=== PATIENT | female | born 1940 | race Caucasian/White ===

== ENCOUNTER 2017-07-20 05:32 | Emergency (ER) | payer MEDICARE, OTHER, SELFPAY ==
[2017-07-20 05:33] VITALS: BP 127/79; PULSE 85; RESP 18; TEMP 36.7; O2SAT 97; BMI 31.8
--- NOTE | 2017-07-20 05:44 | RAD_ITS ---
STUDY: X-RAY CHEST REASON FOR EXAM: Female, 76 years old. Cold symptoms. TECHNIQUE: PA and lateral views of the chest. COMPARISON: Prior comparison studies are not available for review at this time. FINDINGS: There is hyperinflation of the lungs consistent with chronic obstructive lung disease (COPD). There is a left basilar pulmonary nodule measuring approximately 10.4 mm. This may be partially calcified. There is no demonstrated pleural abnormality. Normal size heart. Normal mediastinum and ioana. Normal visualized pulmonary arteries. There is atherosclerotic calcification of the aortic arch with tortuosity. There is demineralization of the osseous structures. There are degenerative changes of both shoulders and thoracic spine. There is no demonstrated abnormality of the visualized soft tissue structures of the upper abdomen. RAD/Chest PA and Lateral IMPRESSION: 1. Left basilar pulmonary nodule. 2. COPD without radiographic evidence of acute cardiopulmonary disease. Electronically Signed: Sherita Bhakta MD at 6:41 EDT , Service support ,
[2017-07-20 05:51] VITALS: O2SAT 93
[2017-07-20] MEDS: Ipratropium/Albuterol Sulfate 3 ML AMPUL.NEB INHALATION (05:55)
[2017-07-20] MEDS: Albuterol 2.5 MG/3 ML VIAL.NEB. INHALATION (05:55)
[2017-07-20 05:57] VITALS: PULSE 71; RESP 16
--- NOTE | 2017-07-20 07:11 | ED.VISSUMM ---
- ER Visit Summary Date of Service: 07/20/17 Chief Complaint: Cough History of Present Illness: The patient is a 76 F who initially felt that she just had a cold. She has had 1 week of cough nasal congestion and feeling like her ears are plugged. She also reports sore throat and chills but no documented fevers. She denies any chest pain or shortness of breath. She states she has not been sleeping well due to her symptoms. Given the length of symptoms she presented here today for evaluation. No vomiting or diarrhea. Physical Examination: Afebrile vitals are normal No distress resting comfortably Moist mucous membranes Heart regular rate and rhythm Patient has scattered expiratory wheezing she is not in respiratory distress she does not have increased work of breathing or retractions and is speaking in full sentences Test Results: Chest x-ray shows a left pulmonary nodule and changes consistent with COPD no acute process. Emergency Department Course and Treatment: Patient was treated with albuterol and Atrovent aerosols here with improvement. Her vitals are normal. Her cough is nonproductive. I believe her symptoms are more consistent with bronchitis and bronchospasm than bacterial infection. I do not see an indication for antibiotics. She was given a prescription for prednisone and albuterol MDI she was advised to follow-up with her primary care physician. She understands to return for new or worsening symptoms and was discharged home. Treatment Plan: [] Disposition: Discharge Impression: Bronchitis with wheezing This note was generated with [employer] dictation software. It may contain incorrect words, spelling, and punctuation that were not noted in review of the chart prior to signing ED Disposition - Plan for ED Patient: Chief Complaint: Cough Referrals: Mary Beth Fuller MD [Primary Care Provider] -
--- NOTE | 2017-07-20 07:13 | ED.DEP ---
ED Disposition - Plan for ED Patient: Chief Complaint: Cough Instructions: ED Bronchitis Asthmatic Prescriptions: Albuterol Inhaler [Ventolin Hfa] 1 - 2 puff INHALATION Q4H PRN PRN #1 inhaler PRN Reason: Wheezing Prednisone [Deltasone] 60 mg PO DAILY #15 tab Referrals: Mary Beth Fuller MD [Primary Care Provider] -
[2017-07-20 07:26] VITALS: BP 140/63; PULSE 67; RESP 18; O2SAT 95
== END 2017-07-20 07:32 | disposition home or self-care (01) ==
LOC: ED 05:46
PROVIDERS: Emergency Provider Emergency Medicine; Family Provider Internal Medicine; PCP Internal Medicine
DX: J40 Bronchitis, not specified as acute or chronic (principal); R06.2 Wheezing; J44.9 Chronic obstructive pulmonary disease, unspecified; R91.1 Solitary pulmonary nodule; J02.9 Acute pharyngitis, unspecified; Z79.899 Other long term (current) drug therapy
CPT/HCPCS: 71046; 94640; 99282

== ENCOUNTER 2018-08-21 13:24 | Emergency (ER) | payer MEDICARE, OTHER, SELFPAY ==
[2018-08-21 13:26] VITALS: BP 119/58; PULSE 69; RESP 18; TEMP 36.7; O2SAT 95; BMI 27.8
--- NOTE | 2018-08-21 13:45 | EKG12_ITS ---
Test Reason : FALL Blood Pressure : / mmHG Vent. Rate : 060 BPM Atrial Rate : 060 BPM P-R Int : 190 ms QRS Dur : 082 ms QT Int : 458 ms P-R-T Axes : 010 -12 007 degrees QTc Int : 458 ms Normal sinus rhythm Minimal voltage criteria for LVH, may be normal variant Borderline ECG Confirmed by SILVIA SANCHEZ, MONICA ([id number]), newspaper editor managing ZACK BARRETT ([id number]) on 08/23/2018 9:21:00 AM Referred By: PACO Confirmed By:MONICA VEGA MD
[2018-08-21] MEDS: Morphine 2 MG/ML Syringe IV (14:03)
[2018-08-21] MEDS: Ondansetron 4 MG/2 ML Vial IV (14:04)
[2018-08-21 14:05] LABS: Absolute Lymphocyte Count 2.38 X10^3/ul (0.83-4.51); Absolute Neutrophil Count 3.8 X10^3/uL (2.0-7.7); Basophil# 0.05 X10^3/uL; Basophil% 0.7 % (0-1); Eosinophil# 0.46 X10^3/uL; Eosinophils% 6.6 % (0-5); Hematocrit 39.4 % (37-47); Lymphocyte # 2.38 X10^3/ul (4.0); Lymphocyte % 34.4 % (19-41); Mean Corpuscular Hgb 31.2 pg (27.0-32.0); Mean Corpuscular Volume 94.5 fL (81-99); Mean Platelet Vol. 10.1 fl (6.2-12.0); Monocyte# 0.22 X10^3/uL; Monocyte% 3.2 % (0-10); Neutrophil # 3.78 X10^3/uL (2.7-7.7); Neutrophil % 54.7 % (47-70); POSITIVE COUNT NO; POSITIVE DIFFERENTIAL NO; POSITIVE MORPHOLOGY NO; Platelet Count 225 K/mm3 (150-450); RBC Distribution Width CV 13.6 % (11.6-14.6); RBC Distribution Width SD 47.1 fl (35.1-43.9); Red Blood Count 4.17 M/mm3 (4.2-5.4); White Blood Count 6.9 K/mm3 (4.4-11.0)
--- NOTE | 2018-08-21 14:15 | RAD_ITS ---
STUDY: X-RAY CHEST REASON FOR EXAM: Female, 78 years old. Trauma and pain TECHNIQUE: Single AP portable view of the chest. COMPARISON: 07/20/2017 FINDINGS: The lungs are clear and expanded. There is no demonstrated pleural abnormality. Normal size heart. Normal mediastinum and ioana. Normal visualized pulmonary arteries. Normal visualized aortic arch and descending thoracic aorta. Normal visualized thoracic spine. There is an acute, nondisplaced right humeral neck fracture. No dislocation. There is no demonstrated abnormality of the visualized soft tissue structures of the upper abdomen. RAD/Chest 1 View (Portable) IMPRESSION: Acute, nondisplaced right humeral neck fracture. No dislocation. Normal x-ray examination of the chest. Electronically Signed: Bacilio Bowser, at 15:10 EDT Tel , Service support ,
--- NOTE | 2018-08-21 14:15 | RAD_ITS ---
STUDY: X-RAY - RIGHT HUMERUS REASON FOR EXAM: Female, 78 years old. Pain and trauma TECHNIQUE: 2 view(s) of the humerus. COMPARISON: None. FINDINGS: Acute nondisplaced right humeral neck fracture. No dislocation. Remaining osseous structures are intact. There is no demonstrated soft tissue abnormality. RAD/Humerus min 2 Views IMPRESSION: See above. Electronically Signed: Bacilio Bowser, at 15:11 EDT Tel , Service support ,
--- NOTE | 2018-08-21 14:15 | RAD_ITS ---
STUDY: X-RAY - RIGHT RADIUS AND ULNA REASON FOR EXAM: Female, 78 years old. Fall. Pain. TECHNIQUE: 2 view(s) of the forearm. An oblique and lateral views were obtained. There is no frontal view. COMPARISON: None. FINDINGS: There is no demonstrated soft tissue swelling. There is generalized osteopenia. Normal visualized radius. Normal visualized ulna. RAD/Forearm 2 Views IMPRESSION: Osteopenia with no acute finding. Electronically Signed: Nic Cornejo MD at 14:32 EDT , Service support ,
[2018-08-21 14:19] LABS: ALB/GLOB Ratio 1.3 RATIO (0.9-2.4); AST(SGOT) 15 U/L (15-37); Alanine Aminotransfer ALT/SGPT 19 U/L (13-56); Albumin, Serum 3.9 g/dL (3.2-5.0); Alkaline Phosphatase 118 U/L (45-117); Anion Gap 9 (5-15); BUN 8 mg/dL (7-18); BUN/Creat Ratio 10.2 RATIO (10-20); Calcium,Total 8.3 mg/dL (8.5-10.1); Chloride 106 mmol/L (98-107); Creatinine, Serum 0.78 mg/dL (0.55-1.02); EST Glomerular Filtration Rate 76 mL/min (>60); Est Glom Filt Rate - Afr Amer 91 mL/min (>60); Estimated Creatinine Clearance 37.26 ml/min; Globulin 2.9 g/dL (2.2-4.2); Glucose 111 mg/dL (74-106); Potassium 3.6 mmol/L (3.5-5.1); Protein, Total 6.8 g/dL (6.4-8.2); Sodium Level 141 mmol/L (136-145)
--- NOTE | 2018-08-21 14:55 | ED.VISSUMM ---
- ER Visit Summary Date of Service: 08/21/18 Chief Complaint: Right shoulder injury History of Present Illness: The patient is a 78 F with a fall while standing up and digging holes. No loss of consciousness no nausea vomiting no head injury neck pain no chest pain shortness of breath fever or chills. She does not feel dizzy. Physical Examination: Not appear in acute distress. Moist mucous membranes, no obvious facial deformity No C-spine tenderness supple neck. Regular rate and rhythm without any obvious murmurs Clear lungs bilaterally speaking in full sentences without any obvious respiratory distress Abdomen soft and nontender no guarding or rebound She has tenderness over the proximal humerus region, some pain in the forearm but its ill-defined. No clavicle tenderness. Skin does not show any obvious rashes or lesions, no trauma. Alert oriented ?3 with no gross focal deficit Emergency Department Course and Treatment: She is found to have a proximal humerus fracture. She otherwise has a normal work-up, I will discharge her in stable condition with sling and swathe. She is to follow-up with orthopedics Treatment Plan: Discharge stable condition Impression: Proximal humerus fracture This note was generated with [employer] dictation software. It may contain incorrect words, spelling, and punctuation that were not noted in review of the chart prior to signing ED Disposition - Plan for ED Patient: Disposition: Home or Assisted Living Instructions: ED Mechanical Fall, ED Fx Shoulder Prescriptions: Hydrocodone Bitart/Apap 5-325 [[place] 5MG-325MG] 1 tab PO Q6H PRN PRN 3 Days #12 tab PRN Reason: Pain Referrals: Ryan Vanessa DO [STAFF PHYSICIAN] - 3-5 Days
--- NOTE | 2018-08-21 14:59 | ED.DCSUM_ITS ---
- ER Visit Summary Date of Service: 08/21/18 Chief Complaint: Right shoulder injury History of Present Illness: The patient is a 78 F with a fall while standing up and digging holes. No loss of consciousness no nausea vomiting no head injury neck pain no chest pain shortness of breath fever or chills. She does not feel dizzy. Physical Examination: Not appear in acute distress. Moist mucous membranes, no obvious facial deformity No C-spine tenderness supple neck. Regular rate and rhythm without any obvious murmurs Clear lungs bilaterally speaking in full sentences without any obvious respiratory distress Abdomen soft and nontender no guarding or rebound She has tenderness over the proximal humerus region, some pain in the forearm but its ill-defined. No clavicle tenderness. Skin does not show any obvious rashes or lesions, no trauma. Alert oriented ?3 with no gross focal deficit Emergency Department Course and Treatment: She is found to have a proximal humerus fracture. She otherwise has a normal work-up, I will discharge her in stable condition with sling and swathe. She is to follow-up with orthopedics Treatment Plan: Discharge stable condition Impression: Proximal humerus fracture This note was generated with [employer] dictation software. It may contain incorrect words, spelling, and punctuation that were not noted in review of the chart prior to signing ED Disposition - Plan for ED Patient: Disposition: Home or Assisted Living Instructions: ED Mechanical Fall, ED Fx Shoulder Prescriptions: Hydrocodone Bitart/Apap 5-325 [[place] 5MG-325MG] 1 tab PO Q6H PRN PRN 3 Days #12 tab PRN Reason: Pain Referrals: Ryan Vanessa DO [STAFF PHYSICIAN] - 3-5 Days
[2018-08-21 15:51] VITALS: BP 136/78; PULSE 68; RESP 18; O2SAT 95
== END 2018-08-21 16:39 | disposition home or self-care (01) ==
PROVIDERS: Emergency Provider Emergency Medicine; Family Provider Internal Medicine; PCP Internal Medicine
DX: S42.201A Unspecified fracture of upper end of right humerus, initial encounter for closed fracture (principal); X58.XXXA Exposure to other specified factors, initial encounter; Y93.H1 Activity, digging, shoveling and raking; Y92.9 Unspecified place or not applicable; Y99.9 Unspecified external cause status; K21.9 Gastro-esophageal reflux disease without esophagitis; Z79.899 Other long term (current) drug therapy
CPT/HCPCS: 71045; 73060; 73090; 80053; 84484; 85025; 93005; 96361; 96374; 96375; 99285; J7040; A4216; J2405

== ENCOUNTER → 2018-08-25 10:34 | Outpatient (CLI) | payer MEDICARE, OTHER, SELFPAY ==
[2018-08-25 08:18] VITALS: BMI 27.8
--- NOTE | 2018-08-25 10:37 | RAD_ITS ---
STUDY: X-RAY - RIGHT SHOULDER REASON FOR EXAM: Female, 78 years old. History of fracture. TECHNIQUE: 4 view(s) of the shoulder. COMPARISON: Comparison is made with prior study dated August 21, 2018. FINDINGS: Normal glenohumeral articulation. There is degenerative arthrosis of the acromioclavicular joint without inferior osseous spur formation. Normal acromion. Stable appearance of the impacted nondisplaced transverse fracture of the humeral surgical neck with extension to the greater tuberosity. The soft tissue structures are unremarkable. Normal visualized pulmonary apex. RAD/Shoulder min 2 Views IMPRESSION: Stable examination. Electronically Signed: Wei Valerio, at 15:48 EDT , Service support ,
== END ==
PROVIDERS: Family Provider Internal Medicine; PCP Internal Medicine; Referring Provider Orthopaedic Surgery; Visit Provider Orthopaedic Surgery
DX: S42.90XA Fracture of unspecified shoulder girdle, part unspecified, initial encounter for closed fracture (principal); X58.XXXA Exposure to other specified factors, initial encounter; Y93.9 Activity, unspecified; Y92.9 Unspecified place or not applicable; Y99.9 Unspecified external cause status
CPT/HCPCS: 73030

== ENCOUNTER 2018-08-29 14:51 | Observation (INO) | payer MEDICARE, OTHER, SELFPAY ==
[2018-08-25 08:18] VITALS: BMI 27.8
[2018-08-28 11:18] VITALS: BMI 27.8
[2018-08-29] VITALS (9 sets, daily range): BP systolic 120–138; BP diastolic 46–79; PULSE 68–86; RESP 16–18; TEMP 36.1–37.2; O2SAT 93–100; BMI 29.6
--- NOTE | 2018-08-29 10:26 | PCM.HP.BLA ---
History and Physical Date of Admission: 08/29/18 MR#: [id number] Acct: [id number] Name: OSMANI STONE Rep #: [id number] : 1940 Provider: Ryan Vanessa DO Age/Sex: 78/F Location: [facility] – [place] Status: ISigned Intake Vital Signs 08/28/18 Body Mass Index (BMI) 27.8 Intake Visit Reasons: right shoulder Allergies acetaminophen [From Tylenol] Allergy (Verified 08/28/18 13:50) Chest tightness Medications Atorvastatin Calcium [Lipitor] 10 mg PO QHS 02/24/17 [History Confirmed 08/28/18] Omeprazole [Prilosec] 20 mg PO DAILY 02/24/17 [History Confirmed 08/28/18] Sertraline HCl [Zoloft] 50 mg PO DAILY 02/24/17 [History Confirmed 08/28/18] Naproxen [Naprosyn] 500 mg PO BID PRN 08/21/18 [History Confirmed 08/28/18] PFSH Social History Smoking Status: Never smoker HPI right shoulder: Surgical H&P: Yes Details: Parts of this documentation were recorded by a scribe, this documentation accurately reflects the service provided and the decisions made by , GREGORIO Linton 08/28/18 1110. OSMANI STONE is a 78 year old F here today for right shoulder fx. Patient states she is here today to sign consent for surgery. Patient has been in sling since her appt on 08/25/18. Denies numbness, tingling or other associated symptoms.STates she is having pain from her right shoulder to her right wrist. She does not like the idea of being immobilized and wishes to proceed with ORIF for earlier range of motion exercise ROS Const Reports system reviewed and no additional complaints, except as docu Eyes Reports system reviewed and no additional complaints, except as docu ENT Reports system reviewed and no additional complaints, except as docu Card Reports system reviewed and no additional complaints, except as docu Resp Reports system reviewed and no additional complaints, except as docu GI Reports system reviewed and no additional complaints, except as docu Musc Reports system reviewed and no additional complaints, except as docu, Reports as per HPI Skin/Breast Reports system reviewed and no additional complaints, except as docu Neuro Yes system reviewed and no additional complaints, except as docu Psych Reports system reviewed and no additional complaints, except as docu Endo Reports system reviewed and no additional complaints, except as docu [place]/Lymph Reports system reviewed and no additional complaints, except as docu Aller/Immun Reports system reviewed and no additional complaints, except as docu Ortho Exam Right Shoulder SHOULDER: unable to contract deltoid, with decreased sensation over deltoid Supplemental Info 08/25/2018 x-ray right shoulder surgical neck fracture with valgus angulation and displacement Assessment & Plan Problems 1. Other closed displaced fracture of proximal end of right humerus with routine healing, subsequent encounter S42.430T Plan - GREGORIO Linton Instructed not to lift anything with the right arm until after surgery. Reviewed the pre-operative plans with the patient. Risks and benefits of the procedure were fully explained, including but not limited to infection, neurovascular injury, continued pain, arthritis, stiffness, need for further surgery, re-injury, DVT, PE, general risks of anesthesia, and loss of limb or life. The patient understands all the risks and does wish to proceed with written consent. Follow up post op or sooner if pain, swelling, numbness or associated symptoms, or concerns develop. All questions answered. Patient in agreement of plan. Plan - Ryan Vanessa, DO Patient understands she may already have a neuropraxia of the axillary nerve secondary to injury. Coding Diagnoses Other closed displaced fracture of proximal end of right humerus with routine healing, subsequent encounter S42.797D ??Encounter type: subsequent encounter ??Fracture alignment: displaced ??Fracture healing: with routine healing ??Fracture morphology: other fracture ??Fracture type: closed ??Humerus Location: proximal 08/28/18 1516 <Electronically signed by Noel PERKINS> Date oNel PERKINS I have re-examined the patient. There are no clinical changes since date of exam
[2018-08-29] MEDS: Cefazolin 2 GM in 0.9% Normal Saline 100 ML IV ×2 (12:56→20:33)
--- NOTE | 2018-08-29 12:56 | RAD_ITS ---
STUDY: X-RAY - RIGHT HUMERUS REASON FOR EXAM: Female, 78 years old. Fracture repair. TECHNIQUE: Fluoroscopic guidance was provided to Dr. Vanessa. 3 fluoroscopic spot view(s) of the humerus are submitted. FLUOROSCOPY TIME: 70 seconds. COMPARISON: Plain film views of the right shoulder August 25, 2018. FINDINGS: The fracture of the proximal right humerus is fixed in rough anatomic alignment by a lateral metal sideplate secured with numerous metal screws into the humeral head and proximal humeral diaphysis. The articular surface of the humeral head remains in anatomic alignment with the glenoid of the scapula. Lucency in the adjacent soft tissues consistent with an open surgical wound. RAD/Humerus min 2 Views IMPRESSION: Fluoroscopic guidance for ORIF of proximal right humeral fracture with metal hardware, as noted. Electronically Signed: Galileo Dunne MD at 19:32 EDT , Service support ,
--- NOTE | 2018-08-29 15:03 | OP.PCM_ITS ---
Report of Operation Date of Procedure: 08/29/18 Description of Surgical Findings:: Preoperative diagnosis: Right proximal humerus surgical neck greater tuberosity fracture displaced three-part Postoperative diagnosis: Same Procedure: Open reduction internal fixation right proximal humerus Implants: Synthes 3 hole proximal humerus plate Anesthesia: General with interscalene block EBL: 150 Complications: None Condition: Stable to PACU Indication for procedure: This is a 78-year-old female patient who sustained an injury to her right proximal humerus with PA for mention fracture we discussed operative versus nonoperative intervention patient initially wished for conservative care and then followed up following week requesting surgical fixation with the attempt to restore earlier range of motion to her shoulder. Risk benefits and alternatives were reviewed including risk of bleeding infection nerve, artery, bone, tissue damage, blood clot need for further surgery and continued pain, stiffness and need for postoperative physical therapy rehabilitation and postoperative restrictions. Procedure: Patient was met the preoperative holding area. Once again the operative extremity was identified by both patient and physician and was marked. Patient was met by anesthesia and interscalene block was placed by anesthesia. Patient was brought back to the operating room and transferred to the operating table in the supine position. Anesthesia was started. Patient was then positioned a bump under her right scapula and she was positioned with the head of the bed elevated about 45 degrees C arm was brought in from the contralateral side to assure we could achieve both AP and Y view projections she was then prepped and draped in the usual sterile fashion and a timeout was called to ensure the proper patient procedure and extremity were being contemplated. A standard deltopectoral approach was performed with a 10 blade scalpel dissection was carried down as full-thickness flaps until the deltopectoral interval was identified the cephalic vein was mobilized medially subdeltoid bursal adhesions were freed with a Gonzalez and the fracture was identified fracture was reduced with forward flexion and abduction K wires were placed into the humeral head to aid in the reduction a plate was then positioned temporarily with K wires checked under fluoroscopy and then secured to the shaft with cortical screws and locking screws in the head is were checked on both AP and lateral projections. The wou nd was thoroughly irrigated with several liters of irrigation followed by Aricept rinse which was allowed to sit for 2 minutes followed by several more liters of irrigation the deltopectoral interval was closed with 2-0 Vicryl running stitch followed by 2-0 Vicryl subcutaneous stitches followed by 3-0 Monocryl stitch benzoin and Steri-Strips were applied followed by Xeroform 4 x 4 ABD and Ioban a simple sling was placed she was transferred the PACU in stable condition all counts were correct there is no intraoperative complications.
[2018-08-29] MEDS: Lactated Ringers 1,000 ML 125 ML IV (18:25)
[2018-08-29] MEDS: Atorvastatin Calcium 10 MG Tablet PO (20:33)
[2018-08-29] MEDS: oxyCODONE 5 MG Tablet PO (20:33)
[2018-08-29] MEDS: HYDROmorphone 0.5 MG/0.5 ML SYRINGE IV (21:17)
[2018-08-30] MEDS: oxyCODONE 5 MG Tablet PO ×3 (00:43→10:51)
[2018-08-30 02:05] VITALS: BP 126/52; PULSE 77; RESP 18; TEMP 36.7; O2SAT 96
[2018-08-30] MEDS: Cefazolin 2 GM in 0.9% Normal Saline 100 ML IV (05:08)
--- NOTE | 2018-08-30 07:33 | DCINST_ITS ---
Discharge Diet: No Restrictions Additional Activity Instructions:: Encourage finger and elbow range of motion immediately. Start shoulder pendulum exercises when pain allows and progressed to active range of motion when capable Call your doctor if you observe: Fever of 101 or Higher, Shortness of breath, Chest pain Additional Instructions: Begin showering postop day #3 and then daily at that point warm soapy water and shower over incision. No tub baths then change dressing daily at this point Allergies/Adverse Reactions: Allergies acetaminophen [From Tylenol] Allergy (Verified 08/29/18 09:33) Chest tightness Medications to take at Discharge Atorvastatin Calcium [Lipitor] 10 mg PO QHS 02/24/17 Omeprazole [Prilosec] 20 mg PO DAILY 02/24/17 Sertraline HCl [Zoloft] 50 mg PO DAILY 02/24/17 Naproxen [Naprosyn] 500 mg PO BID PRN 08/21/18 Oxycodone [Oxyir] 5 - 10 mg PO Q4H PRN PRN 7 Days #60 tablet 08/30/18 The following prescriptions were given: Oxycodone [Oxyir] 5 - 10 mg PO Q4H PRN PRN 7 Days #60 tablet PRN Reason: Mild-Mod Pain (-08/04) Primary Care Physician: Mary Beth Fuller MD [Primary Care Provider] - Test Results: Test results from this visit will be discussed in further detail at your follow- up appointment, if applicable. Please Follow Up With: Ryan Vanessa DO - 2 weeks
--- NOTE | 2018-08-30 07:33 | PCM.DC.SUM ---
Discharge Date and Diagnosis Date of Admission: 08/29/18 Date of Discharge: 08/30/18 Hospital Course and Treatment Summary of Care Provided: The patient is a 78 year old F with displaced proximal humerus fracture who wished to undergo elective open reduction internal fixation to start earlier range of motion. She underwent the aforementioned procedure on the admission date without any intraoperative complications she did receive interscalene block and general anesthesia. There was minimal intraoperative blood loss. She remained stable with vital signs and labs postoperatively. She is allowed active range of motion of the right upper extremity with no weight to it. She may begin showering 72 hours after her short surgery and daily after this point recommend changing dressing with ABD pad and silk tape daily once showering begins start home physical therapy follow-up in the office in 2 weeks. - Physical Exam Vital Signs Temp Pulse Resp BP Pulse Ox 98.1 F 77 18 126/52 H 96 08/30/18 02:05 08/30/18 02:05 08/30/18 02:05 08/30/18 02:05 08/30/18 02:05 Oxygen Flow Rate (L/min) 2 Oxygen Delivery Method Room Air Weight: 162 lb 0.636 oz Body Mass Index (BMI) 29.6 Intake and Output for Last 24 Hours 08/28/18 08/29/18 08/30/18 23:59 23:59 23:59 Intake Total 3640 / 3640 709 / 709 Output Total 300 / 300 150 / 150 Balance 3340 / 3340 559 / 559 Discharge Diet: No Restrictions Additional Activity Instructions:: Encourage finger and elbow range of motion immediately. Start shoulder pendulum exercises when pain allows and progressed to active range of motion when capable Call your doctor if you observe: Fever of 101 or Higher, Shortness of breath, Chest pain Home Medications: Medications to take at Discharge Atorvastatin Calcium [Lipitor] 10 mg PO QHS 02/24/17 Omeprazole [Prilosec] 20 mg PO DAILY 02/24/17 Sertraline HCl [Zoloft] 50 mg PO DAILY 02/24/17 Naproxen [Naprosyn] 500 mg PO BID PRN 08/21/18 Oxycodone [Oxyir] 5 - 10 mg PO Q4H PRN PRN 7 Days #60 tablet 08/30/18 Following Prescrptions Were Given to Patient: Oxycodone [Oxyir] 5 - 10 mg PO Q4H PRN PRN 7 Days #60 tablet PRN Reason: Mild-Mod Pain (-08/04) Primary Care Physician: Mary Beth Fuller MD [Primary Care Provider] - Please Follow Up With: Ryan Vanessa DO - 2 weeks Additional Instructions: Begin showering postop day #3 and then daily at that point warm soapy water and shower over incision. No tub baths then change dressing daily at this point Medical Necessity - Tobacco Use Smoking Status: Never smoker Tobacco Use: Non-smoker Meaningful Use Info Meaningful Use Diagnoses (Choose all that apply): None applicable
--- NOTE | 2018-08-30 09:55 | CASEMGMT ---
CHARLIE MACEDO Face to Face with patient for initial transition planning/care coordination assessment. RN CM introduced self and role at [facility]. Patient lying in bed, alert and oriented, son at bedside. Patient willing to participate in assessment and is able to answer all questions appropriately. Care providers, pharmacy, and demographics verified. Patient wishes to discharge home with C for therapy and aide for bathing. List provided to patient and would like [facility]. Referral made to [facility] and they are able to accept the patient. Patient states she has no further needs or concerns at this time. CM to follow for discharge planning needs that may arise. PCP: Alina Specialists: [facility] Pharmacy: [facility] Insurance: [facility], [employer] Prescription Benefit: yes Living Will/HPOA: yes, son Tremaine Patsolic LNOK: son Living Arrangements: Patient lives alone in first floor apartment. Transportation: son DME/HHC: Denies DME, inquired about grab bars and shower chair, instructed those would have to be out of pocket. HHC setup with [facility]. Disposition Plan: Patient to discharge home with [facility], family support, and follow-up plans in place. Meghana RICHARDS, RN, CM
[2018-08-30] MEDS: Sertraline 50 MG Tablet PO (10:51)
[2018-08-30] MEDS: Pantoprazole Sodium 20 MG Tablet PO (10:51)
[2018-08-30 10:55] VITALS: BP 116/50; PULSE 65; RESP 18; TEMP 36.7; O2SAT 96
== END 2018-08-30 12:25 | disposition home health service (06) ==
LOC: MS3 15:16
PROVIDERS: Admitting Provider Orthopaedic Surgery; Family Provider Internal Medicine; PCP Internal Medicine; Referring Provider Orthopaedic Surgery; Visit Provider Orthopaedic Surgery
PROC: (CPT 23472; principal; 2018-08-29 10:20)
DX: S42.231A 3-part fracture of surgical neck of right humerus, initial encounter for closed fracture (principal); X58.XXXA Exposure to other specified factors, initial encounter; Y92.9 Unspecified place or not applicable; Z79.899 Other long term (current) drug therapy; K21.9 Gastro-esophageal reflux disease without esophagitis; E78.00 Pure hypercholesterolemia, unspecified
CPT/HCPCS: 01630; 23615; 64415; 73060; 76000; 96361; 96365; 96366; 96375; 99218; C1713; J7030; J7120; G0378; G0379

== ENCOUNTER → 2018-10-12 08:10 | Outpatient (CLI) | payer MEDICARE, OTHER, SELFPAY ==
[2018-09-14 10:10] VITALS: BMI 29.6
--- NOTE | 2018-10-12 08:12 | RAD_ITS ---
STUDY: X-RAY - RIGHT SHOULDER REASON FOR EXAM: Female, 78 years old. Two-month postop TECHNIQUE: 2 view(s) of the shoulder. COMPARISON: Previous intraoperative study of 08/29/2018 FINDINGS: There is mild degenerative arthrosis of the glenohumeral articulation. Normal acromioclavicular joint. Normal acromion. Status post ORIF changes with plate and multiple screws of the previously noted right humeral neck fracture are noted. The fracture appears in good alignment. Bone union has not occurred as of yet. The soft tissue structures are unremarkable. Normal visualized pulmonary apex. RAD/Shoulder min 2 Views IMPRESSION: Status post ORIF changes with plate and multiple screws previously noted right humeral neck fracture. Fracture is in good position. Bone union is not occurred as of yet. Electronically Signed: Jabier Magallanes MD at 16:51 EDT , Service support ,
== END ==
PROVIDERS: Family Provider Internal Medicine; PCP Internal Medicine; Referring Provider Physician Assistant; Visit Provider Physician Assistant
DX: S42.201A Unspecified fracture of upper end of right humerus, initial encounter for closed fracture (principal); X58.XXXA Exposure to other specified factors, initial encounter; Y93.9 Activity, unspecified; Y92.9 Unspecified place or not applicable; Y99.9 Unspecified external cause status
CPT/HCPCS: 73030

== ENCOUNTER → 2018-11-23 08:32 | Outpatient (CLI) | payer MEDICARE, OTHER, SELFPAY ==
[2018-11-23 08:00] VITALS: BMI 29.6
--- NOTE | 2018-11-23 08:34 | RAD_ITS ---
STUDY: X-RAY - RIGHT SHOULDER REASON FOR EXAM: Female, 78 years old. Follow-up of fracture repair TECHNIQUE: 2 view(s) of the shoulder. COMPARISON: Prior study of 10/12/2018 FINDINGS: There are mild degenerative changes of the glenohumeral articulation. Normal acromioclavicular joint. Normal acromion. Status post ORIF changes with plate and multiple screws stabilizing a right humeral neck fracture are again noted, with osseous structures appearing in good anatomic alignment. Several of the fixation screws involving the humeral head are projecting beyond the confines of the humeral head cortex. The soft tissue structures are unremarkable. Normal visualized pulmonary apex. RAD/Shoulder min 2 Views IMPRESSION: Mild degenerative changes of the glenohumeral articulation. Status post ORIF changes with plate and multiple screws are again noted stabilizing a proximal right humeral neck fracture, with osseous structures appearing in good alignment. Several of the humeral head fixation screw tips are projecting beyond the confines of the humeral head cortex. Electronically Signed: Jabier Magallanes MD at 17:00 EDT , Service support ,
--- NOTE | 2018-11-23 08:34 | RAD_ITS ---
STUDY: X-RAY - RIGHT ELBOW REASON FOR EXAM: Female, 78 years old. Injury 4 months ago TECHNIQUE: 3 view(s) of the elbow. COMPARISON: None. FINDINGS: Normal visualized humerus, radius and ulna. Normal radiocapitellar and ulnotrochlear articulations. The soft tissue structures are unremarkable. RAD/Elbow min 3 Views IMPRESSION: Normal x-ray examination of the elbow. Electronically Signed: Jabier Magallanes MD at 16:56 EDT , Service support ,
== END ==
PROVIDERS: Family Provider Internal Medicine; PCP Internal Medicine; Referring Provider Physician Assistant; Visit Provider Physician Assistant
DX: Z47.89 Encounter for other orthopedic aftercare (principal)
CPT/HCPCS: 73030; 73080

== ENCOUNTER 2018-12-05 14:07 | Observation (INO) | payer MEDICARE, OTHER, SELFPAY ==
[2018-11-23 08:00] VITALS: BMI 29.6
[2018-12-01 08:26] VITALS: BMI 29.6
--- NOTE | 2018-12-04 16:30 | PCM.HP.BLA ---
History and Physical Date of Admission: 12/05/18 Intake Vital Signs 12/01/18 Body Mass Index (BMI) 29.6 Intake Visit Reasons: right humerus Chief Complaint: POST OP RIGHT SHOULDER Allergies acetaminophen [From Tylenol] Allergy (Verified 08/29/18 09:33) Chest tightness [facility] Social History (Updated 12/01/18 @ 10:15 by Ryan Vanessa DO) Smoking Status: Never smoker HPI right humerus: Details: Parts of this documentation were recorded by a scribe, this documentation accurately reflects the service provided and the decisions made by me, Ryan Vanessa DO 12/01/18 [id number]. OSMANI STONE is a 78 year old F here today for 12 week F/U post proximal right humerus ORIF DOS:08/29/18. Patient has been in PT. Patient is unable to reach across chest d/t her pain in her biceps. Patient has limited forward elevation and limited abduction this day. Denies numbness, tingling or other associated symptoms. Has been taking 1 220mg Aleve BID for her pain which she states is pretty minor. Has about 8 more sessions of PT at this time. Patient is here to further discuss her surgery. Patient continues have pain over her right shoulder. Patient is here for follow-up phone conversation with her and her son her son is present with her today we discussed that her fracture has collapsed causing screw penetration through the articular surface however the fracture itself has healed concern is for further damage from screw penetration on the glenoid surface. ROS Const Reports system reviewed and no additional complaints, except as docu Eyes Reports system reviewed and no additional complaints, except as docu ENT Reports system reviewed and no additional complaints, except as docu Card Reports system reviewed and no additional complaints, except as docu Resp Reports system reviewed and no additional complaints, except as docu GI Reports system reviewed and no additional complaints, except as docu Musc Reports system reviewed and no additional complaints, except as docu, Reports as per HPI Skin/Breast Reports system reviewed and no additional complaints, except as docu Neuro Yes system reviewed and no additional complaints, except as docu Psych Reports system reviewed and no additional complaints, except as docu Endo Reports system reviewed and no additional complaints, except as docu [place]/Lymph Reports system reviewed and no additional complaints, except as docu Aller/Immun Reports system reviewed and no additional complaints, except as docu Ortho Exam Right Elbow Skin/Wound: No eccymosis, No erythema, No Swelling Sensation: Radial: I, Ulnar: I, Median: I Right Shoulder Skin/Wound: Yes healed, No ecchymosis, No erythema, No swelling Testing: Positive AROM-External Rotation at side 0-60 (Almost full range of motion comparable to the left side); negative TTP Biceps, TTP AC Joint or AROM-Forward Elevation 0-180 (92) Internal Rotation: L4 SHOULDER: Patient has no acute abnormality on inspection. Her incision site has healed well with minimal scarring. There is no inflammation, swelling, or skin changes around the incision site. Patient has no tenderness on palpation around the incision. There is evident decreased range of motion compared to the left shoulder notably with abduction, forward elevation, and internal rotation. There is still some decreased strength compared to the left shoulder as well. She has some mild pain with motion most notably internal rotation. patient has normal sensation throughout the entire extremity. She has good distal pulses and normal capillary refill. Assessment & Plan Problems 1. Orthopedic aftercare Z47.89 2. Displacement of internal fixation device of right humerus, subsequent encounter T84.120D Plan Patient educated that her screws have pressed through the humeral head and this is then rubbing over her right shoulder joint. Recommended that the plate and screws be removed since the fracture is healed. Reviewed the pre-operative plans with the patient. Risks and benefits of the procedure were fully explained, including but not limited to infection, neurovascular injury, continued pain, arthritis, stiffness, need for further surgery, re-injury, DVT, PE, general risks of anesthesia, and loss of limb or life. The patient understands all the risks and does wish to proceed with written consent. Educated that she will be completing therapy after the hardware removal. Patient educated that she will more than likely have some incision soreness. We will prescribe that patient tramadol as she states she had withdrawal symptoms last time using oxycodone. Patient educated that her pain over her biceps is more than likely from the biceps tenotomy and from PT. Patient wishes to proceed with removal of hardware of right proximal humerus Follow up 2 weeks post op or sooner if pain, swelling, numbness or associated symptoms, or concerns develop. All questions answered. Patient in agreement of plan. Coding Level of Care Code Global Post Op Diagnoses Orthopedic aftercare Z47.89 Displacement of internal fixation device of right humerus, subsequent encounter T84.120D ??Device complication type: mechanical ??Encounter type: subsequent encounter ??Internal fixation site: humerus ??Laterality: right ??Mechanical complication type: displacement ??Ortho device type detail: internal fixation device I have re-examined the patient. There are no clinical changes since date of exam
[2018-12-05] VITALS (13 sets, daily range): BP systolic 116–134; BP diastolic 54–73; PULSE 54–87; RESP 16–18; TEMP 36–36.7; O2SAT 94–100; BMI 27.8
[2018-12-05] MEDS: Lactated Ringers 1,000 ML 100 ML IV (08:45)
[2018-12-05] MEDS: Cefazolin 2 GM in 0.9% Normal Saline 100 ML IV ×2 (09:48→17:48)
--- NOTE | 2018-12-05 10:00 | RAD_ITS ---
STUDY: X-RAY - RIGHT HUMERUS REASON FOR EXAM: Hardware removal. TECHNIQUE: A single fluoroscopic image of the humerus. COMPARISON: Radiographs of the right shoulder 11/23/2018. FINDINGS: There is removal of the orthopedic hardware without demonstrated complication. Electronically Signed: Luther King MD at 13:38 EDT Tel , Service support , RAD/Humerus min 2 Views
--- NOTE | 2018-12-05 11:10 | PCM.OPRPT ---
Report of Operation Date of Procedure: 12/05/18 Description of Surgical Findings:: Preoperative diagnosis: Right proximal humerus fracture status post ORIF with location from screw penetration of articular surface as fracture subsided while healing Postoperative diagnosis: Same Procedure: Removal of hardware right proximal humerus Anesthesia: General postoperative interscalene block EBL: 25 Complications: None Condition: Able to PACU Indication for procedure: 78-year-old female patient who had sustained right proximal humerus fracture who underwent ORIF she was monitored postoperatively and her fracture subsided while healing causing the screws penetrate through the articular surface although the fracture did heal we did discuss removing the corey where to avoid further damage to the socket. Risk benefits alternatives of procedure were reviewed and consent was signed risk benefits and alternatives were reviewed including risk of bleeding infection nerve, artery, bone, tissue damage, blood clot need for further surgery and continued pain avascular necrosis. Procedure: Patient was met in the preoperative holding area once again the operative extremity was identified by both patient and physician was marked. Patient was met by anesthesia and brought back to the operating room and will car transfer the operative table supine position anesthesia was started she was prepped and draped in the usual sterile fashion and a timeout was called to ensure the proper patient procedure and extremity are being contemplated. Her previous incision was used with a 10 blade scalpel this was carried down through the skin and subcutaneous tissue letter cautery was used to maintain hemostasis and the cephalic vein was identified and the deltopectoral interval was used the cephalic vein was mobilized medially there was significant subdeltoid adhesions a Gonzalez was used to free this from the underlying plate as well as a huffman elevator of the overgrowth on the plate the fracture was visualized in the. Healed this plate and screws were then removed the bone and wound were thoroughly irrigated with saline followed by a diluted Betadine rinse followed by an Aricept rinse followed by closure with 2-0 Vicryl and a 3-0 Monocryl and a Mepilex Ag dressing x-rays were taken intraoperatively to ensure all hardware was removed. Patient was brought back to the PACU in stable conditions she will be admitted for observation and will be discharged tomorrow immediate active range of motion.
--- NOTE | 2018-12-05 11:14 | DCINST_ITS ---
Discharge Diet: No Restrictions Call your doctor if you observe: Fever of 101 or Higher, Shortness of breath, Chest pain Additional Instructions: Keep dressing on clean and dry next 72 hours then may remove for first shower then replace with light bandage may shower daily after this point and replace bandage leave Steri-Strips on until they fall off on their own encourage active shoulder range of motion keep weightbearing under 15 pounds for right upper extremity. Call with any concerns follow-up in 2 weeks Allergies/Adverse Reactions: Allergies acetaminophen [From Tylenol] Allergy (Verified 08/29/18 09:33) Chest tightness Medications to take at Discharge Atorvastatin Calcium [Lipitor] 10 mg PO QHS 02/24/17 Omeprazole [Prilosec] 20 mg PO DAILY 02/24/17 Sertraline HCl [Zoloft] 50 mg PO DAILY 02/24/17 Naproxen [Naprosyn] 500 mg PO BID PRN 08/21/18 Primary Care Physician: Mary Beth Fuller MD [Primary Care Provider] - Test Results: Test results from this visit will be discussed in further detail at your follow- up appointment, if applicable. Please Follow Up With: Ryan Vanessa DO - 2 weeks
[2018-12-05] MEDS: Lactated Ringers 1,000 ML 125 ML IV (15:35)
[2018-12-05] MEDS: Ondansetron 4 MG/2 ML Vial IV (18:47)
[2018-12-06] MEDS: Lactated Ringers 1,000 ML 125 ML IV (00:03)
[2018-12-06 02:41] VITALS: BP 106/27; PULSE 57; RESP 16; TEMP 36.7; O2SAT 98
[2018-12-06] MEDS: 0.9% NaCl Peripheral Flush Adult/Peds IV (02:53)
[2018-12-06] MEDS: Cefazolin 2 GM in 0.9% Normal Saline 100 ML IV (02:53)
--- NOTE | 2018-12-06 07:36 | DS.PCM_ITS ---
Discharge Date and Diagnosis Date of Admission: 12/05/18 Date of Discharge: 12/06/18 Hospital Course and Treatment Summary of Care Provided: The patient is a 78 year old F who underwent right proximal humerus ORIF approximately 3 months ago with fracture subsidence and screw penetration through articular surface. We she did have hardware removed without complication. She was admitted overnight for observation she did have some nausea and vomiting which resolved. Pain controlled. She will be allowed immediate active range of motion of the shoulder will start home physical therapy with home health care will follow-up in the office in 2 weeks and will start outpatient therapy at that time she has a 15 pound restriction to right upper extremity. Will be given a prescription for Ultram - Physical Exam General: Alert, Oriented x3, Cooperative, No apparent distress Extremities: - - Dressing clean dry and intact neurovascular intact right upper extremity compartments soft Vital Signs Temp Pulse Resp BP Pulse Ox 98.0 F 57 L 16 106/27 L 98 12/06/18 02:41 12/06/18 02:41 12/06/18 02:41 12/06/18 02:41 12/06/18 02:41 Oxygen Flow Rate (L/min) 2 Oxygen Delivery Method Room Air Weight: 149 lb 11.102 oz Body Mass Index (BMI) 27.8 Intake and Output for Last 24 Hours 12/04/18 12/05/18 12/06/18 23:59 23:59 23:59 Intake Total 2186.25 / 2186.25 1220.42 / 1220.42 Balance 2186.25 / 2186.25 1220.42 / 1220.42 Discharge Diet: No Restrictions Call your doctor if you observe: Fever of 101 or Higher, Shortness of breath, Chest pain Home Medications: Medications to take at Discharge Atorvastatin Calcium [Lipitor] 10 mg PO QHS 02/24/17 Omeprazole [Prilosec] 20 mg PO DAILY 02/24/17 Sertraline HCl [Zoloft] 50 mg PO DAILY 02/24/17 Naproxen [Naprosyn] 500 mg PO BID PRN 08/21/18 traMADol [Ultram] 50 mg PO TID PRN PRN #42 tablet 12/06/18 Following Prescrptions Were Given to Patient: traMADol [Ultram] 50 mg PO TID PRN PRN #42 tablet PRN Reason: Moderate Pain (4-5/10) Transmission Status: Sent to [facility] Primary Care Physician: Mary Beth Fuller MD [Primary Care Provider] - Please Follow Up With: Ryan Vanessa DO - 2 weeks Additional Instructions: Keep dressing on clean and dry next 72 hours then may remove for first shower then replace with light bandage may shower daily after this point and replace b andage leave Steri-Strips on until they fall off on their own encourage active shoulder range of motion keep weightbearing under 15 pounds for right upper extremity. Call with any concerns follow-up in 2 weeks Medical Necessity - Tobacco Use Smoking Status: Never smoker Tobacco Use: Non-smoker Meaningful Use Info Meaningful Use Diagnoses (Choose all that apply): None applicable
[2018-12-06 09:11] VITALS: BP 113/59; PULSE 69; RESP 18; TEMP 36.8; O2SAT 98
[2018-12-06] MEDS: traMADol 50 MG Tablet PO (09:20)
--- NOTE | 2018-12-06 10:00 | CASEMGMT ---
CHARLIE MACEDO Face to Face with patient for initial transition planning/care coordination assessment. RN CM introduced self and role at [facility]. Patient lying in bed, alert and oriented. Patient willing to participate in assessment and is able to answer all questions appropriately. Care providers, pharmacy, and demographics verified. Patient wishes to discharge home and would like . Patient states he has no further needs or concerns at this time. CM to follow for discharge planning needs that may arise. PCP: Alina Specialists: meagan Vanessa Pharmacy: [facility] Insurance: [facility] Prescription Benefit: yes Living Will/HPOA: yes, son Tremaine Sotomayor LNOK: son Living Arrangements: Radha lives alone in first floor apartment. 2 steps to enter home. Patient was independent prior to surgery Transportation: Son DME/HHC: Patient has shower chair, raised toilet, and grab bars. Patient has had [facility] in the past. Patient would like HHC at home at discharge, list provided and prefers [facility]. Referral made to [facility] and they are able to accept the patient Disposition Plan: Patient to discharge home with HHC, family support, and follow-up plans. Meghana RICHARDS, RN, CM
--- NOTE | 2018-12-06 10:03 | NURSING ---
Offered to give 10 am medications to patient. She states she will take them when she gets home.
== END 2018-12-06 10:40 | disposition home health service (06) ==
LOC: SDC 14:13 → MS3 14:14
PROVIDERS: Admitting Provider Orthopaedic Surgery; Family Provider Internal Medicine; PCP Internal Medicine; Referring Provider Orthopaedic Surgery; Visit Provider Orthopaedic Surgery
PROC: (CPT 20680; principal; 2018-12-05 09:15)
DX: T84.120A Displacement of internal fixation device of right humerus, initial encounter (principal); Y79.8 Miscellaneous orthopedic devices associated with adverse incidents, not elsewhere classified; Y92.9 Unspecified place or not applicable; K21.9 Gastro-esophageal reflux disease without esophagitis; E78.00 Pure hypercholesterolemia, unspecified; Z79.899 Other long term (current) drug therapy; F41.9 Anxiety disorder, unspecified
CPT/HCPCS: 01630; 20680; 73060; 76000; 96361; 96365; 96366; 96375; 97162; 99218; J7120; A4216; G0378; G0379; J2405

== ENCOUNTER 2019-01-25 11:00 | Outpatient (RCR) | payer MEDICARE, OTHER, SELFPAY ==
[2018-09-14 08:28] VITALS: BMI 29.6
[2018-09-14 10:10] VITALS: BMI 29.6
--- NOTE | 2018-09-26 15:25 | HP.PTEVAL_ITS ---
Patient's Visit Information OSMANI STONE is a 78 year old F referred to Physical Therapy by GREGORIO Linton with a diagnosis of Humerus Fracture. Date of Evaluation: 09/26/18 Physical Therapist: Darby Aguero DPT - Visit Plan Frequency: 2x /Week Duration: 4 Weeks Plan: Focus on ROM- Passive, AAROM and active. Modality of TENS, heat and ice as needed. HEP Given 09/26/18: Pendulums add soup can as needed, PROM counter walkaway shoulder flexion and scapular retractions - Subjective Findings: Patient reports that on 08/29- fell when gardening and fractured her right arm. Managed to get to her phone and called 911- they took her to the hospital. Found that she had a fractured. They took her into surgery that night and Dr. Millan repaired it with screws and plates. She stayed the night at the hospital- they discharged her home. Had her son with her. Has lots of family support- lives alone-fully I prior to fall. Has been in a sling since then and has been home bound. Is unable to drive. Told her she can't drive until she can move her arm over her head. Patient reports that she has a lot of pain in the whole shoulder- no radiating pain. Describes the pain as sharp/shooting. Worst: 8/10 Agg: moving it to far away from her body There is always an ache in the shoulder. Best: 4/10 Eases: keeping it close to her body. When the MD took her off the medication she started sweating and nauseated- from w/d from pain meds. But no tingling since then. Sleep: does not sleep in the sling- does wake her up. Right hand dominate. Challenged with all ADL's at this time- does have family support as needed. PMHx/ Meds: no changes since saw the MD - Objective Posture: FH, RS, Increased kyphosis- guarding of the right UE in a regular sling. Gait: no LE deviation but does guard right UE- decreased arm swing and trunk rotation. Observation: incision healing well no s/s of infection. Palpation: tender along bicipital groove. Sensation: WNL. ROM: E lbow/Wrist/Finger Dexterity: WNL Shoulder: AROM: flexion: 20 degrees, Abd: 30 degrees, ER: neutral IR: to belly, PROM: flexion: 60 degrees abd: 70 degrees ER: neutral IR: to belly. Strength: not tested secondary to pain - Goals Goal 1:: Patient will be I with HEP and progression Goal Time Frame: 4-6 Weeks Goal 2:: Patient will demo full AROM of the right shoulder Goal Time Frame: 4-6 Weeks Goal 3:: Patient will maintain proper posture t/o tx session to demo increased scap s/s Goal Time Frame: 4-6 Weeks - Rehabilitation Potential Physical Therapy Diagnosis: Patient presents with hypomobility- she has decreased ROM, strength and muscular endurance leading to poor posture and increased pain with ADL's Rehabilitation Potential: Fair - Anticipated Interventions Patient/Client Instruction: Educate patient on: Benefits of Fitness Program Therapeutic Exercise to Include: Strength training, Endurance training, Coordination, Body mechanics, Postural training, Passive ROM, Active ROM, Scapular Strength/Stabilization For the Purpose of:: To improve muscle performance and motor function Manual Therapy Techniques to Include: Passive ROM, Soft tissue mobilization TENS: Yes Cryotherapy (ice pack, ice massage): Yes Thermo therapy (hot pack): Yes Ultrasound (thermal/non thermal): No Thank you for the opportunity to evaluate your patient. For Medicare and Medicare HMO plans, please review the plan of care and approve it. It will need to be FAXED BACK to us at [phone] for Medicare purposes. For Medicare only, by signing this I certify the plan of care. Please let me know if there are questions or concerns regarding this plan of care. Physician Signature: Date:
--- NOTE | 2018-11-02 10:25 | HP.PTREVAL_ITS ---
GREGORIO Linton, It has been my pleasure to treat OSMANI STONE over the last 9 visits for Humerus Fracture. Please see the progress note below for an update on the physical therapy plan of care! Subjective: She feels that her shoulder is pretty good but she has a lot of problems crossing her arm over her chest. The pain is located in the elbow and into the front of the shoulder. Worst: 4/10 but is not constant- sharp/shooting pain. Sleeping is really hard. Goes back to see Nov 23. Feels that she is 80% back to normal activities. Is allowed to drive. Objective/Function: Posture: FH, RS, Increased kyphosis- guarding of the right UE- no sling Gait: no LE deviation good arm swing and trunk rotation Obs ervation: incision healing well no s/s of infection. Palpation: tender along bicipital groove and along the medial border of the scapula. Sensation: WNL. ROM: Elbow/Wrist/Finger Dexterity: WNL Shoulder: AROM: flexion: 110 degrees, Abd: 100 degrees, ER: 60 IR: to belt line- Can place hand behind head with slight compensation. Strength Elbow: 4+/5 Shoulder Isometrics: 4-/5 with discomfort Plan Plan: Continue current POC with focus on ROM, strength and function for 2x a week for 4 weeks. Goals Goal 1:: Patient will be I with HEP and progression Goal Time Frame: 4-6 Weeks Goal Progress: Progressing Goal 2:: Patient will demo full AROM of the right shoulder Goal Time Frame: 4-6 Weeks Goal Progress: Progressing Goal 3:: Patient will maintain proper posture t/o tx session to demo increased scap s/s Goal Time Frame: 4-6 Weeks Goal Progress: Progressing Anticipated Interventions Patient/Client Instruction: Educate patient on: Benefits of Fitness Program Therapeutic Exercise to Include: Strength training, Endurance training, Coordination, Body mechanics, Postural training, Passive ROM, Active ROM, Scapular Strength/Stabilization For the Purpose of:: To improve muscle performance and motor function Manual Therapy Techniques to Include: Passive ROM, Soft tissue mobilization TENS: Yes Cryotherapy (ice pack, ice massage): Yes Thermo therapy (hot pack): Yes Ultrasound (thermal/non thermal): No Please do not hesitate to contact me at [phone] by phone or if you have questions or concerns regarding this new plan of care! Sincerely, JULIOCESAR HernandezT
--- NOTE | 2019-01-02 16:01 | HP.PTREVAL ---
GREGORIO Linton, It has been my pleasure to treat OSMANI STONE over the last 14 visits for Humerus Fracture. Please see the progress note below for an update on the physical therapy plan of care! Subjective: went to Dr. Pemberton for his follow-up 11/21/18 - x-rays, decided to remove hardware from R humerus. Procedure done 12/05/18. Had some pain after removal of hardware,nothing like she used to have. Reports R UE movement to be much, much better than before. Could not perform activities before & now can (ADL's.) Describes pain as an ache at R upper arm (biceps). Worst; 05/07 Aggravating Factors: lifting anything too heavy (lifts big pot w/ B UE - 30 lb.), stretching arm behind her. Best: 04/06 Relieving Factors: sleeping, resting. León N/T, disrupts sleep at times when sleeping on R side, fine on L side. León radiating. 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 Had home health for 2 weeks - reports it went very well. Exercise: Usually performs light exercises w/ 8# hand weights. Pain also at ant. shoulder. PMH/Meds: see chart (gets lightheadiness at times). Objective/Function: Posture: FH, RS, Increased kyphosis. Gait: no LE deviation but does guard right UE- decreased arm swing and trunk rotation. Observation: incision healing well no s/s of infection. Palpation: tender along bicipital groove, R upper arm (biceps). Sensation: WNL. ROM: Elbow/Wrist/Finger Dexterity: WNL Shoulder: AROM: flexion: 85 degrees, Abd: 80 degrees, IR: to belly, PROM: flexion: 115 degrees abd: 80 degrees ER: 70 degrees neutral IR: to belly. Strength: not tested secondary to pain Plan Plan: 01/02/19 Scheduled for 2x for 4 weeks. Instructed to cont. exercises from home health Goals Goal 1:: Patient will be I with HEP and progression Goal Time Frame: 4-6 Weeks Goal Progress: Progressing Goal 2:: Patient will demo full AROM of the right shoulder Goal Time Frame: 4-6 Weeks Goal Progress: Progressing Goal 3:: Patient will maintain proper posture t/o tx session to demo increased scap s/s Goal Time Frame: 4-6 Weeks Goal Progress: Progressing Anticipated Interventions Patient/Client Instruction: Educate patient on: Benefits of Fitness Program Therapeutic Exercise to Include: Strength training, Endurance training, Coordination, Body mechanics, Postural training, Passive ROM, Active ROM, Scapular Strength/Stabilization For the Purpose of:: To improve muscle performance and motor function Manual Therapy Techniques to Include: Passive ROM, Soft tissue mobilization TENS: Yes Cryotherapy (ice pack, ice massage): Yes Thermo therapy (hot pack): Yes Ultrasound (thermal/non thermal): No Please do not hesitate to contact me at [phone] by phone or if you have questions or concerns regarding this new plan of care! Sincerely, Darby Aguero DPT
--- NOTE | 2019-01-25 13:18 | HP.PTDCSUM_ITS ---
HP - PT D/C Summary It has been my pleasure to treat OSMANI STNOE under orders from GREGORIO Linton, for the diagnosis of Humerus Fracture for a total of 21 visit(s). Discharge Date: Please see the following information for a summary of their discharge status. - Subjective Subjective: Pt. reports therapy has been going very well. Has been very compliant w/ HEP I. Still a little ache in R biceps. - Pain R shldr Pain Intensity (Out of 10): 6 - Overall Improvement % Improvement: 99 - Objective Objective/Function: Posture: FH, RS, Increased kyphosis. Gait: no LE deviation but does guard right UE- decreased arm swing and trunk rotation. Observation: incision healing well no s/s of infection. Palpation: NTTP. Sensation: WNL to gross B touch. ROM: Elbow/Wrist/Finger Dexterity: WNL Shoulder: AROM: flexion: 110 degrees, Abd: 130 degrees, ER: 50 degrees IR: to belly. Strength: Intercell Connector Placer: WNL, Elbow/Shoulder 4/5 - Goals Goal 1:: Patient will be I with HEP and progression Goal Progress: Goal Met Goal 2:: Patient will demo full AROM of the right shoulder Goal Progress: Progressing Goal 3:: Patient will maintain proper posture t/o tx session to demo increased scap s/s Goal Progress: Progressing - Plan Plan: 01/25/19 D/C instructed to cont. tyson exercises & HEP exercises at home to regain motion she is still lacking. - D/C Information If there are questions or concerns regarding this patient's physical therapy, please feel free to call me at [phone]. Thank you for the referral of this patient. Sincerely, JULIOCESAR HenrandezT
== END 2019-01-25 14:21 | disposition home or self-care (01) ==
LOC: PT 11:00
PROVIDERS: Family Provider Internal Medicine; PCP Internal Medicine; Referring Provider Physician Assistant; Visit Provider Physician Assistant
DX: Z98.890 Other specified postprocedural states (principal)
CPT/HCPCS: 97110; 97161; 97164

== ENCOUNTER → 2019-01-29 08:34 | Outpatient (CLI) | payer MEDICARE, OTHER, SELFPAY ==
[2019-01-29 08:06] VITALS: BMI 27.8
--- NOTE | 2019-01-29 08:36 | RAD_ITS ---
STUDY: X-RAY - LUMBAR SPINE REASON FOR EXAM: Female, 78 years old. Low back pain. TECHNIQUE: 5 view(s) of the lumbar spine were obtained. COMPARISON: None FINDINGS: No visible fracture. No osseous destruction. Sagittal alignment anatomic. Mild right scoliosis centered at L4. Prominent disc and facet degeneration. Disc degeneration most severe at L2-3 and L3-4. Facet degeneration from L2 through S1. No acute soft tissue abnormality. Calcific atherosclerosis. RAD/L/S Spine Min 4 Views IMPRESSION: No acute osseous abnormality. Prominent degenerative changes. Mild right scoliosis centered at L4. Electronically Signed: Jabier Horn, at 23:09 EST Tel , Service support ,
--- NOTE | 2019-01-29 08:36 | RAD_ITS ---
STUDY: X-RAY - LEFT KNEE REASON FOR EXAM: Female, 78 years old. Knee pain TECHNIQUE: 4 view(s) of the knee. COMPARISON: None. FINDINGS: The left knee is intact and located. There are mild degenerative changes in the medial weightbearing compartment with decreased joint space and subchondral sclerosis and mild osteophyte formation. There is degenerative calcification of the lateral meniscus. Lateral and patellofemoral compartment joint space is preserved. There is no joint effusion. Soft tissues unremarkable. RAD/Knee 4 or More Views IMPRESSION: Mild degenerative change in the medial weightbearing compartment. No acute findings. Electronically Signed: Arpita Baca, at 17:55 EST Tel , Service support ,
--- NOTE | 2019-01-29 08:36 | RAD_ITS ---
STUDY: X-RAY - PELVIS AND LEFT HIP REASON FOR EXAM: Female, 78 years old. Pain. TECHNIQUE: 3 views of the pelvis and hip. COMPARISON: None. FINDINGS: No visible fracture. No osseous destruction. Alignment anatomic. Mild degenerative changes. No acute soft tissue abnormality. Calcific atherosclerosis. RAD/HIP, UNI W/ Pelvis 2-3 Views IMPRESSION: No acute osseous abnormality. Electronically Signed: Jabier Horn, at 23:09 EST Tel , Service support ,
== END ==
PROVIDERS: Family Provider Internal Medicine; PCP Internal Medicine; Referring Provider Orthopaedic Surgery; Visit Provider Orthopaedic Surgery
DX: M25.552 Pain in left hip (principal); M25.562 Pain in left knee; M48.00 Spinal stenosis, site unspecified
CPT/HCPCS: 72110; 73502; 73564

== ENCOUNTER 2019-03-02 10:00 | Outpatient (RCR) | payer MEDICARE, OTHER, SELFPAY ==
[2019-01-31 09:39] VITALS: BMI 27.8
--- NOTE | 2019-02-05 15:06 | HP.PTEVAL_ITS ---
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 Date of Evaluation: 02/05/19 Physical Therapist: Apolinar Amato, PT, ATC - Visit Plan Frequency: 2-3x /Week Duration: 4-6 Weeks Plan: L LE strengthening, balance and proprio, core strengthening, IT band rolling, bike, and HEP - Subjective Findings: Pt reports her L knee has been sore for 2 years. Pt reports she just continued to live on throughout her pain. Pt reports her pain eventually became severe enough that she went to the doctor and had xrays taken. Pt was told she has severe arthritis and needs to have a L TKA performed. She is scheduled to have surgery at the very beginning of March. Pt reports she is here now to strengthen her L LE prior to surgery. No LE tingling or numbness at this time. Pain is worse at night and in the morning. Pt reports sleep difficulty secondary to pain. Pt does not have stairs at home. Pt reports she is limited with house chores secondary to pain. 6/10 pain ar rest, 10/10 pain in the morning - Pain L knee Pain Intensity (Out of 10): 6 Pain Intensity Range: 10 - Objective Neuro: B LE sensation is WNL to light touch. Girth at joint line: L knee 39 cm, R knee 37 cm. ROM: R knee 0-10-119. L knee 0-. MMT: B LE's are grossly 4/5 throughout with exception to L knee flex and ext= 4-/5. Palpation: Pt is very sore along the distribution of the L IT band. No obvious deformity. - Goals Goal 1:: Decrease L knee pain x 50% to aid with sleep Goal Time Frame: 4-6 Weeks Goal 2:: Increase L knee strength x 1 grade to aid with IADL's Goal Time Frame: 4-6 Weeks Goal 3:: I with HEP Goal Time Frame: 4-6 Weeks - Rehabilitation Potential Physical Therapy Diagnosis: L knee pain, weakness, and difficulty with IADL's secondary to L knee OA Rehabilitation Potential: Good - Anticipated Interventions Patient/Client Instruction: Educate patient on: Condition, Plan of Care For the Purpose of:: To improve self management Therapeutic Exercise to Include: Strength training, Endurance training, Balance training, Flexibilty training, Gait and locomotor training, Active ROM, Dynamic Lumbar Stabilization For the Purpose of:: To decrease pain, To improve muscle performance and motor function, To improve performance and independence with ADL's Cryotherapy (ice pack, ice massage): Yes For the Purpose of:: To decrease pain Thank you for the opportunity to evaluate your patient. For Medicare and Medicare HMO plans, please review the plan of care and approve it. It will need to be FAXED BACK to us at [phone] for Medicare purposes. For Medicare only, by signing this I certify the plan of care. Please let me know if there are questions or concerns regarding this plan of care. Physician Signature: Date:
--- NOTE | 2019-03-02 10:33 | HP.PTDCSUM ---
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 Discharge Date: Please see the following information for a summary of their discharge status. - Subjective Subjective: Minor pain with standing after sitting for a long period of time. - Pain L knee Pain Intensity (Out of 10): 4 R knee Pain Intensity (Out of 10): 4 - Overall Improvement % Improvement: 75 - Objective Objective/Function: Pain is 75% better. L LE strength is 4/5 throughout. Pt is I with HEP. Rx goals achieved - Goals Goal 1:: Decrease L knee pain x 50% to aid with sleep Goal Progress: Goal Met Goal 2:: Increase L knee strength x 1 grade to aid with IADL's Goal Progress: Goal Met Goal 3:: I with HEP Goal Progress: Goal Met - Plan Plan: Discharge - D/C Information If there are questions or concerns regarding this patient's physical therapy, please feel free to call me at [phone]. Thank you for the referral of this patient. Sincerely, Apolinar Amato, PT, ATC
== END 2019-03-02 10:37 | disposition home or self-care (01) ==
LOC: PT 10:00
PROVIDERS: Family Provider Internal Medicine; PCP Internal Medicine; Referring Provider Orthopaedic Surgery; Visit Provider Orthopaedic Surgery
DX: M76.32 Iliotibial band syndrome, left leg (principal); M17.12 Unilateral primary osteoarthritis, left knee; M51.36 Other intervertebral disc degeneration, lumbar region
CPT/HCPCS: 97110; 97161; 97530

== ENCOUNTER → 2019-04-09 16:14 | Outpatient (CLI) | payer MEDICARE, OTHER, SELFPAY ==
[2019-04-03 09:29] VITALS: BMI 27.4
[2019-04-09 17:09] LABS: Absolute Lymphocyte Count 0.46 X10^3/uL (0.83-4.51); Absolute Neutrophil Count 3.8 X10^3/uL (2.0-7.7); Basophil# 0.03 X10^3/uL; Basophil% 0.6 % (0-1); Eosinophil# 0.16 X10^3/uL; Eosinophils% 3.4 % (0-5); Hematocrit 39.2 % (37-47); Hemoglobin 12.7 g/dL (12.0-15.0); Lymphocyte # 0.46 X10^3/ul (4.0); Lymphocyte % 9.6 % (19-41); Mean Corp Hgb Conc 32.4 g/dL (32-36); Mean Corpuscular Hgb 32.5 pg (27.0-32.0); Mean Corpuscular Volume 100.3 fL (81-99); Mean Platelet Vol. 9.8 fl (6.2-12.0); Monocyte# 0.34 X10^3/uL; Monocyte% 7.1 % (0-10); NRBC Flagged by Analyzer 0 % (0-5); Neutrophil # 3.76 X10^3/uL (2.7-7.7); Neutrophil % 78.9 % (47-70); POSITIVE DIFFERENTIAL YES; Platelet Count 159 K/mm3 (150-450); RBC Distribution Width CV 13.6 % (11.6-14.6); RBC Distribution Width SD 49.6 fl (35.1-43.9); Red Blood Count 3.91 M/mm3 (4.2-5.4); White Blood Count 4.8 K/mm3 (4.4-11.0)
[2019-04-09 17:15] LABS: Differential Indicated SCAN CRITERIA MET
[2019-04-09 17:36] LABS: ALB/GLOB Ratio 1.2 RATIO (0.9-2.4); AST(SGOT) 13 U/L (15-37); Alanine Aminotransfer ALT/SGPT 17 U/L (13-56); Albumin, Serum 3.8 g/dL (3.2-5.0); Alkaline Phosphatase 184 U/L (45-117); Anion Gap 6 (5-15); BUN 8 mg/dL (7-18); BUN/Creat Ratio 9.7 RATIO (10-20); Calcium,Total 8.8 mg/dL (8.5-10.1); Chloride 102 mmol/L (98-107); Creatinine, Serum 0.83 mg/dL (0.55-1.02); EST Glomerular Filtration Rate 71 mL/min (>60); Est Glom Filt Rate - Afr Amer 86 mL/min (>60); Globulin 3.3 g/dL (2.2-4.2); Glucose 106 mg/dL (74-106); Potassium 3.8 mmol/L (3.5-5.1); Protein, Total 7.1 g/dL (6.4-8.2); Sodium Level 137 mmol/L (136-145); Thyroid Stim Hormone (TSH) 3.17 uIU/mL (0.358-3.74)
[2019-04-09 17:43] LABS: Platelet Estimate ADEQUATE (ADEQ); Red Cell Morphology NORM C+C NORMAL (NORM C&C)
[2019-04-09 18:04] LABS: Vitamin B12 911 pg/mL (211-911)
[2019-04-12 02:56] LABS: Rapid Plasmin Reagin (RPR) NONREACTIVE (NONREACTIVE)
== END ==
PROVIDERS: Family Provider Family Medicine Geriatric Medicine; PCP Family Medicine Geriatric Medicine; Visit Provider Family Medicine Geriatric Medicine
DX: R41.3 Other amnesia (principal); R53.83 Other fatigue
CPT/HCPCS: 36415; 80053; 82607; 82746; 84443; 85025; 86592

== ENCOUNTER 2019-04-10 11:59 | Observation (INO) | payer MEDICARE, OTHER, SELFPAY ==
[2019-02-28 14:18] VITALS: BMI 27.8
[2019-04-03 09:29] VITALS: BP 121/61; PULSE 75; RESP 16; TEMP 36.2; O2SAT 98; BMI 27.4
--- NOTE | 2019-04-09 14:30 | HP.PCM_ITS ---
History and Physical Date of Admission: 04/10/19 Intake Vital Signs 03/26/19 BMI 27.8 Intake Visit Reasons: left knee Is patient in pain?: Yes Allergies acetaminophen [From Tylenol] Allergy (Verified 08/29/18 09:33) Chest tightness Medications Atorvastatin Calcium [Lipitor] 10 mg PO QHS 02/24/17 [History Confirmed 03/26/19] Omeprazole [Prilosec] 20 mg PO DAILY 02/24/17 [History Confirmed 03/26/19] Sertraline HCl [Zoloft] 50 mg PO DAILY 02/24/17 [History Confirmed 03/26/19] Naproxen [Naprosyn] 500 mg PO BID PRN 08/21/18 [History Confirmed 03/26/19] traMADol [Ultram] 50 mg PO TID PRN PRN #42 tab 12/06/18 [Rx Confirmed 03/26/19] PFSH Social History (Updated 03/26/19 @ 16:33 by Ryan Vanessa DO) Smoking Status: Never smoker HPI left knee: Details: Parts of this documentation were recorded by a scribe, this documentation accurately reflects the service provided and the decisions made by me, Ryan Vanessa DO 03/26/19 0804. OSMANI STONE is a 78 year old F here today for left knee pain, she is having all over knee pain and is having a TKA in a couple weeks. Denies numbness, tingling or other associated symptoms. She walks with an antalgic gait today but with no assitive device. ROS [facility] Reports joint pain, Reports joint swelling, Reports stiffness Skin/Breast Reports system reviewed and no additional complaints, except as docu Neuro Yes system reviewed and no additional complaints, except as docu Ortho Exam Left Knee Knee ROM: Yes ROM-Extension -20 to 0, No ROM-Flexion 0-140 Examination: Yes Pain with flexion Office Procedures Iovera Details:: Preoperative diagnosis : left knee pain Postoperative diagnosis: Same Procedure: Cryotherapy with Iovera device to anterior femoral cutaneous nerve and 2 branches of the infrapatellar saphenous nerve III nerves in total Description of procedure: Patient was brought back to the procedure room the operative extremity was identified by both patient and physician. The PIP flexi on crease was measured to the midpoint of the patella and this distance was divided in 3 resulting in 10 cm location proximal to the midpoint of the patella. This line was extended medial and lateral to the extent of the edges of the patella. This was our treatment line for the anterior femoral cutaneous nerve. A second treatment line was made 5 cm medial to the inferior pole of the patella and 5 cm distally. The leg was prepped with alcohol and Betadine. Lidocaine with epi was used along the treatment lines. Using the Iovera device treatment lines were treated with 1 minute cycles. Reproduction of paresthesias was monitored in the area of nerve distribution. Once all 3 nerves were treated across the 2 treatment lines patient was cleaned and a light dressing with 4 x 4 and Mitchel wrap was applied. Patient tolerated the procedure without complication. Assessment & Plan Problems 1. Chronic pain of left knee M25.562; G89.29 Plan Reviewed the risks and benefits of the iovera treatment and patient elects to proceed. Reviewed the TKA procedure. Risks, benefits and alternatives of surgery reviewed including but not limited to bleeding, infection, nerve, artery and/or tissue damage, fracture, VTE, mechanical feel of the knee, continued pain, stiffness and expected post- operative course. Follow up postop or sooner if pain, swelling, numbness or associated symptoms, or concerns develop. Orders Orders: Iovera Today M25.569 Coding Level of Care Code Off vis,est,level 3 Diagnoses Chronic pain of left knee M25.562; G89.29 ??Chronicity: chronic I have re-examined the patient. There are no clinical changes since date of exam
[2019-04-10] VITALS (12 sets, daily range): BP systolic 89–126; BP diastolic 48–67; PULSE 71–94; RESP 15–18; TEMP 36.2–37; O2SAT 92–100; BMI 27.2; BMI 27.3
[2019-04-10] MEDS: Scopolamine 1mg/72hr Patch 1 PATCH TRANSDERM. (07:00)
[2019-04-10] MEDS: Gabapentin 600 MG Tablet PO (07:00)
[2019-04-10] MEDS: Lactated Ringers 1,000 ML 100 ML IV (08:29)
[2019-04-10] MEDS: Magnesium Sulfate 4gm/100mL 4 GM/100 ML IV.SOLN. IV (08:32)
[2019-04-10 08:46] LABS: Bedside Glucose 81 mg/dL (70-110)
[2019-04-10] MEDS: Cefazolin 2 GM in 0.9% Normal Saline 100 ML IV (09:31)
[2019-04-10] MEDS: dexAMETHasone 10 MG/ML Vial IV (10:05)
[2019-04-10] MEDS: Bupivacaine Mpf 0.5% 30 ML VIAL (10:53)
[2019-04-10] MEDS: Betamethasone/Betamethasone 30 MG/5 ML Vial (10:53)
[2019-04-10] MEDS: Epinephrine (1 mg/ml) 1 MG/ML VIAL (10:53)
[2019-04-10] MEDS: 0.9% Normal Saline (Pres. free 10 ML Vial (10:53)
[2019-04-10] MEDS: Lactated Ringers 1,000 ML 125 ML IV ×2 (11:01→13:49)
--- NOTE | 2019-04-10 11:20 | RAD_ITS ---
STUDY: X-RAY - LEFT KNEE REASON FOR EXAM: Female, 78 years old. Left knee post op portable. TECHNIQUE: AP and lateral view(s) of the knee. COMPARISON: Comparison is made with prior study dated January 29, 2019. FINDINGS: Normal visualized distal femur. Normal visualized proximal tibia and fibula. Normal proximal tibiofibular articulation. The patient is status post right total knee replacement. There is good alignment. Postoperative soft tissue changes. RAD/Knee 1 or 2 Views IMPRESSION: Status post total knee replacement. There is good alignment. Postoperative soft tissue changes. Electronically Signed: Wei Valerio, at 12:40 EST , Service support ,
--- NOTE | 2019-04-10 11:57 | PCM.OPRPT ---
Report of Operation Date of Procedure: 04/10/19 Description of Surgical Findings:: Preoperative diagnosis: Left knee DJD Postoperative diagnosis: Same Procedure: Left total knee arthroplasty Implant: [place] triathlon cemented femoral component size 4, cemented tibial baseplate size 5, cemented asymmetric patella size 35, polyethylene X3 size 9 CS Anesthesia: Spinal with adductor canal block Tourniquet time: 67 minutes at 300 mmHg Complications: None Condition: Stable to PACU Estimated blood loss: 25 cc Indication for procedure: This is a 78-year-old female with long standing degenerative joint disease of the knee who has failed conservative treatment and wished to proceed with elective total knee arthroplasty. Risk benefits and alternatives were reviewed including; risk of bleeding, infection, nerve artery and tissue damage, continued pain, postoperative stiffness, venous thromboembolism, need for postoperative rehabilitation, mechanical feel to the knee, and expected postoperative course. Procedure: The patient was met in the preoperative holding area. The operative extremity was identified by both patient and physician and was marked. Patient was met by anesthesia. An adductor canal block was placed by anesthesia postoperatively the patient was brought back to the operating room on a wheeled cart and transferred to the operating table in the supine position. Anesthesia was started. A well-padded tourniquet was placed on the operative extremity. The patient was prepped and draped in the usual sterile fashion. A timeout was called to ensure the proper patient procedure and extremity were being contemplated. An Esmarch was used to exsanguinate the extremity. The tourniquet was inflated. A 10 blade scalpel was used to make a midline incision down through the skin and subcutaneous tissue. Skin retractors placed. Bovie was used to perform meticulous hemostasis. full-thickness flaps were elevated medial and lateral along the joint capsule. A deep blade scalpel was used to perform a medial parapatellar arthrotomy. The knee was brought to full extension. A Bovie was used to release the soft tissues off the most proximal aspect of the medial tibial plateau a three-quarter inch curved osteotome was also used for this process. The infrapatellar fat pad was excised. The fat pad was excised partially anterior lateral portion the anterior medial was elevated from the femur. the patella was everted. The knee was brought into flexion. An intramedullary drill was used followed by flexible intramedullary guide corey. The distal femoral cutting block was placed and set to remove 10 mm of bone and 5 degrees of valgus. The block was secured with pins and an oscillating saw was used to complete the distal femoral cut. During this, and all bony cuts retractors were used to protect the collateral ligaments. At this point a femoral sizer was used to measure the AP dimension of the femur. The sizer block was pinned parallel to the epicondylar access for external rotation. The sizing block was removed and the appropriately sized 4-in-1 cutting block was placed over the previously made pinholes. It was checked with an jessica wing and the block was secured with pins. An oscillating saw was used to complete the anterior cut followed by the posterior cut followed by the posterior chamfer cut followed by the anterior chamfer cut. The block was removed as well as the fragments. A ronguer was used to remove excess osteophytes. The medial and lateral meniscus were excised as well as the ACL. At this point a PCL retractor was placed and an intramedullary drill was passed down the tibial canal followed by a solid intramedullary guide corey. The tibial cutting block was attached and set to remove 9 mm of bone from the high side. This was checked with an external alignment drop corey for slope and tilt. It was pinned into place. An oscillating saw was used to complete the tibial plateau cut and the block was removed. A large osteotome was used to elevate the fragment and a Patt and a Bovie were used to free the fragment from the surrounding soft tissue. A rongeur was once again used to remove osteophytes a lamina lay health advocate was used to evaluate the posterior capsular structures. A three-quarter inch curved osteotome was used to remove posterior osteophytes. A spacer block was inserted in both extension and flexion to ensure adequate spacing. Trials were inserted full extension and flexion were achieved in varus and valgus stability throughout range of motion were seen, balancing techniques were performed. At this point the attention was turned towards the patella. A caliper was used to ensure sufficient bone stock to remove 10 mm of bone. A reamer was used to perform this task. Lug holes were made for the appropriate-sized patella. The patella trial was inserted and there was good patellar tracking with knee range of motion. The tibial baseplate was allowed to float into rotation and was marked on the tibial plateau with a Bovie. Lug holes were made in the femur and trials were removed. The tibial baseplate was then sized and its preparation was completed with a fin punch. The knee was thoroughly irrigated. A posterior capsular injection was performed with our standard cocktail. The knee was brought into flexion and irrigated again. The tibial baseplate was cemented. Excess cement was removed with curettes. The polyethylene component was inserted. The femoral component was cemented. The knee was brought into full extension and placed on a bump. The patellar component was cemented. At this point a Betadine rinse was placed and thoroughly irrigated after a few minutes. This was followed by an Iricept rinse which was allowed to sit for 1 minute and then thoroughly irrigated.At this point all gloves were changed. The knee was thoroughly irrigated the joint capsule was closed with #1 Ethibond. Tourniquet was let down followed by 0 Vicryl and 2-0 Vicryl in the subcutaneous tissues. followed by nemo in the skin. Dressing was applied in the form of Mepilex silver dressing web roll and an Mitchel wrap from the foot to the groin. The patient tolerated the procedure well, all counts were correct patient was brought back to the PACU in stable condition.
[2019-04-10] MEDS: Cefazolin 1 GM/50 ML BAG IV ×2 (12:35→21:17)
--- NOTE | 2019-04-10 14:55 | CASEMGMT ---
Addendum entered by Meghana Orosco 04/10/19 15:36: Pt's son Tremaine at [facility] and requesting to speak to SW. TG met with pt and pt's son Tremaine. SW introduced self and role at [facility]. Pt is alert and orientated x3. TG spoke with pt and Tremaine about TCU/RU, explained Medicare rules and guidelines, and stated [facility] is able to accept pt . Pt and Tremaine state understanding, agreeable to [facility]. Original Note: Social Work Note SW updated that pt is requesting TCU/RU at discharge. TG placed a call to Sharla with [facility] who states pt is able to discharge to [facility] . Pt just got up to floor and is currently sleeping from surgery. TG will follow up with pt tomorrow to discuss discharge plans. 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
[2019-04-10] MEDS: 0.9% NaCl Peripheral Flush Adult/Peds IV (17:49)
[2019-04-10] MEDS: Ketorolac 15 MG/ML Vial IV (17:50)
[2019-04-10] MEDS: Atorvastatin Calcium 10 MG Tablet PO (21:17)
[2019-04-10] MEDS: Senna/Docusate Sodium 1 Tablet 2 TABLET PO (21:17)
[2019-04-11 03:36] VITALS: BP 102/55; PULSE 66; RESP 16; TEMP 37.2; O2SAT 95
[2019-04-11] MEDS: Cefazolin 1 GM/50 ML BAG IV (03:38)
[2019-04-11] MEDS: Ketorolac 15 MG/ML Vial IV (03:38)
[2019-04-11 06:02] LABS: Hematocrit 30.4 % (37-47); Hemoglobin 9.9 g/dL (12.0-15.0); Mean Corp Hgb Conc 32.6 g/dL (32-36); Mean Corpuscular Volume 101.3 fL (81-99); Mean Platelet Vol. 9.9 fl (6.2-12.0); Platelet Count 144 K/mm3 (150-450); RBC Distribution Width CV 13.2 % (11.6-14.6); RBC Distribution Width SD 49.1 fl (35.1-43.9); White Blood Count 7.2 K/mm3 (4.4-11.0)
[2019-04-11 06:19] LABS: Anion Gap 3 (5-15); BUN 10 mg/dL (7-18); BUN/Creat Ratio 13.3 RATIO (10-20); Calcium,Total 8.2 mg/dL (8.5-10.1); Chloride 111 mmol/L (98-107); Creatinine, Serum 0.75 mg/dL (0.55-1.02); EST Glomerular Filtration Rate 79 mL/min (>60); Est Glom Filt Rate - Afr Amer 96 mL/min (>60); Estimated Creatinine Clearance 37.26 ml/min; Glucose 97 mg/dL (74-106); Potassium 3.7 mmol/L (3.5-5.1); Sodium Level 143 mmol/L (136-145)
[2019-04-11] MEDS: APIXABAN 2.5 MG TABLET PO (06:31)
[2019-04-11] MEDS: oxyCODONE 5 MG Tablet PO ×3 (06:32→14:36)
[2019-04-11] MEDS: Pantoprazole Sodium 20 MG Tablet PO (09:15)
[2019-04-11] MEDS: Senna/Docusate Sodium 1 Tablet 2 TABLET PO (09:15)
[2019-04-11] MEDS: Sertraline 50 MG Tablet PO (09:15)
[2019-04-11 09:18] VITALS: BP 108/50; PULSE 70; RESP 18; TEMP 36.7; O2SAT 95
--- NOTE | 2019-04-11 09:55 | CASEMGMT ---
Addendum entered by Meghana Orosco 04/11/19 16:04: Pt's son Tremaine updated that pt is going to [facility] today Original Note: Social Work Note SW received call from Sharla with [facility] stating pt is able to discharge to today. Will update physician once physician is at [facility]. 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
--- NOTE | 2019-04-11 13:03 | NURSING ---
Report called to Liset GUERRA on inpatient rehab.
--- NOTE | 2019-04-11 13:27 | CASEMGMT ---
Intro role of CM to patient and [facility] form explained re: Observation status for treatment of RTKR. Explained hospitalization will be paid per? MCR benefits for Outpatient billing?and condition will continue to be evaluated for Inpt necessity. Also let pt know that [facility] sends paper in the billing packet with their phone number if questions arise. Discussed Pharmacy section of [facility] form and self administered medication guideline.? Many questions answered. Pt verbalizes understanding and does not have further questions. Form signed and placed in chart, copy to pt. MAYE GUERRA BSN CM
--- NOTE | 2019-04-11 13:33 | DCINST_ITS ---
Discharge Diet: No Restrictions Call your doctor if you observe: Shortness of breath, Chest pain Additional Instructions: Ice and elevate next week while not ambulating. Encourage ambulation weightbearing as tolerated. Encourage FULL knee extension and flexion 1 time EVERY time you get up and down and MULTIPLE times per day. Begin showering postop day #3. Remove the dressing prior to shower gently wash with warm water and antibacterial soap then pat dry place ABD pad and RAHEEL hose over top. This is to be done daily. do not submerge for 3 weeks. If not showering daily must clean incision and change dressing daily. Do not allow animals near incision keep clean. Follow anticoagulation recommendations. Start physical therapy as directed in the hospital. call Dr. Vanessa with any concerns. Allergies/Adverse Reactions: Allergies acetaminophen [From Tylenol] Allergy (Verified 04/10/19 07:53) Chest tightness Medications to take at Discharge Atorvastatin Calcium [Lipitor] 10 mg PO QHS 02/24/17 Omeprazole [Prilosec] 20 mg PO DAILY 02/24/17 Sertraline HCl [Zoloft] 50 mg PO DAILY 02/24/17 Cholecalciferol (VIT D3) [Vitamin D3] 2,000 unit PO DAILY 04/03/19 Apixaban [Eliquis] 2.5 mg PO BID #28 tab 04/11/19 Oxycodone [Oxyir] 5 - 10 mg PO Q4H PRN PRN #60 tab 04/11/19 The following prescriptions were given: Apixaban [Eliquis] 2.5 mg PO BID #28 tab Prescription Printed Oxycodone [Oxyir] 5 - 10 mg PO Q4H PRN PRN #60 tab PRN Reason: Pain Score 4-10/10 Prescription Printed Primary Care Physician: Ross Benites Chi, MD [Primary Care Provider] - Test Results: Test results from this visit will be discussed in further detail at your follow- up appointment, if applicable. Please Follow Up With: Ryan Vanessa DO - 2 weeks
--- NOTE | 2019-04-11 13:34 | PCM.DC.SUM ---
Discharge Date and Diagnosis Date of Admission: 04/10/19 Date of Discharge: 04/11/19 Hospital Course and Treatment Summary of Care Provided: The patient is a 78 year old F who has long history of degenerative joint disease to the knee who has failed conservative treatment and wished to undergo elective total knee arthroplasty. Patient underwent the aformentioned procedure on the admission date without any intraoperative complications. Patient did receive pre-and postoperative antibiotics which were discontinued within 23 hours postoperatively. Patient did receive spinal anesthesia as well as an adductor canal block postoperatively. pain was controlled with IV and transition to p.o. pain medication Patient will be discharged home with oxycodone and will continue Tylenol as well. Patient had minimal intraoperative blood loss and 2gm tranexamic acid was administered there was no need for postoperative blood transfusion Patients vital signs remained stable. Patient was started on both mechanical and chemical DVT per prophylaxis postoperatively in the form of SCDs RAHEEL hose and Eliquis 2.5 mg twice daily for which she will continue for 2 additional weeks post hospital discharge. Mitchel removed post op day number one and thigh high raheel hose placed over top of the meplix silver dressing. This should be removed 72 hrs post operatively and showering begun daily at that time with warm water and antibacterial soap. not to submerge for 3 weeks. To change dressing daily after first dressing change. Patient will follow-up in the office in 2 weeks. No intrahospital complications. - Physical Exam Vitals/I&O's: Vital Signs Temp Pulse Resp BP Pulse Ox 98.1 F 70 18 108/50 L 95 04/11/19 09:18 04/11/19 09:18 04/11/19 09:18 04/11/19 09:18 04/11/19 09:18 Oxygen Flow Rate (L/min) 2 Oxygen Delivery Method Room Air Weight: 149 lb Body Mass Index (BMI) 27.2 Intake and Output for Last 24 Hours 04/09/19 04/10/19 04/11/19 23:59 23:59 23:59 Intake Total 3289.16 / 3489.16 872.92 / 872.92 Output Total 700 / 700 Balance 3289.16 / 2789.16 172.92 / 172.92 General: Alert, Cooperative, No apparent distress Extremities: - - Dressing clean dry and intact neurovascular intact compartments soft able to perform straight leg raise Laboratory Results 04/11/19 05:24: WBC 7.2, RBC 3.00 L, Hgb 9.9 L, Hct 30.4 L, MCV 101.3 H, MCH 33.0 H, MCHC 32.6, RDW Std Deviation 49.1 H, RDW Coeff of Trav 13.2, Plt Count 144 L, MPV 9.9 04/11/19 05:24: Sodium 143, Potassium 3.7, Chloride 111 H, Carbon Dioxide 29.0, Anion Gap 3 L, BUN 10, Creatinine 0.75, Estim Creat Clear Calc 37.26, Est GFR (MDRD) Af Amer 96, Est GFR (MDRD) Non-Af 79, BUN/Creatinine Ratio 13.3, Glucose 97, Calcium 8.2 L Current Medications Apixaban (Eliquis) 2.5 mg PO BID [facility] Last Admin: 04/11/19 06:31 Dose: 2.5 mg Documented by: Atorvastatin Calcium (Lipitor) 10 mg PO QHS [facility] Last Admin: 04/10/19 21:17 Dose: 10 mg Documented by: Hydromorphone HCl (Dilaudid Inj) 0.5 mg IV Q2H PRN PRN PRN Reason: Pain Score 6-10/10 Insulin Human Lispro (Humalog Kwikpen (Bkc)) 1 - 6 unit SC Q4H PRN PRN; Protocol PRN Reason: BG>/= 180, SEE PROTOCOL Ketorolac Tromethamine (Toradol) 15 mg IV Q6H PRN PRN PRN Reason: Pain Score 1-5/10 Stop: 04/12/19 11:21 Last Admin: 04/11/19 03:38 Dose: 15 mg Documented by: Ondansetron HCl (Zofran) 4 mg IV Q6H PRN PRN PRN Reason: NAUSEA Oxycodone HCl (Oxyir) 5 - 10 mg PO Q4H PRN PRN PRN Reason: Pain Score 4-10/10 Last Admin: 04/11/19 10:46 Dose: 5 mg Documented by: Pantoprazole Sodium (Protonix) 20 mg PO DAILY [facility] Last Admin: 04/11/19 09:15 Dose: 20 mg Documented by: Senna/Docusate Sodium (Senokot-S, Naye-Colace) 2 tablet PO BID [facility] Last Admin: 04/11/19 09:15 Dose: 2 tablet Documented by: Sertraline HCl (Zoloft) 50 mg PO DAILY [facility] Last Admin: 04/11/19 09:15 Dose: 50 mg Documented by: Sodium Chloride () 5 - 15 ml IV UD PRN PRN Reason: SALINE FLUSH Last Admin: 04/10/19 17:49 Dose: 10 ml Documented by: Sodium Chloride () 10 - 40 ml IV UD PRN PRN Reason: SALINE FLUSH Discharge Diet: No Restrictions Call your doctor if you observe: Shortness of breath, Chest pain Home Medications: Medications to take at Discharge Atorvastatin Calcium [Lipitor] 10 mg PO QHS 02/24/17 Omeprazole [Prilosec] 20 mg PO DAILY 02/24/17 Sertraline HCl [Zoloft] 50 mg PO DAILY 02/24/17 Cholecalciferol (VIT D3) [Vitamin D3] 2,000 unit PO DAILY 04/03/19 Apixaban [Eliquis] 2.5 mg PO BID #28 tab 04/11/19 Oxycodone [Oxyir] 5 - 10 mg PO Q4H PRN PRN #60 tab 04/11/19 Following Prescrptions Were Given to Patient: Apixaban [Eliquis] 2.5 mg PO BID #28 tab Prescription Printed Oxycodone [Oxyir] 5 - 10 mg PO Q4H PRN PRN #60 tab PRN Reason: Pain Score 4-10/10 Prescription Printed Primary Care Physician: Ross Benites Chi, MD [Primary Care Provider] - Please Follow Up With: Ryan Vanessa, - 2 weeks Additional Instructions: Ice and elevate next week while not ambulating. Encourage ambulation weightbearing as tolerated. Encourage FULL knee extension and flexion 1 time EVERY time you get up and down and MULTIPLE times per day. Begin showering postop day #3. Remove the dressing prior to shower gently wash with warm water and antibacterial soap then pat dry place ABD pad and RAHEEL hose over top. This is to be done daily. do not submerge for 3 weeks. If not showering daily must clean incision and change dressing daily. Do not allow animals near incision keep clean. Follow anticoagulation recommendations. Start physical therapy as directed in the hospital. call Dr. Vanessa with any concerns. Medical Necessity - Tobacco Use Smoking Status: Never smoker Tobacco Use: Non-smoker Meaningful Use Info Meaningful Use Diagnoses (Choose all that apply): None applicable
[2019-04-11 14:43] VITALS: BP 96/56; PULSE 74; RESP 18; TEMP 36.4; O2SAT 98
== END 2019-04-11 16:04 ==
LOC: SDC 12:47 → MS3 12:47
PROVIDERS: Admitting Provider Orthopaedic Surgery; Family Provider Family Medicine Geriatric Medicine; PCP Family Medicine Geriatric Medicine; Referring Provider Orthopaedic Surgery; Visit Provider Orthopaedic Surgery
PROC: (CPT 27447; principal; 2019-04-10 09:20)
DX: M17.12 Unilateral primary osteoarthritis, left knee (principal); G89.29 Other chronic pain; K21.9 Gastro-esophageal reflux disease without esophagitis; E78.00 Pure hypercholesterolemia, unspecified; F32.9 Major depressive disorder, single episode, unspecified; Z79.899 Other long term (current) drug therapy
CPT/HCPCS: 01400; 27447; 64447; 36415; 73560; 80048; 82962; 85027; 87081; 97110; 97116; 97162; 97166; 97530; 97535; 99251; C1776; J7120; A4216; G0463; J0702; J3490

== ENCOUNTER 2019-04-11 16:15 | Inpatient (IN) | payer MEDICARE, OTHER, SELFPAY ==
[2019-04-10 14:30] VITALS: BMI 27.2
[2019-04-11 16:45] VITALS: BP 110/51; PULSE 73; RESP 18; TEMP 37; O2SAT 93; BMI 27.2; BMI 27.3
--- NOTE | 2019-04-11 16:57 | HP.PCM_ITS ---
Problem List (1) Status post total knee replacement, left Status: Acute Comment: 04/10/[address] Ryan Vanessa (2) Depression Status: Chronic (3) Hyperlipidemia Status: Chronic (4) Osteoarthritis Status: Chronic Qualifiers: Osteoarthritis location: multiple joints (5) GERD (gastroesophageal reflux disease) Status: Chronic (6) Acute blood loss anemia Status: Acute (7) Macrocytosis Status: Acute Comment: more likely than not reactive to blood loss with surgery and increased number of reticulocytes History of Present Illness Date of Admission: 04/11/19 Chief Complaint: pain and debility due to L TKR on 04/10/19 The pt is a 78-year-old female with a PMH of depression, GERD, hyperlipidemia ( pt tells me she is on a statin prophylactically?) and OA admitted to the Inpatient rehab unit at [facility] on 04/11/2019 for debility secondary to left total knee replacement by Dr. Vanessa on 04/10/2019 for greater than 3 hours of therapy daily with a goal of returning home at or near prior level of independence. The patient lives at home by herself and has 2 steps. The patient was independent with ADL's, mobility and driving prior to hospitalization. She realizes she is having some difficulty word finding and that she feels fuzzy. Has been getting Oxycodone for pain. Prior to surgery she was taking Tramadol with good pain relief and no confusion. She will follow up with Dr. Benites after DC. She recently started to see Dr. Benites as her PCP. I reviewed all the recnt labs. B12, folate and TSH are all WNL. The calcium is low. No vitamin D level available. I do not see that she has ever had a DEXA and she is not on Calcium or Vitamin D supplementation. Past Medical History Past Medical History (Chronic Problems): Chronic Problems Depression (Chronic) Hyperlipidemia (Chronic) Osteoarthritis (Chronic) GERD (gastroesophageal reflux disease) (Chronic) Allergies acetaminophen [From Tylenol] Allergy (Verified 04/10/19 07:53) Chest tightness Home Medications: Ambulatory Orders Medication Instructions Recorded Atorvastatin Calcium [Lipitor] 10 mg PO QHS 02/24/17 Omeprazole [Prilosec] 20 mg PO DAILY 02/24/17 Sertraline HCl [Zoloft] 50 mg PO DAILY 02/24/17 Cholecalciferol (VIT D3) [Vitamin 2,000 unit PO DAILY 04/03/19 D3] Apixaban [Eliquis] 2.5 mg PO BID #28 tab 04/11/19 Oxycodone [Oxyir] 5 - 10 mg PO Q4H PRN PRN #60 tab 04/11/19 Surgical History: appendectomy, - - R shoulder surgery X 2, surgery on the left hand to debride infection after a cat bit Psychiatric History: Depression 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 she is a . She has 3 sones Smoking Status: Never smoker Tobacco Use: Non-smoker Alcohol: Rare - a galss of wine when she goes out with her friends every few months Drugs: None - *Family History Maternal History Items: - - mother of complications from Alzheimer's disease Paternal History Items: - - her father had a drinking problem and he of an ME in his 60's. He was a smoker Sibling History Items: - - she has a brother with RA and a sister with thyroid disease Review of Systems Constitutional: Reports: Anorexia - appetite has been a bit decreased recently. Denies: Chills, Fever, Weight Change Eyes: Denies: Blurred vision, Eyelid Inflammation, Vision Change HEENT: Reports: Hard of Hearing - mild.....no hearing aids but states she has to have the TV volume up more or she can not. Denies: Difficulty Swallowing, Head Aches, Sinus Congestion, Sinus Drainage Cardiovascular: Denies: Chest Pain, Palpitations Respiratory: Denies: Cough, Shortness of breath at rest, Sputum production Gastrointestinal: Denies: Abdominal Pain, Constipation, Diarrhea, Nausea, Vomiting Genitourinary: Denies: Dysuria, Frequency, Retention Gynecological: Denies: Breast symptoms, Vaginal discharge Musculoskeletal: Reports: Joint Pain - pain in the left knee due to the recent L TKR. Denies: Arm Pain, Foot Pain, Joint Tenderness, Neck Pain, Shoulder Pain Skin: Denies: Jaundice, Rash, Wounds Neurological: Reports: Confusion, - - she is a little confused....I suspect this is medication related. Denies: Blurred vision, Change in Speech, Slurred speech, Difficulty swallowing, Focal weakness, Numbness, Tingling Psychiatric: Denies: Anxiety, Depression, Homicidal Ideations, Suicidal Ideations Endocrine: Denies: Hx of Thyroiditis Hematologic/ Lymphatic: Denies: Easy Bruising, Easy Bleeding, Hx of blood clot VTE Information - Inpt Only VTE Present on Admission: No VTE Mechan Device Prophylaxis: Knee High RAHEEL Hose VTE Pharm Prophylaxis ordered?: Yes Patient Problems: Active and Suspected Problems Status post total knee replacement, left (Acute) 04/10/[address] Ryan Vanessa Acute blood loss anemia (Acute) Macrocytosis (Acute) more likely than not reactive to blood loss with surgery and increased number of reticulocytes - Physical Exam Vitals/I&O's: Vital Signs Temp Pulse Resp BP Pulse Ox 98.6 F 73 18 110/51 L 93 04/11/19 16:45 04/11/19 16:45 04/11/19 16:45 04/11/19 16:45 04/11/19 16:45 Oxygen Delivery Method Room Air Weight: 149 lb Body Mass Index (BMI) 27.2 General: Alert, Oriented x3, Cooperative, No apparent distress, - - sitting in the recliner at the bedside and she denies pain. She is a little confused and having some difficulty with word finding....may be due to the Oxycodone. She is aware of this HEENT: Atraumatic, PERRLA, EOMI, Normocephalic Oral: Moist Mucosa, No Gingival or Mucosal Lesions/ Ulcerations Neck: Supple, No JVD, Negative Carotid Bruits, No Nodes, Trachea Midline Lungs: Clear to auscultation, Normal air movement, No rhonchi, No wheeze, No rales Cardiovascular: Regular rate, Regular Rhythm, Normal S1, Normal S2, No murmurs, No Ectopic Activity, No rub noted, No Gallop Abdomen: Bowel Sounds Present, Soft, Non Tender, Non-Distended, - - Normal bowel sounds in all quadrants. No guarding with palpation Extremities: No clubbing, No cyanosis, Capillary Refill Less than 3 Seconds, No Calf Tenderness, Edema - mild in the left ankle Skin: No rashes, No breakdown Musculoskeletal: Arthritic Changes Neurological: Cranial nerves II-XII grossly intact - the tongue may deviate a little to the left....subtle. No facial asymmetry, Neuro grossly intact Psych/Mental Status: Normal Affect, Appropriate Current Medications Apixaban (Eliquis) 2.5 mg PO BID [facility] Atorvastatin Calcium (Lipitor) 10 mg PO QHS [facility] Bisacodyl (Dulcolax) 10 mg RECTAL .PRN X 1 PRN PRN Reason: Constipation Cholecalciferol (Vitamin D) 2,000 unit PO DAILY [facility] Magnesium Hydroxide (Milk Of Magnesia) 30 ml PO .PRN X 1 PRN PRN Reason: Constipation Non-Formulary Medication (Omeprazole) 20 mg PO DAILY [facility] Senna/Docusate Sodium (Senokot-S, Naye-Colace) 2 tablet PO BID [facility] Sertraline HCl (Zoloft) 50 mg PO DAILY [facility] Tramadol HCl (Ultram) 50 mg PO Q6H PRN PRN PRN Reason: Pain Score 4-10/10 Assessment/Plan All Active Problems Status post total knee replacement, left (Acute) Acute blood loss anemia (Acute) Macrocytosis (Acute) Impressions 1. Debility secondary to recent left total knee replacement on 04/10/[address] Vanessa 2. Hypocalcemia-we will start calcium carbonate 500 mg p.o. twice daily with meals and order a vitamin D level. She should have a DEXA following discharge from the hospital as an outpatient if she has not had one in the past few years. 3. Confusion-suspect secondary to narcotics. Oxycodone has been discontinued and she has been started on tramadol which she tolerated as an outpatient. 4. Macrocytic anemia-suspect secondary to increased reticulocytes in response to blood loss from recent surgery. Monitor H&H periodically to make sure it stable. 5. Chronic medical conditions include depression, hyperlipidemia, osteoarthritis, GERD - continue the home medications Met with her son Tremaine and answered his questions. Answered Eve's questions. Recheck tomorrow to see if the mentation has improved with discontinuation of the Oxycodone Code Visit Inpatient E&M: 83726 Init Hosp L2
--- NOTE | 2019-04-11 17:44 | PCM.RU.PYE ---
Admission Information Primary Diagnosis:: Debility secondary to left total knee replacement on 04/10/2019 Status Changes from Prescreening?: No changes Identified Actual Problem List:: Skin Intergrity, Pain, ALteration in Cmfrt, Cognitve Impr/Memory Loss, Mobility Impaired, Self Care Deficit, Alteration-Leisure Activ. Potential Problem List:: DVT, Bleeding, Infection, UTI, Falls, Skin Integrity, Depression Risk of Complications DVT: RAHEEL Fallon, - - Eliquis Bleeding: Monitor Lab Values, Nursing to Teach Precautions for anti-coagulation therapy., Wound, if applicable, to be assessed every shift. Infection: Clinical Staff to Monitor for S/S of infection:, S/S of infection include fever, redness, warmth, etc. Urinary Tract Infection: Monitor for frequency, burning, discomfort, or incontinence., Nursing will obtain urine sample for urinalysis and C&S when ordered. Aspiration: Clinical staff will monitor for coughing, drooling, congestion., Nursing will monitor patient swallowing during meals. Falls: Patient will be evaluated for Fall Precautions, Patient will be placed on Fall Precautions as indicated per protocol. Skin Breakdown: Nursing will assess skin daily using assessment tool., Nursing will place on Skin Breakdown Precautions as indicated. Pain: Clinical staff will assess patient's pain level per protocol., Medications will be given, if needed, and the pain level reassessed., Other methods: Massage, distraction, decrease stimulus, etc. used PRN. Plan of Care Patient requires physician specializing in physical medicine and rehab oversight to provide close medical supervision of rehab issues including: Pain Management, Sleep Problems, Bowel and Bladder, Medical and co-morbidity Management, DVT prophylaxis, Rehabilitation Leadership, Coordination of treatment team Patient needs Physical Therapy: For a minimum of 1 hour, At least 5 out of 7 days Patient needs Physical Therapy to improve:: Mobility, Mobility, Mobility, Strengthening, Transfers, Stretching, ROM, Endurance, Stairs, Gait, Balance Patient needs Occupational Therapy: For a minimum of 1 hour, At least 5 out of 7 days Patient needs Occupational Therapy to improve ADL's incl.: Eating, Grooming, Bathing, Dressing, Toileting, Toilet transfers, Community Reintegration, Higher functioning activities, Household tasks, Adaptive Equipment, Splinting, Other activities as determined Patient requires speech therapy: For a minimum of 1 hour, At least 5 out of 7 days Patient requires 24/7 Rehabilitation Nursing for: Pain Issues, Identifying and preventing risk factors, Monitoring and reporting current medical conditions, Assisting with ambulation, transfer, and all ADL's, Teaching patients about disease process and medications, Family teaching, Providing safe environment, Bowel and Bladder Issues, Skin integrity, Medication Management Patient needs Rice Cleaning Machine Tender/ Case Management for: Discharge Planning, Arranging Home Equipment or Services, Family Interventions Patient needs Dietary and Nutrition Services for: Adequate Nutrition, Nutritional Supplements, Nutritional Education Goals Patient will remain: free from falls, or injury at time of discharge. Patient will perform bed mobility at: MOD I level of assist. Patient will complete transfers from bed to chair at: MOD I level of assist. Patient will ambulate: 100 feet, with MOD I assist, with LRD Patient will complete upper body dressing at: MOD I level of assist. Patient will complete lower body dressing at: MOD I level of assist. Patient will complete toileting at: MOD I level of assist. Patient will perform bathing at: MOD I level of assist. Patient will complete grooming at: MOD I level of assist. Patient will complete home management skills at: MOD I level of assist. Patient will achieve: 12 stairs, at MOD I assist Patient will have pain level of: of 3 or less Patient's skin will: remain intact, free from infection. Patient will receive: adequate nutrition. Discharge Planning Pt Prognosis for Sig. Practical Improv. w/in Reasonable Time: Good Estimated Length of stay (days): 10 Anticipated D/C Destination: Home Was Preadmission Assessment Accurate?: Yes
[2019-04-11] MEDS: traMADol 50 MG Tablet PO (20:30)
[2019-04-11] MEDS: Senna/Docusate Sodium 1 Tablet 2 TABLET PO (20:31)
[2019-04-11] MEDS: Atorvastatin Calcium 10 MG Tablet PO (20:31)
[2019-04-11] MEDS: APIXABAN 2.5 MG TABLET PO (21:10)
[2019-04-11 21:21] VITALS: BP 118/52; PULSE 75; RESP 18; TEMP 36.9; O2SAT 95
[2019-04-12] MEDS: traMADol 50 MG Tablet PO ×3 (04:36→21:12)
[2019-04-12 08:14] VITALS: BP 121/52; PULSE 77; RESP 16; TEMP 36.8; O2SAT 93
[2019-04-12] MEDS: Sertraline 50 MG Tablet PO (08:30)
[2019-04-12] MEDS: Pantoprazole Sodium 20 MG Tablet PO (08:30)
[2019-04-12] MEDS: Senna/Docusate Sodium 1 Tablet 2 TABLET PO (08:30)
[2019-04-12] MEDS: APIXABAN 2.5 MG TABLET PO ×2 (08:30→21:13)
--- NOTE | 2019-04-12 14:58 | PCM.PN.BLA ---
Progress Note Afebile VSS Maintaining appropriate oxygen saturation on RA Oral intake is fair Discussed with nursing - She complained of constipation today and she was given MOM. She is also on Sennosides daily BID. They do say that she is still having some confusion at times. Reviewed the PT/OT notes Medication list reviewed. She is on Tramadol for pain now. Eve is c/o pain in her groin with weight bearing and this increases when she is bearing down to have a BM. She also has some upper thigh pain on the left. The left groin is more painful than the Right. It keeps her from sleeping well at night. She has some pain in the knee but not nearly as much as the groin. Alert, oriented X 3 She has some trouble with word finding when having a conversation and her thoughts processes are slow...she has noticed this for approximately one year. Mother of complications due to Alzheimer's disease Lungs - CTA with good air exchange Heart - RRR, no gallop abd - soft, NT, ND, no guarding with palpation no significant peripheral edema. Both feet are warm to the touch and she has intact sensation in both feet. no focal neurologic deficits. No hx of a CVA Impressions 1. S/P L TKR 2. cognitive dysfunction. Etiology? Obtain Dr. Benites's records. TSH, B12 are WNL and the RPR is negative. ST evaluation for cognitive functioning. 3. Check a vitamin D level and see if she has ever had a DEXA....she does not think she has. Continue3 the Tramadol for pain and the scheduled Tylenol. Code Visit Inpatient E&M: 09936 Subs Hosp L2
[2019-04-12 15:23] LABS: Vitamin D,25 Hydroxy 18.2 ng/mL (29.95-100.01)
--- NOTE | 2019-04-12 16:25 | CHAPLAIN ---
Type of Pastoral Visit _x__ Initial Visit ___ Follow-up Visit ___ On-call Visit ___ General Patient Visit ___ Spiritual Assessment ___ Family Conference ___ Bereavement ___ Rapid Response ___ Code Blue ___ Other (describe below) Pastoral Care Referral From _x__ Patient ___ Family ___ Nurse ___ Physician ___ Hospice Social Worker ___ Die Presser ___ Other (describe below) Sacrament/Intervention _x__ Active listening ___ Anointing ___ Hoahaoism ___ Bereavement ___ Communion ___ Margareth exploration ___ _x__ Life review _x__ Prayer ___ Reconciliation ___ Sacrament of Sick _x__ Supportive presence ___ Wedding ___ Other (describe below) Pastoral Comments
[2019-04-12] MEDS: Calcium Carbonate 500 MG Tablet PO (17:35)
[2019-04-12] MEDS: Atorvastatin Calcium 10 MG Tablet PO (21:13)
[2019-04-12 22:00] VITALS: BP 155/70; PULSE 69; RESP 16; TEMP 36.9; O2SAT 96
[2019-04-13] MEDS: Calcium Carbonate 500 MG Tablet PO ×2 (08:19→16:35)
[2019-04-13] MEDS: Pantoprazole Sodium 20 MG Tablet PO (08:20)
[2019-04-13] MEDS: Sertraline 50 MG Tablet PO (08:20)
[2019-04-13] MEDS: traMADol 50 MG Tablet PO (08:21)
[2019-04-13] MEDS: APIXABAN 2.5 MG TABLET PO ×2 (08:21→20:58)
[2019-04-13 09:11] VITALS: BP 109/57; PULSE 72; RESP 16; TEMP 37; O2SAT 93
--- NOTE | 2019-04-13 13:35 | PCM.PN.BLA ---
Progress Note Afebile VSS Maintaining appropriate oxygen saturation on RA Oral intake is good Discussed with nursing - no problems that need addressed Reviewed the PT/OT notes Medication list reviewed. Using 1-2 Tramadol a day for pain. All lab current and past was personally reviewed. The vitamin D level is low at 18.2. MAO is negative. TSH was normal on 04/09/2019. B12 was also normal on 04/09/2019. RPR is negative. She has never had a CT brain at [facility]. This can be done as an OP. Confusion has improved with discontinuation of the narcotic and use of Tramadol and she is back to her baseline. She has been having problems with memory for at least one year now. She recognizes this and Tremaine verifies. Her mother of complications due to Alzheimer's disease. She has seen Dr. Benites once and he set up an appt for her to see a psychologist. She has never seen a neurologist. Family asking for recommendations. Pain is adequately controlled. No nausea. No SOB. She is motivated and participates willingly with therapy for 3 hours a day. She is progressing. PHYSICAL EXAM: GENERAL: alert, oriented X 3, Cooperative, NAD, thought processes are slow ORAL: moist mucosa, no mucosal lesions NECK: No JVD, supple, trachea midline LUNGS: CTA, symmetric chest expansion HEART: RRR, Normal S1 and S2, no rub, no gallop ABDOMEN: soft, NT, ND, BS present, no guarding with palpation EXTREMITIES: no edema, no cyanosis, no calf tenderness SKIN: No rashes, no breakdown NEUROLOGIC: no focal neurologic deficits PSYCH: appropriate, normal affect, pleasant Impressions 1. S/P L TKR - doing well with therapy 2. higher level cognitive dysfunction - consult ST for cognitive assessment. Will obtain Dr. Benites's office notes. 3. Vitamin D deficiency - supplement ordered. should have a DEXA as an OP to assess bone density following discharge. Recommended [facility] neurology to see pt for evaluation for Alzheimer's. Lab is negative for treatable causes. Will need a CTB to complete the W/U for treatable causes of dementia Code Visit Inpatient E&M: 17554 Subs Hosp L2
[2019-04-13] MEDS: Gabapentin 100 MG Capsule PO (16:35)
[2019-04-13 20:39] VITALS: BP 103/51; PULSE 82; RESP 16; TEMP 37.1; O2SAT 98
[2019-04-13] MEDS: Senna/Docusate Sodium 1 Tablet 2 TABLET PO (20:58)
[2019-04-13] MEDS: Atorvastatin Calcium 10 MG Tablet PO (20:58)
[2019-04-13] MEDS: Gabapentin 100 MG Capsule 200 MG PO (20:58)
[2019-04-14] MEDS: traMADol 50 MG Tablet PO (03:49)
[2019-04-14] MEDS: Calcium Carbonate 500 MG Tablet PO ×2 (08:59→17:19)
[2019-04-14] MEDS: Gabapentin 100 MG Capsule PO ×5 (08:59→20:44)
[2019-04-14 09:00] VITALS: BP 127/60; PULSE 71; RESP 18; TEMP 36.7; O2SAT 94
[2019-04-14] MEDS: Senna/Docusate Sodium 1 Tablet 2 TABLET PO (09:01)
[2019-04-14] MEDS: Pantoprazole Sodium 20 MG Tablet PO (09:01)
[2019-04-14] MEDS: Sertraline 50 MG Tablet PO (09:01)
[2019-04-14] MEDS: APIXABAN 2.5 MG TABLET PO ×2 (09:02→20:42)
[2019-04-14 20:18] VITALS: BP 134/64; PULSE 84; RESP 16; TEMP 36.9; O2SAT 93
[2019-04-14] MEDS: Atorvastatin Calcium 10 MG Tablet PO (20:43)
[2019-04-14] MEDS: Gabapentin 100 MG Capsule 200 MG PO (20:44)
[2019-04-14 20:52] VITALS: RESP 17; O2SAT 95
[2019-04-15] MEDS: Calcium Carbonate 500 MG Tablet PO ×2 (07:50→16:41)
[2019-04-15] MEDS: Pantoprazole Sodium 20 MG Tablet PO (07:50)
[2019-04-15] MEDS: APIXABAN 2.5 MG TABLET PO ×2 (07:50→21:43)
[2019-04-15] MEDS: Sertraline 50 MG Tablet PO (07:51)
[2019-04-15] MEDS: traMADol 50 MG Tablet PO ×3 (07:59→22:51)
[2019-04-15 10:00] VITALS: BP 133/66; PULSE 84; RESP 18; TEMP 36.5; O2SAT 95
--- NOTE | 2019-04-15 15:20 | PCM.PN.HOSP ---
Patient Problems: Active and Suspected Problems Status post total knee replacement, left (Acute) 04/10/[address] Ryan Vanessa Acute blood loss anemia (Acute) Macrocytosis (Acute) more likely than not reactive to blood loss with surgery and increased number of reticulocytes Reason for Visit: Patient was admitted for acute rehab after left acute total knee replacement on 04/10/[address] Vanessa. Patient is doing good as per PT. Vitals/I&O's: Vital Signs Temp Pulse Resp BP Pulse Ox 97.7 F L 84 18 133/66 H 95 04/15/19 10:00 04/15/19 10:00 04/15/19 10:00 04/15/19 10:00 04/15/19 10:00 Oxygen Delivery Method Room Air Weight: 148 lb 15.991 oz Body Mass Index (BMI) 27.2 Intake and Output for Last 24 Hours 04/13/19 04/14/19 04/15/19 23:59 23:59 23:59 Intake Total 1080 / 1080 960 / 960 880 / 880 Output Total 1050 / 1050 600 / 600 Balance 30 / 30 360 / 360 880 / 880 General: Alert, Oriented x3, Cooperative HEENT: Atraumatic, PERRLA, EOMI, Normocephalic Neck: Supple, No JVD, Negative Carotid Bruits Lungs: Clear to auscultation, Normal air movement, No rhonchi, No wheeze, No rales Cardiovascular: Regular rate, Regular Rhythm, Normal S1, Normal S2, No murmurs Abdomen: Bowel Sounds Present, Soft, Non Tender, Non-Distended Extremities: No edema, Capillary Refill Less than 3 Seconds Skin: No rashes, No breakdown Musculoskeletal: No Tenderness to Palpation of Joints or Extremities, Arthritic Changes - Left knee TKR. Dressing is dry. Neurological: Cranial nerves II-XII grossly intact, Deep Tendon Reflexes 2+/4 and Symmetrical, Neuro grossly intact Psych/Mental Status: Normal Affect, Appropriate Current Medications Apixaban (Eliquis) 2.5 mg PO BID [facility] Last Admin: 04/15/19 07:50 Dose: 2.5 mg Documented by: Atorvastatin Calcium (Lipitor) 10 mg PO QHS [facility] Last Admin: 04/14/19 20:43 Dose: 10 mg Documented by: Bisacodyl (Dulcolax) 10 mg RECTAL .PRN X 1 PRN PRN Reason: Constipation Calcium Carbonate (Tums) 500 mg PO BIDCM [facility] Last Admin: 04/15/19 07:50 Dose: 500 mg Documented by: Cholecalciferol (Vitamin D) 2,000 unit PO DAILY [facility] Last Admin: 04/15/19 07:50 Dose: 2,000 unit Documented by: Gabapentin (Neurontin) 100 mg PO BIDCM [facility] Last Admin: 04/14/19 20:44 Dose: 100 mg Documented by: Gabapentin (Neurontin) 200 mg PO QHS [facility] Last Admin: 04/14/19 20:44 Dose: 200 mg Documented by: Magnesium Hydroxide (Milk Of Magnesia) 30 ml PO .PRN X 1 PRN PRN Reason: Constipation Pantoprazole Sodium (Protonix) 20 mg PO DAILY [facility] Last Admin: 04/15/19 07:50 Dose: 20 mg Documented by: Senna/Docusate Sodium (Senokot-S, Naye-Colace) 2 tablet PO BID [facility] Last Admin: 04/15/19 07:52 Dose: Not Given Documented by: Sertraline HCl (Zoloft) 50 mg PO DAILY [facility] Last Admin: 04/15/19 07:51 Dose: 50 mg Documented by: Tramadol HCl (Ultram) 50 mg PO Q6H PRN PRN PRN Reason: Pain Score 4-10/10 Last Admin: 04/15/19 07:59 Dose: 50 mg Documented by: Medical Necessity - Tobacco Use Smoking Status: Never smoker Tobacco Use: Non-smoker Assessment/Plan All Active Problems Status post total knee replacement, left (Acute) Acute blood loss anemia (Acute) Macrocytosis (Acute) 78-year-old female admitted for acute rehab for debility secondary to left TKR 1. Debility secondary to left TKR: Patient had surgery by Dr. Vanessa on 04/10/2019: 2. Hypocalcemia with hypovitaminosis D: Patient on calcium 1000 mg twice daily. Follow-up DEXA scan as an outpatient. Vitamin D 18.2, low started on vitamin D 50,000 units weekly. 3. Acute encephalopathy/confusion: Resolved. Patient is awake, alert and oriented x3. Probably was secondary to diuretic which has been discontinued 4. Macrocytic anemia- in response to blood loss from recent surgery. Follow H&H. 5. Chronic medical conditions include depression, hyperlipidemia, osteoarthritis, GERD - continue the home medications Code Visit Inpatient E&M: 22779 Subs Hosp L2
[2019-04-15 20:00] VITALS: BP 120/56; PULSE 82; RESP 18; TEMP 36.7; O2SAT 96
[2019-04-15 21:05] VITALS: BP 118/49; PULSE 83; RESP 16; TEMP 36.7; O2SAT 96
[2019-04-15] MEDS: Atorvastatin Calcium 10 MG Tablet PO (21:43)
[2019-04-15] MEDS: Gabapentin 100 MG Capsule 200 MG PO (21:43)
[2019-04-16 05:56] LABS: Absolute Lymphocyte Count 1.18 X10^3/uL (0.83-4.51); Absolute Neutrophil Count 2.7 X10^3/uL (2.0-7.7); Basophil# 0.02 X10^3/uL; Basophil% 0.4 % (0-1); Eosinophil# 0.19 X10^3/uL; Eosinophils% 4.2 % (0-5); Hematocrit 31.2 % (37-47); Hemoglobin 9.8 g/dL (12.0-15.0); Lymphocyte # 1.18 X10^3/ul (4.0); Lymphocyte % 26.3 % (19-41); Mean Corp Hgb Conc 31.4 g/dL (32-36); Mean Corpuscular Hgb 31.5 pg (27.0-32.0); Mean Corpuscular Volume 100.3 fL (81-99); Mean Platelet Vol. 9.1 fl (6.2-12.0); Monocyte# 0.36 X10^3/uL; NRBC Flagged by Analyzer 0 % (0-5); Neutrophil # 2.69 X10^3/uL (2.7-7.7); Neutrophil % 60.2 % (47-70); Platelet Count 247 K/mm3 (150-450); RBC Distribution Width CV 12.9 % (11.6-14.6); RBC Distribution Width SD 47.2 fl (35.1-43.9); Red Blood Count 3.11 M/mm3 (4.2-5.4); White Blood Count 4.5 K/mm3 (4.4-11.0)
[2019-04-16 07:00] VITALS: BP 110/56; PULSE 86; RESP 16; TEMP 36.6; O2SAT 97
[2019-04-16] MEDS: APIXABAN 2.5 MG TABLET PO ×2 (08:51→21:17)
[2019-04-16] MEDS: Calcium Carbonate 500 MG Tablet PO ×2 (08:51→16:46)
[2019-04-16] MEDS: Sertraline 50 MG Tablet PO (08:51)
[2019-04-16] MEDS: Pantoprazole Sodium 20 MG Tablet PO (08:51)
[2019-04-16] MEDS: traMADol 50 MG Tablet PO ×3 (08:55→23:49)
--- NOTE | 2019-04-16 10:56 | PCM.PROGNOTE ---
Patient Problems: Active and Suspected Problems Status post total knee replacement, left (Acute) 04/10/[address] Ryan Vanessa Acute blood loss anemia (Acute) Macrocytosis (Acute) more likely than not reactive to blood loss with surgery and increased number of reticulocytes Subjective: Eve was seen on TEAM rounds today. Her son Tremaine was present for rounds. Afebile VSS Maintaining appropriate oxygen saturation on RA Oral intake is very good Discussed with nursing - no problems that need addressed Reviewed the PT/OT/ST notes. ST is working with her on word finding. she has higher level cognitive dysfunction and is having trouble with executive function and planning. She has been aware of this for the past year. Her mother 22 years ago of complications due to Alzheimer's disease. She also somewhat impulsive. Went to the BR today without assist and did not activate the call light. Medication list reviewed. The Gabapentin is helping. She still has some pain in the groin with ambulation but, she is sleeping much better at night. She does not feel that the medication during the day is making her sleepy. The pain in the knee is well controlled. No nausea. We were able to obtain Dr. Benites's records. Recent B12, TSH were WNL and the RPR was negative. She scored 29/30 on a MMSE done at Dr. Benites's office. - Physical Exam Vitals/I&O's: Vital Signs Temp Pulse Resp BP Pulse Ox 97.9 F 86 16 110/56 L 97 04/16/19 07:00 04/16/19 07:00 04/16/19 07:00 04/16/19 07:00 04/16/19 07:00 Oxygen Delivery Method Room Air Weight: 148 lb 15.991 oz Body Mass Index (BMI) 27.2 Intake and Output for Last 24 Hours 04/14/19 04/15/19 04/16/19 23:59 23:59 23:59 Intake Total 960 / 960 1380 / 1380 Output Total 600 / 600 Balance 360 / 360 1380 / 1380 General: Alert, Oriented x3, Cooperative, No apparent distress, - - sitting in the recliner at the bedside. HEENT: Atraumatic, PERRLA, EOMI, Normocephalic Oral: Moist Mucosa, No Gingival or Mucosal Lesions/ Ulcerations Neck: Supple, No Nodes, Trachea Midline Lungs: Clear to auscultation, Normal air movement Cardiovascular: Regular rate, Regular Rhythm, Normal S1, Normal S2, No Gallop Abdomen: Bowel Sounds Present, Soft, Non Tender, Non-Distended Extremities: No edema - RAHEEL hose in place, Capillary Refill Less than 3 Seconds Skin: No rashes, No breakdown, - - incision looks good per nursing. Neurological: Cranial nerves II-XII grossly intact, Neuro grossly intact, - - Trouble with word finding and slow speech today. This has been going on for one year now per the patient. Psych/Mental Status: Normal Affect, Appropriate Laboratory Results 04/16/19 05:38: WBC 4.5, RBC 3.11 L, Hgb 9.8 L, Hct 31.2 L, MCV 100.3 H, MCH 31.5, MCHC 31.4 L, RDW Std Deviation 47.2 H, RDW Coeff of Trav 12.9, Plt Count 247, MPV 9.1, Immature Gran % (Auto) 0.900, Neut % (Auto) 60.2, Lymph % (Auto) 26.3, [place] % (Auto) 8.0, Eos % (Auto) 4.2, Baso % (Auto) 0.4, Absolute Neuts (auto) 2.7, Absolute Lymphs (auto) 1.18, Nucleated RBC % 0 Current Medications Apixaban (Eliquis) 2.5 mg PO BID [facility] Last Admin: 04/16/19 08:51 Dose: 2.5 mg Documented by: Atorvastatin Calcium (Lipitor) 10 mg PO QHS [facility] Last Admin: 04/15/19 21:43 Dose: 10 mg Documented by: Bisacodyl (Dulcolax) 10 mg RECTAL .PRN X 1 PRN PRN Reason: Constipation [facility] Admin: 04/16/19 08:51 Dose: 500 mg Documented by: Ergocalciferol (Vitamin D) 50,000 unit PO Q7D [facility] Last Admin: 04/15/19 18:15 Dose: 50,000 unit Documented by: [facility]) [facility] Last Admin: 04/14/19 20:44 Dose: 100 mg Documented by: Gabapentin (Neurontin) 200 mg PO QHS [facility] Last Admin: 04/15/19 21:43 Dose: 200 mg Documented by: Magnesium Hydroxide (Milk Of Magnesia) 30 ml PO .PRN X 1 PRN PRN Reason: Constipation Pantoprazole Sodium (Protonix) 20 mg PO DAILY [facility] Last Admin: 04/16/19 08:51 Dose: 20 mg Documented by: Senna/Docusate Sodium (Senokot-S, Naye-Colace) 2 tablet PO BID [facility] Last Admin: 04/16/19 08:51 Dose: Not Given Documented by: Sertraline HCl (Zoloft) 50 mg PO DAILY [facility] Last Admin: 04/16/19 08:51 Dose: 50 mg Documented by: Tramadol HCl (Ultram) 50 mg PO Q6H PRN PRN PRN Reason: Pain Score 4-10/10 Last Admin: 04/16/19 08:55 Dose: 50 mg Documented by: Medical Necessity - Tobacco Use Smoking Status: Never smoker Tobacco Use: Non-smoker Assessment/Plan All Active Problems Status post total knee replacement, left (Acute) Acute blood loss anemia (Acute) Macrocytosis (Acute) Impressions 1. Debility secondary to recent left total knee replacement on 04/10/[address] Vanessa 2. Hypocalcemia-we will start calcium carbonate 500 mg p.o. twice daily. The vitamin D level was low and she has been started on a vitamin D supplement, 3. Confusion-suspect secondary to narcotics. Oxycodone has been discontinued and she has been started on tramadol which she tolerates and is taking 1-3 times a day. A lot of the confusion has improved. she is still having trouble with word finding and higher level executive function. I suspect she may have early Alzheimer's. She has not seen a neurologist and I recommended to Mandie that she see a neurologist and be evaluated because the earlier it is treated generally the better the response. ST performed a MOCA on the pt during their evaluation and she scored 16/30. 4. Macrocytic anemia-suspect secondary to increased reticulocytes in response to blood loss from recent surgery. Monitor H&H periodically to make sure it stable. HH stable on 04/16/19 5. Spinal canal stenosis with BL groin pain, L>R. Improving with the initiation of Gabapentin. Sleeping well now. Still having groin pain with weight bearing. Increase the Gabapentin to 200 mg TID. 6. Chronic medical conditions include depression, hyperlipidemia, osteoarthritis, GERD - continue the home medications Refer to Dr. Shakeel Ascencio to be evaluated for early Dementia. TSH, B12 are normal and the RPR is negative. Will check an MAO and see if Dr. Fuller has a recent report of CTB. Will follow up with Dr. Benites and Dr. Vanessa post discharge. Continue Therapy. Check a lipid panel......there is now literature that reports Statins may be beneficial in treating dementia.
[2019-04-16 12:34] LABS: Cholesterol 139 mg/dL (200); High Density Lipoprotein 52 mg/dL; Triglycerides 142 mg/dL; Very Low Density Lipoprotein 28 mg/dL (5-40)
--- NOTE | 2019-04-16 12:39 | CASEMGMT ---
Social Work IDT met with patient and son for Team Meeting. Discussed patient's progress in therapy. Pt is SBA fro transfers, SBA walking 200 ft with FWW, 9 steps with 2 HR CGA, SBA for all ADLs. ST is working on issues with word finding, memory, slow though processing, impulsivity, decreased safety awareness and issues problem solving. Recommending son to take over finances - whom is agreeable. Physician recommending consult with neurology. Explained Medicare coverage with [employer] 9 days with DC date 04/20. Pt requesting outpatient PT/OT/ST at [facility] and used [facility] van in the past for transportation. No DME needs. Plan: DC home 04/20 with [facility] PT/OT/ST. Natacha Lovelace, DEREK ALFAROW
--- NOTE | 2019-04-16 15:00 | NURSING ---
Called Dr. Ascencio neurlogy office twice and have left a message to inquire about getting patient an appt.
[2019-04-16] MEDS: Gabapentin 100 MG Capsule 200 MG PO ×2 (16:46→21:17)
[2019-04-16] MEDS: Atorvastatin Calcium 10 MG Tablet PO (21:17)
[2019-04-16 21:31] VITALS: BP 117/59; PULSE 83; RESP 16; TEMP 36.9; O2SAT 93
[2019-04-17] MEDS: Gabapentin 100 MG Capsule 200 MG PO ×3 (07:35→19:57)
[2019-04-17] MEDS: Calcium Carbonate 500 MG Tablet PO ×2 (07:35→17:15)
[2019-04-17 09:17] VITALS: BP 109/54; PULSE 81; RESP 18; TEMP 36.4; O2SAT 95
[2019-04-17 09:18] VITALS: RESP 18
[2019-04-17] MEDS: Sertraline 50 MG Tablet PO (10:19)
[2019-04-17] MEDS: Pantoprazole Sodium 20 MG Tablet PO (10:19)
[2019-04-17] MEDS: APIXABAN 2.5 MG TABLET PO ×2 (10:19→19:58)
[2019-04-17] MEDS: Senna/Docusate Sodium 1 Tablet 2 TABLET PO ×2 (10:20→19:58)
[2019-04-17 15:44] LABS: ANTINUCLEAR ANTIBODIES DIRECT Negative (Negative)
[2019-04-17 19:45] VITALS: BP 123/58; PULSE 91; RESP 18; TEMP 36.7; O2SAT 99
[2019-04-17] MEDS: Atorvastatin Calcium 10 MG Tablet PO (19:57)
[2019-04-17] MEDS: traMADol 50 MG Tablet PO (19:58)
--- NOTE | 2019-04-18 04:55 | NURSING ---
urine for a complete ua was collected at 0420 and sent to the lab and lab notified, pt tolerated the procedure well.
[2019-04-18 04:57] LABS: Mucous, Urine 0 SEEN /hpf (<or=2+)
[2019-04-18 05:13] LABS: Color, Urine Yellow (Yellow); Glucose, Dipstick Normal (Normal); Ketone-Dipstick 5 mg/dl (Negative); Leukocyte Esterase-Dipstick Negative /ul (Negative); Nitrite-Dipstick Negative (Negative); Occult Blood-Urine Negative /ul (Negative); Protein-Dipstick Negative (Negative); Specific Gravity, Urine 1.015 (1.002-1.030); Urine Bilirubin Dipstick Negative (Negative); Urine Clarity Sl. Cloudy (Clear); Urine Urobilinogen Normal (Normal)
[2019-04-18 05:30] LABS: Red Blood Cells-Urine 0 SEEN /hpf (0-5)
[2019-04-18 05:31] LABS: White Blood Cells 0-5 SEEN /hpf (0-5)
[2019-04-18 05:32] LABS: Squamous Epithelial Cells - UA 0-5 SEEN /hpf (5-10)
[2019-04-18] MEDS: traMADol 50 MG Tablet PO ×3 (05:46→21:20)
[2019-04-18 08:21] VITALS: BP 119/60; PULSE 80; RESP 17; TEMP 36.7; O2SAT 95
[2019-04-18] MEDS: Senna/Docusate Sodium 1 Tablet 2 TABLET PO ×2 (08:27→21:25)
[2019-04-18] MEDS: Sertraline 50 MG Tablet PO (08:27)
[2019-04-18] MEDS: Pantoprazole Sodium 20 MG Tablet PO (08:27)
[2019-04-18] MEDS: Gabapentin 100 MG Capsule 200 MG PO ×2 (08:28→21:24)
[2019-04-18] MEDS: Calcium Carbonate 500 MG Tablet PO ×2 (08:28→16:54)
[2019-04-18] MEDS: APIXABAN 2.5 MG TABLET PO ×2 (08:28→21:25)
--- NOTE | 2019-04-18 10:57 | PN_ITS ---
Progress Note Afebile VSS Maintaining appropriate oxygen saturation on RA Discussed with nursing - She had confusion on 04/16/19 at night. Did not sleep well. Called someone on the phone in the middle of the night and said that she was unable to walk. She tells me this was due to sharp stabbing pain in the Left thigh. She no longer has this. Reviewed the PT/OT notes - she can not remember to use the FWW. She is getting out of bed and walking to the BR with no AD and then she has pain in the legs. Medication list reviewed. UA was done 04/17 because of the confusion the preceding night. It was nitrite negative and there were 0-5 WBCs and no bacteria. Culture was not sent She has no complaints today. She was able to tell me that she was in a therapy center and that she lived in [place] but, she could not tell me this was [facility]. She knew the month and the year but, thought it was . She tells me that her niece will be coming to stay with her at [place]. DC is planned for 04/20. Bowels are moving well. No n/V. She has no complaints. PHYSICAL EXAM: GENERAL: alert, Cooperative, NAD ORAL: moist mucosa, no mucosal lesions NECK: No JVD, supple, trachea midline LUNGS: CTA, symmetric chest expansion HEART: RRR, Normal S1 and S2, no rub, no gallop ABDOMEN: soft, NT, ND, BS present, no guarding with palpation EXTREMITIES: no edema, no cyanosis, no calf tenderness SKIN: No rashes, no breakdown NEUROLOGIC: no focal neurologic deficits PSYCH: appropriate, normal affect, pleasant Impressions 1. cognitive dysfunction with suspected dementia of the Alzheimer's type. MAO is negative. TSH and the B12 are normal. Has not had a CTB but, this can be done as an OP. A referral was made to Dr. Ascencio's office to be evaluated for diagnosis and tx of suspected dementia. 2. debility related to recent L TKA 3. vitamin D deficiency.....now on a supplement. Should get a DEXA as an OP. It is difficult to tell if the memory problem is worse since the Gabapentin was started. I am going to go back to 100 mg BID and continue the 200 mg at HS since it does seem to be helping. I am glad she is going to have her niece stay with her because otherwise I do not feel she would be safe at Home since she is always forgetting to use the walker. STROKE Vital Signs/Narrative: Vital Signs Temp Pulse Resp BP Pulse Ox 04/18/19 08:21 98.0 F 80 17 119/60 95 Code Visit Inpatient E&M: 25195 Subs Hosp L2
--- NOTE | 2019-04-18 16:40 | CASEMGMT ---
Social Work Spoke with patient's son at length about DC plans for pt. Discussed son's concerns with cognition and safety awareness. Explained skilled and nonskilled HHC - pt cannot afford nonskilled HHC and son works long hours. Physically pt is doing well and can make own decisions and would like to DC home vs SNF. Explained pt had cognitive impairment prior to hospitalization, and possible return to pt's environment may help pt adjust. Recommending ongoing ST will be beneficial, but physician recommending f/u with neurology. Pt has appt scheduled with Dr. Gilman 05/25. Son requested ST to contact him to discuss cognition. Son spoke with ST and contacted SW. Son agreeable to have pt DC home with support in place. will continue as planned for DC home 04/21 with [facility] PT/OT/ST. No DME needs. Natacha Lovelace, WEAVING [employer]STRUCTOR [employer]
[2019-04-18] MEDS: Gabapentin 100 MG Capsule PO (16:54)
[2019-04-18 20:24] VITALS: BP 118/62; PULSE 81; RESP 18; TEMP 36.6; O2SAT 94
[2019-04-18] MEDS: Atorvastatin Calcium 10 MG Tablet PO (21:24)
[2019-04-18] MEDS: QUEtiapine 25 MG Tablet 12.5 MG PO (21:31)
[2019-04-19] MEDS: traMADol 50 MG Tablet PO ×3 (05:18→20:09)
[2019-04-19 07:56] VITALS: BP 123/58; PULSE 85; RESP 16; TEMP 37; O2SAT 93
[2019-04-19] MEDS: Pantoprazole Sodium 20 MG Tablet PO (08:54)
[2019-04-19] MEDS: Senna/Docusate Sodium 1 Tablet 2 TABLET PO ×2 (08:54→21:59)
[2019-04-19] MEDS: APIXABAN 2.5 MG TABLET PO ×2 (08:54→21:59)
[2019-04-19] MEDS: Calcium Carbonate 500 MG Tablet PO ×2 (08:54→16:40)
[2019-04-19] MEDS: Sertraline 50 MG Tablet PO (08:54)
[2019-04-19] MEDS: Gabapentin 100 MG Capsule PO ×2 (08:54→16:40)
[2019-04-19 18:56] VITALS: BP 109/68; PULSE 97; RESP 16; TEMP 36.8; O2SAT 95
[2019-04-19] MEDS: Gabapentin 100 MG Capsule 200 MG PO (21:59)
[2019-04-19] MEDS: Atorvastatin Calcium 10 MG Tablet PO (21:59)
[2019-04-19] MEDS: QUEtiapine 25 MG Tablet 12.5 MG PO (22:00)
[2019-04-20] MEDS: traMADol 50 MG Tablet PO ×2 (05:05→11:06)
[2019-04-20 08:02] VITALS: BP 137/60; PULSE 85; RESP 18; TEMP 36.7; O2SAT 93
[2019-04-20] MEDS: Calcium Carbonate 500 MG Tablet PO (09:18)
[2019-04-20] MEDS: Gabapentin 100 MG Capsule PO (09:18)
[2019-04-20] MEDS: APIXABAN 2.5 MG TABLET PO (09:19)
[2019-04-20] MEDS: Pantoprazole Sodium 20 MG Tablet PO (09:19)
[2019-04-20] MEDS: Sertraline 50 MG Tablet PO (09:20)
[2019-04-20] MEDS: Senna/Docusate Sodium 1 Tablet 2 TABLET PO (09:20)
--- NOTE | 2019-04-20 09:58 | DCINST_ITS ---
- Discharge Diagnoses Current Active Problems: Current Active and Chronic Problems Status post total knee replacement, left (Acute) 04/10/[address] Ryan Vanessa Depression (Chronic) Hyperlipidemia (Chronic) Osteoarthritis (Chronic) GERD (gastroesophageal reflux disease) (Chronic) Acute blood loss anemia (Acute) Macrocytosis (Acute) more likely than not reactive to blood loss with surgery and increased number of reticulocytes You will use the following diet at home:: No restrictions Your food should be the consistency of: Regular Your liquids should be the consistency of: Regular/Thin Discharge Activity: May Not Drive, May Shower, Use Walker Ice area for (Minutes): 15 - 3 times a day to control swelling and pain Weight Bearing Status: Full weight bearing Keep extremity elevated above heart level: Left Leg Call your doctor if your incision/area has: Continuous Slow Oozing, Sudden Increased Bleeding, Increased Pain/ Swelling, Increased Redness, Foul Smelling Discharge, Swelling at the incision site Call your doctor if you observe: Fever of 101 or Higher, Numbness or Tingling, Inability to urinate, Inability to have a bowel movement, Shortness of breath, Dizziness, Fainting spells, Swelling in the ankles, Chest pain, Calf discomfort, Uncontrolled pain, - - Any unusual bleeding such as bloody noses, bleeding from the gums, coughing up blood, bleeding from the rectum or blood in the urine. Cleanse incision/area with: Soap & Water Additional Dressing/Incision Instructions:: The incision can be open to air or you can cover with a dry dressing. Check the incision everyday for redness around the incision, purulent discharge or increasing warmth to touch. If any of these occur call Dr. Vanessa for advice. Additional Instructions: 1. You need to follow up with Dr. Vanessa this coming week in the office. 2. You have an appt with Dr. Ascencio in [place]. He is a neurologist and he will be seeing you for memory loss and treatment to slow down the memory loss and preserve your current level of functioning. I will send a copy of your discharge summary and labs to Dr. Ascencio so he will have it prior to your appt with him and he will not have to repeat some of the lab we already obtained while you were in rehab. 3. It was a pleasure to meet you Eve. You are a very sweet women and I hope everything goes well for you in the future. Allergies/Adverse Reactions: Allergies acetaminophen [From Tylenol] Allergy (Verified 04/10/19 07:53) Chest tightness Medications to take at Discharge Atorvastatin Calcium [Lipitor] 10 mg PO QHS 02/24/17 Omeprazole [Prilosec] 20 mg PO DAILY 02/24/17 Sertraline HCl [Zoloft] 50 mg PO DAILY 02/24/17 Apixaban [Eliquis] 2.5 mg PO BID #14 tab 04/20/19 Calcium Carbonate [Tums] 500 mg PO BIDCM tablet 04/20/19 Ergocalciferol [Vitamin D] 50,000 unit PO Q7D #12 cap 04/20/19 Gabapentin [Neurontin] 100 mg PO BIDCM #120 cap 04/20/19 traMADol [Ultram] 50 mg PO Q6H PRN PRN #30 tablet 04/20/19 The following prescriptions were given: Apixaban [Eliquis] 2.5 mg PO BID #14 tab Transmission Status: Pending to [facility] Gabapentin [Neurontin] 100 mg PO BIDCM #120 cap Transmission Status: Pending to [facility] traMADol [Ultram] 50 mg PO Q6H PRN PRN #30 tablet PRN Reason: Pain Score 4-10/10 Transmission Status: Sent to [facility] Ergocalciferol [Vitamin D] 50,000 unit PO Q7D #12 cap Transmission Status: Pending to [facility] Primary Care Physician: Ross Benites Chi, MD [Primary Care Provider] - Please follow up with your Primary Care Physician in: 1-2 weeks Test Results: Test results from this visit will be discussed in further detail at your follow- up appointment, if applicable. Please Follow Up With: Dr Shakeel Ascencio Please Follow Up With: Dr Vanessa When: this coming week Proposed Discharge Date: 04/20/19
[2019-04-20 12:34] VITALS: BP 116/60; PULSE 81; RESP 18; TEMP 36.8; O2SAT 96
--- NOTE | 2019-04-23 12:03 | PCM.DC.SUM ---
Discharge Date and Diagnosis Date of Admission: 04/11/19 Date of Discharge: 04/20/19 - Primary Discharge Diagnosis Debility secondary to left total knee replacement on 04/10/[address] 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)-suspected Alzheimer's Lumbar canal stenosis (Chronic) Vitamin D deficiency (Chronic) Hypocalcemia (Chronic) Depression (Chronic) Hyperlipidemia (Chronic) Osteoarthritis (Chronic) GERD (gastroesophageal reflux disease) (Chronic) osteopenia seen on a forearm XRAY in July of 2018 Hospital Course and Treatment Imaging Results: Laboratory Tests 04/18/19 04/16/19 04/16/19 Range/Units 04:20 05:38 05:38 WBC 4.5 (4.4-11.0) K/mm3 RBC 3.11 L (4.2-5.4) M/mm3 Hgb 9.8 L (12.0-15.0) g/dL Hct 31.2 L (37-47) % MCV 100.3 H (81-99) fL MCH 31.5 (27.0-32.0) pg MCHC 31.4 L (32-36) g/dL RDW Std Deviation 47.2 H (35.1-43.9) fl RDW Coeff of Trav 12.9 (11.6-14.6) % Plt Count 247 (150-450) K/mm3 MPV 9.1 (6.2-12.0) fl Immature Gran % (Auto) 0.900 (0.0-0.9) % Neut % (Auto) 60.2 (47-70) % Lymph % (Auto) 26.3 (19-41) % [place] % (Auto) 8.0 (0-10) % Eos % (Auto) 4.2 (0-5) % Baso % (Auto) 0.4 (0-1) % Absolute Neuts (auto) 2.7 (2.0-7.7) X10^3/uL Absolute Lymphs (auto) 1.18 (0.83-4.51) X10^3/uL Nucleated RBC % 0 (0-5) % Triglycerides 142 ( - 199) mg/dL Cholesterol 139 (200) mg/dL LDL Cholesterol 59 (0-130) mg/dL VLDL Cholesterol 28 (5-40) mg/dL HDL Cholesterol 52 (40 - ) mg/dL Vitamin D 25-Hydroxy (29.95-100.01) ng/mL Urine Color Yellow (Yellow) Urine Clarity Sl. Cloudy (Clear) Urine pH 8.0 (5.0 - 8.0) Ur Specific [place] 1.015 (1.002-1.030) Urine Protein Negative (Negative) mg/dl Urine Glucose (UA) Normal (Normal) mg/dl Urine Ketones 5 H (Negative) mg/dl Urine Occult Blood Negative (Negative) /ul Urine Nitrite Negative (Negative) Urine Bilirubin Negative (Negative) mg/dL Urine Urobilinogen Normal (Normal) mg/dl Ur Leukocyte Esterase Negative (Negative) /ul Urine RBC 0 SEEN (0-5) /hpf Urine WBC 0-5 SEEN (0-5) /hpf Ur Squamous Epith Cells 0-5 SEEN (5-10) /hpf Urine Bacteria ADVERTISING EDITOR Urine Mucus 0 SEEN (<or=2+) /hpf MAO Screen (Negative) NADINE-1 Antibody SS-A/Ro IgG Antibody SS-B/La IgG Antibody Sm ([place]) Antibody IMAGING SCIENCE PROFESSOR Antibody Scl-70 Scleroderma Ab Double Strand DNA Ab Centromere B Antibody 04/12/19 04/12/19 Range/Units 14:38 14:38 WBC (4.4-11.0) K/mm3 RBC (4.2-5.4) M/mm3 Hgb (12.0-15.0) g/dL Hct (37-47) % MCV (81-99) fL MCH (27.0-32.0) pg MCHC (32-36) g/dL RDW Std Deviation (35.1-43.9) fl RDW Coeff of Trav (11.6-14.6) % Plt Count (150-450) K/mm3 MPV (6.2-12.0) fl Immature Gran % (Auto) (0.0-0.9) % Neut % (Auto) (47-70) % Lymph % (Auto) (19-41) % [place] % (Auto) (0-10) % Eos % (Auto) (0-5) % Baso % (Auto) (0-1) % Absolute Neuts (auto) (2.0-7.7) X10^3/uL Absolute Lymphs (auto) (0.83-4.51) X10^3/uL Nucleated RBC % (0-5) % Triglycerides ( - 199) mg/dL Cholesterol (200) mg/dL LDL Cholesterol (0-130) mg/dL VLDL Cholesterol (5-40) mg/dL HDL Cholesterol (40 - ) mg/dL Vitamin D 25-Hydroxy 18.2 L (29.95-100.01) ng/mL Urine Color (Yellow) Urine Clarity (Clear) Urine pH (5.0 - 8.0) Ur Specific [place] (1.002-1.030) Urine Protein (Negative) mg/dl Urine Glucose (UA) (Normal) mg/dl Urine Ketones (Negative) mg/dl Urine Occult Blood (Negative) /ul Urine Nitrite (Negative) Urine Bilirubin (Negative) mg/dL Urine Urobilinogen (Normal) mg/dl Ur Leukocyte Esterase (Negative) /ul Urine RBC (0-5) /hpf Urine WBC (0-5) /hpf Ur Squamous Epith Cells (5-10) /hpf Urine Bacteria Urine Mucus (<or=2+) /hpf MAO Screen Negative (Negative) NADINE-1 Antibody Not Reportable SS-A/Ro IgG Antibody Not Reportable SS-B/La IgG Antibody Not Reportable Sm ([place]) Antibody Not Reportable IMAGING SCIENCE PROFESSOR Antibody Not Reportable Scl-70 Scleroderma Ab Not Reportable Double Strand DNA Ab Not Reportable Centromere B Antibody Not Reportable none Operations: total knee replacement - on 04/10/[address] Vanessa Procedures: None Summary of Care Provided: The pt is a 78-year-old female with a PMH of depression, GERD, hyperlipidemia ( pt tells me she is on a statin prophylactically?) and OA admitted to the Inpatient rehab unit at [facility] on 04/11/2019 for debility secondary to left total knee replacement by Dr. Vanessa on 04/10/2019 for greater than 3 hours of therapy daily with a goal of returning home at or near prior level of independence. The patient lives at home by herself and has 2 steps. The patient was independent with ADL's, mobility and driving prior to hospitalization. At admission she complained of being fuzzy and having a hard time with thinking straight. Oxycodone was discontinued and she was transitioned to Tramadol and she felt like she was back to her baseline in 24-48 hours. Unfortunately she has been having problems with her memory for the past year. She is quite concerned about this because her mother of complications due to Alzheimer's disease. TSH and B12 are normal and the RPR and MAO are negative. She has never had a CT brain at [facility] and this should be done as an OP to r/o treatable causes of dementia. She is not ataxic and I doubt she has NPH. Because of the cognitive dysfunction she was seen by ST and had a MOCA done. She scored 16/30. MMSE in Dr. Benites's office was scored 29/30. The results of the MOCA were discussed with Eve and her son and they requested a referral to neurology. A referral was made to Dr. Shakeel Ascencio and an appt was scheduled for her to be evaluated for dementia. All lab from her hospital stay was reviewed prior to her admission to the rehab unit. The calcium was noted to be low at 8.2. Hemoglobin had dropped from 12.7 prior to surgery to 9.9 postop. A repeat hemoglobin on 04/16/2019 was stable at 9.8. She had macrocytic indices but this is more likely than not secondary to increased reticulocytosis due to acute blood loss anemia. A vitamin D level was checked and was low at 18.2. I reviewed her radiology reports in the EMR and she has not had a DEXA scan at [facility]. She did have a forearm x-ray in July 2018 that showed osteopenia. If she has not had a DEXA within the past year or two I would recommend a DEXA as an outpatient to evaluate bone density especially since she has calcium and vitamin D deficiency. While in the IPRU she c/o BL groin pain, L>R that had been bothering her for quite some time. It increases with sitting and with BM's when bearing down and it keeps her awake at night. The groin pain was actually worse than the knee pain while she was in therapy. She was started on Gabapentin 100 mg BID and 200 mg at HS and the pain improved. Prior to DC she was sleeping well. She did well with therapy and was very motivated to get better. She was discharged on 04/20/2019. Her niece is going to be staying with her. I recommended she not drive until she is off Tramadol and has been evaluated by neurology and released to drive by Dr. Vanessa. She will follow-up with Dr. Vanessa this coming week and she has an outpatient appointment with Dr. Ascencio also this coming week. She was given a prescription for tramadol 50 mg number 30 tablets and instructed to take 1 every 6 hours as needed for pain. She was also given a RX for the Gabapentin, Apixaban 2.5 mg BID to complete 14 post operative days to prevent DVT's, and vitamin D. She will follow-up with Dr. Benites in the next 1-2 weeks. She will discuss obtaining a DEXA and a CT brain with Dr. Benites at her next visit. PHYSICAL EXAM: GENERAL: alert, oriented X 3, Cooperative, NAD, slow to answer questions ORAL: moist mucosa, no mucosal lesions NECK: No JVD, supple, trachea midline LUNGS: CTA, symmetric chest expansion HEART: RRR, Normal S1 and S2, no rub, no gallop ABDOMEN: soft, NT, ND, BS present, no guarding with palpation EXTREMITIES: no edema, no cyanosis, no calf tenderness, the incision is clean and intact with no erythema or purulent DC. SKIN: No rashes, no breakdown NEUROLOGIC: no focal neurologic deficits PSYCH: appropriate, normal affect, pleasant This note was generated with [employer] dictation software. It may contain incorrect words, spelling, and punctuation that were not noted in checking the note before signing. - Physical Exam Vitals/I&O's: Vital Signs Temp Pulse Resp BP Pulse Ox 98.2 F 81 18 116/60 96 04/20/19 12:34 04/20/19 12:34 04/20/19 12:34 04/20/19 12:34 04/20/19 12:34 Oxygen Delivery Method Room Air Weight: 151 lb 14.376 oz Body Mass Index (BMI) 27.2 Discharge Activity: May Not Drive, May Shower, Use Walker Ice area for (Minutes): 15 - 3 times a day to control swelling and pain Weight Bearing Status: Full weight bearing Keep extremity elevated above heart level: Left Leg Call your doctor if your incision/area has: Continuous Slow Oozing, Sudden Increased Bleeding, Increased Pain/ Swelling, Increased Redness, Foul Smelling Discharge, Swelling at the incision site Call your doctor if you observe: Fever of 101 or Higher, Numbness or Tingling, Inability to urinate, Inability to have a bowel movement, Shortness of breath, Dizziness, Fainting spells, Swelling in the ankles, Chest pain, Calf discomfort, Uncontrolled pain, - - Any unusual bleeding such as bloody noses, bleeding from the gums, coughing up blood, bleeding from the rectum or blood in the urine. Cleanse incision/area with: Soap & Water Additional Dressing/Incision Instructions:: The incision can be open to air or you can cover with a dry dressing. Check the incision everyday for redness around the incision, purulent discharge or increasing warmth to touch. If any of these occur call Dr. Vanessa for advice. Home Medications: Medications to take at Discharge Atorvastatin Calcium [Lipitor] 10 mg PO QHS 02/24/17 Omeprazole [Prilosec] 20 mg PO DAILY 02/24/17 Sertraline HCl [Zoloft] 50 mg PO DAILY 02/24/17 Apixaban [Eliquis] 2.5 mg PO BID #14 tab 04/20/19 Calcium Carbonate [Tums] 500 mg PO BIDCM tab 04/20/19 Ergocalciferol [Vitamin D] 50,000 unit PO Q7D #12 cap 04/20/19 Gabapentin [Neurontin] 100 mg PO BIDCM #120 cap 04/20/19 traMADol [Ultram] 50 mg PO Q6H PRN PRN #30 tab 04/20/19 Following Prescrptions Were Given to Patient: Apixaban [Eliquis] 2.5 mg PO BID #14 tab Transmission Status: Received by [facility] Gabapentin [Neurontin] 100 mg PO BIDCM #120 cap Transmission Status: Received by [facility] traMADol [Ultram] 50 mg PO Q6H PRN PRN #30 tab PRN Reason: Pain Score 4-10/10 Transmission Status: Received by [facility] Ergocalciferol [Vitamin D] 50,000 unit PO Q7D #12 cap Transmission Status: Received by [facility] Primary Care Physician: Ross Benites Chi, MD [Primary Care Provider] - Please follow up with your Primary Care Physician in: 1-2 weeks Please Follow Up With: Dr Shakeel Ascencio When: has an appt scheduled Please Follow Up With: Dr Vanessa When: this coming week Disposition: Home with Home Health Minutes spent on discharge:: 40 Patient Condition:: Good Medical Necessity - Tobacco Use Smoking Status: Never smoker Tobacco Use: Non-smoker Meaningful Use Info Meaningful Use Diagnoses (Choose all that apply): None applicable Code Visit Inpatient E&M: 68003 Disch Hosp
== END 2019-04-20 12:50 | disposition home or self-care (01) | DRG 469 ==
PROVIDERS: Internal Medicine; Admitting Provider Internal Medicine; PCP Family Medicine Geriatric Medicine; Referring Provider Internal Medicine; Visit Provider Hospitalist
DX: Z47.1 Aftercare following joint replacement surgery (principal); G92 Toxic encephalopathy; D62 Acute posthemorrhagic anemia; Z96.652 Presence of left artificial knee joint; M17.12 Unilateral primary osteoarthritis, left knee; E78.5 Hyperlipidemia, unspecified; F32.9 Major depressive disorder, single episode, unspecified; K21.9 Gastro-esophageal reflux disease without esophagitis; D53.9 Nutritional anemia, unspecified; R41.3 Other amnesia; R53.83 Other fatigue; G89.29 Other chronic pain; E55.9 Vitamin D deficiency, unspecified; T50.2X5A Adverse effect of carbonic-anhydrase inhibitors, benzothiadiazides and other diuretics, initial encounter; Z79.899 Other long term (current) drug therapy; M48.00 Spinal stenosis, site unspecified
CPT/HCPCS: 36415; 73560; 80048; 80053; 80061; 81001; 82306; 82607; 82746; 82962; 84443; 85025; 85027; 86038; 86225; 86235; 86592; 87081; 92507; 92523; 96361; 96365; 96366; 96375; 96376; 97110; 97116; 97162; 97166; 97530; 97535; 97802; 97803; 99218; 99251; C1776; J7120; A4216; G0378; G0379; G0463; J0702; J3490

== ENCOUNTER → 2019-05-03 14:18 | Outpatient (CLI) | payer MEDICARE, OTHER, SELFPAY ==
[2019-04-25 07:47] VITALS: BMI 27.2
[2019-05-03 17:21] LABS: Absolute Lymphocyte Count 1.67 X10^3/uL (0.83-4.51); Absolute Neutrophil Count 4.9 X10^3/uL (2.0-7.7); Basophil# 0.04 X10^3/uL; Basophil% 0.6 % (0-1); Eosinophil# 0.17 X10^3/uL; Eosinophils% 2.4 % (0-5); Hematocrit 40.2 % (37-47); Hemoglobin 12.5 g/dL (12.0-15.0); Lymphocyte # 1.67 X10^3/ul (4.0); Lymphocyte % 23.6 % (19-41); Mean Corp Hgb Conc 31.1 g/dL (32-36); Mean Corpuscular Hgb 31.1 pg (27.0-32.0); Mean Platelet Vol. 10.5 fl (6.2-12.0); Monocyte# 0.32 X10^3/uL; Monocyte% 4.5 % (0-10); NRBC Flagged by Analyzer 0 % (0-5); Neutrophil # 4.85 X10^3/uL (2.7-7.7); Neutrophil % 68.5 % (47-70); Platelet Count 320 K/mm3 (150-450); RBC Distribution Width CV 13.4 % (11.6-14.6); RBC Distribution Width SD 48.8 fl (35.1-43.9); Red Blood Count 4.02 M/mm3 (4.2-5.4); White Blood Count 7.1 K/mm3 (4.4-11.0)
== END ==
PROVIDERS: PCP Family Medicine Geriatric Medicine; Visit Provider Family Medicine Geriatric Medicine
DX: D64.9 Anemia, unspecified (principal)
CPT/HCPCS: 36415; 85025

== ENCOUNTER → 2019-05-10 13:57 | Outpatient (CLI) | payer MEDICARE, OTHER, SELFPAY ==
[2019-04-10 08:06] VITALS: BMI 27.2
[2019-05-07 13:39] VITALS: BMI 27.2
--- NOTE | 2019-05-10 14:08 | CT_ITS ---
STUDY: CT BRAIN WITHOUT CONTRAST REASON FOR EXAM: Female, 78 years old. DEMENTIA/FORGETFULNESS RADIATION DOSAGE (If Supplied By Facility): CTDIvol = ( 60.81 ) mGy, DLP = ( 1021.47 ) mGycm TECHNIQUE: Transaxial CT imaging of the brain was performed without administration of intravenous contrast material. Individualized dose optimization techniques were used for this CT. COMPARISON: No relevant priors. FINDINGS: Normal soft tissue structures. Normal calvarium. There is moderate cerebral atrophy with widening of the extra-axial spaces and ventricular dilatation. There are areas of decreased attenuation within the white matter tracts of the supratentorial brain, consistent with microvascular disease changes. Normal basal ganglia and thalami. Normal brainstem. There is mild cerebellar atrophy. There is no intracranial hemorrhage. There are no findings of an acute ischemic infarction. Atherosclerotic calcification of the cavernous portions of the internal carotid arteries bilaterally. Normal visualized paranasal sinuses. CT/Brain/Head without Contrast IMPRESSION: Chronic involutional changes of the brain. Electronically Signed: Wei Valerio, at 14:33 EST , Service support ,
== END ==
PROVIDERS: Family Provider Family Medicine Geriatric Medicine; PCP Family Medicine Geriatric Medicine; Referring Provider Family Medicine Geriatric Medicine; Visit Provider Family Medicine Geriatric Medicine
DX: F03.90 Unspecified dementia, unspecified severity, without behavioral disturbance, psychotic disturbance, mood disturbance, and anxiety (principal)
CPT/HCPCS: 70450

== ENCOUNTER → 2019-06-05 13:32 | Outpatient (CLI) | payer MEDICARE, OTHER, SELFPAY ==
[2019-05-07 13:39] VITALS: BMI 27.2
[2019-06-04 08:07] VITALS: BMI 27.2
--- NOTE | 2019-06-05 13:36 | BD_ITS ---
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 COMPARISON: None. FINDINGS: Lumbar Spine (L1-L4): g/cm2 (1.178) / T-score (0.1) / Z-score (1.9) Findings are suggestive of normal bone density with a low fracture risk. Left Femur Total: g/cm2 (0.882) / T-score (-1.0) / Z-score (0.9) Left Femoral Neck: g/cm2 (0.909) / T-score (-0.9) / Z-score (1.1) Right Femur Total: g/cm2 (0.832) / T-score (-1.4) / Z-score (0.5) Right Femoral Neck: g/cm2 (0.794) / T-score (-1.8) / Z-score (0.3) BD/Dexa Bone Density Study IMPRESSION: The patient is considered osteopenic as outlined below according to World [employer] Organization (WHO) criteria with a moderate fracture risk. Reference Information: The T-score is the number of standard deviations above or below the standard which is normal for young adults at their peak bone mineral density. The World Health Organization (WHO) interprets the T-scores as follows: Above -1 Normal bone density Between -1 and -2.5 Osteopenia Equal to / or below -2.5 Osteoporosis As a practical clinical guideline, osteopenia may be graded as follows: Mild -1 through -1.5 Moderate -1.6 through -2.0 Severe -2.1 through -2.4 The Z-score is the number of standard deviations above or below age-matched controls. A Z-score of less than -1.5 would be considered abnormal. References: 1. NIH Osteoporosis and Related Bone Diseases http://www.osteo.org 2. International Society for Clinical Densitometry http://www.iscd.org 3. National Osteoporosis Foundation http://www.nof.org Electronically Signed: Wei Valerio, at 15:09 EDT , Service support ,
== END ==
PROVIDERS: PCP Family Medicine Geriatric Medicine; Referring Provider Family Medicine Geriatric Medicine; Visit Provider Family Medicine Geriatric Medicine
DX: Z78.0 Asymptomatic menopausal state (principal)
CPT/HCPCS: 77080

== ENCOUNTER → 2019-10-08 11:07 | Outpatient (CLI) | payer MEDICARE, OTHER, SELFPAY ==
[2019-07-09 08:52] VITALS: BMI 27.2
[2019-10-08 12:40] LABS: Absolute Lymphocyte Count 1.03 X10^3/uL (0.83-4.51); Absolute Neutrophil Count 3.3 X10^3/uL (2.0-7.7); Basophil# 0.04 X10^3/uL; Basophil% 0.8 % (0-1); Eosinophil# 0.22 X10^3/uL; Eosinophils% 4.5 % (0-5); Hematocrit 37.5 % (37-47); Hemoglobin 11.9 g/dL (12.0-15.0); Lymphocyte # 1.03 X10^3/ul (4.0); Lymphocyte % 21.2 % (19-41); Mean Corp Hgb Conc 31.7 g/dL (32-36); Mean Corpuscular Hgb 31.3 pg (27.0-32.0); Mean Corpuscular Volume 98.7 fL (81-99); Monocyte# 0.29 X10^3/uL; NRBC Flagged by Analyzer 0 % (0-5); Neutrophil # 3.26 X10^3/uL (2.7-7.7); Neutrophil % 67.3 % (47-70); Platelet Count 157 K/mm3 (150-450); White Blood Count 4.9 K/mm3 (4.4-11.0)
[2019-10-08 12:59] LABS: Vitamin D,25 Hydroxy 45.3 ng/mL
[2019-10-08 13:07] LABS: ALB/GLOB Ratio 1.2 RATIO (0.9-2.4); AST(SGOT) 14 U/L (15-37); Alanine Aminotransfer ALT/SGPT 17 U/L (13-56); Albumin, Serum 3.6 g/dL (3.2-5.0); Alkaline Phosphatase 79 U/L (45-117); Anion Gap 5 (5-15); BUN 12 mg/dL (7-18); BUN/Creat Ratio 17.3 RATIO (10-20); Calcium,Total 8.8 mg/dL (8.5-10.1); Chloride 106 mmol/L (98-107); Creatinine, Serum 0.69 mg/dL (0.55-1.02); EST Glomerular Filtration Rate 87 mL/min (>60); Est Glom Filt Rate - Afr Amer 105 mL/min (>60); Globulin 2.9 g/dL (2.2-4.2); Glucose 96 mg/dL (74-106); Potassium 3.9 mmol/L (3.5-5.1); Protein, Total 6.5 g/dL (6.4-8.2); Sodium Level 140 mmol/L (136-145); Thyroid Stim Hormone (TSH) 2.64 uIU/mL (0.358-3.74)
== END ==
PROVIDERS: PCP Family Medicine Geriatric Medicine; Visit Provider Family Medicine Geriatric Medicine
DX: E55.9 Vitamin D deficiency, unspecified (principal); R53.83 Other fatigue
CPT/HCPCS: 36415; 80053; 82306; 84443; 85025

== ENCOUNTER 2019-10-18 11:00 | Outpatient (RCR) | payer MEDICARE, OTHER, SELFPAY ==
[2019-04-11 16:45] VITALS: BMI 27.2
[2019-04-25 07:47] VITALS: BMI 27.2
--- NOTE | 2019-04-27 17:26 | SOAP_ITS ---
REASON FOR REFERRAL: The Patient is a 78 year old female referred for a clinical assessment of the Patients cognitive communication abilities at [facility] on 04/27/2019 due to persistent expressive communication issues secondary to concerns for Primary Progressive Aphasia, with further neurological workup underway. The Patient reports first noting the presence of anomic blocks a few years back, forgetting the name of kitchenware, which was significant to her, as she is an avid cook with a strong family tie to cooking. She reports this has progressively worsened in regards to frequency and intensity. At first she denied any changes in regards to cognitive functioning, though does admit that she has noticed she will enter rooms and forget what she was doing / looking for, though given time this often comes back to mind. 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 She does report recent concussion (earlier in year when she broke her shoulder falling backwards) with a loss of consciousness, though she does not recall any changes in cognitive communication functioning. she further reports that she is an anxious individual, and that she was completely removed from Zoloft recently by her primary care physician (previously 100mg daily). At the time of assessment no primary neurology assessment has been completed. The Patient currently lives independently at home, with assistance provided by her son as needed. Her affect appears appropriate given the significance of her reported issues and personal maternal based history, and is very conversant and pleasant to interact with. The Patient is fully ambulatory, and reports she is independent for all ADLs and IADLs, and has not been cleared to resume driving privileges following her most recent surgery. She is vocationally inactive, though does volunteer at various locations and is active within her mormon. MEDICAL HISTORY: Depression, hyperlipidemia, osteoarthritis, gastroesophageal reflux disease FUNCTIONAL STATUS ASSESSMENT RESULTS: Generalized Anxiety Disorder 7-item (JERZY-7) scale: 0 (no anxiety disorder) Patient Health Questionnaire (PHQ-9): 2 (minimal to no risk) Adler Index of [place] in Activities of Daily Livin/6 Bathin Dressin Toiletin Transferrin Continence: 1 Feedin Joe ? Andrea Instrumental Activities of Daily Living Scale (IADL): 8/8 Ability to Use Telephone: 1 Shoppin Food Preparation: 1 Housekeepin Laundry: 1 Mode of Transportation: 1 Responsibility for Own Medications: 1 Ability to Handle Finances: 1 Functional Ambulation Category (FAC): 5 (ambulator- independent) COGNITIVE COMMUNICATION ASSESSMENT RESULTS (QUANTITATIVE): Quick Aphasia Battery (QAB): <FORM 1> Word Comprehension: 10 10 Sentence Comprehension: 6.67 /10 Word Findin.75 /10 Grammatical Construction: 8.38 /10 Speech Motor Programmin Repetition: 9.58 /10 Readin QAB Overall: 8.24 /10 (mild) [place] Naming Test (BNT): Number of correct responses: 27 Number of stimulus cues: 33 Correct following stimulus cues: 3 Number of phonemic cues: 30 Correct following phonemic cues: 14 Number for multiple choice cues: 17 Correct following multiple choice cues: 17 TOTAL NUMBER CORRECT: 30 TOTAL SCORE: 30 (mean: 48.9, SD: 6.3; severity: SEVERE) Apraxia of Speech Rating Scale (ASRS-v1): 0 (not present) Aphasia Severity Rating Scale (ASRS): 4 (some obvious loss of fluency in speech) COGNITIVE COMMUNICATION ASSESSMENT RESULTS (QUALITATIVE): LANGUAGE FUNCTIONING: frequent anomic blocks during conversational speech that is exacerbated during confrontational naming exercises with frequently attempted though inconsistently successful circumlocution, further noted to substitute generic filler words for content words during anomic blocks; otherwise fluent expressive communication with overall sufficient MLU; sufficient language comprehension; no paraphasias or neologistic productions identified; no apraxia, no dysarthria; no alexia, with slight dysgraphia. EXECUTIVE FUNCTIONING: assessment in executive functioning was complicated by time constraints, with findings predominantly limited to informal findings, which may suggest deficits in processing efficiency, with the Patient noted to become somewhat tangential during the assessment, which complicated full assessment completion; these deficits require further / evolving workup particularly when considering the proposed etiology of cause. MEMORY: again assessment in memory functioning was complicated by time constraints, with the Patient notably forgetting a rather recent session with this clinician (and the subsequent follow up with this clinician in the same location) with no longer than a 2 week duration sessions; further / evolving workup is indicated particularly when considering the proposed etiology of cause. ATTENTION: again assessment in attention functioning was complicated by time constraints, further / evolving workup is indicated particularly when considering the proposed etiology of cause. VISUOSPATIAL ABILITIES: no visuospatial abnormalities appreciated. COMPLICATING FACTORS: complicating factors would include possible depression / anxiety associated with her communication impairments and concomitant disruption in her personal relationships and responsibilities (primarily her ability to live independently and communicate within all environments). 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 RECOMMENDATIONS: The Patient requires intensive skilled speech-language intervention targeting training and implementation of compensatory communication strategies, with initial considerations for Semantic Feature Analysis Treatment augmented with Word Retrieval Cuing Strategies; with continued and evolving assessment of the entire cognitive communication profile indicated, particularly when considering the proposed etiology of cause. FUNCTIONAL OUTCOMES: OUTCOME 1: the Patient will utilize recommended compensatory expressive speech strategies and participate in structured intervention sessions utilizing a variety of approaches (in particular SFA) to reduce the significance of anomic blocks within her communication attempts, during both structured and unstructured therapeutic tasks. OUTCOME 2: goal adjustment as needed. Armin Valencia M.A., CCC-CLINICAL DATA MANAGEMENT DIRECTOR, CBIS MBSImP Certified, LSVT Certified [facility] Speech-Language Pathology Department [email or web address]
--- NOTE | 2019-04-30 13:55 | HP.PTEVAL_ITS ---
Patient's Visit Information OSMANI STONE is a 78 year old F referred to Physical Therapy by Nancy Torrez DO with a diagnosis of L TKA, encephlopathy.. Date of Evaluation: 04/30/19 Physical Therapist: Yash Mathews, DPT, OCS, CSCS - Visit Plan Frequency: 2-3x /Week Duration: 4-6 Weeks Plan: 2-3x/week for 4 weeks for. STM and rollout to L ITB and stretch,. ROM knee and patella mobs, focus flexion and extension. Strengthen L LE - Subjective Findings: TKA 04/10/19 L and doing well. Can walk without walker but uses it in the community. Dr. Friend wants her to use it. Will see him 05/23/19. Was in hospital for weeks. Has been home for about 3 weeks she says(surgery was just over 2 weeks ago. No pain in knee but does go laterally L leg and into hip whcih has been there a couple years. Had pictures body and doctor decribed it as a band around her midsection?? Had injections for bursitis which did not help. Pain here is daily and cannot sleep on L side. Sleep is OK. Has wh walker but does not use it at home all the time...I am supposed to use it Not allowed to drive yet. 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 Living on own. No steps , apartment. Wants to cook for hungry at meals together every . 10am to 6:30 on feet all day. - Pain L lateral leg Pain Intensity (Out of 10): 4 Pain Intensity Range: 0, 8 - Objective Walks well mod I with wh walker adn I without walker on firm flat surface with good heel strike adn toe off and knee flexiona t swing. Transfers I with UE. Steps reciprocal with rail. Pain to palpation L ITB up nad down whole substance and tight with barely 2 degrees of adduction L. L TKA. AROM -2 to 110 L knee an d 0-120 R. patella moving well B. Hip and ankle AROM WFL except for adductiona dn tightness in ITB L. L hip strength 3+ vs 4- R, knee 3+ L and 4- R, ankles 4 B. reflexes 2/3 patella and achilles B. Sensation wNL to gross light touch LE. Patient has a hard time finding her words often today and states some things timeline marquez that do not make sense such as has been home for 3+ week with surg serena only 3 weeks ago and then stating it was 6 weeks ago. Not driving but physically she could outside of mental cognitive state, she is to check with doctor B and Speech therapist for reease to this when appropriate. - Balance Scores Functional Gait Assessment Score: 27 % Disability: 10.0000 CATSIB Score (Max score 120 seconds): 120 - Goals Goal 1:: 0-120 aROM L knee Goal Time Frame: 4-6 Weeks Goal 2:: Pain in L lateral leg 0-1/10 and tolerable Goal Time Frame: 4-6 Weeks Goal 3:: Patient back to 90% all activities without pain Goal Time Frame: 4-6 Weeks Goal 4:: LEFS <33% disability. Goal Time Frame: 4-6 Weeks - Rehabilitation Potential Physical Therapy Diagnosis: L TKA, ITB syndrome Rehabilitation Potential: Fair - Anticipated Interventions Patient/Client Instruction: Educate patient on: Condition, Plan of Care For the Purpose of:: To decrease pain, To increase ROM, To improve muscle performance and motor function, To improve gait and locomotor functions Therapeutic Exercise to Include: Strength training, Flexibilty training, Gait and locomotor training, Neuromotor development, Passive ROM, Active ROM For the Purpose of:: To decrease pain, To increase ROM, To improve muscle performance and motor function, To increase tolerance to activity/condition/position, To improve gait and locomotor functions Manual Therapy Techniques to Include: Mobilization, Soft tissue mobilization For the Purpose of:: To decrease pain, To increase ROM Thank you for the opportunity to evaluate your patient. For Medicare and Medicare HMO plans, please review the plan of care and approve it. It will need to be FAXED BACK to us at [phone] for Medicare purposes. For Medicare only, by signing this I certify the plan of care. Please let me know if there are questions or concerns regarding this plan of care. Physician Signature: Date:
--- NOTE | 2019-05-02 12:44 | HP.OTEVAL_ITS ---
Patient's Visit Information OSMANI STONE is a 78 year old F, referred to Occupational Therapy by Nancy Torrez DO, with a diagnosis of Toxic Encephalopathy. Date of Evaluation: 04/30/19 Occupational Therapist: Marilyn Johnston, LAQUITA/Evans, CHT - Subjective Subjective: This 78 year old female was seen for OT eval with dx of toxic Encephalopathy, deficits with ADls. Pt underwent a left TKR on 04/10/2019. Pt was d/c from [facility] on 04/20/2019. Pt has concerns when she can start walking without her WW. Pt states she does arm exercises every day. pt son assist with shopping and stops by every AM and PM. Pt states she is aware of her word finding and is schedule to see Ryamundo Ascencio this month. Pt has had speech eval and will cont with speech and will see PT for knee rehab. - ADLs Comments: Pt has tub shower combo pt uses shower chair, long handle head, grab bars- pt states she is JOHNNA Ind with shower. Pt reports JOHNNA with Dress. Pt states she is walking without her WW in her home. Pt states PLOF pt was amb without device.Pt was driving IND. PLOF. - ROM ROM Comments: Pt demo good ROM WFL with right shoulder flex/ and WNL with left shoulder WNL. - Strength Shoulder: right 4+/5 left 4+/5 Elbow: right 5/5 left 5/5 Color Television Console Monitor: right 45# left 45# Lateral Pinch: right 10# left 10# Tripod Pinch: right 8# left 8# Strength Comments: no strength deficits noted at this time. - Sensation Sensation Comments: denies - Quick DASH-Disab of Arm,Shoulder& Hand Quick DASH Score: 15.9075 - Rehabilitation General Assessment: This 78 year old female reports she is JOHNNA with ADLs and IADLs. Pt demo good ROM and strength to perform ADLs and IADLS. No skilled OT services are needed at this time. Pt will cont with PT. for TKR rehab and speech therapy for word find difficulties. Pt was advised if she had questions or concerns with Ad. eq. or any limitations that arrised to let her speech or PT know and OT can address at that time. - Visit Plan TEXT: Thank you for the opportunity to evaluate your patient. For Medicare and Medicare HMO plans, please review the plan of care and approve it. It will need to be FAXED BACK to us at [phone] for Medicare purposes. Please let me know if there are questions or concerns regarding this plan of care. Physician Signature:___ Date:
--- NOTE | 2019-06-28 11:33 | HP.PTREVAL_ITS ---
Ross Benites MD, It has been my pleasure to treat OSMANI STONE over the last 13 visits for L TKA, encephlopathy.. Please see the progress note below for an update on the physical therapy plan of care! Subjective: Getting better. Still needs to be stronger. L leg still needs help, knee hurts in am laterally and into ITB. Takes alleve every mmorning to get pain away. Consistently hard int he morning. Does ex at home and still feels weak in L LE. Pain is 6/10 in am and gone with alleve and again at night. Sleep is going OK, turning on eft side can waker her up. Activities at home pretty normal, but hurts in the morning and better in the middle of the day. Needs to take some breaks. Laundry can be challenging as she needs to do steps and wheel her laundry outside. Will see doctor next week. Doing home ex of SLR, stretches and ROm to knee. To Dr. Aranda next Tuesday. Objective/Function: Walks slow and hesitant but no antalgia. Steps require UE and show L weakness descending. AROM L knee 0-120 with pain at end range. Very tender laterally in ITN and up to torchanter area as well as tight without any a dduction in sidelying. OVERALL PROGRESSING SLOWLY, STILL LOTS OF LATERAL PAIN MORE THAN KNEE PAIN AND WEAKNESS. APPROPRIATE TO CONTINUE PT WITH FAIR PROGNOSIS Plan Plan: 3X/WEEK FOR 3 WEEKS FOR: rollout and stretch ITB, quad and HS L and ensure HEP of this. Teach and progress L LE strength in gym for I when done. Goals Goal 1:: 0-120 aROM L knee Goal Time Frame: 4-6 Weeks Goal Progress: Goal Met Goal 2:: Pain in L lateral leg 0-1/10 and tolerable Goal Time Frame: 4-6 Weeks Goal Progress: Progressing,a pprop. Goal 3:: Patient back to 90% all activities without pain Goal Time Frame: 4-6 Weeks Goal Progress: Progressing Goal 4:: LEFS <33% disability. Goal Time Frame: 4-6 Weeks Goal 5:: No tenderness L ITB and no pain in am and sleeping. Goal Time Frame: 2-4 Weeks Goal Progress: NEW GOAL Goal 6:: I approp gym based machine strengthening Goal Time Frame: 2-4 Weeks Goal Progress: NEW GOAL Anticipated Interventions Patient/Client Instruction: Educate patient on: Condition, Plan of Care For the Purpose of:: To decrease pain, To increase ROM, To improve muscle performance and motor function, To improve gait and locomotor functions Therapeutic Exercise to Include: Strength training, Flexibilty training, Gait and locomotor training, Neuromotor development, Passive ROM, Active ROM For the Purpose of:: To decrease pain, To increase ROM, To improve muscle performance and motor function, To increase tolerance to activity/condition/position, To improve gait and locomotor functions Manual Therapy Techniques to Include: Mobilization, Soft tissue mobilization For the Purpose of:: To decrease pain, To increase ROM Please do not hesitate to contact me at [phone] by phone or if you have questions or concerns regarding this new plan of care! Sincerely, Yash Mathews, DPT, OCS, CSCS
--- NOTE | 2019-07-23 12:46 | HP.PTDCSUM_ITS ---
It has been my pleasure to treat OSMANI STONE referred by Ross Benites MD, with the diagnosis of L TKA, encephlopathy. for a total of 21 visit(s). Discharge Date: 07/23/19 Please see the following information for a summary of their discharge status. Subjective: Pretty good. Not as much pain in L hip or knee in the last week and none upon waking. 3/10 pain in L hip intermittently and mangeable with heat in the am. Activities at home are pretty normal. 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 Not doing gardening but could. Has a stair out of apartment and is doing OK. Has home exercises adn will conitnue walking at [facility] with a friend. L lateral leg Pain Intensity (Out of 10): 0 L knee Pain Intensity (Out of 10): 3 L hip Pain Intensity (Out of 10): 3 % Improvement: 90 Objective/Function: 0-120 AROM. Strength 4+/5 knee ext adn flex. Walks stiff in back abut no antalgia. Steps reciprocal without rail. Goal 1:: 0-120 aROM L knee Goal Progress: Goal Met Goal 2:: Pain in L lateral leg 0-1/10 and tolerable Goal Progress: Progressing Goal 3:: Patient back to 90% all activities without pain Goal Progress: Goal Met Goal 4:: LEFS <33% disability. Goal 5:: No tenderness L ITB and no pain in am and sleeping. Goal Progress: Goal Met Goal 6:: I approp gym based machine strengthening Goal Progress: Goal Met Plan: d/c, pt to join when we re-open and cotninue ex in gym. HEP until then. If there are questions or concerns regarding this patient's physical therapy, please feel free to call me at [phone]. Thank you for the referral of this patient. Sincerely, Yash Mathews, DPT, OCS, CSCS
--- NOTE | 2019-09-14 13:15 | HP.PTREVAL ---
Dr. 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 Please see the progress note below for an update on the physical therapy plan of care! Subjective: Pain almost left but could not continue as she could not afford and ws not silver sneakers like she thought. Dr. Benites wants her to wrokout again.Pain came back gradually. Gets pain that wakes her up at night L buttock and lateral upper leg. Does end up on that side at night and that hurts. Feels like that IT thing. Activities are OK but has to be slow and hard to walk in the am for an hour. Pain is 8/10 in am and cannot walk proper. Must stand for a minute. Better as day goes on after about 11:00 it goes away adn can walk better. Aches much of day. At home was trying to do squats but it hurts. Does some throacic rotation stretches and SKC. Had injection 2 months ago from [facility] but did not help much except for about two weeks. Sees Manoj in September. Wants exit strategy to [facility] as it is covered by her insurance. Objective/Function: Nw script from Dr Benites due to pain increasing in L leg again. B ITB very tight, quads mod tight,HS WFL. 0-105 AROM L knee vs 0-120 on R. Walks with L antalgia and short R step length but safe adn I. Strength is 3+ B hip abd and ext and 4 flexion, 4- L knee flex and ext vs 4 on R and ankles are 4- B. OVERALL TIGHT AND MAX TENDER l ITB AND TFL MUSCLE. HAS GOTTEN WORSE SINCE UNABLE TO STRENGTHEN VIA SILVER SNEAKERS PLANNED. APPROPRIATE TO CNTINUE THERAPY WITH FAIR PROGNOSIS. Plan Plan: 2X/WEEK FOR 4 WEEKS FOR. 1. rollout/STM to TFL L and stretch ITB and quad(pt already doing this at home so do it manually). 2. Strengthen LE focus hipa dn knees an machines with [facility] as exit strategy. 3. Work on knee flexion ROM Goals Goal 1:: 0-120 aROM L knee Goal Time Frame: 4-6 Weeks Goal Progress: Goal Met Goal 2:: Pain in L lateral leg 0-1/10 and tolerable Goal Time Frame: 4-6 Weeks Goal Progress: approp again Goal 3:: Patient back to 90% all activities without pain Goal Time Frame: 4-6 Weeks Goal Progress: approp again Goal 4:: LEFS <33% disability. Goal Time Frame: 4-6 Weeks Goal 5:: No tenderness L ITB and no pain in am and sleeping. Goal Time Frame: 2-4 Weeks Goal Progress: Goal Met Goal 6:: I approp gym based machine strengthening to progress to [facility] [place]. Goal Time Frame: 2-4 Weeks Goal Progress: approp again. Anticipated Interventions Patient/Client Instruction: Educate patient on: Condition, Plan of Care For the Purpose of:: To decrease pain, To increase ROM, To improve muscle performance and motor function, To improve gait and locomotor functions Therapeutic Exercise to Include: Strength training, Flexibilty training, Gait and locomotor training, Neuromotor development, Passive ROM, Active ROM For the Purpose of:: To decrease pain, To increase ROM, To improve muscle performance and motor function, To increase tolerance to activity/condition/position, To improve gait and locomotor functions Manual Therapy Techniques to Include: Mobilization, Soft tissue mobilization For the Purpose of:: To decrease pain, To increase ROM Please do not hesitate to contact me at [phone] by phone or if you have questions or concerns regarding this new plan of care! Sincerely, Yash Mathews, DPT, OCS, CSCS
--- NOTE | 2019-10-16 13:29 | HP.PTREVAL_ITS ---
Dr. Ross Benites MD, It has been my pleasure to treat OSMANI STONE over the last 28 visits for ITB syndrome. Please see the progress note below for an update on the physical therapy plan of care! Subjective: Doing OK. Getting better. I sweated and got a good workout. Missed a couple weeks due to car broken down. Saw Dr. Aranda last Tuesday and got another shot in the L hip to cut down on 11/04 pain and is 3/. Therapy was helping prior to car breaking down. HEP at home doing 8# squats and stretches and activitiy modifications. Plans to do 6 more weeks of PT and then will join here adn continue if she is doing well. Her son will buy this for her. Activities at home are going OK. Working in garden and carrying two gallon bucket can be painful especially 15x with 4- steps from her apartment. Objective/Function: 0-115 L knee aROM, still tight adn painful laterally with OP. tender through ITB whcih remains tight. Walks with L antalgia btu safe and I. steps reciprocally but descending still hurts lateral L hip. Pt happy with progress and not quite able to join and continue I yet but close. appropriate to continue PT for strengthening in gyma dn working to I and continuing pain control with rollout and stretching ITB Plan Plan: New script received adn patient appropriate past MCR cap to neelam for pain of L LE with skilled intervention. 2x/week for 3 weeks to gain I with gym workout (in file) and rolout adn stretch L ITB. Fair prognosis to neelam toward goals and pt now committed to joining and continue when doen with PT. May cosider trial of water therapy after these 3 weeks if still hurting. Goals Goal 1:: 0-120 aROM L knee Goal Time Frame: 4-6 Weeks Goal Progress: 0-115 Goal 2:: Pain in L lateral leg 0-1/10 and tolerable Goal Time Frame: 4-6 Weeks Goal Progress: approp, 310. Goal 3:: Patient back to 90% all activities without pain Goal Time Frame: 4-6 Weeks Goal Progress: Goal Met Goal 4:: LEFS <33% disability. Goal Time Frame: 4-6 Weeks Goal Progress: Goal Met Goal 5:: No tenderness L ITB and no pain in am and sleeping. 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 Goal 6:: I approp gym based machine strengthening to progress to [facility] [place]. Goal Time Frame: 2-4 Weeks Goal Progress: 3 more weeks. Anticipated Interventions Patient/Client Instruction: Educate patient on: Condition, Plan of Care For the Purpose of:: To decrease pain, To increase ROM, To improve muscle performance and motor function, To improve gait and locomotor functions Therapeutic Exercise to Include: Strength training, Flexibilty training, Gait and locomotor training, Neuromotor development, Passive ROM, Active ROM For the Purpose of:: To decrease pain, To increase ROM, To improve muscle performance and motor function, To increase tolerance to activity/condition/position, To improve gait and locomotor functions Manual Therapy Techniques to Include: Mobilization, Soft tissue mobilization For the Purpose of:: To decrease pain, To increase ROM Please do not hesitate to contact me at [phone] by phone or if you have questions or concerns regarding this new plan of care! Sincerely, Yash Mathews, DPT, OCS, CSCS
== END 2019-10-18 19:00 | disposition home or self-care (01) ==
LOC: PT 11:00
PROVIDERS: PCP Family Medicine Geriatric Medicine; Referring Provider Family Medicine Geriatric Medicine; Visit Provider Family Medicine Geriatric Medicine
DX: R41.841 Cognitive communication deficit (principal); G92 Toxic encephalopathy; Z96.652 Presence of left artificial knee joint; Z73.6 Limitation of activities due to disability
CPT/HCPCS: 92507; 92523; 97110; 97140; 97162; 97164; 97166

== ENCOUNTER → 2020-01-09 09:22 | Outpatient (CLI) | payer MEDICARE, OTHER, SELFPAY ==
[2019-10-10 08:18] VITALS: BMI 27.2
[2020-01-09 12:05] LABS: Absolute Lymphocyte Count 1.13 X10^3/uL (0.83-4.51); Absolute Neutrophil Count 4.3 X10^3/uL (2.0-7.7); Basophil# 0.04 X10^3/uL; Basophil% 0.6 % (0-1); Eosinophils% 4.8 % (0-5); Hematocrit 38.1 % (37-47); Hemoglobin 12.1 g/dL (12.0-15.0); Lymphocyte # 1.13 X10^3/ul (4.0); Lymphocyte % 18.2 % (19-41); Mean Corp Hgb Conc 31.8 g/dL (32-36); Mean Corpuscular Hgb 30.9 pg (27.0-32.0); Mean Corpuscular Volume 97.4 fL (81-99); Mean Platelet Vol. 10.8 fl (6.2-12.0); Monocyte# 0.41 X10^3/uL; Monocyte% 6.6 % (0-10); NRBC Flagged by Analyzer 0 % (0-5); Neutrophil # 4.31 X10^3/uL (2.7-7.7); Neutrophil % 69.6 % (47-70); Platelet Count 162 K/mm3 (150-450); RBC Distribution Width CV 13.2 % (11.6-14.6); RBC Distribution Width SD 47.2 fl (35.1-43.9); Red Blood Count 3.91 M/mm3 (4.2-5.4); White Blood Count 6.2 K/mm3 (4.4-11.0)
[2020-01-09 12:39] LABS: Vitamin D,25 Hydroxy 37.1 ng/mL
[2020-01-09 12:52] LABS: ALB/GLOB Ratio 1.1 RATIO (0.9-2.4); AST(SGOT) 12 U/L (15-37); Alanine Aminotransfer ALT/SGPT 20 U/L (13-56); Albumin, Serum 3.5 g/dL (3.2-5.0); Alkaline Phosphatase 69 U/L (45-117); Anion Gap 5 (5-15); BUN 16 mg/dL (7-18); BUN/Creat Ratio 22.6 RATIO (10-20); Calcium,Total 8.5 mg/dL (8.5-10.1); Chloride 107 mmol/L (98-107); Creatinine, Serum 0.71 mg/dL (0.55-1.02); EST Glomerular Filtration Rate 85 mL/min (>60); Est Glom Filt Rate - Afr Amer 103 mL/min (>60); Globulin 3.2 g/dL (2.2-4.2); Glucose 90 mg/dL (74-106); Potassium 3.7 mmol/L (3.5-5.1); Protein, Total 6.7 g/dL (6.4-8.2); Sodium Level 141 mmol/L (136-145); Thyroid Stim Hormone (TSH) 2.36 uIU/mL (0.358-3.74)
== END ==
PROVIDERS: PCP Family Medicine Geriatric Medicine; Visit Provider Family Medicine Geriatric Medicine
DX: E55.9 Vitamin D deficiency, unspecified (principal); R53.83 Other fatigue
CPT/HCPCS: 36415; 80053; 82306; 84443; 85025

== ENCOUNTER → 2020-01-16 16:07 | Outpatient (CLI) | payer MEDICARE, OTHER, SELFPAY ==
[2019-10-10 08:18] VITALS: BMI 27.2
--- NOTE | 2020-01-16 16:18 | MRI_ITS ---
STUDY: MRI LUMBAR SPINE WITHOUT CONTRAST REASON FOR EXAM: Female, 79 years old. SPINAL STENOSIS, BACK PAIN, LEFT LEG PAIN TECHNIQUE: Standardized fat and water weighted pulse sequences were obtained in the sagittal and axial planes. COMPARISON: None FINDINGS: No visualized compression deformity or fracture or active marrow edema. No visualized aggressive process. Normal lumbar lordosis. Mild to moderate levoscoliosis is present. Normal conus medullaris that terminates at the L1 level. L1-2: Moderate to severe disc space narrowing with a diffuse disc osteophyte complex. Retrolisthesis of L1 on L2 of 2 to 3 mm. Normal bilateral facet joints. Normal central canal and bilateral lateral recesses. Normal bilateral intervertebral neural foramina. L2-3: Severe disc space narrowing with a mild diffuse disc osteophyte complex. Normal bilateral facet joints. Normal central canal and bilateral lateral recesses. Normal bilateral intervertebral neural foramina. L3-4: Moderate to severe disc space narrowing is associated with a diffuse disc osteophyte complex. Minimal retrolisthesis of L3 on L4 of less than 2 mm is present. The facet joints are mildly hypertrophied. Left lateral recess stenosis with nerve root compression is present due to asymmetry of the disc osteophyte complex. Normal central canal and bilateral lateral recesses. Normal bilateral intervertebral neural foramina. L4-5: Moderate to severe disc space narrowing with a diffuse disc osteophyte complex. Moderate facet joint hypertrophy appearance of bilateral lateral recess stenosis with nerve root compression. Normal central canal.. Normal bilateral intervertebral neural foramina. L5-S1: Normal endplates. Mild posterior disc space narrowing with minimal bulging. The facet joints are mildly hypertrophied and fluid distended. Normal central canal and bilateral lateral recesses. Normal bilateral intervertebral neural foramina. Normal visualized sacral ala. There is mild paraspinal muscular atrophy. MRI/Spine Lumbar (Routine) IMPRESSION: 1. Multilevel degenerative changes, as described above. 2. Left lateral recess stenosis with nerve root compression at L3-L4 3. Bilateral lateral recess stenosis with nerve root compression at L4-L5 Electronically Signed: Sal Sanders MD at 19:29 EDT , Service support ,
== END ==
PROVIDERS: PCP Family Medicine Geriatric Medicine; Referring Provider Family Medicine Geriatric Medicine; Visit Provider Family Medicine Geriatric Medicine
DX: M48.061 Spinal stenosis, lumbar region without neurogenic claudication (principal)
CPT/HCPCS: 72148

== ENCOUNTER 2020-04-11 11:30 | Outpatient (RCR) | payer MEDICARE, OTHER, SELFPAY ==
[2019-10-10 08:18] VITALS: BMI 27.2
--- NOTE | 2019-11-21 10:57 | HP.PTDCSUM_ITS ---
It has been my pleasure to treat OSMANI STONE referred by Dr. Ross Benites MD, with the diagnosis of ITB syndrome for a total of 36 visit(s). Discharge Date: 11/21/19 Please see the following information for a summary of their discharge status. Subjective: I'm allright. Last 3 weeks walking a mile in morning. and L leg feels better over last 3 weeks. 2/10 pain in L hip is 50% better. Injections did not help. Workout is going well. Unable to squat due to knee pain.Will join gym today and is ready to be on own. L IT band Pain Intensity (Out of 10): 2 % Improvement: 50 Objective/Function: 0-110 AROM B knees, tender L ITB and glut, walks well and steps hurt but can do reciprocal with one rail. Overall slow progress but progress. Goal 1:: 0-120 AROM L knee Goal Progress: 110 Goal 2:: Pain in lateral L leg 0-1/10 at all times adn tolerable Goal Progress: Progressing Goal 3:: No tenderness L ITB and no pain in am and while sleeping Goal Progress: Not Progressing Goal 4:: I approp gym based machine strengthening to progress to community [facility] Goal Progress: Goal Met Plan: d/c, should consider aquatic therapy if gym workout doesn't continue progress. If there are questions or concerns regarding this patient's physical therapy, drew miller feel free to call me at [phone]. Thank you for the referral of this patient. Sincerely, Yash Mathews, DPT, OCS, CSCS
== END 2020-04-11 19:00 | disposition home or self-care (01) ==
LOC: SP 11:30
PROVIDERS: PCP Family Medicine Geriatric Medicine; Referring Provider Family Medicine Geriatric Medicine; Visit Provider Family Medicine Geriatric Medicine
DX: M76.32 Iliotibial band syndrome, left leg (principal); M70.62 Trochanteric bursitis, left hip; Y93.9 Activity, unspecified; M51.36 Other intervertebral disc degeneration, lumbar region; R41.841 Cognitive communication deficit
CPT/HCPCS: 92507; 97110; 97164

== ENCOUNTER → 2020-04-14 09:26 | Outpatient (CLI) | payer MEDICARE, OTHER, SELFPAY ==
[2019-10-10 08:18] VITALS: BMI 27.2
[2020-04-14 10:05] LABS: Absolute Lymphocyte Count 0.82 X10^3/uL (0.83-4.51); Absolute Neutrophil Count 3.9 X10^3/uL (2.0-7.7); Basophil# 0.04 X10^3/uL; Basophil% 0.8 % (0-1); Eosinophil# 0.12 X10^3/uL; Eosinophils% 2.3 % (0-5); Hematocrit 41.6 % (37-47); Hemoglobin 13.7 g/dL (12.0-15.0); Lymphocyte # 0.82 X10^3/ul (4.0); Lymphocyte % 15.9 % (19-41); Mean Corp Hgb Conc 32.9 g/dL (32-36); Mean Corpuscular Hgb 31.5 pg (27.0-32.0); Mean Corpuscular Volume 95.6 fL (81-99); Mean Platelet Vol. 10.7 fl (6.2-12.0); Monocyte# 0.32 X10^3/uL; Monocyte% 6.2 % (0-10); NRBC Flagged by Analyzer 0 % (0-5); Neutrophil # 3.85 X10^3/uL (2.7-7.7); Neutrophil % 74.4 % (47-70); Platelet Count 196 K/mm3 (150-450); RBC Distribution Width CV 12.9 % (11.6-14.6); RBC Distribution Width SD 45.4 fl (35.1-43.9); Red Blood Count 4.35 M/mm3 (4.2-5.4); White Blood Count 5.2 K/mm3 (4.4-11.0)
[2020-04-14 10:42] LABS: Vitamin D,25 Hydroxy 31.1 ng/mL
[2020-04-14 10:49] LABS: ALB/GLOB Ratio 1.2 RATIO (0.9-2.4); AST(SGOT) 11 U/L (15-37); Alanine Aminotransfer ALT/SGPT 17 U/L (13-56); Albumin, Serum 3.6 g/dL (3.2-5.0); Alkaline Phosphatase 73 U/L (45-117); Anion Gap 5 (5-15); BUN 11 mg/dL (7-18); BUN/Creat Ratio 15.6 RATIO (10-20); Calcium,Total 8.8 mg/dL (8.5-10.1); Chloride 109 mmol/L (98-107); Creatinine, Serum 0.71 mg/dL (0.55-1.02); EST Glomerular Filtration Rate 85 mL/min (>60); Est Glom Filt Rate - Afr Amer 103 mL/min (>60); Globulin 3.1 g/dL (2.2-4.2); Glucose 88 mg/dL (74-106); Potassium 3.9 mmol/L (3.5-5.1); Protein, Total 6.7 g/dL (6.4-8.2); Sodium Level 142 mmol/L (136-145); Thyroid Stim Hormone (TSH) 2.14 uIU/mL (0.358-3.74)
== END ==
PROVIDERS: PCP Family Medicine Geriatric Medicine; Visit Provider Family Medicine Geriatric Medicine
DX: E55.9 Vitamin D deficiency, unspecified (principal); R53.83 Other fatigue
CPT/HCPCS: 36415; 80053; 82306; 84443; 85025

== ENCOUNTER → 2020-05-19 15:05 | Outpatient (CLI) | payer MEDICARE, OTHER, SELFPAY ==
[2019-10-10 08:18] VITALS: BMI 27.2
[2020-05-19 17:00] LABS: Absolute Lymphocyte Count 1.27 X10^3/uL (0.83-4.51); Absolute Neutrophil Count 4.7 X10^3/uL (2.0-7.7); Basophil# 0.03 X10^3/uL; Basophil% 0.5 % (0-1); Eosinophils% 3.1 % (0-5); Hematocrit 40.9 % (37-47); Hemoglobin 13.1 g/dL (12.0-15.0); Lymphocyte # 1.27 X10^3/ul (4.0); Lymphocyte % 19.4 % (19-41); Mean Corpuscular Volume 96.7 fL (81-99); Mean Platelet Vol. 11.3 fl (6.2-12.0); Monocyte# 0.32 X10^3/uL; Monocyte% 4.9 % (0-10); NRBC Flagged by Analyzer 0 % (0-5); Neutrophil # 4.68 X10^3/uL (2.7-7.7); Neutrophil % 71.6 % (47-70); Platelet Count 188 K/mm3 (150-450); RBC Distribution Width CV 12.6 % (11.6-14.6); RBC Distribution Width SD 44.2 fl (35.1-43.9); Red Blood Count 4.23 M/mm3 (4.2-5.4); White Blood Count 6.5 K/mm3 (4.4-11.0)
[2020-05-19 17:43] LABS: Anion Gap 8 (5-15); BUN 12 mg/dL (7-18); BUN/Creat Ratio 15.6 RATIO (10-20); Calcium,Total 9.1 mg/dL (8.5-10.1); Chloride 105 mmol/L (98-107); Creatinine, Serum 0.77 mg/dL (0.55-1.02); EST Glomerular Filtration Rate 77 mL/min (>60); Est Glom Filt Rate - Afr Amer 93 mL/min (>60); Glucose 98 mg/dL (74-106); Potassium 3.7 mmol/L (3.5-5.1); Sodium Level 140 mmol/L (136-145)
== END ==
PROVIDERS: PCP Family Medicine Geriatric Medicine; Visit Provider Family Medicine Geriatric Medicine
DX: R63.4 Abnormal weight loss (principal); N39.0 Urinary tract infection, site not specified
CPT/HCPCS: 36415; 80048; 84443; 85025; 87086; 87088

== ENCOUNTER → 2020-05-21 08:26 | Outpatient (CLI) | payer MEDICARE, OTHER, SELFPAY ==
[2019-10-10 08:18] VITALS: BMI 27.2
--- NOTE | 2020-05-21 08:30 | RAD_ITS ---
STUDY: X-RAY CHEST REASON FOR EXAM: Female, 79 years old. Unexplained weight loss. TECHNIQUE: PA and lateral views of the chest. COMPARISON: 06/21/2018. FINDINGS: The lungs are hyperexpanded. There is no acute infiltrate or mass. Blunting of the right lateral costophrenic angle with flattened hemidiaphragms. Normal size heart. Normal mediastinum and ioana. Normal visualized pulmonary arteries. There is atherosclerotic calcification of the aortic arch with tortuosity. There are diffuse degenerative changes of the visualized thoracic spine. There is degenerative osteoarthritis of the bilateral shoulders. There is no demonstrated abnormality of the visualized soft tissue structures of the upper abdomen. RAD/Chest PA and Lateral IMPRESSION: Findings suggestive of COPD. There is no acute cardiopulmonary disease. Electronically Signed: Tim House DO at 16:54 EST Tel [phone], Service support ,
== END ==
PROVIDERS: PCP Family Medicine Geriatric Medicine; Referring Provider Family Medicine Geriatric Medicine; Visit Provider Family Medicine Geriatric Medicine
DX: R63.4 Abnormal weight loss (principal)
CPT/HCPCS: 71046

== ENCOUNTER 2020-06-13 10:30 | Outpatient (RCR) | payer MEDICARE, OTHER, SELFPAY ==
[2019-10-10 08:18] VITALS: BMI 27.2
== END 2020-06-13 19:00 | disposition home or self-care (01) ==
LOC: SP 10:30
PROVIDERS: PCP Family Medicine Geriatric Medicine; Referring Provider Family Medicine Geriatric Medicine; Visit Provider Family Medicine Geriatric Medicine
DX: R41.841 Cognitive communication deficit (principal)
CPT/HCPCS: 92507

== ENCOUNTER → 2020-06-27 06:09 | Outpatient (CLI) | payer MEDICARE, OTHER, SELFPAY ==
[2019-10-10 08:18] VITALS: BMI 27.2
--- NOTE | 2020-06-27 08:00 | TELEMED_ITS ---
[facility] has confirmed receipt of a request for visit. This document confirms receipt of the order initiating the consult. To find the results of the consultation, please view the patient's reports for the scanned Telemed Consult.
== END ==
PROVIDERS: PCP Family Medicine Geriatric Medicine; Referring Provider Family Medicine Geriatric Medicine; Visit Provider Family Medicine Geriatric Medicine
DX: G40.909 Epilepsy, unspecified, not intractable, without status epilepticus (principal)
CPT/HCPCS: 95819

== ENCOUNTER → 2020-10-13 09:50 | Outpatient (CLI) | payer MEDICARE, OTHER, SELFPAY ==
[2019-10-10 08:18] VITALS: BMI 27.2
[2020-10-13 12:42] LABS: Absolute Lymphocyte Count 0.92 X10^3/uL (0.83-4.51); Absolute Neutrophil Count 3.9 X10^3/uL (2.0-7.7); Basophil# 0.03 X10^3/uL; Basophil% 0.6 % (0-1); Eosinophil# 0.13 X10^3/uL; Eosinophils% 2.4 % (0-5); Hematocrit 42.1 % (37-47); Hemoglobin 13.4 g/dL (12.0-15.0); Lymphocyte # 0.92 X10^3/ul (0.83-4.51); Lymphocyte % 17.3 % (19-41); Mean Corp Hgb Conc 31.8 g/dL (32-36); Mean Corpuscular Hgb 31.3 pg (27.0-32.0); Mean Corpuscular Volume 98.4 fL (81-99); Mean Platelet Vol. 11.2 fl (6.2-12.0); Monocyte# 0.35 X10^3/uL; Monocyte% 6.6 % (0-10); NRBC Flagged by Analyzer 0 % (0-5); Neutrophil # 3.86 X10^3/uL (2.7-7.7); Neutrophil % 72.7 % (47-70); Platelet Count 164 K/mm3 (150-450); RBC Distribution Width CV 13.2 % (11.6-14.6); RBC Distribution Width SD 47.7 fl (35.1-43.9); Red Blood Count 4.28 M/mm3 (4.2-5.4); White Blood Count 5.3 K/mm3 (4.4-11.0)
[2020-10-13 13:09] LABS: ALB/GLOB Ratio 1.3 RATIO (0.9-2.4); AST(SGOT) 12 U/L (15-37); Alanine Aminotransfer ALT/SGPT 17 U/L (13-56); Albumin, Serum 3.8 g/dL (3.2-5.0); Alkaline Phosphatase 63 U/L (45-117); Anion Gap 5 (5-15); BUN 10 mg/dL (7-18); BUN/Creat Ratio 13.7 RATIO (10-20); Calcium,Total 8.9 mg/dL (8.5-10.1); Chloride 105 mmol/L (98-107); Creatinine, Serum 0.73 mg/dL (0.55-1.02); EST Glomerular Filtration Rate 81 mL/min (>60); Est Glom Filt Rate - Afr Amer 99 mL/min (>60); Glucose 94 mg/dL (74-106); Potassium 4.2 mmol/L (3.5-5.1); Protein, Total 6.8 g/dL (6.4-8.2); Sodium Level 140 mmol/L (136-145)
== END ==
PROVIDERS: PCP Family Medicine Geriatric Medicine; Visit Provider Family Medicine Geriatric Medicine
DX: E55.9 Vitamin D deficiency, unspecified (principal); R53.83 Other fatigue
CPT/HCPCS: 36415; 80053; 82306; 84443; 85025

== ENCOUNTER → 2021-01-13 09:16 | Outpatient (CLI) | payer MEDICARE, OTHER, SELFPAY ==
[2021-01-13 12:29] LABS: Absolute Neutrophil Count 4.5 X10^3/uL (2.0-7.7); Basophil# 0.04 X10^3/uL; Basophil% 0.6 % (0-1); Eosinophil# 0.19 X10^3/uL; Hematocrit 39.4 % (37-47); Hemoglobin 12.8 g/dL (12.0-15.0); Mean Corp Hgb Conc 32.5 g/dL (32-36); Mean Corpuscular Hgb 31.3 pg (27.0-32.0); Mean Corpuscular Volume 96.3 fL (81-99); Mean Platelet Vol. 11.1 fl (6.2-12.0); Monocyte# 0.35 X10^3/uL; Monocyte% 5.5 % (0-10); NRBC Flagged by Analyzer 0 % (0-5); Neutrophil # 4.52 X10^3/uL (2.7-7.7); Neutrophil % 71.6 % (47-70); Platelet Count 152 K/mm3 (150-450); RBC Distribution Width CV 12.6 % (11.6-14.6); RBC Distribution Width SD 44.9 fl (35.1-43.9); Red Blood Count 4.09 M/mm3 (4.2-5.4); White Blood Count 6.3 K/mm3 (4.4-11.0)
--- NOTE | 2021-01-13 12:45 | RAD_ITS ---
EXAM: XR CHEST, 2 VIEWS : 1940 CLINICAL INDICATION: WEIGHT LOSS TECHNIQUE: Frontal and lateral views of the chest. This report was created using [employer] report generation technology. COMPARISON: 05/21/2020 FINDINGS: LUNGS AND PLEURAL SPACES: Unremarkable. No consolidation or edema. No pneumothorax. No effusion. HEART: Unremarkable. Cardiac silhouette not enlarged. MEDIASTINUM: Central airways and mediastinal contour are unremarkable. BONES/JOINTS: Unremarkable. SOFT TISSUES: Unremarkable. RAD/Chest PA and Lateral IMPRESSION: No radiographic evidence of acute cardiopulmonary disease. at 0314 Reported and signed by: Silverio Danielson MD Electronically Signed: Silverio Danielson MD at 3:13 EDT Tel , Service support ,
[2021-01-13 12:54] LABS: Vitamin D,25 Hydroxy 69.9 ng/mL
[2021-01-13 13:09] LABS: ALB/GLOB Ratio 1.1 RATIO (0.9-2.4); AST(SGOT) 14 U/L (15-37); Alanine Aminotransfer ALT/SGPT 17 U/L (13-56); Albumin, Serum 3.6 g/dL (3.2-5.0); Alkaline Phosphatase 62 U/L (45-117); Anion Gap 8 (5-15); BUN 11 mg/dL (7-18); BUN/Creat Ratio 12.9 RATIO (10-20); Calcium,Total 9.1 mg/dL (8.5-10.1); Chloride 104 mmol/L (98-107); Creatinine, Serum 0.85 mg/dL (0.55-1.02); EST Glomerular Filtration Rate 68 mL/min (>60); Est Glom Filt Rate - Afr Amer 83 mL/min (>60); Globulin 3.2 g/dL (2.2-4.2); Glucose 97 mg/dL (74-106); Protein, Total 6.8 g/dL (6.4-8.2); Sodium Level 141 mmol/L (136-145)
== END ==
PROVIDERS: PCP Family Medicine Geriatric Medicine; Referring Provider Family Medicine Geriatric Medicine; Visit Provider Family Medicine Geriatric Medicine
DX: R63.4 Abnormal weight loss (principal); E55.9 Vitamin D deficiency, unspecified; R53.83 Other fatigue
CPT/HCPCS: 36415; 71046; 80053; 82306; 84443; 85025

== ENCOUNTER → 2021-01-30 13:33 | Outpatient (CLI) | payer MEDICARE, OTHER, SELFPAY ==
--- NOTE | 2021-01-30 13:36 | BI_ITS ---
MAMMOGRAPHY - BILATERAL SCREENING REASON FOR EXAM: Female, 80 years old. Routine annual screening examination. PERTINENT HISTORY: Non-contributory. TECHNIQUE: Digital bilateral breast nora (3D mammographic acquisition) in the CC and MLO projections. 2-D mediolateral oblique (MLO) and craniocaudad (CC) views of both breasts were obtained. CAD: Full Field Digital Mammography with Computer Added Detection was performed. COMPARISON: Comparison is made with prior preoperative examination dated 02/02/2019. FINDINGS: Breast Composition: The breasts are heterogeneously dense, which may obscure small masses. There are no dominant masses or suspicious calcifications. Stable bilateral secretory calcifications. No other significant abnormalities are identified. There has been no significant change since the prior study. BI/SCRN MAMM (CAD)W/NORA BILAT IMPRESSION: Stable bilateral screening mammogram. Yearly follow-up mammogram recommended. (A) ASSESSMENT CATEGORY: BIRADS Category 2: Benign. A letter regarding these results will be sent to the patient by the facility within 30 days. Approximately 10% of breast cancers are not detected by mammography. A normal mammogram should not delay biopsy of a clinically suspicious abnormality. [id number] Electronically Signed: Wei Valerio MD at 15:37 EDT , Service support ,
== END ==
PROVIDERS: PCP Family Medicine Geriatric Medicine; Referring Provider Family Medicine Geriatric Medicine; Visit Provider Family Medicine Geriatric Medicine
DX: Z12.31 Encounter for screening mammogram for malignant neoplasm of breast (principal)
CPT/HCPCS: 77063; 77067

== ENCOUNTER 2021-04-06 10:33 | Observation (INO) | payer MEDICARE, SELFPAY ==
[2021-04-06] VITALS (9 sets, daily range): BP systolic 124–149; BP diastolic 39–85; PULSE 64–72; RESP 14–18; TEMP 35.7–36.9; O2SAT 98–100; BMI 20.5; BMI 20.2
--- NOTE | 2021-04-06 11:37 | CT_ITS ---
STUDY: CTA HEAD AND NECK WITH CONTRAST REASON FOR EXAM: Female, 80 years old. One day history of vertigo. RADIATION DOSAGE (If Supplied By Facility): CTDIvol = ( 23.95 ) mGy, DLP = ( 1150.37 ) mGycm TECHNIQUE: CT angiography was performed with a multi-detector CT scanner. Data acquisition was obtained from the skull base through the vertex following intravenous administration of IV 100mL Isovue-370. MIP images were reconstructed from the axial data set. Post-processing of the angiographic images was performed, with multiplanar reformation and 3D reconstruction. Individualized dose optimization techniques were used for this CT. COMPARISON: Comparison is made with prior CT scan of the brain dated 05/10/2019. FINDINGS: Normal bilateral petrous carotid arteries. There is calcified plaque formation of the right cavernous carotid artery, without a cross-sectional luminal stenosis. There is calcified plaque formation of the left cavernous carotid artery, without a cross-sectional luminal stenosis. Normal right A1 segments of the anterior cerebral artery. Normal left A1 segments of the anterior cerebral artery. Normal intact anterior communicating artery (ACOM). Normal bilateral A2 segments of the anterior cerebral arteries. Normal right M1 and M2 segments of the middle cerebral arteries, with a normal M1 bifurcation. Normal left M1 and M2 segments of the middle cerebral arteries, with a normal M1 bifurcation. There is a persistent origin of the right posterior cerebral artery with absence of the posterior communicating artery (PCOM). There is a persistent origin of the left posterior cerebral artery with absence of the posterior communicating artery (PCOM). Normal bilateral vertebral arteries. Normal basilar artery with a normal basilar bifurcation. The visualized bilateral superior cerebellar (SCA) arteries are normal. Normal bilateral P1, P2 and visualized P3 segments of the posterior cerebral arteries. There is no demonstrated aneurysm of the [place]. Moderate degree of cerebral atrophy. No acute abnormality is seen. Heterogeneous appearance of the left lobe of the thyroid. AORTIC ARCH: Normal visualized aortic arch. Normal origins of the brachiocephalic, left common carotid, and left subclavian arteries. Atherosclerotic plaque formation at the origin of the left subclavian artery. RIGHT CAROTID ARTERIES: Normal right common carotid artery (CCA). Normal right common carotid bulb. Normal origin of the right internal carotid (ICA) artery without a hemodynamically significant stenosis. Normal visualized cervical portion of the right internal carotid artery. Normal origin of the right external carotid artery (ECA). LEFT CAROTID ARTERIES: Normal left common carotid artery (CCA). Normal left common carotid bulb. There is mild atherosclerotic plaque formation of the origin of the left internal carotid artery with less than 50% cross sectional diameter stenosis. Normal visualized cervical portion of the left internal carotid artery. Normal origin of the left external carotid artery (ECA). VERTEBRAL ARTERIES: Normal bilateral vertebral arteries. CT/CTA Head AND Neck W/ Contrast IMPRESSION: Cerebral atrophy. Minimal calcific plaque at the origin of the left internal carotid artery. Electronically Signed: Wei Valerio MD at 13:18 EST , Service support ,
--- NOTE | 2021-04-06 11:38 | EKG12_ITS ---
Test Reason : DIZZINESS Blood Pressure : / mmHG Vent. Rate : 057 BPM Atrial Rate : 057 BPM P-R Int : 178 ms QRS Dur : 078 ms QT Int : 470 ms P-R-T Axes : 056 003 066 degrees QTc Int : 457 ms Sinus bradycardia Low voltage QRS Confirmed by SILVIA SANCHEZ, MONICA ([id number]), supervising editor trailer NALINI DALE ([id number]) on 04/07/2021 1:58:40 PM Referred By: LILIAN/MORALES Confirmed By:MONICA VEGA MD
--- NOTE | 2021-04-06 11:42 | EX.ED.DYSGE1 ---
HPI History of Present Illness Chief Complaint: Dizziness Informant: patient Onset/Context/Timing Onset: Yesterday Current Severity: Mild Maximum Severity: Mild Narrative Narrative: Patient present secondary to dizziness. She states she woke yesterday morning feeling dizzy and she describes it as a spinning sensation. Symptoms are worse when she tries to get up and walk but does admit to symptoms when sitting at rest. She states she has had this previously and doctors in the past and said it was because her blood pressure was too low. [facility] Medical History Dementia Depression GERD (gastroesophageal reflux disease) Osteoarthritis Home Medications atorvastatin 10 mg PO QHS 02/24/17 [History Last Taken 12/04/18] omeprazole 20 mg PO DAILY 02/24/17 [History Last Taken 12/04/18] sertraline 50 mg PO DAILY 02/24/17 [History Last Taken 12/04/18] calcium carbonate 500 mg PO BIDCM tab 04/20/19 [Rx Last Taken Unknown] ergocalciferol (vitamin D2) 50,000 unit PO Q7D #12 cap 04/20/19 [Rx Last Taken Unknown] gabapentin 100 mg PO BIDCM #120 cap 04/20/19 [Rx Last Taken Unknown] naproxen sodium 220 mg capsule 220 mg PO BID PRN 07/09/19 [History Last Taken Unknown] Allergy/AdvReac Type Severity Reaction Status Date / Time acetaminophen [From Tylenol] Allergy Chest Verified 04/06/21 10:36 tightness Surgical History Total knee replacement status Social History Smoking Status: Never smoker ROS ROS ED Constitutional Constitutional ED: Denies chills or fever(s) Eyes Eyes: Denies change in vision ENT ENT ED: Denies sore throat Cardiovascular Cardiovascular: Denies chest pain Respiratory/Chest Respiratory/Chest: Denies cough or dyspnea Gastrointestinal Gastrointestinal: Reports nausea; Denies abdominal pain, diarrhea or vomiting Genitourinary Genitourinary ED: Denies dysuria Musculoskeletal Musculoskeletal: Denies back pain Integumentary Denies rash Neurologic Neurologic: Denies headache(s) or weakness Allergic/Immunologic Allergic/Immunologic ED: Denies urticaria EXAM Physical Exam Const Vital Signs: 04/06/21 10:34 04/06/21 10:36 04/06/21 10:51 Temperature 96.2 F L 96.2 F L Temperature Source Temporal Temporal Pulse Rate 65 65 Respiratory Rate 15 15 Respiratory Effort Normal Respiratory Pattern Normal Blood Pressure 136/76 H 136/76 H Blood Pressure Mean 96 96 Pulse Ox 100 100 Oxygen Delivery Method Room Air Room Air Positive well nourished and well developed General Appearance ED: well developed HEENT Reports moist mucous membranes Eyes PERRL and EOMs intact bilaterally Neck supple Chest Wall inspection of chest normal and palpation of chest normal Resp normal respiratory effort and clear to auscultation bilaterally Cardio regular rate and regular rhythm GI non-tender Palpation: soft Extremity normal to inspection Neuro oriented x3 Neuro Narrative: No focal neurologic deficits. Sensorium / Orientation: alert Psych mental status grossly normal Skin no rashes or lesions noted MDM MDM MDM Narrative Medical decision making narrative: EKG, lab work, CTA head and neck obtained. Patient given Antivert. Lab Data Attestation: I reviewed the patient's lab results. Labs: Laboratory Results - last 24 hr 04/06/21 04/06/21 04/06/21 11:55 11:55 13:10 WBC 5.3 RBC 4.15 L Hgb 12.7 Hct 38.9 MCV 93.7 MCH 30.6 MCHC 32.6 RDW Std Deviation 44.8 H RDW Coeff of Trav 13.0 Plt Count 149 L MPV 10.3 Immature Gran % (Auto) 0.400 Neut % (Auto) 79.1 H Lymph % (Auto) 13.1 L [place] % (Auto) 5.7 Eos % (Auto) 1.1 Baso % (Auto) 0.6 Absolute Neuts (auto) 4.2 Absolute Lymphs (auto) 0.69 L Nucleated RBC % 0 Sodium 142 Potassium 3.9 Chloride 108 H Carbon Dioxide 28.0 Anion Gap 6 BUN 12 Creatinine 0.67 Estim Creat Clear Calc 36.08 Est GFR (MDRD) Af Amer 110 Est GFR (MDRD) Non-Af 91 BUN/Creatinine Ratio 18.0 Glucose 97 Calcium 8.7 Troponin I High Sens 7 Urine Color Straw Urine Clarity Clear Urine pH 7.0 Ur Specific [place] 1.005 Urine Protein Negative Urine Glucose (UA) Normal Urine Ketones 5 H Urine Occult Blood Negative Urine Nitrite Negative Urine Bilirubin Negative Urine Urobilinogen Normal Ur Leukocyte Esterase Negative Urine RBC 0 SEEN Urine WBC 0 SEEN Ur Squamous Epith Cells 0 SEEN Urine Bacteria 0 SEEN Urine Mucus 0 SEEN Radiography Diagnostic Testing: Clinical Impression(s) from Imaging Studies Head/Neck CTA 04/06/21 11:37 IMPRESSION: Cerebral atrophy. Minimal calcific plaque at the origin of the left internal carotid artery. Electronically Signed: Wei Valerio MD at 13:18 EST , Service support , EKG Initial EKG: Attestation: I personally reviewed and interpreted this EKG as follows: Interpretation: Sinus Bradycardia (Sinus bradycardia 57 bpm. No acute ischemia.) Treatment and Re-Evaluation Comments:: On repeat evaluation patient resting company. She still has some spinning sensation. Nursing staff did get her up to bedside commode. They states she was still very unsteady on her feet and had to reach to hold onto the items. I am quite concerned as she does live alone. After discussion she is in agreement to stay overnight for further treatment and therapy to ensure she is safe on her feet. I did speak with the hospitalist. Discharge Plan Triage Chief Complaint: Dizziness ED Provider: Mesha Rivera Dx/Rx/DC Orders Clinical Impression: Vertigo Prescriptions: No Action naproxen sodium [Aleve] 220 mg capsule 220 mg PO BID PRNRF: 0 atorvastatin 20 MG tablet 10 mg PO QHS RF: 0 omeprazole 20 MG capsule 20 mg PO DAILY RF: 0 sertraline 50 MG tablet 50 mg PO DAILY RF: 0 calcium carbonate 500 MG tablet 500 mg PO BIDCM RF: 0 gabapentin 100 MG capsule 100 mg PO BIDCM Qty: 120 RF: 0 ergocalciferol (vitamin D2) 50,000 UNIT capsule 50,000 unit PO Q7D Qty: 12 RF: 0 Primary Care Provider: Ross Benites Chi Referrals: Ross Benites Chi, MD [Primary Care Provider] - Disposition Disposition: Acute Care [facility]
[2021-04-06] MEDS: Meclizine 12.5 MG Tablet PO (11:57)
[2021-04-06 12:09] LABS: Absolute Lymphocyte Count 0.69 X10^3/uL (0.83-4.51); Absolute Neutrophil Count 4.2 X10^3/uL (2.0-7.7); Basophil# 0.03 X10^3/uL; Basophil% 0.6 % (0-1); Eosinophil# 0.06 X10^3/uL; Eosinophils% 1.1 % (0-5); Hematocrit 38.9 % (37-47); Hemoglobin 12.7 g/dL (12.0-15.0); Lymphocyte # 0.69 X10^3/ul (0.83-4.51); Lymphocyte % 13.1 % (19-41); Mean Corp Hgb Conc 32.6 g/dL (32-36); Mean Corpuscular Hgb 30.6 pg (27.0-32.0); Mean Corpuscular Volume 93.7 fL (81-99); Mean Platelet Vol. 10.3 fl (6.2-12.0); Monocyte% 5.7 % (0-10); NRBC Flagged by Analyzer 0 % (0-5); Neutrophil # 4.15 X10^3/uL (2.7-7.7); Neutrophil % 79.1 % (47-70); Platelet Count 149 K/mm3 (150-450); RBC Distribution Width SD 44.8 fl (35.1-43.9); Red Blood Count 4.15 M/mm3 (4.2-5.4); White Blood Count 5.3 K/mm3 (4.4-11.0)
[2021-04-06 12:27] LABS: Anion Gap 6 (5-15); BUN 12 mg/dL (7-18); Calcium,Total 8.7 mg/dL (8.5-10.1); Chloride 108 mmol/L (98-107); Creatinine, Serum 0.67 mg/dL (0.55-1.02); EST Glomerular Filtration Rate 91 mL/min (>60); Est Glom Filt Rate - Afr Amer 110 mL/min (>60); Estimated Creatinine Clearance 36.08 ml/min; Glucose 97 mg/dL (74-106); Potassium 3.9 mmol/L (3.5-5.1); Sodium Level 142 mmol/L (136-145); Troponin-I HS 7 pg/mL (3.0-54.0)
[2021-04-06 13:18] LABS: Bacteria 0 SEEN /hpf (None Seen); Mucous, Urine 0 SEEN /hpf (<or=2+); Red Blood Cells-Urine 0 SEEN /hpf (0-5); Squamous Epithelial Cells - UA 0 SEEN /hpf (5-10); White Blood Cells 0 SEEN /hpf (0-5)
[2021-04-06 13:20] LABS: Color, Urine Straw (Yellow); Glucose, Dipstick Normal (Normal); Ketone-Dipstick 5 mg/dl (Negative); Leukocyte Esterase-Dipstick Negative /ul (Negative); Nitrite-Dipstick Negative (Negative); Occult Blood-Urine Negative /ul (Negative); Protein-Dipstick Negative (Negative); Specific Gravity, Urine 1.005 (1.002-1.030); Urine Bilirubin Dipstick Negative (Negative); Urine Clarity Clear (Clear); Urine Urobilinogen Normal (Normal)
--- NOTE | 2021-04-06 14:27 | PCM.HP.STD ---
HPI - General General Date of Admission: 04/06/21 Date of Service: 04/06/21 Chief Complaint: Lightheadedness, dizziness. HPI Narrative The patient is a 80 y/o F w/ PMHx: Depression and Anxiety, HLD, OA, GERD, Mild cognitive impairment (early dementia, possibly Alzheimer's per discussion with patient and son) who presents to the [facility] ED on 04/06/20 with history of onset of dizziness the day prior upon awakening described as a spinning sensation, worse with any activity however she does get symptoms also even at rest when she is seated, noting that his has occurred previously and she had at that time noted low BPs. She notes she has been very off balance when she walks. With attempts to get patient up to bedside she was very unstable. Patient does feel as though it is similar to her prior episodes of vertigo. She does state that she is very active and normally walks every day. She denies any recent illnesses. Currently her son intermittently stays with her. Work-up in the ED included T96.2 Temporally, heart rate 65, BP 136/76, respiratory rate 16, 100% on room air, CBC with WC 5.3, hemoglobin 12.7, platelet 149 with lymphopenia, BMP not marked appearing aside chloride 108, high-sensitivity cardiac troponin 7, urinalysis unremarkable with no obvious evidence of UTI or marked dehydration, CTA head and neck with evidence of cerebral atrophy and minimal calcific plaque at the origin of the left ICA less than 50%, EKG SB without acute evidence of ischemia. Antivert was administered without marked effect however upon repeat evaluation per hospitalist physician she did note improvement. [facility] Medical History (Updated 04/06/21 @ 14:[address] Mesha Rivera MD) Dementia Depression GERD (gastroesophageal reflux disease) Osteoarthritis Home Medications donepezil 10 mg PO DINNER 04/06/21 [History Last Taken 04/05/21] gabapentin 100 mg PO DAILY 04/06/21 [History Last Taken 04/06/21] levocetirizine 5 mg PO DAILY 04/06/21 [History Last Taken 04/06/21] memantine 10 mg PO BID 04/06/21 [History Last Taken 04/06/21] mirtazapine 15 mg PO QHS 04/06/21 [History Last Taken 04/05/21] Allergy/AdvReac Type Severity Reaction Status Date / Time acetaminophen [From Tylenol] Allergy Chest Verified 04/06/21 10:36 tightness Family History (Updated 04/06/21 @ 14:[address] Fely Patel MD) Mother Alzheimer disease Father Myocardial infarction Sister Thyroid disorder Brother Rheumatoid arthritis Surgical History (Updated 04/06/21 @ 14:[address] Fely Patel MD) Hx of hand surgery S/P appendectomy S/P shoulder surgery Total knee replacement status Social History (Updated 04/06/21 @ 16:[address] Fely Patel MD) housing: other details: Her son has intermittently been residing with her to assist. Smoking Status: Never smoker alcohol intake: current alcohol intake frequency: holidays/special occasions only substance use type: does not use ROS ROS Narrative Admission Review of Systems: CONSTITUTIONAL: No weight loss, fever, chills, + weakness or fatigue. HEENT: + Lightheadedness, dizziness, room spinning sensation. Eyes: No visual loss, blurred vision, double vision or yellow sclerae. Ears, Nose, Throat: No hearing loss, sneezing, congestion, runny nose or sore throat. SKIN: No rash or itching, lesions, wounds. CARDIOVASCULAR: No chest pain, chest pressure or chest discomfort, palpitations, edema, orthopnea, syncopal events. RESPIRATORY: No shortness of breath, cough or sputum, wheezing, hemoptysis. GASTROINTESTINAL: + anorexia, nausea, No vomiting or diarrhea, abdominal pain, melena, BRBPR. GENITOURINARY: No dysuria, frequency, urgency or retention. NEUROLOGICAL: + Lightheadedness, dizziness, room spinning sensation. No headache, syncope, paralysis, ataxia, numbness or tingling in the extremities, focal weakness, change in bowel or bladder control, seizure. MUSCULOSKELETAL: No muscle, back pain, joint pain or stiffness. HEMATOLOGIC: No anemia, bleeding or bruising. LYMPHATICS: No enlarged nodes. No history of splenectomy. PSYCHIATRIC: + history of depression or anxiety. ENDOCRINOLOGIC: No reports of sweating, cold or heat intolerance. No polyuria or polydipsia. ALLERGIES: No history of asthma, hives, eczema or rhinitis. Vital Signs Vital Signs Vital Signs: 04/06/21 10:34 04/06/21 10:36 04/06/21 10:51 Temperature 96.2 F L 96.2 F L Temperature Source Temporal Temporal Pulse Rate 65 65 Respiratory Rate 15 15 Respiratory Effort Normal Respiratory Pattern Normal Blood Pressure 136/76 H 136/76 H Blood Pressure Mean 96 96 Pulse Ox 100 100 Oxygen Delivery Method Room Air Room Air 04/06/21 12:34 Temperature Temperature Source Pulse Rate 72 Respiratory Rate 14 Respiratory Effort Respiratory Pattern Blood Pressure 134/68 H Blood Pressure Mean 90 Pulse Ox 98 Oxygen Delivery Method Room Air Weight Weight: 112 lb Body Mass Index (BMI) 20.5 Physical Exam Narrative Physical Examination: General: Awake, alert, oriented x 3 and cooperative, seated upright in the ED bed, mildly fatigued, notes feeling improved although initially following meclizine still had considerable difficulties especially with ambulatory attempts. Skin: Normal color, normal turgor, no icterus, no cyanosis. HEENT: AT/NC, EOMI, PERRLA, mildly dry MM, no carotid bruits or JVD noted, no visible nystagmus noted or able to be reproduced. Lungs: CTA bilaterally, moderate effort, mild decrease BL bases, no rales, ronchi or wheezing. Heart: Regular rate and rhythm; no gallop, rub audible. Abdomen: Soft, NTTP, ND, mildly hyperactive BS, no HSM. Extremities: No cyanosis, clubbing, or edema. Neurological: Patient awake, alert, oriented as noted, cognitive function intact; pupils equally reactive to light and accommodation, cranial nerves II-XII grossly normal, moving all 4 extremities, no focal deficits, strength preserved, sensation intact, negative FTN/HTS, negative babinski, no obvious nystagmus, vertiginous symptoms improving, unable to reproduce any symptoms. Psychiatric: Affect appears fatigued otherwise improving, normal, no acute evidence of depressive or anxiety feelings. Results Lab / Micro Data Result Diagrams: 04/06/21 11:55 04/06/21 11:55 Labs: Laboratory Results - last 24 hr 04/06/21 11:55: WBC 5.3, RBC 4.15 L, Hgb 12.7, Hct 38.9, MCV 93.7, MCH 30.6, MCHC 32.6, RDW Std Deviation 44.8 H, RDW Coeff of Trav 13.0, Plt Count 149 L, MPV 10.3, Immature Gran % (Auto) 0.400, Neut % (Auto) 79.1 H, Lymph % (Auto) 13.1 L, [place] % (Auto) 5.7, Eos % (Auto) 1.1, Baso % (Auto) 0.6, Absolute Neuts (auto) 4.2, Absolute Lymphs (auto) 0.69 L, Nucleated RBC % 0 04/06/21 11:55: Sodium 142, Potassium 3.9, Chloride 108 H, Carbon Dioxide 28.0, Anion Gap 6, BUN 12, Creatinine 0.67, Estim Creat Clear Calc 36.08, Est GFR (MDRD) Af Amer 110, Est GFR (MDRD) Non-Af 91, BUN/Creatinine Ratio 18.0, Glucose 97, Calcium 8.7, Troponin I High Sens 7 04/06/21 13:10: Urine Color Straw, Urine Clarity Clear, Urine pH 7.0, Ur Specific [place] 1.005, Urine Protein Negative, Urine Glucose (UA) Normal, Urine Ketones 5 H, Urine Occult Blood Negative, Urine Nitrite Negative, Urine Bilirubin Negative, Urine Urobilinogen Normal, Ur Leukocyte Esterase Negative, Urine RBC 0 SEEN, Urine WBC 0 SEEN, Ur Squamous Epith Cells 0 SEEN, Urine Bacteria 0 SEEN, Urine Mucus 0 SEEN Radiology Impression Head/Neck CTA 04/06/21 11:37 IMPRESSION: Cerebral atrophy. Minimal calcific plaque at the origin of the left internal carotid artery. Electronically Signed: Wei Valerio MD at 13:18 EST , Service support , Assessment & Plan Assessment/Plan (1) Vertigo: PLAN: The patient is a 80 y/o F w/ PMHx: Depression and Anxiety, HLD, OA, GERD, Mild cognitive impairment who presents to the [facility] ED on 04/06/20 with history of onset of dizziness the day prior upon awakening described as a spinning sensation, worse with any activity however she does get symptoms also even at rest when she is seated. #1. Lightheadedness, dizziness, vertigo, lower suspicion for CVA: Will admit to PCU to be cautious, will obtain MRI Brain, continue every 4 hours neurochecks, PT/OT assessments, continue scheduled low-dose Valium with hold if sedate or if symptoms resolved, maintain on fall precautions. If MRI brain concerning for posterior stroke then would need to institute speech therapy evaluation, obtain echocardiogram, reconsider antiplatelet therapies, consider neurology evaluation. #2. Mild cognitive impairment, early dementia, possibly Alzheimer's disease: Per patient and son reports, following with primary care physician, will continue patient home memantine as well as donepezil regimen. #3. Depression and anxiety: We will continue patient home mirtazapine regimen. Patient does have considerable OCD tendencies and anxiety per discussion with her and her son. May benefit from outpatient counseling as well. #4. Hyperlipidemia: Patient previously on statin therapy, FLP in AM. #5. GERD: We will continue patient home PPI. #6. DVT prophylaxis: SCDs, Lovenox #7. CODE status: Patient HANK is her son who is present and living will is currently in place. Discussed CODE status at length including difference between FULL code, DNR-CCA and DNR-CC status. Following discussions about the differences in these status, requested Full Code status. Advanced Care Planning Face to Face Time: 16 minutes. Charges/Coding Visit Charges OBSV E&M: 97443 Initial observation care L3 Procedures Hospitalists Procedures: 03083 Advncd Care Plan 30 Min
--- NOTE | 2021-04-06 14:49 | MRI_ITS ---
STUDY: MR Brain W/O Contrast 04/06/2021 6:41 PM REASON FOR EXAM: Female, 80 years old. vertigo COMPARISON: 05/10/2019 TECHNIQUE: Standardized multiplanar fat and water weighted pulse sequences were obtained. MR Brain W/O Contrast FINDINGS: There is mild cerebral atrophy with widening of the extra-axial spaces and ventricular dilatation. There are a limited number of small white matter hyperintensities, distributed throughout the deep white matter tracts of the cerebral hemispheres, consistent with mild chronic white matter ischemic changes. There is mild prominence of the [place], consistent with atrophy of the vermis. The cerebellar hemispheres are normal. Normal bilateral basal ganglia. Normal thalami. There is no extra-axial fluid accumulation. Normal flow voids within the major intracranial circulation suggesting patency by spin echo criteria. Normal sella turcica, pituitary gland, infundibular stalk, optic chiasm and hypothalamus. Normal tectal plate and pineal gland. Normal midbrain, ashley and medulla. Normal basal cisterns. Normal bilateral temporal bones. Normal bilateral internal auditory canals. No demonstrated orbital abnormality, within the constraints of a routine brain study. Normal visualized paranasal sinuses. Normal calvarium and skull base. Normal visualized soft tissue structures. Normal visualized upper cervical spine. Aspect score 10 IMPRESSION: (NOT LISTED IN ORDER OF SIGNIFICANCE) There are no acute intracranial findings. Electronically Signed: Apolinar Babin MD at 18:42 EST , Service support , MRI/Brain without Contrast
[2021-04-06 15:08] LABS: Magnesium 2.3 mg/dL (1.6-2.6)
[2021-04-06] MEDS: 0.9% Normal Saline 1,000 ML 100 ML IV (17:03)
[2021-04-06] MEDS: Donepezil HCl 10 MG Tablet PO (17:42)
[2021-04-06] MEDS: diazePAM 2 MG Tablet PO (17:42)
[2021-04-06] MEDS: Mirtazapine 15 MG Tablet PO (20:40)
[2021-04-06] MEDS: Gabapentin 100 MG Capsule 200 MG PO (20:40)
[2021-04-06] MEDS: Memantine Hydrochloride 10 MG Tablet PO (20:41)
--- NOTE | 2021-04-06 20:41 | NURSING ---
Pt ready to go to bed, HS meds given early.
[2021-04-07] VITALS (8 sets, daily range): BP systolic 108–130; BP diastolic 55–70; PULSE 54–79; RESP 16–18; TEMP 35.9–36.7; O2SAT 98
[2021-04-07 05:05] LABS: Bedside Glucose 80 mg/dL (70-110)
--- NOTE | 2021-04-07 05:08 | CT_ITS ---
STUDY: CT BRAIN WITHOUT CONTRAST REASON FOR EXAM: Female, 80 years old. Headache, aphasia RADIATION DOSAGE (If Supplied By Facility): CTDIvol = ( 44.99 ) mGy, DLP = ( 796.11 ) mGycm TECHNIQUE: Transaxial CT imaging of the brain was performed without administration of intravenous contrast material. Individualized dose optimization techniques were used for this CT. COMPARISON: 04/06/2021 FINDINGS: Normal soft tissue structures. Normal calvarium. There is moderate cerebral volume loss with widening of the extra-axial spaces and ventricular dilatation. There are areas of decreased attenuation within the white matter tracts of the supratentorial brain, consistent with microvascular disease changes. Normal basal ganglia and thalami. Normal brainstem. Normal cerebellum. There is no intracranial hemorrhage. There are no findings of an acute ischemic infarction. Normal visualized paranasal sinuses. Bilateral ocular lens replacements. CT/Brain/Head without Contrast IMPRESSION: No acute abnormal intracranial finding. Electronically Signed: Bora Oliveira MD at 5:39 EST Tel , Service support ,
--- NOTE | 2021-04-07 05:10 | NURSING ---
Neuro check done at 0100, pt had some new confusion that was not noticed previously, however pt had just woken up and the confusion seemed to resolve as pt became more awake. Pt does have a hx of dementia. Pt was still confused and had some aphasia and was complaining of a headache w/ neuro check and vitals at 0500. Blood sugar 80. VS stable. Pt denies any dizziness. Extremity strength equal x4. Dr. Dykes paged, ordered a STAT head CT without contrast. No need to call stroke alert per Dr. Dykes.
[2021-04-07 05:59] LABS: Absolute Lymphocyte Count 0.95 X10^3/uL (0.83-4.51); Absolute Neutrophil Count 3.1 X10^3/uL (2.0-7.7); Basophil# 0.03 X10^3/uL; Basophil% 0.7 % (0-1); Eosinophil# 0.16 X10^3/uL; Eosinophils% 3.6 % (0-5); Hematocrit 39.3 % (37-47); Hemoglobin 12.5 g/dL (12.0-15.0); Lymphocyte # 0.95 X10^3/ul (0.83-4.51); Lymphocyte % 21.3 % (19-41); Mean Corp Hgb Conc 31.8 g/dL (32-36); Mean Corpuscular Hgb 30.5 pg (27.0-32.0); Mean Corpuscular Volume 95.9 fL (81-99); Mean Platelet Vol. 10.3 fl (6.2-12.0); Monocyte# 0.23 X10^3/uL; Monocyte% 5.2 % (0-10); NRBC Flagged by Analyzer 0 % (0-5); Neutrophil # 3.08 X10^3/uL (2.7-7.7); Platelet Count 147 K/mm3 (150-450); RBC Distribution Width CV 13.2 % (11.6-14.6); RBC Distribution Width SD 46.5 fl (35.1-43.9); White Blood Count 4.5 K/mm3 (4.4-11.0)
[2021-04-07 06:36] LABS: ALB/GLOB Ratio 1.1 RATIO (0.9-2.4); AST(SGOT) 9 U/L (15-37); Alanine Aminotransfer ALT/SGPT 13 U/L (13-56); Albumin, Serum 3.1 g/dL (3.2-5.0); Alkaline Phosphatase 52 U/L (45-117); Anion Gap 5 (5-15); BUN 13 mg/dL (7-18); BUN/Creat Ratio 18.3 RATIO (10-20); Calcium,Total 8.3 mg/dL (8.5-10.1); Chloride 112 mmol/L (98-107); Cholesterol 182 mg/dL (200); Creatinine, Serum 0.71 mg/dL (0.55-1.02); EST Glomerular Filtration Rate 84 mL/min (>60); Est Glom Filt Rate - Afr Amer 102 mL/min (>60); Estimated Creatinine Clearance 36.08 ml/min; Globulin 2.8 g/dL (2.2-4.2); Glucose 87 mg/dL (74-106); High Density Lipoprotein 75 mg/dL; Potassium 3.8 mmol/L (3.5-5.1); Protein, Total 5.9 g/dL (6.4-8.2); Sodium Level 143 mmol/L (136-145); Thyroid Stim Hormone (TSH) 1.69 uIU/mL (0.358-3.74); Triglycerides 124 mg/dL; Very Low Density Lipoprotein 25 mg/dL (5-40)
[2021-04-07] MEDS: Enoxaparin 40 MG/0.4 ML Syringe SC (08:35)
[2021-04-07] MEDS: Loratadine 10 MG Tablet 5 MG PO (08:36)
[2021-04-07] MEDS: Memantine Hydrochloride 10 MG Tablet PO (08:36)
[2021-04-07] MEDS: Pantoprazole Sodium 20 MG Tablet PO (08:36)
[2021-04-07] MEDS: Gabapentin 100 MG Capsule PO (08:36)
--- NOTE | 2021-04-07 10:39 | PCM.DC ---
Discharge Instructions Diet Discharge Diet: No restrictions Activity Discharge Activity: Return to Normal Activity Weight Bearing Status: Weight bearing as tolerated Dressing / Incision Call your doctor if you observe: Fever of 101 or Higher, Numbness or Tingling, Shortness of breath, Dizziness, Chest pain, Increased palpitations (irregular heartbeat) and Calf discomfort Follow Up Care Please Follow Up With: Primary care provider When: Within the next two weeks. Test Results: Test results from this visit will be discussed in further detail at your follow-up appointment, if applicable. Discharge Plan Admission Admit Date/Time: 04/06/21 14:44 Primary Reason for Your Visit: Lightheadedness Attending Provider: Gregorio Calzada Primary Care Provider: Ross Benties Chi Discharge Orders/Prescriptions Prescriptions: Continued donepezil 10 mg Tablet 10 mg PO DINNER RF: 0 mirtazapine 15 mg Tablet 15 mg PO QHS RF: 0 memantine 10 mg Tablet 10 mg PO BID RF: 0 levocetirizine 5 mg Tablet 5 mg PO DAILY RF: 0 gabapentin 100 MG capsule 100 mg PO DAILY RF: 0 Referrals / Follow Up: Ross Benites Chi, MD [Primary Care Provider] - Within 2 Weeks Disposition Disposition (needs filled in before D/C Order can be placed): Home, Self Care
--- NOTE | 2021-04-07 10:52 | PHA.DC.MR ---
Pharmacy Service has performed discharge medication reconciliation for this patient. The patient's discharge medication list was reviewed for discrepancies and discrepancies were resolved. Home Medications donepezil 10 mg PO DINNER 04/06/21 gabapentin 100 mg PO DAILY 04/06/21 levocetirizine 5 mg PO DAILY 04/06/21 memantine 10 mg PO BID 04/06/21 mirtazapine 15 mg PO QHS 04/06/21
--- NOTE | 2021-04-07 11:43 | CASEMGMT ---
This RN CM to room and pt states no need for any further therapy at discharge and states no further questions/concerns/needs. S[place]en RN CM
--- NOTE | 2021-04-07 13:53 | DS.PCM_ITS ---
Documented by User: Paul PERKINS 04/07/21 14:00 Providers Date of Admission: 04/06/21 Date of Discharge: 04/07/21 Primary Care Physician: Dr. Ross Benites MD Reason For Visit: VERTIGO Diagnosis Discharge Diagnosis (1) Vertigo: Status: Acute Code(s): R42 - Dizziness and giddiness Medications at Discharge Home Medications donepezil 10 mg PO DINNER 04/06/21 gabapentin 100 mg PO DAILY 04/06/21 levocetirizine 5 mg PO DAILY 04/06/21 memantine 10 mg PO BID 04/06/21 mirtazapine 15 mg PO QHS 04/06/21 Hospital Course Summary of Care Provided Minutes Spent on Discharge: 15 Hospital Course: Patient is a 80-year-old female who was admitted to [facility] on 04/06/2021 for evaluation and management of lightheadedness/dizziness out of concern for posterior circulation stroke. All imaging obtained while admitted to include brain MRI, brain CT and head/neck CTA did not demonstrate any evidence of acute ischemia, infarction or significant stenosis. On my evaluation at day of discharge patient reported resolution of her lightheadedness/dizziness from admission. Patient did not complain of nor did she display any focal neurological deficits. Lab work was unremarkable and vital signs were stable throughout admission. Patient to be discharged home and is to follow-up with her primary care provider within the next 2 weeks for evaluation of her lightheadedness/dizziness, all home medications continued. Physical Exam Narrative Patient is a 80-year-old female comfortably resting in bed, alert and oriented x3. Patient reports resolution of her lightheadedness and dizziness from admission. Denies development of, nor does she display any other focal neurological deficits. Does not appear in acute distress. Const alert, oriented x3 and no apparent distress HEENT normocephalic, head/scalp atraumatic and hearing grossly normal bilaterally Eyes PERRL, EOMs intact bilaterally and conjunctivae normal Neck no lymphadenopathy, supple and no JVD Resp normal respiratory effort, no retractions and no use of accessory muscles Cardio regular rate, regular rhythm, no murmurs and no JVD GI normal to inspection, nondistended, normoactive bowel sounds, soft to palpation and non-tender Extremity normal to inspection, full ROM and no clubbing, cyanosis or edema Skin no rashes or lesions noted, no wounds and skin turgor normal Neuro CN's II-XII intact bilaterally Psych affect normal Weight / BMI Weight Weight: 110 lb 10.753 oz Body Mass Index (BMI) 20.2 ABG / Lab / Microbiology Data Result Diagrams: 04/07/21 05:44 04/07/21 05:44 Laboratory: Laboratory Results - last 24 hr 04/06/21 11:55: Magnesium 2.3 04/07/21 05:02: POC Glucose 80 04/07/21 05:44: WBC 4.5, RBC 4.10 L, Hgb 12.5, Hct 39.3, MCV 95.9, MCH 30.5, MCHC 31.8 L, RDW Std Deviation 46.5 H, RDW Coeff of Trav 13.2, Plt Count 147 L, MPV 10.3, Immature Gran % (Auto) 0.200, Neut % (Auto) 69.0, Lymph % (Auto) 21.3, [place] % (Auto) 5.2, Eos % (Auto) 3.6, Baso % (Auto) 0.7, Absolute Neuts (auto) 3.1, Absolute Lymphs (auto) 0.95, Nucleated RBC % 0 04/07/21 05:44: Sodium 143, Potassium 3.8, Chloride 112 H, Carbon Dioxide 26.0, Anion Gap 5, BUN 13, Creatinine 0.71, Estim Creat Clear Calc 36.08, Est GFR (MDRD) Af Amer 102, Est GFR (MDRD) Non-Af 84, BUN/Creatinine Ratio 18.3, Glucose 87, Calcium 8.3 L, Total Bilirubin 0.30, AST 9 L, ALT 13, Alkaline Phosphatase 52, Total Protein 5.9 L, Albumin 3.1 L, Globulin 2.8, Albumin/Globulin Ratio 1.1, Triglycerides 124, Cholesterol 182, LDL Cholesterol 82, VLDL Cholesterol 25, HDL Cholesterol 75, TSH 1.69 04/07/21 05:44: Hemoglobin A1c 5.0 Microbiology: Microbiology 04/06/21 14:57 Nasal Secretion SARS-CoV-2 Antigen (Rapid) - Final Radiography Diagnostic Testing: Radiology Impression Brain MRI 04/06/21 14:[address] 04/07/21 05:08 IMPRESSION: No acute abnormal intracranial finding. Electronically Signed: Bora Oliveira MD at 5:39 EST Tel , Service support , D/C Instructions Discharge Diet: No restrictions Weight Bearing Status: Weight bearing as tolerated Call your doctor if you observe: Fever of 101 or Higher, Numbness or Tingling, Shortness of breath, Dizziness, Chest pain, Increased palpitations (irregular heartbeat) and Calf discomfort Please Follow Up With: Primary care provider When: Within the next two weeks. Meaningful Use Info Meaningful Use Diagnoses (Choose all that apply): None applicable Discharge Plan Admission Admit Date/Time: 04/06/21 14:44 Primary Reason for Your Visit: Lightheadedness Attending Provider: Gregorio Calzada Primary Care Provider: Ross Benites Chi Discharge Orders/Prescriptions Prescriptions: Continued donepezil 10 mg Tablet 10 mg PO DINNER RF: 0 mirtazapine 15 mg Tablet 15 mg PO QHS RF: 0 memantine 10 mg Tablet 10 mg PO BID RF: 0 levocetirizine 5 mg Tablet 5 mg PO DAILY RF: 0 gabapentin 100 MG capsule 100 mg PO DAILY RF: 0 Referrals / Follow Up: Ross Benites Chi, MD [Primary Care Provider] - Within 2 Weeks Disposition Disposition (needs filled in before D/C Order can be placed): Home, Self Care Documented by User: Dr. Gregorio Calzada MD 04/07/21 15:02 Providers Date of Admission: 04/06/21 Reason For Visit: VERTIGO Medications at Discharge Home Medications donepezil 10 mg PO DINNER 04/06/21 gabapentin 100 mg PO DAILY 04/06/21 levocetirizine 5 mg PO DAILY 04/06/21 memantine 10 mg PO BID 04/06/21 mirtazapine 15 mg PO QHS 04/06/21 Hospital Course Summary of Care Provided Minutes Spent on Discharge: 25 Hospital Course: This patient was seen in conjunction with Paul Meehan PA-C. I have independently interviewed and examined the patient and reviewed pertinent historical, laboratory, and other data. Please refer to Paul Meehan PA-C's note for details of this patient's presentation, findings, and recommendations. I have reviewed Paul Meehan PA-C's note and concur with documented findings. In brief, patient is a 80-year-old lady with history of underlying dementia admitted with acute vertigo. Patient was admitted to monitored bed acute CVA was ruled out with a negative MRI studies. Patient vertigo did resolve. We also did check orthostatic which was negative Physical Examination: GENERAL: cooperative HEENT: Atraumatic; EYES; Anicteric, Normal Conjunctiva NECK; supple, normal thyroid, RESPIRATORY: Diminished to auscultation CARDIOVASCULAR: Regular S1 S2, GI: soft, normoactive bowel sounds, : No Renal angle tenderness; EXTREMITIES: No edema, no clubbing, MUSCULOSKELETAL: no muscle waisting NEURO: Awake; no lateralizing signs. SKIN: No Rash PSYCH; Flat affect Assessment: 1. Acute vertigo 2. Dementia 3. Generalized osteoarthritis 4. Dyslipidemia managed with diet Hospital course; as documented above Total time spent on discharge process including discussion with providers involved in patient's care review of data review of discharge meds; 25 minutes ABG / Lab / Microbiology Data Result Diagrams: 04/07/21 05:44 04/07/21 05:44 Discharge Plan Admission Admit Date/Time: 04/06/21 14:44 Primary Reason for Your Visit: Lightheadedness Attending Provider: Gregorio Calzada Primary Care Provider: Ross Benites Chi Discharge Orders/Prescriptions Prescriptions: Continued donepezil 10 mg Tablet 10 mg PO DINNER RF: 0 mirtazapine 15 mg Tablet 15 mg PO QHS RF: 0 memantine 10 mg Tablet 10 mg PO BID RF: 0 levocetirizine 5 mg Tablet 5 mg PO DAILY RF: 0 gabapentin 100 MG capsule 100 mg PO DAILY RF: 0 Referrals / Follow Up: Ross Benites Chi, MD [Primary Care Provider] - Within 2 Weeks Disposition Disposition (needs filled in before D/C Order can be placed): Home, Self Care Charges/Coding Visit Charges OBSV E&M: 67626 Observation care discharge
== END 2021-04-07 10:42 | disposition home or self-care (01) ==
LOC: ED 14:39 → PCU 15:03
PROVIDERS: Admitting Provider Family Medicine; Emergency Provider Emergency Medicine; PCP Family Medicine Geriatric Medicine; Visit Provider Internal Medicine
DX: R42 Dizziness and giddiness (principal); F02.80 Dementia in other diseases classified elsewhere, unspecified severity, without behavioral disturbance, psychotic disturbance, mood disturbance, and anxiety; M15.9 Polyosteoarthritis, unspecified; F41.9 Anxiety disorder, unspecified; E78.5 Hyperlipidemia, unspecified; D72.810 Lymphocytopenia; Z79.899 Other long term (current) drug therapy; F32.A Depression, unspecified
CPT/HCPCS: 36415; 70450; 70496; 70498; 70551; 80048; 80053; 80061; 81001; 82962; 83036; 83735; 84443; 84484; 85025; 87426; 93005; 96360; 96361; 96372; 97165; 99218; 99285; J7030; J7040; Q9967; A4216; G0378

== ENCOUNTER 2021-04-21 10:19 | Outpatient (CLI) | payer MEDICARE, SELFPAY ==
[2021-04-21 12:29] LABS: Absolute Lymphocyte Count 1.01 X10^3/uL (0.83-4.51); Absolute Neutrophil Count 3.6 X10^3/uL (2.0-7.7); Basophil# 0.05 X10^3/uL; Basophil% 0.9 % (0-1); Eosinophils% 3.8 % (0-5); Lymphocyte # 1.01 X10^3/ul (0.83-4.51); Lymphocyte % 19.1 % (19-41); Mean Corp Hgb Conc 33.3 g/dL (32-36); Mean Corpuscular Hgb 31.4 pg (27.0-32.0); Mean Corpuscular Volume 94.2 fL (81-99); Mean Platelet Vol. 10.4 fl (6.2-12.0); Monocyte# 0.38 X10^3/uL; Monocyte% 7.2 % (0-10); NRBC Flagged by Analyzer 0 % (0-5); Neutrophil # 3.63 X10^3/uL (2.7-7.7); Neutrophil % 68.8 % (47-70); Platelet Count 183 K/mm3 (150-450); RBC Distribution Width CV 13.4 % (11.6-14.6); RBC Distribution Width SD 46.6 fl (35.1-43.9); Red Blood Count 4.14 M/mm3 (4.2-5.4); White Blood Count 5.3 K/mm3 (4.4-11.0)
[2021-04-21 12:49] LABS: Vitamin D,25 Hydroxy 73.2 ng/mL
[2021-04-21 13:12] LABS: ALB/GLOB Ratio 1.4 RATIO (0.9-2.4); AST(SGOT) 13 U/L (15-37); Alanine Aminotransfer ALT/SGPT 17 U/L (13-56); Albumin, Serum 3.8 g/dL (3.2-5.0); Alkaline Phosphatase 60 U/L (45-117); Anion Gap 7 (5-15); BUN 18 mg/dL (7-18); BUN/Creat Ratio 22.6 RATIO (10-20); Calcium,Total 8.7 mg/dL (8.5-10.1); Chloride 106 mmol/L (98-107); EST Glomerular Filtration Rate 74 mL/min (>60); Est Glom Filt Rate - Afr Amer 89 mL/min (>60); Globulin 2.8 g/dL (2.2-4.2); Glucose 89 mg/dL (74-106); Potassium 3.9 mmol/L (3.5-5.1); Protein, Total 6.6 g/dL (6.4-8.2); Sodium Level 141 mmol/L (136-145); Thyroid Stim Hormone (TSH) 2.55 uIU/mL (0.358-3.74)
== END 2021-04-21 23:59 | disposition short-term general hospital (02) ==
PROVIDERS: PCP Family Medicine Geriatric Medicine; Visit Provider Family Medicine Geriatric Medicine
DX: E55.9 Vitamin D deficiency, unspecified (principal); R53.83 Other fatigue
CPT/HCPCS: 36415; 80053; 82306; 84443; 85025

== ENCOUNTER → 2021-07-21 | Outpatient (CLI) | payer MEDICARE, SELFPAY ==
[2021-07-21 12:22] LABS: Absolute Lymphocyte Count 0.82 X10^3/uL (0.83-4.51); Absolute Neutrophil Count 4.6 X10^3/uL (2.0-7.7); Basophil# 0.04 X10^3/uL; Basophil% 0.7 % (0-1); Eosinophil# 0.17 X10^3/uL; Eosinophils% 2.8 % (0-5); Hematocrit 37.9 % (37-47); Hemoglobin 12.3 g/dL (12.0-15.0); Lymphocyte # 0.82 X10^3/ul (0.83-4.51); Lymphocyte % 13.6 % (19-41); Mean Corp Hgb Conc 32.5 g/dL (32-36); Mean Corpuscular Volume 95.5 fL (81-99); Mean Platelet Vol. 10.7 fl (6.2-12.0); Monocyte# 0.38 X10^3/uL; Monocyte% 6.3 % (0-10); NRBC Flagged by Analyzer 0 % (0-5); Neutrophil % 76.1 % (47-70); Platelet Count 184 K/mm3 (150-450); RBC Distribution Width CV 12.9 % (11.6-14.6); RBC Distribution Width SD 45.4 fl (35.1-43.9); Red Blood Count 3.97 M/mm3 (4.2-5.4)
[2021-07-21 12:37] LABS: Vitamin D,25 Hydroxy 48.5 ng/mL
[2021-07-21 12:49] LABS: ALB/GLOB Ratio 1.2 RATIO (0.9-2.4); AST(SGOT) 12 U/L (15-37); Alanine Aminotransfer ALT/SGPT 19 U/L (13-56); Albumin, Serum 3.7 g/dL (3.2-5.0); Alkaline Phosphatase 63 U/L (45-117); Anion Gap 6 (5-15); BUN 18 mg/dL (7-18); BUN/Creat Ratio 21.9 RATIO (10-20); Calcium,Total 8.5 mg/dL (8.5-10.1); Chloride 105 mmol/L (98-107); Creatinine, Serum 0.82 mg/dL (0.55-1.02); EST Glomerular Filtration Rate 71 mL/min (>60); Est Glom Filt Rate - Afr Amer 86 mL/min (>60); Glucose 90 mg/dL (74-106); Potassium 4.1 mmol/L (3.5-5.1); Protein, Total 6.7 g/dL (6.4-8.2); Sodium Level 141 mmol/L (136-145); Thyroid Stim Hormone (TSH) 1.67 uIU/mL (0.358-3.74)
== END | disposition home or self-care (01) ==
LOC: POLAB3 09:47
PROVIDERS: PCP Family Medicine Geriatric Medicine; Visit Provider Family Medicine Geriatric Medicine
DX: E55.9 Vitamin D deficiency, unspecified (principal); R53.83 Other fatigue
CPT/HCPCS: 36415; 80053; 82306; 84443; 85025

== ENCOUNTER → 2021-10-14 | Outpatient (CLI) | payer MEDICARE, SELFPAY ==
[2021-10-14 12:50] LABS: Basophil# 0.05 X10^3/uL; Basophil% 0.9 % (0-1); Eosinophil# 0.35 X10^3/uL; Hematocrit 37.4 % (37-47); Hemoglobin 12.1 g/dL (12.0-15.0); Lymphocyte % 18.7 % (19-41); Mean Corp Hgb Conc 32.4 g/dL (32-36); Mean Corpuscular Hgb 30.1 pg (27.0-32.0); Mean Platelet Vol. 10.9 fl (6.2-12.0); Monocyte# 0.31 X10^3/uL; Monocyte% 5.3 % (0-10); NRBC Flagged by Analyzer 0 % (0-5); Neutrophil # 4.04 X10^3/uL (2.7-7.7); Neutrophil % 68.8 % (47-70); Platelet Count 174 K/mm3 (150-450); RBC Distribution Width CV 13.1 % (11.6-14.6); RBC Distribution Width SD 44.4 fl (35.1-43.9); Red Blood Count 4.02 M/mm3 (4.2-5.4); White Blood Count 5.9 K/mm3 (4.4-11.0)
[2021-10-14 13:10] LABS: BUN 15 mg/dL (7-18); Creatinine, Serum 0.82 mg/dL (0.55-1.02); Glucose 86 mg/dL (74-106); Vitamin D,25 Hydroxy 48.3 ng/mL
[2021-10-14 13:11] LABS: ALB/GLOB Ratio 1.2 RATIO (0.9-2.4); AST(SGOT) 16 U/L (15-37); Alanine Aminotransfer ALT/SGPT 19 U/L (13-56); Albumin, Serum 3.5 g/dL (3.2-5.0); Alkaline Phosphatase 77 U/L (45-117); Anion Gap 5 (5-15); BUN/Creat Ratio 18.4 RATIO (10-20); Calcium,Total 8.7 mg/dL (8.5-10.1); Chloride 107 mmol/L (98-107); EST Glomerular Filtration Rate 72 mL/min (>60); Est Glom Filt Rate - Afr Amer 87 mL/min (>60); Potassium 4.2 mmol/L (3.5-5.1); Protein, Total 6.5 g/dL (6.4-8.2); Sodium Level 141 mmol/L (136-145)
== END | disposition home or self-care (01) ==
PROVIDERS: PCP Family Medicine Geriatric Medicine; Visit Provider Family Medicine Geriatric Medicine
DX: E55.9 Vitamin D deficiency, unspecified (principal); R53.83 Other fatigue
CPT/HCPCS: 36415; 80053; 82306; 84443; 85025

== ENCOUNTER → 2022-01-19 | Outpatient (CLI) | payer MEDICARE, SELFPAY ==
[2022-01-19 18:16] LABS: Absolute Lymphocyte Count 1.19 X10^3/uL (0.83-4.51); Basophil# 0.04 X10^3/uL; Basophil% 0.7 % (0-1); Eosinophil# 0.22 X10^3/uL; Eosinophils% 3.8 % (0-5); Hematocrit 41.7 % (37-47); Hemoglobin 13.4 g/dL (12.0-15.0); Lymphocyte # 1.19 X10^3/ul (0.83-4.51); Lymphocyte % 20.8 % (19-41); Mean Corp Hgb Conc 32.1 g/dL (32-36); Mean Corpuscular Hgb 30.9 pg (27.0-32.0); Mean Corpuscular Volume 96.1 fL (81-99); Mean Platelet Vol. 11.4 fl (6.2-12.0); Monocyte# 0.26 X10^3/uL; Monocyte% 4.5 % (0-10); NRBC Flagged by Analyzer 0 % (0-5); Neutrophil % 69.9 % (47-70); Platelet Count 142 K/mm3 (150-450); RBC Distribution Width CV 13.4 % (11.6-14.6); Red Blood Count 4.34 M/mm3 (4.2-5.4); White Blood Count 5.7 K/mm3 (4.4-11.0)
[2022-01-19 18:24] LABS: Vitamin D,25 Hydroxy 39.7 ng/mL
[2022-01-19 18:28] LABS: ALB/GLOB Ratio 1.3 RATIO (0.9-2.4); AST(SGOT) 15 U/L (15-37); Alanine Aminotransfer ALT/SGPT 16 U/L (13-56); Albumin, Serum 3.9 g/dL (3.2-5.0); Alkaline Phosphatase 87 U/L (45-117); Anion Gap 6 (5-15); BUN 18 mg/dL (7-18); BUN/Creat Ratio 20.5 RATIO (10-20); Calcium,Total 8.8 mg/dL (8.5-10.1); Chloride 107 mmol/L (98-107); Creatinine, Serum 0.88 mg/dL (0.55-1.02); EST Glomerular Filtration Rate 66 mL/min (>60); Est Glom Filt Rate - Afr Amer 80 mL/min (>60); Globulin 3.1 g/dL (2.2-4.2); Glucose 83 mg/dL (74-106); Potassium 3.6 mmol/L (3.5-5.1); Sodium Level 142 mmol/L (136-145); Thyroid Stim Hormone (TSH) 2.05 uIU/mL (0.358-3.74)
== END | disposition home or self-care (01) ==
LOC: POLAB3 13:37
PROVIDERS: PCP Family Medicine Geriatric Medicine; Visit Provider Family Medicine Geriatric Medicine
DX: E55.9 Vitamin D deficiency, unspecified (principal); R53.83 Other fatigue
CPT/HCPCS: 36415; 80053; 82306; 84443; 85025

== ENCOUNTER → 2022-04-22 | Outpatient (CLI) | payer MEDICARE, SELFPAY ==
[2022-04-22 15:36] LABS: Absolute Lymphocyte Count 1.37 X10^3/uL (0.83-4.51); Absolute Neutrophil Count 4.9 X10^3/uL (2.0-7.7); Basophil# 0.06 X10^3/uL; Basophil% 0.9 % (0-1); Eosinophil# 0.24 X10^3/uL; Eosinophils% 3.4 % (0-5); Hematocrit 41.9 % (37-47); Hemoglobin 13.3 g/dL (12.0-15.0); Lymphocyte # 1.37 X10^3/ul (0.83-4.51); Lymphocyte % 19.5 % (19-41); Mean Corp Hgb Conc 31.7 g/dL (32-36); Mean Corpuscular Volume 94.6 fL (81-99); Mean Platelet Vol. 10.6 fl (6.2-12.0); Monocyte# 0.43 X10^3/uL; Monocyte% 6.1 % (0-10); NRBC Flagged by Analyzer 0 % (0-5); Neutrophil # 4.92 X10^3/uL (2.7-7.7); Neutrophil % 69.8 % (47-70); Platelet Count 173 K/mm3 (150-450); RBC Distribution Width CV 13.1 % (11.6-14.6); RBC Distribution Width SD 45.1 fl (35.1-43.9); Red Blood Count 4.43 M/mm3 (4.2-5.4)
[2022-04-22 15:51] LABS: Vitamin D,25 Hydroxy 45.7 ng/mL
[2022-04-22 15:58] LABS: ALB/GLOB Ratio 1.2 RATIO (0.9-2.4); AST(SGOT) 14 U/L (15-37); Alanine Aminotransfer ALT/SGPT 16 U/L (13-56); Albumin, Serum 3.7 g/dL (3.2-5.0); Alkaline Phosphatase 76 U/L (45-117); Anion Gap 6 (5-15); BUN 13 mg/dL (7-18); BUN/Creat Ratio 15.1 RATIO (10-20); Calcium,Total 8.3 mg/dL (8.5-10.1); Chloride 108 mmol/L (98-107); Creatinine, Serum 0.86 mg/dL (0.55-1.02); EST Glomerular Filtration Rate 67 mL/min (>60); Est Glom Filt Rate - Afr Amer 81 mL/min (>60); Glucose 90 mg/dL (74-106); Protein, Total 6.7 g/dL (6.4-8.2); Sodium Level 143 mmol/L (136-145)
== END | disposition home or self-care (01) ==
LOC: POLAB3 13:05
PROVIDERS: PCP Family Medicine Geriatric Medicine; Visit Provider Family Medicine Geriatric Medicine
DX: E55.9 Vitamin D deficiency, unspecified (principal); R53.83 Other fatigue
CPT/HCPCS: 36415; 80053; 82306; 84443; 85025

== ENCOUNTER → 2022-10-20 | Outpatient (CLI) | payer MEDICARE, SELFPAY ==
[2022-10-20 17:05] LABS: Absolute Lymphocyte Count 1.28 X10^3/uL (0.83-4.51); Absolute Neutrophil Count 4.8 X10^3/uL (2.0-7.7); Basophil# 0.07 X10^3/uL; Eosinophil# 0.29 X10^3/uL; Eosinophils% 4.2 % (0-5); Hematocrit 40.3 % (37-47); Hemoglobin 12.7 g/dL (12.0-15.0); Lymphocyte # 1.28 X10^3/ul (0.83-4.51); Lymphocyte % 18.6 % (19-41); Mean Corp Hgb Conc 31.5 g/dL (32-36); Mean Corpuscular Hgb 30.2 pg (27.0-32.0); Mean Corpuscular Volume 95.7 fL (81-99); Mean Platelet Vol. 11.3 fl (6.2-12.0); Monocyte% 5.8 % (0-10); NRBC Flagged by Analyzer 0 % (0-5); Neutrophil # 4.84 X10^3/uL (2.7-7.7); Neutrophil % 70.1 % (47-70); Platelet Count 179 K/mm3 (150-450); Red Blood Count 4.21 M/mm3 (4.2-5.4); White Blood Count 6.9 K/mm3 (4.4-11.0)
[2022-10-20 17:13] LABS: Vitamin D,25 Hydroxy 53.3 ng/mL
[2022-10-20 17:18] LABS: ALB/GLOB Ratio 1.2 RATIO (0.9-2.4); AST(SGOT) 11 U/L (15-37); Alanine Aminotransfer ALT/SGPT 14 U/L (13-56); Albumin, Serum 3.7 g/dL (3.2-5.0); Alkaline Phosphatase 90 U/L (45-117); Anion Gap 4 (5-15); BUN 16 mg/dL (7-18); BUN/Creat Ratio 21.6 RATIO (10-20); Calcium,Total 8.7 mg/dL (8.5-10.1); Chloride 106 mmol/L (98-107); Cholesterol 169 mg/dL (200); Creatinine, Serum 0.74 mg/dL (0.55-1.02); EST Glomerular Filtration Rate 80 mL/min (>60); Est Glom Filt Rate - Afr Amer 97 mL/min (>60); Glucose 84 mg/dL (74-106); High Density Lipoprotein 61 mg/dL; Potassium 4.2 mmol/L (3.5-5.1); Protein, Total 6.7 g/dL (6.4-8.2); Sodium Level 139 mmol/L (136-145); Thyroid Stim Hormone (TSH) 2.39 uIU/mL (0.358-3.74); Triglycerides 180 mg/dL; Very Low Density Lipoprotein 36 mg/dL (5-40)
== END | disposition home or self-care (01) ==
PROVIDERS: PCP Family Medicine Geriatric Medicine; Visit Provider Family Medicine Geriatric Medicine
DX: E55.9 Vitamin D deficiency, unspecified (principal); R53.83 Other fatigue
CPT/HCPCS: 36415; 80053; 80061; 82306; 84443; 85025

== ENCOUNTER → 2023-04-27 | Outpatient (CLI) | payer MEDICARE, SELFPAY ==
--- OUTSIDE RECORDS SUMMARY | 2023-04-27 15:10 | XMS RPT_ITS | CCD ---
Author Name Unknown Address [id number] [facility] [address] [place] [address] Organization [facility] Care Team Providers Care Tire Man Name Role Phone BIB SANDOVAL Unavailable Unavailable BIB SANDOVAL Unavailable Unavailable Mary Beth Fuller Primary Care Provider Allergies Allergy Classification Reported Allergen(s) Allergy Type Date of Onset Reaction(s) Facility (2 sources) acetaminophen; Translations: [ACETAMINOPHEN] Drug Allergy 4 Other: See Comments [facility] (2 sources) oxyCODONE; Translations: [OXYCODONE] Drug Allergy 4 Rash [facility] (2 sources) Pollen; Translations: [POLLEN] Propensity to adverse reactions (disorder) 7 [facility] Medications Completed/Discontinued Medications Medication Drug Class(es) Dates Sig (Normalized) Sig (Original) atorvastatin 10 mg oral tablet (1 source) HMG-CoA Reductase Inhibitor Start: 02-01-2019 take 1 tablet by mouth once daily atorvastatin (LIPITOR) 10 mg tablet Indications: Mixed hyperlipidemia Take 1 tablet by mouth once daily. 90 tablet 3 02/01/2019 Active Problems Active Problems Problem Classification Problem Date Documented Date Episodic/Chronic Anxiety disorders (1 source) Anxiety disorder; Translations: [Other specified anxiety disorders] Onset: 07-05-2011 11-13-2014 Chronic Asthma (1 source) Unspecified asthma, uncomplicated; Translations: [Unspecified asthma(493.90)] 11-13-2014 Chronic Disorders of lipid metabolism (1 source) Mixed hyperlipidemia; Translations: [Mixed hyperlipidemia] 11-13-2014 Chronic Esophageal disorders (1 source) Gastroesophageal reflux disease without esophagitis; Translations: [Gastro-esophageal reflux disease without esophagitis] 11-13-2014 Chronic Gout and other crystal arthropathies (1 source) Chondrocalcinosis of knee joint; Translations: [Chondrocalcinosis of knee] Onset: 01-15-2014 11-13-2014 Chronic Osteoarthritis (1 source) Unilateral primary osteoarthritis, left hip; Translations: [Unilateral primary osteoarthritis, left hip] Onset: 06-24-2017 Chronic Other connective tissue disease (2 sources) Tendinitis of left hip; Translations: [Hip tendonitis, left] Onset: 02-20-2018 02-20-2018 Other connective tissue disease (1 source) Trochanteric bursitis of left hip; Translations: [Trochanteric bursitis of left hip] Onset: 08-08-2017 08-08-2017 Other non-traumatic joint disorders (1 source) Pain in left hip; Translations: [Pain in left hip] Onset: 06-22-2017 Episodic Spondylosis; intervertebral disc disorders; other back problems (3 sources) Degeneration of lumbosacral intervertebral disc; Translations: [Degeneration of lumbar intervertebral disc] Onset: 11-21-2013 04-14-2017 Chronic Unclassified (1 source) Patient encounter status; Translations: [Screening for colon cancer] Onset: 10-18-2016 10-25-2016 Past or Other Problems Problem Classification Problem Date Documented Date Episodic/Chronic Fracture of upper limb (1 source) Closed fracture of upper end of humerus; Translations: [Closed fracture of proximal end of right humerus with routine healing] Onset: 02-01-2019 02-01-2019 Episodic Other connective tissue disease (1 source) Gluteal tendinitis, left hip; Translations: [Gluteal tendinitis of left buttock] Onset: 08-08-2017 08-08-2017 Episodic Other ear and sense organ disorders (1 source) Asymmetrical sensorineural hearing loss; Translations: [Asymmetrical sensorineural hearing loss] Onset: 04-22-2017 04-22-2017 Episodic Other non-traumatic joint disorders (1 source) Hip pain; Translations: [Pain in left hip] Onset: 08-08-2017 02-21-2018 Episodic Spondylosis; intervertebral disc disorders; other back problems (8 sources) Spinal stenosis of lumbar region; Translations: [Lumbosacral radiculopathy] Onset: 04-14-2017 01-11-2018 Episodic Results Test Name Value Interpretation Reference Range Facil ity Encounters Encounter Date Encounter Type Care Provider Facility Start: 05-02-2020 End: 05-02-2020 Patient encounter procedure Dona Bermudez Work Phone: COVID Vaccine Start: 06-24-2017 Ambulatory BIB [facility] Start: 06-22-2017 End: 06-22-2017 Ambulatory BIB SANDOVAL [facility] Procedures Date Procedure Procedure Detail Performing Clinician Start: 11-12-2016 Colonoscopy Dona jenkins Plan of Treatment Date Care Activity Detail Author Start: 02-01-2022 DIABETES SCREEN DIABETES SCREEN [facility] Start: 01-30-2022 Urine microalbumin profile DTAP,TDAP ,TD (2 - Td) [facility] Start: 11-12-2021 Screening for malign ant neoplasm of colon [facility] Start: 11-27-2019 Influenza vaccination INFLUENZA (#1) [facility] Start: 2006 ADVANCE DIRECTIVE DISCUSSION ADVANCE DIRECTIVE DISCUSSION [facility] Start: 07-24-1991 Screening for malign ant neoplasm of colon [facility] Start: 07-24-1991 SHINGRIX VACCINE (1 of 2) YIN GRIX VACCINE (1 of 2) [facility] Start: 07-24-1959 HEPATITIS C SCREENING HEPATITIS C [facility] End: 07-01-2020 SARS-COVID VACCINE 1ST DOSE APPT SARS-COVID VACCINE 1ST DOSE APPT Procedures Routine 1 Occurrences starting 05/02/2020 until 07/01/2020 [facility] Immunizations Immunization Date Immunization Notes Care Provider Karin hair 01-13-2019 influenza, high dose seasonal, preservative-free [facility] in 01-13-2018 influenza, seasonal, injectable [facility] 12-14-2016 influenza, high dose seasonal, preservative-free Former[facility] in 01-15-2014 influenza, seasonal, injectable [facility] 01-15-2014 pneumococcal conjuga te vaccine, [address] [facility] 03-23-2013 influenza virus vacc ine, unspecified formulation [facility] 01-31-2012 tetanus toxoid, redu monie diphtheria toxoid, and acellular pertussis vaccine, adsorbed [facility] 01-06-2012 influenza virus vacc ine, unspecified formulation [facility] 10-03-2006 pneumococcal polysac charide vaccine, [address] [facility] 10-03-2006 tetanus and diphther ia toxoids, adsorbed, preservative free, for adult use (2 Lf of tetanus toxoid and 2 Lf of diphtheria toxoid) [facility] Payers Date Payer Category Payer Private Health Insurance [facility] AARP SUPPLEMENT [id number] 2018-Present Indemnity [id number] 2006 Medicare MEDICARE MEDICAR E A AND B [id number] 2006-Present [place], [place] Medicare [id number] Social History Date Type Detail Facility Start: 02-01-2019 Tobacco smoking stat [facility] Never smoker [facility] Start: 02-01-2019 Tobacco use and exposure Never used [facility] Start: 02-01-2019 Alcohol intake Current drinke r of alcohol (finding) [facility] Start: 10-03-2006 Alcohol Comment Occasional win e with dinner [facility] Start: 1940 Sex Assigned At Not on file [facility] Summary Purpose Family History No Family History Records Found Advance Directives Documents on File Type Date Recorded 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 Advance Directive(s) Advance Directive(s) 05/22/2018 9:14 AM Advance Directive(s) 03/17/2018 8:20 AM Advance Directive(s) 01/25/2018 11:07 AM Advance Directive(s) 06/22/2017 10:14 AM Advance Directive(s) 05/30/2017 11:38 AM Advance Directive(s) 11/12/2016 8:14 AM History of Past Illness Problem Noted Date Resolved Date Tear of medial cartilage or meniscus of knee, cu rrent 02/06/2014 11/13/2014 Lumbar stenosis 11/21/2013 01/15/2014 Lumbar radiculitis 11/21/2013 01/15/2014 Lumbosacral spondylosis without myelopathy 11/2101/15/2014 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 This clinical summary was aggregated from multiple sources. Caution should be exercised in using it in the provision of clinical care. This summary normalizes information from multiple sources, and as a consequence, information in this document may materially change the coding, format and clinical context of patient data. In addition, data may be omitted in some cases. CLINICAL DECISIONS SHOULD BE BASED ON THE PRIMARY CLINICAL RECORDS. [facility]. provides no warranty or guarantee of the accuracy or completeness of information in this document.
[2023-04-27 15:34] LABS: Absolute Lymphocyte Count 1.11 X10^3/uL (0.83-4.51); Absolute Neutrophil Count 5.8 X10^3/uL (2.0-7.7); Basophil# 0.03 X10^3/uL; Basophil% 0.4 % (0-1); Eosinophil# 0.16 X10^3/uL; Eosinophils% 2.1 % (0-5); Hematocrit 40.2 % (37-47); Hemoglobin 12.9 g/dL (12.0-15.0); Lymphocyte # 1.11 X10^3/ul (0.83-4.51); Lymphocyte % 14.7 % (19-41); Mean Corp Hgb Conc 32.1 g/dL (32-36); Mean Corpuscular Hgb 30.4 pg (27.0-32.0); Mean Corpuscular Volume 94.8 fL (81-99); Mean Platelet Vol. 10.7 fl (6.2-12.0); Monocyte% 5.3 % (0-10); NRBC Flagged by Analyzer 0 % (0-5); Neutrophil # 5.84 X10^3/uL (2.7-7.7); Neutrophil % 77.1 % (47-70); Platelet Count 195 K/mm3 (150-450); RBC Distribution Width CV 13.5 % (11.6-14.6); RBC Distribution Width SD 46.8 fl (35.1-43.9); Red Blood Count 4.24 M/mm3 (4.2-5.4); White Blood Count 7.6 K/mm3 (4.4-11.0)
[2023-04-27 16:01] LABS: Vitamin D,25 Hydroxy 50.3 ng/mL
[2023-04-27 16:16] LABS: ALB/GLOB Ratio 1.3 RATIO (0.9-2.4); AST(SGOT) 11 U/L (15-37); Alanine Aminotransfer ALT/SGPT 14 U/L (13-56); Albumin, Serum 3.9 g/dL (3.2-5.0); Alkaline Phosphatase 94 U/L (45-117); Anion Gap 3 (5-15); BUN 16 mg/dL (7-18); BUN/Creat Ratio 20.8 RATIO (10-20); Calcium,Total 9.2 mg/dL (8.5-10.1); Chloride 109 mmol/L (98-107); Cholesterol 190 mg/dL (200); Creatinine, Serum 0.77 mg/dL (0.55-1.02); EST Glomerular Filtration Rate 76 mL/min (>60); Est Glom Filt Rate - Afr Amer 92 mL/min (>60); Glucose 103 mg/dL (74-106); High Density Lipoprotein 71 mg/dL; Potassium 4.1 mmol/L (3.5-5.1); Protein, Total 6.9 g/dL (6.4-8.2); Sodium Level 140 mmol/L (136-145); Thyroid Stim Hormone (TSH) 2.14 uIU/mL (0.358-3.74); Triglycerides 73 mg/dL; Very Low Density Lipoprotein 15 mg/dL (5-40)
== END | disposition home or self-care (01) ==
LOC: POLAB3 14:23
PROVIDERS: PCP Family Medicine Geriatric Medicine; Visit Provider Family Medicine Geriatric Medicine
DX: E78.5 Hyperlipidemia, unspecified (principal); E55.9 Vitamin D deficiency, unspecified; R53.83 Other fatigue
CPT/HCPCS: 36415; 80053; 80061; 82306; 84443; 85025

== ENCOUNTER → 2023-07-25 | Outpatient (REF) | payer MEDICARE, MEDICAID, SELFPAY ==
[2023-07-26 08:06] LABS: Mucous, Urine 0 SEEN /hpf (<or=2+); Red Blood Cells-Urine 0 SEEN /hpf (0-5)
[2023-07-26 08:21] LABS: Color, Urine Yellow (Yellow); Glucose, Dipstick Normal (Normal); Ketone-Dipstick Negative (Negative); Leukocyte Esterase-Dipstick 500 /ul (Negative); Nitrite-Dipstick Positive (Negative); Occult Blood-Urine Negative /ul (Negative); Protein-Dipstick Negative (Negative); Urine Bilirubin Dipstick Negative (Negative); Urine Clarity Sl. Cloudy (Clear); Urine Urobilinogen Normal (Normal)
[2023-07-26 08:33] LABS: Bacteria 4+ /hpf (None Seen); Calcium Oxalate Crystals Ur 1+ /hpf (<or=2+); Squamous Epithelial Cells - UA 0-5 SEEN /hpf (5-10); White Blood Cells 10-25 SEEN /hpf (0-5)
== END ==
LOC: OLS.SWAL 14:20
PROVIDERS: PCP Family Medicine Geriatric Medicine; Visit Provider Family Medicine Geriatric Medicine
DX: N39.0 Urinary tract infection, site not specified (principal)
CPT/HCPCS: 81001; 87077; 87086; 87088; 87186

== ENCOUNTER → 2023-07-29 | Outpatient (CLI) | payer MEDICARE, MEDICAID, SELFPAY ==
[2023-07-29 10:32] LABS: Absolute Neutrophil Count 4.3 X10^3/uL (2.0-7.7); Basophil# 0.05 X10^3/uL; Basophil% 0.8 % (0-1); Eosinophil# 0.29 X10^3/uL; Eosinophils% 4.6 % (0-5); Hematocrit 39.6 % (37-47); Hemoglobin 12.6 g/dL (12.0-15.0); Lymphocyte % 18.9 % (19-41); Mean Corp Hgb Conc 31.8 g/dL (32-36); Mean Corpuscular Hgb 30.4 pg (27.0-32.0); Mean Corpuscular Volume 95.7 fL (81-99); Mean Platelet Vol. 10.7 fl (6.2-12.0); Monocyte# 0.47 X10^3/uL; Monocyte% 7.4 % (0-10); NRBC Flagged by Analyzer 0 % (0-5); Neutrophil # 4.33 X10^3/uL (2.7-7.7); Platelet Count 194 K/mm3 (150-450); RBC Distribution Width SD 45.4 fl (35.1-43.9); Red Blood Count 4.14 M/mm3 (4.2-5.4); White Blood Count 6.4 K/mm3 (4.4-11.0)
[2023-07-29 11:02] LABS: Vitamin D,25 Hydroxy 43.9 ng/mL
[2023-07-29 11:11] LABS: ALB/GLOB Ratio 1.2 RATIO (0.9-2.4); AST(SGOT) 13 U/L (15-37); Alanine Aminotransfer ALT/SGPT 14 U/L (13-56); Albumin, Serum 3.8 g/dL (3.2-5.0); Alkaline Phosphatase 101 U/L (45-117); Anion Gap 1 (5-15); BUN 19 mg/dL (7-18); BUN/Creat Ratio 25.2 RATIO (10-20); Calcium,Total 9.1 mg/dL (8.5-10.1); Chloride 108 mmol/L (98-107); Cholesterol 171 mg/dL (200); Creatinine, Serum 0.75 mg/dL (0.55-1.02); EST Glomerular Filtration Rate 78 mL/min (>60); Est Glom Filt Rate - Afr Amer 95 mL/min (>60); Globulin 3.1 g/dL (2.2-4.2); Glucose 93 mg/dL (74-106); High Density Lipoprotein 64 mg/dL; Potassium 4.4 mmol/L (3.5-5.1); Protein, Total 6.9 g/dL (6.4-8.2); Sodium Level 139 mmol/L (136-145); Thyroid Stim Hormone (TSH) 2.94 uIU/mL (0.358-3.74); Triglycerides 166 mg/dL; Very Low Density Lipoprotein 33 mg/dL (5-40)
== END | disposition home or self-care (01) ==
LOC: LAB 09:44
PROVIDERS: PCP Family Medicine Geriatric Medicine; Referring Provider Family Medicine Geriatric Medicine; Visit Provider Family Medicine Geriatric Medicine
DX: E78.5 Hyperlipidemia, unspecified (principal); E55.9 Vitamin D deficiency, unspecified; R53.83 Other fatigue
CPT/HCPCS: 36415; 80053; 80061; 82306; 84443; 85025

== ENCOUNTER → 2023-10-10 | Outpatient (CLI) | payer MEDICARE, MEDICAID, SELFPAY ==
[2023-10-10 11:33] LABS: Absolute Neutrophil Count 4.1 X10^3/uL (2.0-7.7); Basophil# 0.04 X10^3/uL; Basophil% 0.6 % (0-1); Eosinophil# 0.37 X10^3/uL; Eosinophils% 5.9 % (0-5); Hematocrit 38.3 % (37-47); Hemoglobin 12.2 g/dL (12.0-15.0); Lymphocyte % 19.3 % (19-41); Mean Corp Hgb Conc 31.9 g/dL (32-36); Mean Corpuscular Hgb 29.6 pg (27.0-32.0); Mean Platelet Vol. 10.4 fl (6.2-12.0); Monocyte# 0.45 X10^3/uL; Monocyte% 7.2 % (0-10); NRBC Flagged by Analyzer 0 % (0-5); Neutrophil # 4.13 X10^3/uL (2.7-7.7); Neutrophil % 66.5 % (47-70); Platelet Count 198 K/mm3 (150-450); RBC Distribution Width CV 12.7 % (11.6-14.6); RBC Distribution Width SD 43.3 fl (35.1-43.9); Red Blood Count 4.12 M/mm3 (4.2-5.4); White Blood Count 6.2 K/mm3 (4.4-11.0)
[2023-10-10 12:00] LABS: Vitamin D,25 Hydroxy 45.9 ng/mL
[2023-10-10 12:12] LABS: ALB/GLOB Ratio 1.1 RATIO (0.9-2.4); AST(SGOT) 12 U/L (15-37); Alanine Aminotransfer ALT/SGPT 14 U/L (13-56); Albumin, Serum 3.6 g/dL (3.2-5.0); Alkaline Phosphatase 103 U/L (45-117); Anion Gap 7 (5-15); BUN 15 mg/dL (7-18); BUN/Creat Ratio 21.7 RATIO (10-20); Calcium,Total 8.7 mg/dL (8.5-10.1); Chloride 108 mmol/L (98-107); Cholesterol 176 mg/dL (200); Creatinine, Serum 0.69 mg/dL (0.55-1.02); EST Glomerular Filtration Rate 86 mL/min (>60); Est Glom Filt Rate - Afr Amer 105 mL/min (>60); Globulin 3.2 g/dL (2.2-4.2); Glucose 90 mg/dL (74-106); High Density Lipoprotein 55 mg/dL; Potassium 4.3 mmol/L (3.5-5.1); Protein, Total 6.8 g/dL (6.4-8.2); Sodium Level 142 mmol/L (136-145); Thyroid Stim Hormone (TSH) 3.11 uIU/mL (0.358-3.74); Triglycerides 188 mg/dL; Very Low Density Lipoprotein 38 mg/dL (5-40)
== END | disposition home or self-care (01) ==
LOC: POLAB3 11:11
PROVIDERS: PCP Family Medicine Geriatric Medicine; Visit Provider Family Medicine Geriatric Medicine
DX: E78.5 Hyperlipidemia, unspecified (principal); R53.83 Other fatigue; E55.9 Vitamin D deficiency, unspecified
CPT/HCPCS: 36415; 80053; 80061; 82306; 84443; 85025

== ENCOUNTER → 2023-12-15 | Outpatient (REF) | payer MEDICARE, MEDICAID, SELFPAY ==
[2023-12-16 08:04] LABS: Mucous, Urine 0 SEEN /hpf (<or=2+); Red Blood Cells-Urine 0 SEEN /hpf (0-5)
[2023-12-16 08:08] LABS: Color, Urine Yellow (Yellow); Glucose, Dipstick Normal (Normal); Ketone-Dipstick Negative (Negative); Leukocyte Esterase-Dipstick 500 /ul (Negative); Nitrite-Dipstick Negative (Negative); Occult Blood-Urine Negative /ul (Negative); Protein-Dipstick Negative (Negative); Urine Bilirubin Dipstick Negative (Negative); Urine Clarity Sl. Cloudy (Clear); Urine Urobilinogen Normal (Normal)
[2023-12-16 08:15] LABS: Bacteria 2+ /hpf (None Seen)
[2023-12-16 08:16] LABS: Squamous Epithelial Cells - UA 0-5 SEEN /hpf (5-10); White Blood Cells 0-5 SEEN /hpf (0-5)
== END ==
LOC: OLS.SWAL 16:05
PROVIDERS: PCP Family Medicine Geriatric Medicine; Visit Provider Family Medicine Geriatric Medicine
DX: N39.0 Urinary tract infection, site not specified (principal)
CPT/HCPCS: 81001; 87086; 87088

== ENCOUNTER → 2024-01-20 | Outpatient (CLI) | payer MEDICARE, MEDICAID, SELFPAY ==
--- OUTSIDE RECORDS SUMMARY | 2024-01-20 10:45 | XMS RPT_ITS | CCD ---
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 Name Role Phone BIB SANDOVAL Unavailable Unavailable BIB SANDOVAL Unavailable Unavailable Mary Beth Fuller Primary Care Provider Allergies Allergy Classification Reported Allergen(s) Allergy Type Date of Onset Reaction(s) Facility (2 sources) acetaminophen; Translations: [ACETAMINOPHEN] Drug Allergy 4 Other: See Comments [facility] Repository (2 sources) oxyCODONE; Translations: [OXYCODONE] Drug Allergy 4 Rash [facility] Repository (2 sources) Pollen; Translations: [POLLEN] Propensity to adverse reactions (disorder) 7 [facility] Repository Medications Completed/Discontinued Medications Medication Drug Class(es) Dates Sig (Normalized) Sig (Original) atorvastatin 10 mg oral tablet (1 source) HMG-CoA Reductase Inhibitor Start: 02-01-2019 take 1 tablet by mouth once daily atorvastatin (LIPITOR) 10 mg tablet Indications: Mixed hyperlipidemia Take 1 tablet by mouth once daily. 90 tablet 3 02/01/2019 Active Comment on above: Take 1 tablet by laila once daily. baclofen 10 mg oral tablet (1 source) gamma-Aminobutyric Acid-ergic Agonist Start: 12-27-2017 take 5-10 mg by mouth every eight hours as needed baclofen (LIORESAL) 10 mg tablet Take 0.5-1 tablets by mouth three times daily as needed. 90 tablet 2 12/27/2017 Active Comment on above: Take 0.5-1 tablets b y mouth three times daily as needed. calcium carbonate 1500 mg / cholecalciferol 400 unt oral tablet (1 source) Vitamin D Start: 08-06-2015 take 1 tablet by mouth once daily calcium carbonate 600 mg-cholecalciferol 400 units (CALCIUM 600 + D) 600 mg(1,500mg) -400 unit tab Take 1 tablet by mouth once daily. 0 08/06/2015 Active Comment on above: Take 1 tablet by laila th once daily. omeprazole 20 mg delayed release oral capsule (1 source) Proton Pump Inhibitor Start: 02-02-2019 omeprazole (PRILOSEC) 20 mg capsule Take once capsule once daily 90 capsule 3 02/02/2019 Active Comment on above: Take once capsule on ce daily sertraline 50 mg oral tablet (1 source) Serotonin Reuptake Inhibitor Start: 02-01-2019 take 1 tablet by mouth once daily sertraline (ZOLOFT) 50 mg tablet Indications: Anxiety Take 1 tablet by mouth once daily. 90 tablet 3 02/01/2019 Active Comment on above: Take 1 tablet by laila th once daily. triamcinolone acetonide 1 mg/ml topical cream (1 source) Corticosteroid Start: 03-22-2018 triamcinolone acetonide (KENALOG) 0.1 % cream Indications: Eczema, unspecified type Apply 1 application to affected area twice daily. 45 g 0 03/22/2018 Active Comment on above: Apply 1 application to affected area twice daily. 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 The team confirmed the correct patient, correct site, site marking, correct procedure, and correct position.Timeout Time: 1430Sign-out: Communication performed: Yes. Fluoroscopic Radiation Summary:Plane A, Air Kerma: 30.8 mGyDose Area Product (DAP): 0.0 mGy*mpQ1Cskrvp time: 0:10 min:sec . 5 cc of 1% lidocaine was infiltrated for local anesthesia.COMPARISON: NoneRESULT: 22-gauge spinal needle tip was placed into the synovial space of the left hip under guidance of fluoroscopy. Needle tip position was verified by injection of 2 cc of Omnipaque 240 contrast material, recorded on permanent radiographs. 2 cc of Kenalog and 3 cc infrahepatic and were injected.IMPRESSION: Left hip injection as detailedTranscriptionist : FINSESE Transcribe Date/Time: Jun 24 2017 4:10PDictated by : BENJI MORIN MDThijamey examination was interpreted and the report reviewed and electronically signed by: BENJI MORIN MD on Jun 24 2017 4:12PM [id number] N [facility] PROGRESSon 06-22-2017 PROGRESS HNO ID: [id number]: Ciera (Ct) ARNOLD Leslieervice: (none)Author Type: Clinical TechnicianType: Progress NotesFiled: 06/22/2017 10:29 AMNote Text:NAME:Eve Krueger PatsolicDATE: June 22, 2017CCF#: [id number] X-Ray and Hip LEFT X-Ray COMPLETEDTECH ID SIGN: MARIANO DELGADOSHARMIN [facility] XR HIP 3V PELV+ AP/LAT LTon 06-22-2017 XR HIP 3V PELV+ AP/LAT LT * * *Final Report* * *DATE OF EXAM: Jun 22 2017 10:23AM JOHN [id number] - XR HIP 3V PELV+ AP/LAT LT / REASON: M25.552-Pain in left hip * * * * Physician Interpretation * * * * PROCEDURE: Pelvis and left hipINDICATION: Pain in left hip .TECHNIQUE: XR HIP 3V PELV+ AP/LAT LTCOMPARISON: NoneFINDINGS:Hip and sacroiliac joints are relatively well-maintained. There is minimal left femoral collar spur formation and minimal chondrocalcinosis in the left hip. Femoral head remains smooth. No fracture is seen. Degenerative changes in the lower lumbar spine are evident.IMPRESSION: Mild degenerative changesTranscriptionist: FINESSE Transcribe Date/Time: Jun 22 2017 12:47PDictated by : ROSALINA CALLOWAY MDThijamey examination was interpreted and the report reviewed and electronically signed by: ROSALINA CALLOWAY MD on Jun 22 2017 12:48PM [id number] N Normal [facility] Encounters Encounter Date Encounter Type Care Provider Facility Start: 05-02-2020 End: 05-02-2020 Patient encounter procedure Dona Bermudez Work Phone: COVID Vaccine Start: 06-24-[address] [facility] Start: 06-22-2017 End: 06-22-2017 Ambulatory [facility] Procedures Date Procedure Procedure Detail Performing Clinician Start: 11-12-2016 Colonoscopy Dona jenkins Plan of Treatment Date Care Activity Detail Author Start: 02-01-2022 DIABETES SCREEN DIABETES SCREEN [facility] Start: 01-30-2022 Urine microalbumin profile DTAP,TDAP ,TD (2 - Td) [facility] Start: 11-12-2021 Screening for malign ant neoplasm of colon [facility] Start: 11-27-2019 Influenza vaccination INFLUENZA (#1) [facility] Start: 2006 ADVANCE DIRECTIVE DISCUSSION ADVANCE DIRECTIVE DISCUSSION [facility] Start: 07-24-1991 Screening for malign ant neoplasm of colon [facility] Start: 07-24-1991 SHINGRIX VACCINE (1 of 2) YIN GRIX VACCINE (1 of 2) [facility] Start: 07-24-1959 HEPATITIS C SCREENING HEPATITIS C SC REENING [facility] End: 07-01-2020 SARS-COVID VACCINE 1ST DOSE APPT SARS-COVID VACCINE 1ST DOSE APPT Procedures Routine 1 Occurrences starting 05/02/2020 until 07/01/2020 [facility] Comment on above: 1 Occurrences starti ng 05/02/2020 until 07/01/2020 Immunizations Immunization Date Immunization Notes Care Provider Karin hair 01-13-2019 influenza, high dose seasonal, preservative-free [facility] 01-13-2018 influenza, seasonal, injectable [facility] 12-14-2016 influenza, high dose seasonal, preservative-free [facility] 01-15-2014 influenza, seasonal, injectable [facility] 01-15-2014 pneumococcal conjuga te vaccine, 13 valent [facility] 03-23-2013 influenza virus vacc ine, unspecified formulation [facility] 01-31-2012 tetanus toxoid, redu monie diphtheria toxoid, and acellular pertussis vaccine, adsorbed [facility] 01-06-2012 influenza virus vacc ine, unspecified formulation [facility] 10-03-2006 pneumococcal polysac charide vaccine, 23 valent [facility] 10-03-2006 tetanus and diphther ia toxoids, adsorbed, preservative free, for adult use (2 Lf of tetanus toxoid and 2 Lf of diphtheria toxoid) [facility] Payers Date Payer Category Payer Private Health Insurance [facility] AARP SUPPLEMENT [id number] 2018-Present Indemnity [id number] 2006 Medicare MEDICARE MEDICAR E A AND B [id number] 2006-Present [place] Medicare [id number] Social History Date Type Detail Facility [facility]: [facility] Start: 02-01-2019 Tobacco use and exposure Never used [facility] Start: 02-01-2019 Alcohol intake Current drinke r of alcohol (finding) [facility] Start: 10-03-2006 Alcohol Comment Occasional win e with dinner [facility] Start: 1940 Sex Assigned At Not [facility] file [facility] Family History No Family History Records Found Advance Directives Documents on File 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 Advance Directive(s) Advance Directive(s) 05/22/2018 [...] INFORMATION SOURCE (unrecogn ized section and content) DATE CREATED AUTHOR 09/15/2017 [facility] Source Comments (unrecognize d section and content) In the event this informatio n is protected by the Federal Confidentiality of Alcohol and Drug Abuse Patient Records regulations: The Federal rules restrict any use of the information to criminally investigate or prosecute any alcohol or drug abuse patient.[facility] FOR RECORDS PERTAINING TO PATIENTS WHO ARE [...] BE BASED ON THE PRIMARY CLINICAL RECORDS. [employer] [facility]. provides no warranty or guarantee of the accuracy or completeness of information in this document.
[2024-01-20 11:33] LABS: Absolute Lymphocyte Count 1.02 X10^3/uL (0.83-4.51); Absolute Neutrophil Count 3.6 X10^3/uL (2.0-7.7); Basophil# 0.06 X10^3/uL; Basophil% 1.1 % (0-1); Eosinophils% 5.6 % (0-5); Hematocrit 38.4 % (37-47); Hemoglobin 12.4 g/dL (12.0-15.0); Lymphocyte # 1.02 X10^3/ul (0.83-4.51); Lymphocyte % 19.2 % (19-41); Mean Corp Hgb Conc 32.3 g/dL (32-36); Mean Corpuscular Hgb 30.4 pg (27.0-32.0); Mean Corpuscular Volume 94.1 fL (81-99); Mean Platelet Vol. 10.5 fl (6.2-12.0); Monocyte# 0.36 X10^3/uL; Monocyte% 6.8 % (0-10); NRBC Flagged by Analyzer 0 % (0-5); Neutrophil # 3.55 X10^3/uL (2.7-7.7); Neutrophil % 66.9 % (47-70); Platelet Count 163 K/mm3 (150-450); RBC Distribution Width CV 12.8 % (11.6-14.6); RBC Distribution Width SD 44.3 fl (35.1-43.9); Red Blood Count 4.08 M/mm3 (4.2-5.4); White Blood Count 5.3 K/mm3 (4.4-11.0)
[2024-01-20 12:23] LABS: ALB/GLOB Ratio 1.2 RATIO (0.9-2.4); AST(SGOT) 10 U/L (15-37); Alanine Aminotransfer ALT/SGPT 12 U/L (13-56); Albumin, Serum 3.6 g/dL (3.2-5.0); Alkaline Phosphatase 104 U/L (45-117); Anion Gap 6 (5-15); BUN 20 mg/dL (7-18); BUN/Creat Ratio 28.8 RATIO (10-20); Calcium,Total 8.7 mg/dL (8.5-10.1); Chloride 109 mmol/L (98-107); Cholesterol 176 mg/dL (200); EST Glomerular Filtration Rate 86 mL/min (>60); Est Glom Filt Rate - Afr Amer 104 mL/min (>60); Glucose 86 mg/dL (74-106); High Density Lipoprotein 50 mg/dL; Potassium 4.1 mmol/L (3.5-5.1); Protein, Total 6.6 g/dL (6.4-8.2); Sodium Level 142 mmol/L (136-145); Triglycerides 218 mg/dL; Very Low Density Lipoprotein 44 mg/dL (5-40)
== END | disposition home or self-care (01) ==
LOC: LAB 10:21
PROVIDERS: PCP Family Medicine Geriatric Medicine; Referring Provider Family Medicine Geriatric Medicine; Visit Provider Family Medicine Geriatric Medicine
DX: E78.5 Hyperlipidemia, unspecified (principal); E55.9 Vitamin D deficiency, unspecified; R53.83 Other fatigue
CPT/HCPCS: 36415; 80053; 80061; 82306; 84443; 85025

== ENCOUNTER → 2024-05-04 | Outpatient (CLI) | payer MEDICARE, MEDICAID, SELFPAY ==
[2024-05-04 10:05] LABS: Absolute Lymphocyte Count 0.89 X10^3/uL (0.83-4.51); Absolute Neutrophil Count 2.1 X10^3/uL (2.0-7.7); Basophil# 0.04 X10^3/uL; Basophil% 1.1 % (0-1); Eosinophil# 0.31 X10^3/uL; Eosinophils% 8.4 % (0-5); Hematocrit 41.4 % (37-47); Hemoglobin 13.1 g/dL (12.0-15.0); Lymphocyte # 0.89 X10^3/ul (0.83-4.51); Lymphocyte % 24.1 % (19-41); Mean Corp Hgb Conc 31.6 g/dL (32-36); Mean Corpuscular Hgb 29.8 pg (27.0-32.0); Mean Corpuscular Volume 94.3 fL (81-99); Mean Platelet Vol. 10.5 fl (6.2-12.0); Monocyte# 0.35 X10^3/uL; Monocyte% 9.5 % (0-10); NRBC Flagged by Analyzer 0 % (0-5); Neutrophil # 2.09 X10^3/uL (2.7-7.7); Neutrophil % 56.6 % (47-70); Platelet Count 174 K/mm3 (150-450); RBC Distribution Width CV 13.1 % (11.6-14.6); Red Blood Count 4.39 M/mm3 (4.2-5.4); White Blood Count 3.7 K/mm3 (4.4-11.0)
[2024-05-04 10:24] LABS: ALB/GLOB Ratio 1.1 RATIO (0.9-2.4); AST(SGOT) 10 U/L (15-37); Alanine Aminotransfer ALT/SGPT 11 U/L (13-56); Albumin, Serum 3.8 g/dL (3.2-5.0); Alkaline Phosphatase 111 U/L (45-117); Anion Gap 6 (5-15); BUN 13 mg/dL (7-18); BUN/Creat Ratio 17.3 RATIO (10-20); Chloride 106 mmol/L (98-107); Cholesterol 199 mg/dL (200); Creatinine, Serum 0.75 mg/dL (0.55-1.02); EST Glomerular Filtration Rate 78 mL/min (>60); Est Glom Filt Rate - Afr Amer 95 mL/min (>60); Globulin 3.5 g/dL (2.2-4.2); Glucose 59 mg/dL (74-106); High Density Lipoprotein 67 mg/dL; Potassium 3.5 mmol/L (3.5-5.1); Protein, Total 7.3 g/dL (6.4-8.2); Sodium Level 142 mmol/L (136-145); Triglycerides 107 mg/dL; Very Low Density Lipoprotein 21 mg/dL (5-40)
[2024-05-04 11:27] LABS: Vitamin D,25 Hydroxy 37.4 ng/mL
== END | disposition home or self-care (01) ==
LOC: POLAB3 09:41
PROVIDERS: PCP Family Medicine Geriatric Medicine; Visit Provider Family Medicine Geriatric Medicine
DX: E78.5 Hyperlipidemia, unspecified (principal); R53.83 Other fatigue; E55.9 Vitamin D deficiency, unspecified
CPT/HCPCS: 36415; 80053; 80061; 82306; 84443; 85025

== ENCOUNTER 2024-10-07 23:02 | Emergency (ER) | payer MEDICARE, MEDICAID, SELFPAY ==
[2024-10-07 23:04] VITALS: BP 145/91; PULSE 78; RESP 18; TEMP 36.6; O2SAT 98; BMI 21.8
--- NOTE | 2024-10-07 23:40 | CT_ITS ---
PROCEDURE: BRAIN/HEAD WITHOUT CONTRAST 10/07/2024 REASON FOR EXAM: HEAD INJURY TECHNIQUE: BRAIN/HEAD WITHOUT CONTRAST Coronal and Sagittal reconstruction series were provided. One or more dose reduction techniques were used (e.g., Automated exposure control, adjustment of the mA and/or kV according to patient size, use of iterative reconstruction technique. RADIATION DOSE SUMMARY: CTDlvol: 45 mGy DLP: 880 mGycm COMPARISON: 02/05/2022 FINDINGS: Moderate atrophy. Arterial calcifications. Mild white matter change. No acute abnormal brain densities. No intracranial hemorrhage. No hydrocephalus or midline shift. Bilateral lens extraction. Clear sinuses. CT/Brain/Head without Contrast IMPRESSION: No acute intracranial findings. Reading Location: [place] [address]
--- NOTE | 2024-10-07 23:40 | CT_ITS ---
PROCEDURE: SPINE CERVICAL WITHOUT CONTRAS 10/07/2024 REASON FOR EXAM: HEAD INJURY TECHNIQUE: SPINE CERVICAL WITHOUT CONTRAS Coronal and Sagittal reconstruction series were provided. One or more dose reduction techniques were used (e.g., Automated exposure control, adjustment of the mA and/or kV according to patient size, use of iterative reconstruction technique. RADIATION DOSE SUMMARY: CTDlvol: 12 mGy DLP: 255 mGycm COMPARISON: No FINDINGS: Diffuse cervical spine degeneration. No acute fracture or dislocation. No soft tissue injury. No apical pneumothorax. CT/Spine Cervical without Contras IMPRESSION: No Reading Location: [place] [address]
--- OUTSIDE RECORDS SUMMARY | 2024-10-08 00:56 | XMS RPT_ITS | CCD ---
Author Organization [facility] CliniSypr Care Team Providers Care Vibrating Screen Operator Name Role Phone BIB SANDOVAL Unavailable Unavailable BIB SANDOVAL Unavailable Unavailable Mary Beth Fuller Primary Care Provider [phone] Kamari, Dr. Ross Vasques Primary Care Provider 1([facility])[phone] Dr. Mesha Rivera Emergency Provider Dr. Fely Patel Admit Provider Dr. Gregorio Calzada Attending Provider Unavailable Dr. Gregorio Calzada Other Provider Unavailable Kamari, Dr. Ross Vasques Primary Care Provider Kamari, Dr. Ross Vasques Referring Provider Dr. Ryan Vanessa Attending Provider 1([facility])[phone] Webb Attending Provider 1([facility])[phone] Kamari, Dr. Ross Vasques Primary Care Provider Kamari, Dr. Ross Vasques Referring Provider Dr. Ryan Vanessa Attending Provider 1([facility])[phone] Webb Attending Provider 1([facility])[phone] Kamari, Ross Chi Primary Care Unavailable Kamari, Ross Chi Attending Unavailable Kamari, Ross Chi Primary Care Unavailable Kamari OLS, Ross Chi Attending Unavailable Kamari, Ross Chi Primary Care Unavailable Kamari OLS, Ross Chi Attending Unavailable Kamari, Ross Chi Primary Care Unavailable Kamari, Ross Chi Attending Unavailable Kamari, Ross Chi Referring Unavailable Kamari, Ross Chi Primary Care Unavailable Kamari, Ross Chi Attending Unavailable Kamari, Ross Chi Referring Unavailable Kamari, Ross Chi Attending Unavailable Kamari, Ross Chi Primary Care Unavailable Kamari, Ross Chi Primary Care Unavailable Ryan Vanessa Attending Unavailable Kamari, Ross Chi Referring Unavailable Allergies Allergy Classification Reported Allergen(s) Allergy Type Date of Onset Reaction(s) Facility (9 sources) acetaminophen; Translations: [ACETAMINOPHEN] Drug Allergy 4 Other: See Comments [facility] Repository (2 sources) oxyCODONE; Translations: [OXYCODONE] Drug Allergy 4 Rash [facility] (2 sources) Pollen; Translations: [POLLEN] Propensity to adverse reactions (disorder) 7 [facility] Medications Current Medications Medication Drug Class(es) Dates Sig (Normalized) Sig (Original) cholecalciferol 0.025 mg oral capsule (9 sources) Vitamin D Start: 04-05-2022 take 25 ug by mouth once daily Cholecalciferol (Vitamin D3) Active 25 MCG PO DAILY April 05, 2022 1:00am Start: 04-03-2019 End: 04-20-2019 take 2000 [IU] by mouth once daily Cholecalciferol (Vitamin D3) Discontinued 2000 UNIT PO DAILY April 03, 2019 1:00am April 20, 2019 10:56am cyclobenzaprine hydrochloride 10 mg oral tablet (3 sources) Muscle Relaxant Start: 04-05-2022 take 10 mg by mouth three times daily Cyclobenzaprine Active 10 MG PO THREE TIMES A DAY April 05, 2022 1:00am donepezil hydrochloride 10 mg oral tablet (6 sources) Start: 04-06-2021 take 10 mg by mouth at dinner Donepezil Active 10 MG PO WITH DINNER April 06, 2021 1:00am gabapentin 100 mg oral capsule (12 sources) Anti-epileptic Agent Start: 04-06-2021 take 100 mg by mouth once daily Gabapentin Active 100 MG PO DAILY April 06, 2021 3:46pm Start: 04-20-2019 End: 04-06-2021 Gabapentin Discontinued 100 MG PO TWICE DAILY WITH MEALS 120 April 20, 2019 1:00am April 06, 2021 3:46pm 1 capsule with breakfast, one at 3PM and 2 at bedtime levocetirizine dihydrochloride 5 mg oral tablet (6 sources) Histamine-1 Receptor Antagonist Start: 04-06-2021 take 5 mg by mouth once daily Levocetirizine Active 5 MG PO DAILY April 06, 2021 1:00am memantine hydrochloride 10 mg oral tablet (6 sources) K-fsifjp-M-asparta te Receptor Antagonist Start: 04-06-2021 take 10 mg by mouth twice daily Memantine Active 10 MG PO TWICE A DAY April 06, 2021 1:00am mirtazapine 15 mg oral tablet (6 sources) Start: 04-06-2021 take 15 mg by mouth at bedtime Mirtazapine Active 15 MG PO AT BEDTIME April 06, 2021 1:00am naproxen sodium 220 mg oral capsule (9 sources) Nonsteroidal Anti-inflammatory Drug Start: 04-05-2022 take 1 capsule by mouth twice daily Naproxen Sodium (Aleve) 220 mg capsule Active 220 MG PO TWICE A DAY April 05, 2022 1:00am Start: 08-21-2018 End: 04-11-2019 take 500 mg by mouth twice daily Naproxen Discontinued 500 MG PO TWICE A DAY August 21, 2018 12:00am April 11, 2019 2:30pm Completed/Discontinued Medications Medication Drug Class(es) Dates Sig (Normalized) Sig (Original) acetaminophen 325 mg / HYDROcodone bitartrate 5 mg oral tablet (6 sources) Opioid Agonist Start: 9 End: 9 take 1 tablet by mouth every six hours as needed Hydrocodone-Acetamino phen Discontinued 1 TABLET PO EVERY 6 HOURS NEEDED 12 3 August 21, 2018 12:00am August 24, 2018 12:07am apixaban 2.5 mg oral tablet (12 sources) Factor Xa Inhibitor Start: 0 End: 0 take 2.5 mg by mouth twice daily Apixaban Discontinued 2.5 MG PO TWICE A DAY 14 April 20, 2019 10:56am June 04, 2019 8:22am atorvastatin 10 mg oral tablet (1 source) HMG-CoA Reductase Inhibitor Start: 9 take 1 tablet by mouth once daily atorvastatin (LIPITOR) 10 mg tablet Indications: Mixed hyperlipidemia Take 1 tablet by mouth once daily. 90 tablet 3 02/01/2019 Active Comment on above: Take 1 tablet by laila th once daily. baclofen 10 mg oral tablet (1 source) gamma-Aminobutyric Acid-ergic Agonist Start: 8 take 5-10 mg by mouth every eight hours as needed baclofen (LIORESAL) 10 mg tablet Take 0.5-1 tablets by mouth three times daily as needed. 90 tablet 2 12/27/2017 Active Comment on above: Take 0.5-1 tablets b y mouth three times daily as needed. calcium carbonate 1500 mg / cholecalciferol 400 unt oral tablet (1 source) Vitamin D Start: 6 take 1 tablet by mouth once daily calcium carbonate 600 mg-cholecalciferol 400 units (CALCIUM 600 + D) 600 mg(1,500mg) -400 unit tab Take 1 tablet by mouth once daily. 0 08/06/2015 Active Comment on above: Take 1 tablet by laila th once daily. methylPREDNISolone 4 mg oral tablet (5 sources) Corticosteroid Start: 3 End: 4 take 1 tablet by mouth once Methylprednisolone (Medrol (Karlo)) 4 mg tablets,dose pack Discontinued 0 PO per package directions April 05, 2022 1:00am April 27, 2023 9:33am Per package direction Start: 10-10-2019 End: 10-10-2019 Depo-Medrol (methylprednisol one acetate) 40 mg/mL suspension for injection Discontinued 40 MG intrabursal ONCE October 10, 2019 8:12am October 10, 2019 8:52am Start: 02-28-2019 End: 02-28-2019 Depo-Medrol (methylprednisol one acetate) 40 mg/mL suspension for injection Discontinued 40 MG INTRAARTIC ONCE February 28, 2019 3:04pm February 28, 2019 3:46pm omeprazole 20 mg delayed release oral capsule (1 source) Proton Pump Inhibitor Start: 02-02-2019 omeprazole (PRILOSEC) 20 mg capsule Take once capsule once daily 90 capsule 3 02/02/2019 Active Comment on above: Take once capsule on ce daily oxyCODONE hydrochloride 5 mg oral tablet (18 sources) Opioid Agonist Start: 04-20-2019 End: 04-20-2019 take 5-10 mg by mouth every four hours as needed Oxycodone Discontinued 5 - 10 MG PO EVERY 4 HOURS NEEDED April 20, 2019 April 20, 2019 10:56am Start: 04-20-2019 End: 04-20-2019 take 5-10 mg by mouth every four hours as needed Oxycodone Discontinued 5 - 10 MG PO EVERY 4 HOURS NEEDED April 20, 2019 April 20, 2019 10:56am Start: 04-20-2019 End: 04-20-2019 take 5-10 mg by mouth every four hours as needed Oxycodone Discontinued 5 - 10 MG PO EVERY 4 HOURS NEEDED 60 April 20, 2019 April 20, 2019 9:56am Start: 04-20-2019 End: 04-20-2019 take 5-10 mg by mouth every four hours as needed Oxycodone Discontinued 5 - 10 MG PO EVERY 4 HOURS NEEDED 60 April 20, 2019 April 20, 2019 10:56am Start: 04-20-2019 End: 04-20-2019 take 5-10 mg by mouth every four hours as needed Oxycodone Discontinued 5 - 10 MG PO EVERY 4 HOURS NEEDED 60 April 20, 2019 April 20, 2019 10:56am Start: 04-11-2019 End: 04-20-2019 take 5-10 mg by mouth every four hours as needed Oxycodone Discontinued 5 - 10 MG PO EVERY 4 HOURS NEEDED 60 April 11, 2019 2:28pm April 20, 2019 10:56am Start: 09-06-2018 End: 11-23-2018 take 1-2 tablets by mouth every four hours as needed for pain Oxycodone Discontinued 5 MG PO DAILY 42 September 06, 2018 November 23, 2018 8:03am 1-2 tabs PO Q 4hrs prn pain Start: 08-30-2018 End: 09-06-2018 take 5-10 mg by mouth every four hours as needed Oxycodone Discontinued 5 - 10 MG PO EVERY 4 HOURS NEEDED 60 7 August 30, 2018 12:00am September 06, 2018 12:06am sertraline 50 mg oral tablet (1 source) Serotonin Reuptake Inhibitor Start: 02-01-2019 take 1 tablet by mouth once daily sertraline (ZOLOFT) 50 mg tablet Indications: Anxiety Take 1 tablet by mouth once daily. 90 tablet 3 02/01/2019 Active Comment on above: Take 1 tablet by laila once daily. traMADol hydrochloride 50 mg oral tablet (6 sources) Opioid Agonist Start: 04-20-2019 End: 06-04-2019 take 50 mg by mouth every six hours as needed Tramadol Discontinued 50 MG PO EVERY 6 HOURS NEEDED 30 April 20, 2019 1:00am June 04, 2019 8:23am triamcinolone acetonide 1 mg/ml topical cream (1 source) Corticosteroid Start: 03-22-2018 triamcinolone acetonide (KENALOG) 0.1 % cream Indications: Eczema, unspecified type Apply 1 application to affected area twice daily. 45 g 0 03/22/2018 Active Comment on above: Apply 1 application to affected area twice daily. Problems Active Problems Problem Classification Problem Date Documented Date Episodic/Chronic Acute posthemorrhagic anemia (6 sources) Acute posthemorrhagic anemia; Translations: [Acute posthemorrhagic anemia] 04-11-2019 Episodic Anxiety disorders (1 source) Anxiety disorder; Translations: [Other specified anxiety disorders] Onset: 2 11-13-2014 Chronic Asthma (1 source) Unspecified asthma, uncomplicated; Translations: [Unspecified asthma(493.90)] 11-13-2014 Chronic Disorders of lipid metabolism (8 sources) Mixed hyperlipidemia; Translations: [Hyperlipidemia] Onset: 5 11-13-2014 Chronic Esophageal disorders (7 sources) Gastroesophageal reflux disease without esophagitis; Translations: [Gastroesophageal reflux disease] 11-13-2014 Chronic Gout and other crystal arthropathies (1 source) Chondrocalcinosis of knee joint; Translations: [Chondrocalcinosis of knee] Onset: 4 11-13-2014 Chronic Mood disorders (6 sources) Depressive disorder; Translations: [Depression] 04-06-2021 Chronic Nutritional deficiencies (6 sources) Vitamin D deficiency; Translations: [Vitamin D deficiency, unspecified] 04-20-2019 Chronic Osteoarthritis (13 sources) Unilateral primary osteoarthritis, left hip; Translations: [Osteoarthritis] Onset: 8 04-06-2021 Chronic Other connective tissue disease (6 sources) History of total knee arthroplasty; Translations: [Presence of left artificial knee joint] 04-11-2019 Chronic Other connective tissue disease (3 sources) Spasm; Translations: [Other muscle spasm] 04-05-2022 Episodic Other connective tissue disease (1 source) Other muscle spasm; Translations: [Spasm of muscle] 04-05-2022 Episodic Other connective tissue disease (2 sources) Tendinitis of left hip; Translations: [Hip tendonitis, left] Onset: 8 02-20-2018 Other connective tissue disease (1 source) Trochanteric bursitis of left hip; Translations: [Trochanteric bursitis of left hip] Onset: 8 08-08-2017 Other hematologic conditions (6 sources) Macrocytosis; Translations: [Other specified diseases of blood and blood-forming organs] 04-12-2019 Chronic Other nervous system disorders (6 sources) Toxic encephalopathy; Translations: [Toxic encephalopathy] 04-20-2019 Episodic Other non-traumatic joint disorders (1 source) Pain in left hip; Translations: [Pain in left hip] Onset: 8 Episodic Other non-traumatic joint disorders (3 sources) Pain in right knee; Translations: [Right knee pain] 04-05-2022 Episodic Other nutritional; endocrine; and metabolic disorders (6 sources) Hypocalcemia; Translations: [Hypocalcemia] 04-20-2019 Chronic Residual codes; unclassified (6 sources) Amnesia; Translations: [Other amnesia] 04-20-2019 Episodic Spondylosis; intervertebral disc disorders; other back problems (8 sources) Degeneration of lumbosacral intervertebral disc; Translations: [Degeneration of lumbar intervertebral disc] Onset: 4 04-14-2017 Chronic Spondylosis; intervertebral disc disorders; other back problems (20 sources) Spinal stenosis of lumbar region; Translations: [Lumbosacral radiculopathy] Onset: 8 01-11-2018 Episodic Unclassified (1 source) Patient encounter status; Translations: [Screening for colon cancer] Onset: 7 10-25-2016 Past or Other Problems Problem Classification Problem Date Documented Date Episodic/Chronic Fracture of upper limb (1 source) Closed fracture of upper end of humerus; Translations: [Closed fracture of proximal end of right humerus with routine healing] Onset: 02-01-2019 02-01-2019 Episodic Other connective tissue disease (1 source) Gluteal tendinitis, left hip; Translations: [Gluteal tendinitis of left buttock] Onset: 08-08-2017 08-08-2017 Episodic Other connective tissue disease (1 source) Iliotibial band syndrome, unspecified leg; Translations: [Iliotibial band syndrome, unspecified leg] Onset: 10-10-2023 Episodic Other ear and sense organ disorders (1 source) Asymmetrical sensorineural hearing loss; Translations: [Asymmetrical sensorineural hearing loss] Onset: 04-22-2017 04-22-2017 Episodic Other non-traumatic joint disorders (1 source) Hip pain; Translations: [Pain in left hip] Onset: 08-08-2017 02-21-2018 Episodic Urinary tract infections (1 source) Urinary tract infection, site not specified; Translations: [Urinary tract infection, site not specified] Onset: 12-30-2023 Episodic Results Test Name Value Interpretation Reference Range Facility CBC W/Diff, Automatedon 02 Absolute Lymph 0.89 X10 3/uL Normal 0.83-4.51 [facility] Comment on above: Performed By: #### M [id number], [id number] #### [facility] [address] [place], [address] Absolute Neut 2.1 X10 3/uL Normal 2.0-7.7 [facility] Comment on above: Performed By: #### M 100.2200, [id number] #### [facility] [address] [place], [address] Basophils/100 WBC (Bld) 1.1 % High 0-1 [facility] Comment on above: Performed By: #### M 100.2200, [id number] #### [facility] [address] [place], [address] Eosinophils/100 WBC (Bld) 8.4 % High 0-5 [facility] Comment on above: Performed By: #### M 100.2200, [id number] #### [facility] [address] [place], [address] Erythrocyte distribution width (RBC) [Ratio] 13.1 % Normal 11.6-14.6 [facility] Comment on above: Performed By: #### M 100.2200, [id number] #### [facility] [address] [place], [address] Hematocrit (Bld) [Volume fraction] 41.4 % Normal 37-47 [facility] Comment on above: Performed By: #### M 100.2200, [id number] #### [facility] [address] [place], [address] Hemoglobin (Bld) [Mass/Vol] 13.1 g/dL Normal 12.0-15.0 [facility] Comment on above: Performed By: #### M 100.2200, [id number] #### [facility] [address] [place], [address] IG% 0.300 Normal 0.0-0.9 [facility] Comment on above: Result Comment: IG% - Immature Granulocytes (promyelocytes, myelocytes and metamyelocytes) > 1% indicates that a LEFT SHIFT is Present. Performed By: #### M 100.2200, [id number] #### [facility] [address] [place], [address] Lymphocytes/100 WBC (Bld) 24.1 % Normal 19-41 [facility] Comment on above: Performed By: #### M 100.2200, [id number] #### [facility] [address] [place], [address] MCH (RBC) [Entitic mass] 29.8 pg Normal 27.0-32.0 [facility] Comment on above: Performed By: #### M 100.2200, [id number] #### [facility] [address] [place], [address] MCHC (RBC) [Mass/Vol] 31.6 g/dL Low 32-36 [facility] Comment on above: Performed By: #### M 100.2200, [id number] #### [facility] [address] [place], [address] MCV (RBC) [Entitic vol] 94.3 fL Normal 81-99 [facility] Comment on above: Performed By: #### M 100.2200, [id number] #### [facility] [address] [place], [address] Monocytes/100 WBC (Bld) 9.5 % Normal 0-10 [facility] Comment on above: Performed By: #### M 100.2200, [id number] #### [facility] [address] [place], [address] Neutrophils/100 WBC (Bld) 56.6 % Normal 47-70 [facility] Comment on above: Performed By: #### M 100.2200, [id number] #### [facility] [address] [place], [address] Nucleated RBC (Bld) [#/Vol] 0 10*3/uL Normal 0-5 [facility] Comment on above: Performed By: #### M 100.2200, [id number] #### [facility] [address] [place], [address] Platelet mean volume (Bld) [Entitic vol] 10.5 fL Normal 6.2-12.0 [facility] Comment on above: Performed By: #### M 100.2200, [id number] #### [facility] [address] [place], [address] Platelets (Bld) [#/Vol] 174 10*3/uL Normal 150-450 [facility] Comment on above: Performed By: #### M 100.2200, [id number] #### [facility] [address] [place], [address] RBC (Bld) [#/Vol] 4.39 10*6/uL Normal 4.2-5.4 [facility] Comment on above: Performed By: #### M 100.2200, [id number] #### [facility] [address] [place], [address] RDW SD 45.0 fl High 35.1-43.9 [facility] Comment on above: Performed By: #### M 100.2200, [id number] #### [facility] [address] [place], [address] WBC (Bld) [#/Vol] 3.7 10*3/uL Low 4.4-11.0 [facility] Comment on above: Performed By: #### M 100.2200, [id number] #### [facility] [address] [place], [address] Comprehensive Metabolic Prof ilon 05-04-2024 Albumin [Mass/Vol] 3.8 g/dL Normal 3.2-5.0 [facility] Comment on above: Performed By: #### M 100.2200, [id number] #### [facility] [address] [place], [address] Albumin/Globulin [Mass ratio] 1.1 {ratio} Normal 0.9-2.4 [facility] Comment on above: Performed By: #### M 100.2200, [id number] #### [facility] [address] [place], [address] ALK P 111 U/L Normal 45-117 [facility] Comment on above: Performed By: #### M 100.2200, [id number] #### [facility] [address] [place], [address] ALT [Catalytic activity/Vol] 11 U/L Low 13-56 [facility] Comment on above: Performed By: #### M 100.2200, [id number] #### [facility] [address] [place], [address] AST [Catalytic activity/Vol] 10 U/L Low 15-37 [facility] Comment on above: Performed By: #### M 100.2200, [id number] #### [facility] [address] [place], [address] Bilirubin [Mass/Vol] 0.40 mg/dL Normal 0.20-1.00 [facility] Comment on above: Result Comment: For patients on eltrombopag therapy, use of Dimension [place] TBIL is not recommended. Performed By: #### M 100.2200, [id number] #### [facility] [address] [place], [address] BUN/CRE 17.3 RATIO Normal 10-20 [facility] Comment on above: Performed By: #### M 100.2200, [id number] #### [facility] [address] [place], [address] CA,Total 9.0 mg/dL Normal 8.5-10.1 [facility] Comment on above: Performed By: #### M 100.2200, [id number] #### [facility] [address], [address] Chloride [Moles/Vol] 106 mmol/L Normal 98-107 [facility] Comment on above: Performed By: #### M 100.2200, [id number] #### [facility] [address] [place], [address] CO2 [Moles/Vol] 30.0 mmol/L Normal 21.0-32.0 [facility] Comment on above: Performed By: #### M 100.2200, [id number] #### [facility] [address] [place], [address] Creatinine [Mass/Vol] 0.75 mg/dL Normal 0.55-1.02 [facility] Comment on above: Result Comment: The validity of the calculated GFR GFRAA in patients over 70 years has not been determined. Clinical correlation is essential. Performed By: #### M 100.2200, [id number] #### [facility] [address] [place], [address] EST GFR - AA 95 mL/min Normal >60 [facility] Comment on above: Result Comment: Afri can [place] GFR Calc Performed By: #### M 100.2200, [id number] #### [facility] [address] [place], [address] GAP 6 Normal 5-15 [facility] Comment on above: Performed By: #### M 100.2200, [id number] #### [facility] [address] [place], [address] GFR/1.73 sq M.predicted among non-blacks MDRD (S/P/Bld) [Vol rate/Area] 78 mL/min/{1.73_m2} Normal >60 [facility] Comment on above: Result Comment: Non- GFR Calc Performed By: #### M 100.2200, [id number] #### [facility] [address] [place], [address] Globulin (S) [Mass/Vol] 3.5 g/dL Normal 2.2-4.2 [facility] Comment on above: Performed By: #### M 100.2200, [id number] #### [facility] [address] [place], [address] Glucose [Mass/Vol] 59 mg/dL Low 74-106 [facility] Comment on above: Performed By: #### M 100.2200, [id number] #### [facility] [address] [place], [address] Potassium [Moles/Vol] 3.5 mmol/L Normal 3.5-5.1 [facility] Comment on above: Performed By: #### M 100.2200, [id number] #### [facility] [address] [place], [address] Sodium [Moles/Vol] 142 mmol/L Normal 136-145 [facility] Comment on above: Performed By: #### M 100.2200, [id number] #### [facility] [address] [place], [address] T PROT 7.3 g/dL Normal 6.4-8.2 [facility] Comment on above: Performed By: #### M 100.2200, [id number] #### [facility] [address] [place], [address] Urea nitrogen [Mass/Vol] 13 mg/dL Normal 7-18 [facility] Comment on above: Performed By: #### M 100.2200, [id number] #### [facility] [address] [place], [address] Lipid Profileon 05-04-2024 Cholesterol [Mass/Vol] 199 mg/dL Normal 200 [facility] Comment on above: Result Comment: <200 mg/dL Desirable 200-240 mg/dL Borderline >240 mg/dL High Risk Performed By: #### M 100.2200, [id number] #### [facility] [address] [place], [address] Cholesterol in HDL [Mass/Vol] 67 mg/dL Normal [facility] Comment on above: Result Comment: The drugs N-Acetylcysteine and Metamizole may falsely depress this assay. Reference Range HDL <40 mg/dL Low HDL Cholesterol HDL >or= 60 mg/dL High HDL Cholesterol Performed By: #### M 100.2200, [id number] #### [facility] [address] [place], [address] Cholesterol in LDL [Mass/Vol] 111 mg/dL Normal 0-130 [facility] Comment on above: Performed By: #### M 100.2200, [id number] #### [facility] [address] [place], [address] Cholesterol in VLDL [Mass/Vol] 21 mg/dL Normal 5-40 [facility] Comment on above: Performed By: #### M 100.2200, [id number] #### [facility] [address] [place], [address] Triglyceride [Mass/Vol] 107 mg/dL Normal [facility] Comment on above: Result Comment: The drugs N-Acetylcysteine and Metamizole may falsely depress this assay. Serum Triglycerides Reference Interval Normal <150 mg/dL Borderline high 150 - 199 mg/dL High 200 - 499 mg/dL Very High > or = 500 mg/dL Performed By: #### M 100.2200, [id number] #### [facility] [address] [place], [address] Thyroid Stim Hormone (TSH)on 05-04-2024 TSH 2.610 uIU/mL Normal 0.358-3.740 [facility] Comment on above: Performed By: #### M 100.2200, [id number] #### [facility] [address] [place], [address] Vitamin D,25 Hydroxyon 05-04 Vitamin D 25-OH 37.4 ng/mL Normal [facility] Comment on above: Result Comment: Radha min D 25(OH) Status Range Deficiency <20 ng/mL (50nmol/L) Insufficiency 20 - 30 ng/mL (50 - 75 nmol/L) Sufficiency 30 - 100 ng/mL (75 - 250 nmol/L) Toxicity >100 ng/mL (>250 nmol/L) Performed By: #### M 100.2200, [id number] #### [facility] [address] [place], [address] CBC W/Diff, Automatedon 10-2 Absolute Lymph 1.02 X10 3/uL Normal 0.83-4.51 [facility] Comment on above: Performed By: #### M 100.2200, [id number] #### [facility] [address] [place], [address] Absolute Neut 3.6 X10 3/uL Normal 2.0-7.7 [facility] Comment on above: Performed By: #### M 100.2200, [id number] #### [facility] [address] [place], [address] Basophils/100 WBC (Bld) 1.1 % High 0-1 [facility] Comment on above: Performed By: #### M 100.2200, [id number] #### [facility] [address] [place], [address] Eosinophils/100 WBC (Bld) 5.6 % High 0-5 [facility] Comment on above: Performed By: #### M 100.2200, [id number] #### [facility] [address] [place], [address] Erythrocyte distribution width (RBC) [Ratio] 12.8 % Normal 11.6-14.6 [facility] Comment on above: Performed By: #### M 100.2200, [id number] #### [facility] [address] [place], [address] Hematocrit (Bld) [Volume fraction] 38.4 % Normal 37-47 [facility] Comment on above: Performed By: #### M 100.2200, [id number] #### [facility] [address] [place], [address] Hemoglobin (Bld) [Mass/Vol] 12.4 g/dL Normal 12.0-15.0 [facility] Comment on above: Performed By: #### M 100.2200, [id number] #### [facility] [address] [place], [address] IG% 0.400 Normal 0.0-0.9 [facility] Comment on above: Result Comment: IG% - Immature Granulocytes (promyelocytes, myelocytes and metamyelocytes) > 1% indicates that a LEFT SHIFT is Present. Performed By: #### M 100.2200, [id number] #### [facility] [address] [place], [address] Lymphocytes/100 WBC (Bld) 19.2 % Normal 19-41 [facility] Comment on above: Performed By: #### M 100.2200, [id number] #### [facility] [address] [place], [address] MCH (RBC) [Entitic mass] 30.4 pg Normal 27.0-32.0 [facility] Comment on above: Performed By: #### M 100.2200, [id number] #### [facility] [address] [place], [address] MCHC (RBC) [Mass/Vol] 32.3 g/dL Normal 32-36 [facility] Comment on above: Performed By: #### M 100.2200, [id number] #### [facility] [address] [place], [address] MCV (RBC) [Entitic vol] 94.1 fL Normal 81-99 [facility] Comment on above: Performed By: #### M 100.2200, [id number] #### [facility] [address] [place], [address] Monocytes/100 WBC (Bld) 6.8 % Normal 0-10 [facility] Comment on above: Performed By: #### M 100.2200, [id number] #### [facility] [address] [place], [address] Neutrophils/100 WBC (Bld) 66.9 % Normal 47-70 [facility] Comment on above: Performed By: #### M 100.2200, [id number] #### [facility] [address] [place], [address] Nucleated RBC (Bld) [#/Vol] 0 10*3/uL Normal 0-5 [facility] Comment on above: Performed By: #### M 100.2200, [id number] #### [facility] [address] [place], [address] Platelet mean volume (Bld) [Entitic vol] 10.5 fL Normal 6.2-12.0 [facility] Comment on above: Performed By: #### M 100.2200, [id number] #### [facility] [address] [place], [address] Platelets (Bld) [#/Vol] 163 10*3/uL Normal 150-450 [facility] Comment on above: Performed By: #### M 100.2200, [id number] #### [facility] [address] [place], [address] RBC (Bld) [#/Vol] 4.08 10*6/uL Low 4.2-5.4 [facility] Comment on above: Performed By: #### M 100.2200, [id number] #### [facility] [address] [place], [address] RDW SD 44.3 fl High 35.1-43.9 [facility] Comment on above: Performed By: #### M 100.2200, L400.0001 #### [facility] [address] [place], [address] WBC (Bld) [#/Vol] 5.3 10*3/uL Normal 4.4-11.0 [facility] Comment on above: Performed By: #### M 100.2200, [id number] #### [facility] [address] [place], [address] Comprehensive Metabolic Prof ilon 01-20-2024 Albumin [Mass/Vol] 3.6 g/dL Normal 3.2-5.0 [facility] Comment on above: Performed By: #### M 100.2200, [id number] #### [facility] [address] [place], [address] Albumin/Globulin [Mass ratio] 1.2 {ratio} Normal 0.9-2.4 [facility] Comment on above: Performed By: #### M 100.2200, [id number] #### [facility] [address] [place], [address] ALK P 104 U/L Normal 45-117 [facility] Comment on above: Performed By: #### M 100.2200, [id number] #### [facility] [address] [place], [address] ALT [Catalytic activity/Vol] 12 U/L Low 13-56 [facility] Comment on above: Performed By: #### M 100.2200, [id number] #### [facility] [address] [place], [address] AST [Catalytic activity/Vol] 10 U/L Low 15-37 [facility] Comment on above: Performed By: #### M 100.2200, [id number] #### [facility] [address] [place], [address] Bilirubin [Mass/Vol] 0.20 mg/dL Normal 0.20-1.00 [facility] Comment on above: Result Comment: For patients on eltrombopag therapy, use of Dimension [place] TBIL is not recommended. Performed By: #### M 100.2200, [id number] #### [facility] [address] [place], [address] BUN/CRE 28.8 RATIO High 10-20 [facility] Comment on above: Performed By: #### M 100.2200, [id number] #### [facility] [address] [place], [address] CA,Total 8.7 mg/dL Normal 8.5-10.1 [facility] Comment on above: Performed By: #### M 100.2200, L400.0001 #### [facility] [address] [place], [address] Chloride [Moles/Vol] 109 mmol/L High 98-107 [facility] Comment on above: Performed By: #### M 100.2200, [id number] #### [facility] [address] [place], [address] CO2 [Moles/Vol] 28.0 mmol/L Normal 21.0-32.0 [facility] Comment on above: Performed By: #### M 100.2200, [id number] #### [facility] [address] [place], [address] Creatinine [Mass/Vol] 0.70 mg/dL Normal 0.55-1.02 [facility] Comment on above: Result Comment: The validity of the calculated GFR GFRAA in patients over 70 years has not been determined. Clinical correlation is essential. Performed By: #### M 100.2200, [id number] #### [facility] [address] [place], [address] EST GFR - AA 104 mL/min Normal >60 [facility] Comment on above: Result Comment: Afri can [place] GFR Calc Performed By: #### M 100.2200, [id number] #### [facility] [address] [place], [address] GAP 6 Normal 5-15 [facility] Comment on above: Performed By: #### M 100.2200, [id number] #### [facility] [address] [place], [address] GFR/1.73 sq M.predicted among non-blacks MDRD (S/P/Bld) [Vol rate/Area] 86 mL/min/{1.73_m2} Normal >60 [facility] Comment on above: Result Comment: Non- GFR Calc Performed By: #### M 100.2200, [id number] #### [facility] [address] [place], [address] Globulin (S) [Mass/Vol] 3.0 g/dL Normal 2.2-4.2 [facility] Comment on above: Performed By: #### M 100.2200, [id number] #### [facility] [address] [place], [address] Glucose [Mass/Vol] 86 mg/dL Normal 74-106 [facility] Comment on above: Performed By: #### M 100.2200, [id number] #### [facility] [address] [place], [address] Potassium [Moles/Vol] 4.1 mmol/L Normal 3.5-5.1 [facility] Comment on above: Performed By: #### M 100.2200, [id number] #### [facility] [address] [place], [address] Sodium [Moles/Vol] 142 mmol/L Normal 136-145 [facility] Comment on above: Performed By: #### M 100.2200, [id number] #### [facility] [address] [place], [address] T PROT 6.6 g/dL Normal 6.4-8.2 [facility] Comment on above: Performed By: #### M 100.2200, [id number] #### [facility] [address] [place], [address] Urea nitrogen [Mass/Vol] 20 mg/dL High 7-18 [facility] Comment on above: Performed By: #### M 100.2200, L400.0001 #### [facility] [address] [place], [address] Lipid Profileon 01-20-2024 Cholesterol [Mass/Vol] 176 mg/dL Normal 200 [facility] Comment on above: Result Comment: <200 mg/dL Desirable 200-240 mg/dL Borderline >240 mg/dL High Risk Performed By: #### M 100.2200, [id number] #### [facility] [address] [place], [address] Cholesterol in HDL [Mass/Vol] 50 mg/dL Normal [facility] Comment on above: Result Comment: The drugs N-Acetylcysteine and Metamizole may falsely depress this assay. Reference Range HDL <40 mg/dL Low HDL Cholesterol HDL >or= 60 mg/dL High HDL Cholesterol Performed By: #### M 100.2200, L400.0001 #### [facility] [address] [place], [address] Cholesterol in LDL [Mass/Vol] 82 mg/dL Normal 0-130 [facility] Comment on above: Performed By: #### M 100.2200, [id number] #### [facility] [address] [place], [address] Cholesterol in VLDL [Mass/Vol] 44 mg/dL High 5-40 [facility] Comment on above: Performed By: #### M 100.2200, [id number] #### [facility] [address] [place], [address] Triglyceride [Mass/Vol] 218 mg/dL High [facility] Comment on above: Result Comment: The drugs N-Acetylcysteine and Metamizole may falsely depress this assay. Serum Triglycerides Reference Interval Normal <150 mg/dL Borderline high 150 - 199 mg/dL High 200 - 499 mg/dL Very High > or = 500 mg/dL Performed By: #### M 100.2200, [id number] #### [facility] [address] [place], [address] Thyroid Stim Hormone (TSH)on 01-20-2024 TSH 2.250 uIU/mL Normal 0.358-3.740 [facility] Comment on above: Performed By: #### M 100.2200, [id number] #### [facility] [address] [place], [address] Vitamin D,25 Hydroxyon 01-19 Vitamin D 25-OH 37.0 ng/mL Normal [facility] Comment on above: Result Comment: Radha min D 25(OH) Status Range Deficiency <20 ng/mL (50nmol/L) Insufficiency 20 - 30 ng/mL (50 - 75 nmol/L) Sufficiency 30 - 100 ng/mL (75 - 250 nmol/L) Toxicity >100 ng/mL (>250 nmol/L) Performed By: #### M 100.2200, [id number] #### [facility] [address] [place], [address] Urine Cultureon 12-18-2023 [facility] Mixed Gram Positive Organisms [place] Count 25,000-50,000 [facility] Mixed contaminants. Submit a new specimen if indicated. Normal [facility] Comment on above: Performed By: #### M 100.2200, [id number] #### [facility] [address] [place], [address] Urinalysis, Completeon 12-15 EPI,SQUAMOUS 0-5 SEEN Normal 5-10 [facility] Comment on above: Order Comment: CLEAN CATCH Performed By: #### M 100.2200, [id number] #### [facility] [address] [place], [address] WBC 0-5 SEEN Normal 0-5 [facility] Comment on above: Order Comment: CLEAN CATCH Performed By: #### M 100.2200, [id number] #### [facility] [address] [place], [address] BACTERIA 2+ /hpf Normal None Seen [facility] Comment on above: Order Comment: CLEAN CATCH Performed By: #### M 100.2200, [id number] #### [facility] [address] [place], [address] Mucus Ql (Urine sed) 0 SEEN Normal [facility] Comment on above: Order Comment: CLEAN CATCH Performed By: #### M 100.2200, [id number] #### [facility] [address], [address] RBC 0 SEEN Normal 0-5 [facility] Comment on above: Order Comment: CLEAN CATCH Performed By: #### M 100.2200, [id number] #### [facility] [address] [place], [address] CBC W/Diff, Automatedon 07-04 01-2023 Absolute Lymph 1.20 X10 3/uL Normal 0.83-4.51 [facility] Comment on above: Performed By: #### M 100.2200, [id number] #### [facility] [address] [place], [address] Absolute Neut 4.1 X10 3/uL Normal 2.0-7.7 [facility] Comment on above: Performed By: #### M 100.2200, [id number] #### [facility] [address] [place], [address] Basophils/100 WBC (Bld) 0.6 % Normal 0-1 [facility] Comment on above: Performed By: #### M 100.2200, [id number] #### [facility] [address] [place], [address] Eosinophils/100 WBC (Bld) 5.9 % High 0-5 [facility] Comment on above: Performed By: #### M 100.2200, [id number] #### [facility] [address] [place], [address] Erythrocyte distribution width (RBC) [Ratio] 12.7 % Normal 11.6-14.6 [facility] Comment on above: Performed By: #### M 100.2200, [id number] #### [facility] [address] [place], [address] Hematocrit (Bld) [Volume fraction] 38.3 % Normal 37-47 [facility] Comment on above: Performed By: #### M 100.2200, [id number] #### [facility] [address] [place], [address] Hemoglobin (Bld) [Mass/Vol] 12.2 g/dL Normal 12.0-15.0 [facility] Comment on above: Performed By: #### M 100.2200, [id number] #### [facility] [address] [place], [address] IG% 0.500 Normal 0.0-0.9 [facility] Comment on above: Result Comment: IG% - Immature Granulocytes (promyelocytes, myelocytes and metamyelocytes) > 1% indicates that a LEFT SHIFT is Present. Performed By: #### M 100.2200, [id number] #### [facility] [address] [place], [address] Lymphocytes/100 WBC (Bld) 19.3 % Normal 19-41 [facility] Comment on above: Performed By: #### M 100.2200, [id number] #### [facility] [address] [place], [address] MCH (RBC) [Entitic mass] 29.6 pg Normal 27.0-32.0 [facility] Comment on above: Performed By: #### M 100.2200, [id number] #### [facility] [address] [place], [address] MCHC (RBC) [Mass/Vol] 31.9 g/dL Low 32-36 [facility] Comment on above: Performed By: #### M 100.2200, [id number] #### [facility] [address] [place], [address] MCV (RBC) [Entitic vol] 93.0 fL Normal 81-99 [facility] Comment on above: Performed By: #### M 100.2200, [id number] #### [facility] [address] [place], [address] Monocytes/100 WBC (Bld) 7.2 % Normal 0-10 [facility] Comment on above: Performed By: #### M 100.2200, [id number] #### [facility] [address] [place], [address] Neutrophils/100 WBC (Bld) 66.5 % Normal 47-70 [facility] Comment on above: Performed By: #### M 100.2200, [id number] #### [facility] [address] [place], [address] Nucleated RBC (Bld) [#/Vol] 0 10*3/uL Normal 0-5 [facility] Comment on above: Performed By: #### M 100.2200, [id number] #### [facility] [address] [place], [address] Platelet mean volume (Bld) [Entitic vol] 10.4 fL Normal 6.2-12.0 [facility] Comment on above: Performed By: #### M 100.2200, [id number] #### [facility] [address] [place], [address] Platelets (Bld) [#/Vol] 198 10*3/uL Normal 150-450 [facility] Comment on above: Performed By: #### M 100.2200, [id number] #### [facility] [address] [place], [address] RBC (Bld) [#/Vol] 4.12 10*6/uL Low 4.2-5.4 [facility] Comment on above: Performed By: #### M 100.2200, [id number] #### [facility] [address] [place], [address] RDW SD 43.3 fl Normal 35.1-43.9 [facility] Comment on above: Performed By: #### M 100.2200, [id number] #### [facility] [address] [place], [address] WBC (Bld) [#/Vol] 6.2 10*3/uL Normal 4.4-11.0 [facility] Comment on above: Performed By: #### M 100.2200, [id number] #### [facility] [address] [place], [address] Comprehensive Metabolic [facility] 10-10-2023 Albumin [Mass/Vol] 3.6 g/dL Normal 3.2-5.0 [facility] Comment on above: Performed By: #### M 100.2200, [id number] #### [facility] [address] [place], [address] Albumin/Globulin [Mass ratio] 1.1 {ratio} Normal 0.9-2.4 [facility] Comment on above: Performed By: #### M 100.2200, [id number] #### [facility] [address] [place], [address] ALK P 103 U/L Normal 45-117 [facility] Comment on above: Performed By: #### M 100.2200, [id number] #### [facility] [address] [place], [address] ALT [Catalytic activity/Vol] 14 U/L Normal 13-56 [facility] Comment on above: Performed By: #### M 100.2200, [id number] #### [facility] [address] [place], [address] AST [Catalytic activity/Vol] 12 U/L Low 15-37 [facility] Comment on above: Performed By: #### M 100.2200, [id number] #### [facility] [address] [place], [address] Bilirubin [Mass/Vol] 0.30 mg/dL Normal 0.20-1.00 [facility] Comment on above: Result Comment: For patients on eltrombopag therapy, use of Dimension [place] TBIL is not recommended. Performed By: #### M 100.2200, [id number] #### [facility] [address] [place], [address] BUN/CRE 21.7 RATIO High 10-20 [facility] Comment on above: Performed By: #### M 100.2200, [id number] #### [facility] [address] [place], [address] CA,Total 8.7 mg/dL Normal 8.5-10.1 [facility] Comment on above: Performed By: #### M 100.2200, [id number] #### [facility] [address] [place], [address] Chloride [Moles/Vol] 108 mmol/L High 98-107 [facility] Comment on above: Performed By: #### M 100.2200, [id number] #### [facility] [address] [place], [address] CO2 [Moles/Vol] 27.0 mmol/L Normal 21.0-32.0 [facility] Comment on above: Performed By: #### M 100.2200, [id number] #### [facility] [address] [place], [address] Creatinine [Mass/Vol] 0.69 mg/dL Normal 0.55-1.02 [facility] Comment on above: Result Comment: The validity of the calculated GFR GFRAA in patients over 70 years has not been determined. Clinical correlation is essential. Performed By: #### M 100.2200, [id number] #### [facility] [address] [place], [address] EST GFR - AA 105 mL/min Normal >60 [facility] Comment on above: Result Comment: Afri can [place] GFR Calc Performed By: #### M 100.2200, [id number] #### [facility] [address] [place], [address] GAP 7 Normal 5-15 [facility] Comment on above: Performed By: #### M 100.2200, [id number] #### [facility] [address] [place], [address] GFR/1.73 sq M.predicted among non-blacks MDRD (S/P/Bld) [Vol rate/Area] 86 mL/min/{1.73_m2} Normal >60 [facility] Comment on above: Result Comment: Non- GFR Calc Performed By: #### M 100.2200, [id number] #### [facility] [address] [place], [address] Globulin (S) [Mass/Vol] 3.2 g/dL Normal 2.2-4.2 [facility] Comment on above: Performed By: #### M 100.2200, [id number] #### [facility] [address] [place], [address] Glucose [Mass/Vol] 90 mg/dL Normal 74-106 [facility] Comment on above: Performed By: #### M 100.2200, [id number] #### [facility] [address] [place], [address] Potassium [Moles/Vol] 4.3 mmol/L Normal 3.5-5.1 [facility] Comment on above: Performed By: #### M 100.2200, [id number] #### [facility] [address] [place], [address] Sodium [Moles/Vol] 142 mmol/L Normal 136-145 [facility] Comment on above: Performed By: #### M 100.2200, [id number] #### [facility] [address] [place], [address] T PROT 6.8 g/dL Normal 6.4-8.2 [facility] Comment on above: Performed By: #### M 100.2200, L400.0001 #### [facility] [address] [place], [address] Urea nitrogen [Mass/Vol] 15 mg/dL Normal 7-18 [facility] Comment on above: Performed By: #### M 100.2200, [id number] #### [facility] [address] [place], [address] Lipid Profileon 10-10-2023 Cholesterol [Mass/Vol] 176 mg/dL Normal 200 [facility] Comment on above: Result Comment: <200 mg/dL Desirable 200-240 mg/dL Borderline >240 mg/dL High Risk Performed By: #### M 100.2200, [id number] #### [facility] [address] [place], [address] Cholesterol in HDL [Mass/Vol] 55 mg/dL Normal [facility] Comment on above: Result Comment: The drugs N-Acetylcysteine and Metamizole may falsely depress this assay. Reference Range HDL <40 mg/dL Low HDL Cholesterol HDL >or= 60 mg/dL High HDL Cholesterol Performed By: #### M 100.2200, L400.0001 #### [facility] [address] [place], [address] Cholesterol in LDL [Mass/Vol] 83 mg/dL Normal 0-130 [facility] Comment on above: Performed By: #### M 100.2200, [id number] #### [facility] [address] [place], [address] Cholesterol in VLDL [Mass/Vol] 38 mg/dL Normal 5-40 [facility] Comment on above: Performed By: #### M 100.2200, L400.0001 #### [facility] [address] [place], [address] Triglyceride [Mass/Vol] 188 mg/dL Normal [facility] Comment on above: Result Comment: The drugs N-Acetylcysteine and Metamizole may falsely depress this assay. Serum Triglycerides Reference Interval Normal <150 mg/dL Borderline high 150 - 199 mg/dL High 200 - 499 mg/dL Very High > or = 500 mg/dL Performed By: #### M 100.2200, L400.0001 #### [facility] [address] [place], [address] Orthopedic Visit Reporton Orthopedic Visit Report [facility] [address] [place] [address] 5 [place] [address] OFFICE VISIT Date of Service: 10/10/23 MR#: [id number] Acct: [id number] Name: EVE STONE Rep #: [id number] : 1940 Provider: Dr. Ryan cook DO Age/Sex: 83/F Location: [facility] Status: Signed Intake Vital Signs 04/27/23 08:29 10/07/23 09:43 Height 5 ft 2 in 5 ft 2 in Intake Visit Reasons: RIGHT KNEE Chief Complaint: right knee Accompanied by: Son Allergies acetaminophen (From Tylenol) Allergy (Verified 10/10/23 13:22) Chest tightness Medications ???Medication ???Instructions ???Recorded ???Confirmed ???Type donepezil 10 mg tablet 10 mg PO DINNER [facility]ORY 04/06/21 10/10/23 History gabapentin 100 mg capsule 100 mg PO DAILY NERVE PAIN 04/06/21 10/10/23 History levocetirizine 5 mg tablet 5 mg PO DAILY ALLERGIES 04/06/21 10/10/23 History memantine 10 mg tablet 10 mg PO BID MEMORY 04/06/21 10/10/23 History mirtazapine 15 mg tablet 15 mg PO QHS SLEEP 04/06/21 10/10/23 History cholecalciferol (vitamin D3) 25 25 mcg PO DAILY 04/05/22 10/10/23 History mcg (1,000 unit) capsule cyclobenzaprine 10 mg tablet 10 mg PO TID PRN muscle spasm #30 04/05/22 10/10/23 Rx tabs naproxen sodium 220 mg capsule 220 mg PO BID PRN 04/05/22 10/10/23 History (Aleve) meclizine 25 mg tablet 25 mg PO DAILY PRN 10/10/23 10/10/23 History Have you fallen in the past year?: No PFSH Medical History Vertigo Dementia GERD (gastroesophageal reflux disease) Osteoarthritis Depression Surgical History Hx of hand surgery S/P shoulder surgery S/P appendectomy Total knee replacement status Family History Mother Alzheimer disease Father Myocardial infarction Sister Thyroid disorder Brother Rheumatoid arthritis Social History housing: other details: Her son has intermittently been residing with her to assist. Smoking Status: Never smoker alcohol intake: current alcohol intake frequency: holidays/special occasions only substance use type: does not use HPI RIGHT KNEE Details: This documentation accurately reflects the service provided and the decisions made by me, Dr. Ryan Vanessa, DO 10/10/23 0848. Part of today???s visit was documented by Nilam BARAJAS, acting as scribe. EVE STONE is a 83 year old F with dementia here with her son here today for right knee pain. She is here today wanting another steroid injection. Her son states that she got about 4-5 months of relief from her last injection on 04/27/23. Her son states that the physical therapy also helped a lot too along with the injection she had. Ortho Exam General General: Yes no acute distress Neurologic: No oriented x3 and Yes confused Psychologic: Yes reasonable and appropriate Right Knee Skin/Wound: No erythema, No ecchymosis and No swelling Homans Sign: No Knee ROM: Yes ROM-Extension -20 to 0 (-15) and No ROM-Flexion 0-140 Examination: Yes Med jt line tenderness, Yes Lat jt line tenderness, No TTP Pes Anserine and Yes Illiotibial band tenderness Stability: NML: Anterior Drawer, NML: Posterior Drawer, NML: Valgus 0, NML: Valgus 30, NML: Varus 0 and NML: Varus 30 Patella Translation: 1 Patella Grind: Yes KNEE: no effusion tender on IT band Left Knee Patella Translation: 1 Right Hip internal rotation @90 degree flexion: 55 degrees Office Procedures Ortho Injections Injections Yes Knee Right Is this Buy Bill?: No Details: Obtained consent for injection. Under sterile conditions, injected the patients right knee with 1.5cc Bupivacaine 1.5cc Lidocaine 1cc depo medrol. The patient tolerated the injection well without any noted complication. Patient should call our office if redness develops, pain worsens or if they have any concerns. Office Meds Depo-Medrol 40 mg/mL suspension for injection Performing Provider: Ryan Vanessa DO Performing Location: [facility] Administered by: Ryan Vanessa DO on 10/10/23 13:39 Dose Route Admin Location Dispensed Lot Number Expiration Date [facility] Man ufacturer 40 mg intra-articular right knee 1 mL [id number] 12/26/24 8489-4445-16 [employer] Comments: bupivacaine 0.25% 1.5cc lot : [id number] exp : 05/26/[address] [facility] : 7536-2970-22 Lidocaine 2% 1.5cc lot : [id number] exp : 03/28/[address] [facility] : 5313-2037-45 Supplemental Info 04/27/2023 x-ray right knee: There is moderate degenerative changes throughout the knee chondrocalcinosis 04/05/2022 x-ray right knee: Chondrocalcinosis moderate spurring throughout the knee, osteopenia 04/05/2022 x-ray lumbar spine: Multilevel degenerative disc disease (more content not included)... Normal [facility] Thyroid Stim Hormone (TSH)on 10-10-2023 TSH 3.11 uIU/mL Normal 0.358-3.74 [facility] Comment on above: Performed By: #### M 100.2200, L400.0001 #### [facility] [address] [place], [address] Vitamin D,25 Hydroxyon 10-09 Vitamin D 25-OH 45.9 ng/mL Normal [facility] Comment on above: Result Comment: Radha min D 25(OH) Status Range Deficiency <20 ng/mL (50nmol/L) Insufficiency 20 - 30 ng/mL (50 - 75 nmol/L) Sufficiency 30 - 100 ng/mL (75 - 250 nmol/L) Toxicity >100 ng/mL (>250 nmol/L) Performed By: #### M 100.2200, L400.0001 #### [facility] [address] [place], [place], [address] Absolute lymphocyte countOrd ered By: oRss Benites on 07-29-2023 Lymphocytes Auto (Unsp spec) [#/Vol] 1.20 10*3/uL 0.83-4.51 [facility] Automated lymphocyte count a s percentage of total leukocytesOrdered By: Ross Benites on 07-29-2023 Lymphocytes/100 WBC Auto (Unsp spec) 18.9 % 19-41 [facility] Basophil percentageOrdered B y: Ross Benites on 07-29-2023 Basophils/100 WBC (Bld) 0.8 % 0-1 [facility] Bilirubin [Mass/Vol] 0.30 mg/dL 0.20-1.00 [facility] Comment on above: For patients on eltr ombopag therapy, use of Dimension [place] TBIL is not recommended. Chloride [Moles/Vol] 108 mmol/L 98-107 [facility] Cholesterol [Mass/Vol] 171 mg/dL <200 [facility] Comment on above: <200 mg/dL Desirable 200-240 mg/dL Borderline >240 mg/dL High Risk Eosinophils/100 WBC (Bld) 4.6 % 0-5 [facility] Glucose [Mass/Vol] 93 mg/dL 74-106 [facility] Hemoglobin (Bld) [Mass/Vol] 12.6 g/dL 12.0-15.0 [facility] Monocytes/100 WBC (Bld) 7.4 % 0-10 [facility] Neutrophils (Bld) [#/Vol] 4.3 10*3/uL 2.0-7.7 [facility] Neutrophils/100 WBC (Bld) 68.0 % 47-70 [facility] Potassium [Moles/Vol] 4.4 mmol/L 3.5-5.1 [facility] Protein [Mass/Vol] 6.9 g/dL 6.4-8.2 [facility] Sodium [Moles/Vol] 139 mmol/L 136-145 [facility] Triglyceride [Mass/Vol] 166 mg/dL <199 [facility] Comment on above: The drugs N-Acetylcy steine and Metamizole may falsely depress this assay.Serum Triglycerides Reference Interval Normal <150 mg/dL Borderline high 150 - 199 mg/dL High 200 - 499 mg/dL Very High > or = 500 mg/dL WBC (Bld) [#/Vol] 6.4 10*3/uL 4.4-11.0 [facility] CBC W/Diff, Automatedon 05-0 3-2023 Absolute Lymph 1.20 X10 3/uL Normal 0.83-4.51 [facility] Comment on above: Performed By: #### L 100.0100, L506.1000, L501.9520, L500.4050, L500.4100 #### [facility] [address] [place], [place], [id number] Absolute Neut 4.3 X10 3/uL Normal 2.0-7.7 [facility] Comment on above: Performed By: #### L 100.0100, L506.1000, L501.9520, L500.4050, L500.4100 #### [facility] [address] [place], [address] Basophils/100 WBC (Bld) 0.8 % Normal 0-1 [facility] Comment on above: Performed By: #### L 100.0100, L506.1000, L501.9520, L500.4050, L500.4100 #### [facility] [address] [place], [address] Eosinophils/100 WBC (Bld) 4.6 % Normal 0-5 [facility] Comment on above: Performed By: #### L 100.0100, L506.1000, L501.9520, L500.4050, L500.4100 #### [facility] [address] [place], [address] Erythrocyte distribution width (RBC) [Ratio] 13.0 % Normal 11.6-14.6 [facility] Comment on above: Performed By: #### L 100.0100, L506.1000, L501.9520, L500.4050, L500.4100 #### [facility] [address] [place], [address] Hematocrit (Bld) [Volume fraction] 39.6 % Normal 37-47 [facility] Comment on above: Performed By: #### L 100.0100, L506.1000, L501.9520, L500.4050, L500.4100 #### [facility] [address] [place], [address] Hemoglobin (Bld) [Mass/Vol] 12.6 g/dL Normal 12.0-15.0 [facility] Comment on above: Performed By: #### L 100.0100, L506.1000, L501.9520, L500.4050, L500.4100 #### [facility] [address] [place], [address] IG% 0.300 Normal 0.0-0.9 [facility] Comment on above: Result Comment: IG% - Immature Granulocytes (promyelocytes, myelocytes and metamyelocytes) > 1% indicates that a LEFT SHIFT is Present. Performed By: #### L 100.0100, L506.1000, L501.9520, L500.4050, L500.4100 #### [facility] [address] [place], [address] Lymphocytes/100 WBC (Bld) 18.9 % Low 19-41 [facility] Comment on above: Performed By: #### L 100.0100, L506.1000, L501.9520, L500.4050, L500.4100 #### [facility] [address] [place], [address] MCH (RBC) [Entitic mass] 30.4 pg Normal 27.0-32.0 [facility] Comment on above: Performed By: #### L 100.0100, L506.1000, L501.9520, L500.4050, L500.4100 #### [facility] [address] [place], [address] MCHC (RBC) [Mass/Vol] 31.8 g/dL Low 32-36 [facility] Comment on above: Performed By: #### L 100.0100, L506.1000, L501.9520, L500.4050, L500.4100 #### [facility] [address] [place], [address] MCV (RBC) [Entitic vol] 95.7 fL Normal 81-99 [facility] Comment on above: Performed By: #### L 100.0100, L506.1000, L501.9520, L500.4050, L500.4100 #### [facility] [address] [place], [address] Monocytes/100 WBC (Bld) 7.4 % Normal 0-10 [facility] Comment on above: Performed By: #### L 100.0100, L506.1000, L501.9520, L500.4050, L500.4100 #### [facility] [address] [place], [address] Neutrophils/100 WBC (Bld) 68.0 % Normal 47-70 [facility] Comment on above: Performed By: #### L 100.0100, L506.1000, L501.9520, L500.4050, L500.4100 #### [facility] [address] [place], [address] Nucleated RBC (Bld) [#/Vol] 0 10*3/uL Normal 0-5 [facility] Comment on above: Performed By: #### L 100.0100, L506.1000, L501.9520, L500.4050, L500.4100 #### [facility] [address] [place], [address] Platelet mean volume (Bld) [Entitic vol] 10.7 fL Normal 6.2-12.0 [facility] Comment on above: Performed By: #### L 100.0100, L506.1000, L501.9520, L500.4050, L500.4100 #### [facility] [address] [place], [address] Platelets (Bld) [#/Vol] 194 10*3/uL Normal 150-450 [facility] Comment on above: Performed By: #### L 100.0100, L506.1000, L501.9520, L500.4050, L500.4100 #### [facility] [address] [place], [address] RBC (Bld) [#/Vol] 4.14 10*6/uL Low 4.2-5.4 [facility] Comment on above: Performed By: #### L 100.0100, L506.1000, L501.9520, L500.4050, L500.4100 #### [facility] [address] [place], [address] RDW SD 45.4 fl High 35.1-43.9 [facility] Comment on above: Performed By: #### L 100.0100, L506.1000, L501.9520, L500.4050, L500.4100 #### [facility] [address] [place], [address] WBC (Bld) [#/Vol] 6.4 10*3/uL Normal 4.4-11.0 [facility] Comment on above: Performed By: #### L 100.0100, L506.1000, L501.9520, L500.4050, L500.4100 #### [facility] [address] [place], [address] Comprehensive Metabolic Prof [facility] 07-29-2023 Albumin [Mass/Vol] 3.8 g/dL Normal 3.2-5.0 [facility] Comment on above: Performed By: #### L 100.0100, L506.1000, L501.9520, L500.4050, L500.4100 #### [facility] [address] [place], [address] Albumin/Globulin [Mass ratio] 1.2 {ratio} Normal 0.9-2.4 [facility] Comment on above: Performed By: #### L 100.0100, L506.1000, L501.9520, L500.4050, L500.4100 #### [facility] [address] [place], [address] ALK P 101 U/L Normal 45-117 [facility] Comment on above: Performed By: #### L 100.0100, L506.1000, L501.9520, L500.4050, L500.4100 #### [facility] [address] [place], [address] ALT [Catalytic activity/Vol] 14 U/L Normal 13-56 [facility] Comment on above: Performed By: #### L 100.0100, L506.1000, L501.9520, L500.4050, L500.4100 #### [facility] [address] [place], [address] AST [Catalytic activity/Vol] 13 U/L Low 15-37 [facility] Comment on above: Performed By: #### L 100.0100, L506.1000, L501.9520, L500.4050, L500.4100 #### [facility] [address] [place], [address] Bilirubin [Mass/Vol] 0.30 mg/dL Normal 0.20-1.00 [facility] Comment on above: Result Comment: For patients on eltrombopag therapy, use of Dimension [place] TBIL is not recommended. Performed By: #### L 100.0100, L506.1000, L501.9520, L500.4050, L500.4100 #### [facility] [address] [place], [address] BUN/CRE 25.2 RATIO High 10-20 [facility] Comment on above: Performed By: #### L 100.0100, L506.1000, L501.9520, L500.4050, L500.4100 #### [facility] [address] [place], [address] CA,Total 9.1 mg/dL Normal 8.5-10.1 [facility] Comment on above: Performed By: #### L 100.0100, L506.1000, L501.9520, L500.4050, L500.4100 #### [facility] [address] [place], [address] Chloride [Moles/Vol] 108 mmol/L High 98-107 [facility] Comment on above: Performed By: #### L 100.0100, L506.1000, L501.9520, L500.4050, L500.4100 #### [facility] [address] [place], [address] CO2 [Moles/Vol] 30.0 mmol/L Normal 21.0-32.0 [facility] Comment on above: Performed By: #### L 100.0100, L506.1000, L501.9520, L500.4050, L500.4100 #### [facility] [address] [place], [address] Creatinine [Mass/Vol] 0.75 mg/dL Normal 0.55-1.02 [facility] Comment on above: Result Comment: The validity of the calculated GFR GFRAA in patients over 70 years has not been determined. Clinical correlation is essential. Performed By: #### L 100.0100, L506.1000, L501.9520, L500.4050, L500.4100 #### [facility] [address] [place], [address] EST GFR - AA 95 mL/min Normal >60 [facility] Comment on above: Result Comment: Afri can Guamanian GFR Calc Performed By: #### L 100.0100, L506.1000, L501.9520, L500.4050, L500.4100 #### [facility] [address] [place], [address] GAP 1 Low 5-15 [facility] Comment on above: Performed By: #### L 100.0100, L506.1000, L501.9520, L500.4050, L500.4100 #### [facility] [address] [place], [address] GFR/1.73 sq M.predicted among non-blacks MDRD (S/P/Bld) [Vol rate/Area] 78 mL/min/{1.73_m2} Normal >60 [facility] Comment on above: Result Comment: Non- GFR Calc Performed By: #### L 100.0100, L506.1000, L501.9520, L500.4050, L500.4100 #### [facility] [address] [place], [address] Globulin (S) [Mass/Vol] 3.1 g/dL Normal 2.2-4.2 [facility] Comment on above: Performed By: #### L 100.0100, L506.1000, L501.9520, L500.4050, L500.4100 #### [facility] [address] [place], [address] Glucose [Mass/Vol] 93 mg/dL Normal 74-106 [facility] Comment on above: Performed By: #### L 100.0100, L506.1000, L501.9520, L500.4050, L500.4100 #### [facility] [address] [place], [address] Potassium [Moles/Vol] 4.4 mmol/L Normal 3.5-5.1 [facility] Comment on above: Performed By: #### L 100.0100, L506.1000, L501.9520, L500.4050, L500.4100 #### [facility] [address] [place], [address] Sodium [Moles/Vol] 139 mmol/L Normal 136-145 [facility] Comment on above: Performed By: #### L 100.0100, L506.1000, L501.9520, L500.4050, L500.4100 #### [facility] [address] [place], [address] T PROT 6.9 g/dL Normal 6.4-8.2 [facility] Comment on above: Performed By: #### L 100.0100, L506.1000, L501.9520, L500.4050, L500.4100 #### [facility] [address] [place], [address] Urea nitrogen [Mass/Vol] 19 mg/dL High 7-18 [facility] Comment on above: Performed By: #### L 100.0100, L506.1000, L501.9520, L500.4050, L500.4100 #### [facility] [address] [place], [address] Determination of erythrocyte mean corpuscular volume (MCV)Ordered By: Ross Kamari on 07-29-2023 MCV (RBC) [Entitic vol] 95.7 fL 81-99 [facility] Erythrocyte distribution wid th ratioOrdered By: [facility] on 07-29-2023 Erythrocyte distribution width (RBC) [Ratio] 13.0 % 11.6-14.6 [facility] Erythrocyte distribution wid th standard deviationOrdered By: [facility] on 07-29-2023 Erythrocyte distribution width (RBC) [Entitic vol] 45.4 fL 35.1-43.9 [facility] Hematocrit Auto (Bld) [Volum e fraction]Ordered By: [facility] on 07-29-2023 Hematocrit (Bld) [Volume fraction] 39.6 % 37-47 [facility] Immature granulocytes/100 WB C Auto (Bld)Ordered By: [facility] 07-29-2023 Immature granulocytes/100 WBC (Bld) 0.300 % 0.0-0.9 [facility] Comment on above: IG% - Immature Granu locytes (promyelocytes, myelocytes and metamyelocytes) > 1% indicates that a LEFT SHIFT is Present. Laboratory - Chemistry and C hemistry - challengeOrdered By: [facility] 07-29-2023 Albumin/Globulin [Mass ratio] 1.2 {ratio} 0.9-2.4 [facility] ALP [Catalytic activity/Vol] 101 U/L 45-117 [facility] ALT [Catalytic activity/Vol] 14 U/L 13-56 [facility] Cholesterol in HDL [Mass/Vol] 64 mg/dL >40 [facility] Comment on above: The drugs N-Acetylcy steine and Metamizole may falsely depress this assay. Reference Range HDL <40 mg/dL Low HDL Cholesterol HDL >or= 60 mg/dL High HDL Cholesterol Cholesterol in LDL [Mass/Vol] 74 mg/dL 0-130 [facility] CO2 [Moles/Vol] 30.0 mmol/L 21.0-32.0 [facility] Globulin (S) [Mass/Vol] 3.1 g/dL 2.2-4.2 [facility] Urea nitrogen/Creatinine [Mass ratio] 25.2 mg/mg 10-20 [facility] - Hematology and Cell countsOrdered By: Ross Benites on 07-29-2023 MCH (RBC) [Entitic mass] 30.4 pg 27.0-32.0 [facility] MCHC (RBC) [Mass/Vol] 31.8 g/dL 32-36 [facility] Nucleated RBC/100 WBC (Bld) [Ratio] 0 % 0-5 [facility] Platelet mean volume (Bld) [Entitic vol] 10.7 fL 6.2-12.0 [facility] Platelets (Bld) [#/Vol] 194 10*3/uL 150-450 [facility] Lipid Profileon 07-29-2023 Cholesterol [Mass/Vol] 171 mg/dL Normal 200 [facility] Comment on above: Result Comment: <200 mg/dL Desirable 200-240 mg/dL Borderline >240 mg/dL High Risk Performed By: #### L 100.0100, L506.1000, L501.9520, L500.4050, L500.4100 #### [facility] [address] [place], [place], [address] Cholesterol in HDL [Mass/Vol] 64 mg/dL Normal [facility] Comment on above: Result Comment: The drugs N-Acetylcysteine and Metamizole may falsely depress this assay. Reference Range HDL <40 mg/dL Low HDL Cholesterol HDL >or= 60 mg/dL High HDL Cholesterol Performed By: #### L 100.0100, L506.1000, L501.9520, L500.4050, L500.4100 #### [facility] [address] [place], [address] Cholesterol in LDL [Mass/Vol] 74 mg/dL Normal 0-130 [facility] Comment on above: Performed By: #### L 100.0100, L506.1000, L501.9520, L500.4050, L500.4100 #### [facility] [address] [place], [address] Cholesterol in VLDL [Mass/Vol] 33 mg/dL Normal 5-40 [facility] Comment on above: Performed By: #### L 100.0100, L506.1000, L501.9520, L500.4050, L500.4100 #### [facility] [address] [place], [address] Triglyceride [Mass/Vol] 166 mg/dL Normal [facility] Comment on above: Result Comment: The drugs N-Acetylcysteine and Metamizole may falsely depress this assay. Serum Triglycerides Reference Interval Normal <150 mg/dL Borderline high 150 - 199 mg/dL High 200 - 499 mg/dL Very High > or = 500 mg/dL Performed By: #### L 100.0100, L506.1000, L501.9520, L500.4050, L500.4100 #### [facility] [address] [place], [address] No Panel InformationOrdered By: Ross Benites on 07-29-2023 Estimated GFR (MDRD) Amer 95 mL/min >60 [facility] Comment on above: GFR Calc Estimated GFR (MDRD) Non-Af Amer 78 mL/min >60 [facility] Comment on above: Non- GFR Calc Vitamin D 25-Hydroxy 43.9 ng/mL [facility] Comment on above: Vitamin D 25(OH) Sta tus Range Deficiency <20 ng/mL (50nmol/L) Insufficiency 20 - 30 ng/mL (50 - 75 nmol/L) Sufficiency 30 - 100 ng/mL (75 - 250 nmol/L) Toxicity >100 ng/mL (>250 nmol/L) VLDL Cholesterol 33 mg/dL 5-40 [facility] RBC Auto (Bld) [#/Vol]Ordere d By: Ross Benites on 07-29-2023 RBC (Bld) [#/Vol] 4.14 10*6/uL 4.2-5.4 [facility] Serum or plasma calcium ernesto urement (mass/volume)Ordered By: Ross Benites on 07-29-2023 Calcium [Mass/Vol] 9.1 mg/dL 8.5-10.1 [facility] Serum or plasma creatinine m easurement (mass/volume)Ordered By: Ross Benites on 07-29-2023 Creatinine [Mass/Vol] 0.75 mg/dL 0.55-1.02 [facility] Comment on above: The validity of the calculated GFR & GFRAA in patients over 70 years has not been determined. Clinical correlation is essential. Serum or plasma thyroid stim ulating hormone (TSH) measurement (units/volume)Ordered By: Ross Benites on 07-29-2023 TSH Qn 2.94 uIU/mL 0.358-3.74 [facility] Serum or plasma urea nitroge n measurement (mass/volume)Ordered By: Ross Benites on 07-29-2023 Urea nitrogen [Mass/Vol] 19 mg/dL 7-18 [facility] Thin prep Papanicolaou smear with manual screeningOrdered By: Ross Benites on 07-29-2023 Thin prep Papanicolaou smear with manual screening 3.8 g/dL 3.2-5.0 [facility] Thin prep Papanicolaou smear with manual screening 13 U/L 15-37 [facility] Thin prep Papanicolaou smear with manual screening 1 5-15 [facility] Thyroid Stim Hormone (TSH)on 07-29-2023 TSH 2.94 uIU/mL Normal 0.358-3.74 [facility] Comment on above: Performed By: #### L 100.0100, L506.1000, [id number], L500.4050, L500.4100 #### [facility] [address] [place], [place], [id number] Vitamin D,25 Hydroxyon 05-03 -2024 Vitamin D 25-OH 43.9 ng/mL Normal [facility] Comment on above: Result Comment: Radha min D 25(OH) Status Range Deficiency <20 ng/mL (50nmol/L) Insufficiency 20 - 30 ng/mL (50 - 75 nmol/L) Sufficiency 30 - 100 ng/mL (75 - 250 nmol/L) Toxicity >100 ng/mL (>250 nmol/L) Performed By: #### L 100.0100, L506.1000, [id number], [id number], L500.4100 #### [facility] [address] [place], [address] Urine Cultureon 07-28-2023 [facility] Escherichia coli [place] Count 80,000-100,000 Escherichia coli: REACTION Ampicillin Islt JOSE DAVID 4 S Ampicillin+Sulbac Islt JOSE DAVID <=2 S ceFAZolin Islt JOSE DAVID <=4 S Cefepime Islt JOSE DAVID <=0.12 S cefTRIAXone Islt JOSE DAVID <=0.25 S Ciprofloxacin Islt JOSE DAVID <=0.25 S Ertapenem Islt JOSE DAVID <=0.12 S B-Lactamase Extended Susc Islt NEG Gentamicin Islt JOSE DAVID <=1 S Imipenem Islt JOSE DAVID <=0.25 S levoFLOXacin Islt JOSE DAVID <=0.12 S Nitrofurantoin Islt JOSE DAVID <=16 S Pip+Tazo Islt JOSE DAVID <=4 S Tobramycin Islt JOSE DAVID <=1 S TMP SMX Islt JOSE DAVID <=20 S Normal [facility] Comment on above: Performed By: #### M 100.2200, [id number] #### [facility] [address] [place], [address] Urinalysis, Completeon 07-25 BACTERIA 4+ /hpf Normal None Seen [facility] Comment on above: Order Comment: Urine , Random Performed By: #### M 100.2200, [id number] #### [facility] [address] [place], [address] CA OX CRYSTAL 1+ /hpf Normal [facility] Comment on above: Order Comment: Urine , Random Performed By: #### M 100.2200, [id number] #### [facility] [address] [place], [address] EPI,SQUAMOUS 0-5 SEEN Normal 5-10 [facility] Comment on above: Order Comment: Urine , Random Performed By: #### M 100.2200, [id number] #### [facility] [address] [place], [address] WBC 10-25 SEEN Normal 0-5 [facility] Comment on above: Order Comment: Urine , Random Performed By: #### M 100.2200, [id number] #### [facility] [address] [place], [address] Mucus Ql (Urine sed) 0 SEEN Normal [facility] Comment on above: Order Comment: Urine , Random Performed By: #### M 100.2200, [id number] #### [facility] [address] [place], [address] RBC 0 SEEN Normal 0-5 [facility] Comment on above: Order Comment: Urine , Random Performed By: #### M 100.2200, [id number] #### [facility] [address] [place], [address] Basophil percentageOrdered B y: Ross Benites on 07-25-2023 Basophil percentage 10-25 SEEN /hpf 0-5 [facility] Bilirubin Test strip Ql (U)O rdered By: Ross Benites on 07-25-2023 Bilirubin Ql (U) Negative Negative [facility] Calcium oxalate crystals det ection in urine sediment by light microscopyOrdered By: Ross Benites on 07-25-2023 Calcium oxalate crystals LM Ql (Urine sed) 1+ /hpf [facility] Culture, urineOrdered By: Saeid Benites on 07-25-2023 Bacteria identified Cx Nom (U) Escherichia coli [facility] Ketones Test strip Ql (U)Ord ered By: Ross Benites on 07-25-2023 Ketones Ql (U) Negative Negative [facility] Mucus LM Ql (Urine sed)Order ed By: Ross Benites on 07-25-2023 Mucus Ql (Urine sed) 0 SEEN /hpf [facility] Nitrite Test strip Ql (U)Ord ered By: Ross Benites on 07-25-2023 Nitrite Ql (U) Positive Negative [facility] No Panel InformationOrdered By: Ross Benites on 07-25-2023 Urine RBC 0 SEEN /hpf 0-5 [facility] Protein Test strip Ql (U)Ord ered By: Ross Benites on 07-25-2023 Protein Ql (U) Negative Negative [facility] Squamous epithelial cells de tection in urine sediment by light microscopyOrdered By: Ross Benites 07-25-2023 Epithelial cells.squamous LM Ql (Urine sed) 0-5 SEEN /hpf 5-10 [facility] Urine blood detectionOrdered By: Ross Benites 07-25-2023 RBC Ql (U) Negative Negative [facility] Urine clarityOrdered By: Ross Benites 07-25-2023 Clarity (U) Sl. Cloudy Clear [facility] Urine color determinationOrd ered By: Ross Benites 07-25-2023 Color (U) Yellow Yellow [facility] Urine glucose detectionOrder ed By: Ross Benites 07-25-2023 Glucose Ql (U) Normal mg/dl Normal [facility] Urine leukocyte esterase det ection by dipstickOrdered By: Ross Benites 07-25-2023 Leukocyte esterase Test strip Ql (U) 500 /ul Negative [facility] Urine pHOrdered By: Ross Benites 07-25-2023 pH (U) 5.0 [pH] 5.0 - 8.0 [facility] Urine sediment bacteria coun t by microscopy (number/high power field)Ordered By: Ross Benites 07-25-2023 Bacteria LM.HPF (Urine sed) [#/Area] 4 /[HPF] None Seen [facility] Urine specific gravity measu rementOrdered By: Ross Benites 07-25-2023 Specific gravity (U) [Rel density] 1.020 1.002-1.030 [facility] Urine urobilinogen measureme ntOrdered By: Ross Benites 07-25-2023 Urobilinogen Ql (U) Normal mg/dl Normal [facility] Absolute lymphocyte countOrd ered By: Ross Benites on 04-27-2023 Lymphocytes Auto (Unsp spec) [#/Vol] 1.11 10*3/uL 0.83-4.51 [facility] Automated lymphocyte count a s percentage of total leukocytesOrdered By: Ross Benites on 04-27-2023 Lymphocytes/100 WBC Auto (Unsp spec) 14.7 % 19-41 [facility] Basophil percentageOrdered B y: Ross Benites on 04-27-2023 Basophils/100 WBC (Bld) 0.4 % 0-1 [facility] Bilirubin [Mass/Vol] 0.40 mg/dL 0.20-1.00 [facility] Comment on above: For patients on eltr ombopag therapy, use of Dim[place] TBIL is not recommended. Chloride [Moles/Vol] 109 mmol/L 98-107 [facility] Cholesterol [Mass/Vol] 190 mg/dL <200 [facility] Comment on above: <200 mg/dL Desirable 200-240 mg/dL Borderline >240 mg/dL High Risk Eosinophils/100 WBC (Bld) 2.1 % 0-5 [facility] Glucose [Mass/Vol] 103 mg/dL 74-106 [facility] Comment on above: Fasting Glucose resu lt from 100 to 125 mg/dL suggests IMPAIRED HOMEOSTASIS per A.D.A. criteria. Hemoglobin (Bld) [Mass/Vol] 12.9 g/dL 12.0-15.0 [facility] Monocytes/100 WBC (Bld) 5.3 % 0-10 [facility] Neutrophils (Bld) [#/Vol] 5.8 10*3/uL 2.0-7.7 [facility] Neutrophils/100 WBC (Bld) 77.1 % 47-70 [facility] Potassium [Moles/Vol] 4.1 mmol/L 3.5-5.1 [facility] Protein [Mass/Vol] 6.9 g/dL 6.4-8.2 [facility] Sodium [Moles/Vol] 140 mmol/L 136-145 [facility] Triglyceride [Mass/Vol] 73 mg/dL <199 [facility] Comment on above: The drugs N-Acetylcy steine and Metamizole may falsely depress this assay.Serum Triglycerides Reference Interval Normal <150 mg/dL Borderline high 150 - 199 mg/dL High 200 - 499 mg/dL Very High > or = 500 mg/dL WBC (Bld) [#/Vol] 7.6 10*3/uL 4.4-11.0 [facility] Determination of erythrocyte mean corpuscular volume (MCV)Ordered By: [facility] on 04-27-2023 MCV (RBC) [Entitic vol] 94.8 fL 81-99 [facility] Erythrocyte distribution wid th ratioOrdered By: [facility] on 04-27-2023 Erythrocyte distribution width (RBC) [Ratio] 13.5 % 11.6-14.6 [facility] Erythrocyte distribution wid th standard deviationOrdered By: [facility] on 04-27-2023 Erythrocyte distribution width (RBC) [Entitic vol] 46.8 fL 35.1-43.9 [facility] Hematocrit Auto (Bld) [Volum e fraction]Ordered By: [facility] on 04-27-2023 Hematocrit (Bld) [Volume fraction] 40.2 % 37-47 [facility] Immature granulocytes/100 WB C Auto (Bld)Ordered By: [facility] on 04-27-2023 Immature granulocytes/100 WBC (Bld) 0.400 % 0.0-0.9 [facility] Comment on above: IG% - Immature Granu locytes (promyelocytes, myelocytes and metamyelocytes) > 1% indicates that a LEFT SHIFT is Present. Laboratory - Chemistry and C hemistry - challengeOrdered By: [facility] on 04-27-2023 Albumin/Globulin [Mass ratio] 1.3 {ratio} 0.9-2.4 [facility] ALP [Catalytic activity/Vol] 94 U/L 45-117 [facility] ALT [Catalytic activity/Vol] 14 U/L 13-56 [facility] Cholesterol in HDL (Body fld) [Mass/Vol] 71 mg/dL >40 [facility] Comment on above: The drugs N-Acetylcy steine and Metamizole may falsely depress this assay. Reference Range HDL <40 mg/dL Low HDL Cholesterol HDL >or= 60 mg/dL High HDL Cholesterol Cholesterol in LDL (Body fld) [Moles/Vol] 104 mg/dL 0-130 [facility] Cholesterol in VLDL Calc [Moles/Vol] 15 mg/dL 5-40 [facility] CO2 [Moles/Vol] 28.0 mmol/L 21.0-32.0 [facility] Globulin (S) [Mass/Vol] 3.0 g/dL 2.2-4.2 [facility] Urea nitrogen/Creatinine [Mass ratio] 20.8 mg/mg 10-20 [facility] Laboratory - Hematology and Cell countsOrdered By: Ross Benites on 04-27-2023 MCH (RBC) [Entitic mass] 30.4 pg 27.0-32.0 [facility] MCHC (RBC) [Mass/Vol] 32.1 g/dL 32-36 [facility] Nucleated RBC/100 WBC (Bld) [Ratio] 0 % 0-5 [facility] Platelets (Bld) [#/Vol] 195 10*3/uL 150-450 [facility] No Panel InformationOrdered By: Ross Benites on 04-27-2023 Estimated GFR (MDRD) Amer 92 mL/min >60 [facility] Comment on above: GFR Calc Estimated GFR (MDRD) Non-Af Amer 76 mL/min >60 [facility] Comment on above: Non- GFR Calc Vitamin D 25-Hydroxy 50.3 ng/mL [facility] Comment on above: Vitamin D 25(OH) Sta tus Range Deficiency <20 ng/mL (50nmol/L) Insufficiency 20 - 30 ng/mL (50 - 75 nmol/L) Sufficiency 30 - 100 ng/mL (75 - 250 nmol/L) Toxicity >100 ng/mL (>250 nmol/L) Platelet mean volume Han-[place] ker (Bld) [Entitic vol]Ordered By: Ross Benites on 04-27-2023 Platelet mean volume (Bld) [Entitic vol] 10.7 fL 6.2-12.0 [facility] RBC Auto (Bld) [#/Vol]Ordere d By: Ross Benites on 04-27-2023 RBC (Bld) [#/Vol] 4.24 10*6/uL 4.2-5.4 [facility] Serum or plasma calcium ernesto urement (mass/volume)Ordered By: Ross Benites on 04-27-2023 Calcium [Mass/Vol] 9.2 mg/dL 8.5-10.1 [facility] Serum or plasma creatinine m easurement (mass/volume)Ordered By: Ross Benites on 04-27-2023 Creatinine [Mass/Vol] 0.77 mg/dL 0.55-1.02 [facility] Comment on above: The validity of the calculated GFR & GFRAA in patients over 70 years has not been determined. Clinical correlation is essential. Serum or plasma thyroid stim ulating hormone (TSH) measurement (units/volume)Ordered By: Ross Benites on 04-27-2023 TSH Qn 2.14 uIU/mL 0.358-3.74 [facility] Serum or plasma urea nitroge n measurement (mass/volume)Ordered By: Ross Benites on 04-27-2023 Urea nitrogen [Mass/Vol] 16 mg/dL 7-18 [facility] Thin prep Papanicolaou smear with manual screeningOrdered By: Ross Benites on 04-27-2023 Thin prep Papanicolaou smear with manual screening 3.9 g/dL 3.2-5.0 [facility] Thin prep Papanicolaou smear with manual screening 11 U/L 15-37 [facility] Thin prep Papanicolaou smear with manual screening 3 5-15 [facility] Absolute lymphocyte countOrd ered By: Ross Benites on 10-20-2022 Lymphocytes Auto (Unsp spec) [#/Vol] 1.28 10*3/uL 0.83-4.51 [facility] Basophil percentageOrdered B y: Ross Benites on 10-20-2022 Basophils/100 WBC (Bld) 1.0 % 0-1 [facility] Bilirubin [Mass/Vol] 0.30 mg/dL 0.20-1.00 [facility] Comment on above: For patients on eltr ombopag therapy, use of Dimension [place] TBIL is not recommended. Chloride [Moles/Vol] 106 mmol/L 98-107 [facility] Cholesterol [Mass/Vol] 169 mg/dL <200 [facility] Comment on above: <200 mg/dL Desirable 200-240 mg/dL Borderline >240 mg/dL High Risk Eosinophils/100 WBC (Bld) 4.2 % 0-5 [facility] Glucose [Mass/Vol] 84 mg/dL 74-106 [facility] Neutrophils (Bld) [#/Vol] 4.8 10*3/uL 2.0-7.7 [facility] Neutrophils/100 WBC (Bld) 70.1 % 47-70 [facility] Potassium [Moles/Vol] 4.2 mmol/L 3.5-5.1 [facility] Protein [Mass/Vol] 6.7 g/dL 6.4-8.2 [facility] Sodium [Moles/Vol] 139 mmol/L 136-145 [facility] Triglyceride [Mass/Vol] 180 mg/dL <199 [facility] Comment on above: The drugs N-Acetylcy steine and Metamizole may falsely depress this assay.Serum Triglycerides Reference Interval Normal <150 mg/dL Borderline high 150 - 199 mg/dL High 200 - 499 mg/dL Very High > or = 500 mg/dL WBC (Bld) [#/Vol] 6.9 10*3/uL 4.4-11.0 [facility] Blood erythrocytes count (nu mber/volume)Ordered By: Ross Benites on 10-20-2022 RBC (Bld) [#/Vol] 4.21 10*6/uL 4.2-5.4 [facility] Blood hemoglobin measurement (mass/volume)Ordered By: Ross Benites on 10-20-2022 Hemoglobin (Bld) [Mass/Vol] 12.7 g/dL 12.0-15.0 [facility] Blood lymphocytes/100 leukoc ytesOrdered By: Ross Benites on 10-20-2022 Lymphocytes/100 WBC (Bld) 18.6 % 19-41 [facility] Blood monocytes/100 leukocyt esOrdered By: Ross Benites on 10-20-2022 Monocytes/100 WBC (Bld) 5.8 % 0-10 [facility] Blood platelet mean volumeOr dered By: Ross Benites on 10-20-2022 Platelet mean volume (Bld) [Entitic vol] 11.3 fL 6.2-12.0 [facility] Determination of erythrocyte mean corpuscular volume (MCV)Ordered By: Ross Benites on 10-20-2022 MCV (RBC) [Entitic vol] 95.7 fL 81-99 [facility] Hematocrit Auto (Bld) [Volum e fraction]Ordered By: Ross Benites on 10-20-2022 Hematocrit (Bld) [Volume fraction] 40.3 % 37-47 [facility] Laboratory - Chemistry and C hemistry - challengeOrdered By: [facility] 10-[facility]22 ALP [Catalytic activity/Vol] 90 U/L 45-117 [facility] ALT [Catalytic activity/Vol] 14 U/L 13-56 [facility] CO2 [Moles/Vol] 29.0 mmol/L 21.0-32.0 [facility] Globulin (S) [Mass/Vol] 3.0 g/dL 2.2-4.2 [facility] Urea nitrogen/Creatinine [Mass ratio] 21.6 mg/mg 10-20 [facility] Laboratory - Hematology and Cell countsOrdered By: [facility] on 10-20-2022 Erythrocyte distribution width (RBC) [Entitic vol] 46.0 fL 35.1-43.9 [facility] Erythrocyte distribution width (RBC) [Ratio] 13.0 % 11.6-14.6 [facility] Immature granulocytes/100 WBC (Bld) 0.300 % 0.0-0.9 [facility] Comment on above: IG% - Immature Granu locytes (promyelocytes, myelocytes and metamyelocytes) > 1% indicates that a LEFT SHIFT is Present. MCH (RBC) [Entitic mass] 30.2 pg 27.0-32.0 [facility] Nucleated RBC/100 WBC (Bld) [Ratio] 0 % 0-5 [facility] MCHC Auto (RBC) [Mass/Vol]Or dered By: Ross Benites on 10-20-2022 MCHC (RBC) [Mass/Vol] 31.5 g/dL 32-36 [facility] No Panel InformationOrdered By: [facility] on 10-20-2022 Estimated GFR (MDRD) Amer 97 mL/min >60 [facility] Comment on above: GFR Calc Estimated GFR (MDRD) Non-Af Amer 80 mL/min >60 [facility] Comment on above: Non- GFR Calc Thyroid Stimulating Hormone (TSH) 2.39 uIU/mL 0.358-3.74 [facility] Vitamin D 25-Hydroxy 53.3 ng/mL [facility] Comment on above: Vitamin D 25(OH) Sta tus Range Deficiency <20 ng/mL (50nmol/L) Insufficiency 20 - 30 ng/mL (50 - 75 nmol/L) Sufficiency 30 - 100 ng/mL (75 - 250 nmol/L) Toxicity >100 ng/mL (>250 nmol/L) Platelets bldOrdered By: Ross Benites on 10-20-2022 Platelets (Bld) [#/Vol] 179 10*3/uL 150-450 [facility] Serum or plasma albumin ernesto urement (mass/volume)Ordered By: Ross Benites on 10-20-2022 Albumin [Mass/Vol] 3.7 g/dL 3.2-5.0 [facility] Serum or plasma albumin/glob ulin mass ratioOrdered By: Ross Benites 10-20-2022 Albumin/Globulin [Mass ratio] 1.2 {ratio} 0.9-2.4 [facility] Serum or plasma calcium ernesto urement (mass/volume)Ordered By: Ross Benites 10-20-2022 Calcium [Mass/Vol] 8.7 mg/dL 8.5-10.1 [facility] Serum or plasma cholesterol in HDL measurement (mass/volume)Ordered By: Ross Benites 10-20-2022 Cholesterol in HDL [Mass/Vol] 61 mg/dL >40 [facility] Comment on above: The drugs N-Acetylcy steine and Metamizole may falsely depress this assay. Reference Range HDL <40 mg/dL Low HDL Cholesterol HDL >or= 60 mg/dL High HDL Cholesterol Serum or plasma cholesterol in VLDL measurement (mass/volume)Ordered By: Ross Benites on 10-20-2022 Cholesterol in VLDL [Mass/Vol] 36 mg/dL 5-40 [facility] Serum or plasma creatinine m easurement (mass/volume)Ordered By: Ross Benites 10-20-2022 Creatinine [Mass/Vol] 0.74 mg/dL 0.55-1.02 [facility] Comment on above: The validity of the calculated GFR & GFRAA in patients over 70 years has not been determined. Clinical correlation is essential. Serum or plasma low density lipoprotein (LDL) cholesterol measurement (mass/volume)Ordered By: Ross Benites on 10-20-2022 Cholesterol in LDL [Mass/Vol] 72 mg/dL 0-130 [facility] Serum or plasma urea nitroge n measurement (mass/volume)Ordered By: Ross Benites on 10-20-2022 Urea nitrogen [Mass/Vol] 16 mg/dL 7-18 [facility] Thin prep Papanicolaou smear with manual screeningOrdered By: Ross Benites on 10-20-2022 Thin prep Papanicolaou smear with manual screening 11 U/L 15-37 [facility] Thin prep Papanicolaou smear with manual screening 4 5-15 [facility] Absolute lymphocyte countOrd ered By: Dr. Benites on 04-22-2022 Lymphocytes Auto (Unsp spec) [#/Vol] 1.37 10*3/uL 0.83-4.51 [facility] Basophil percentageOrdered B y: Dr. Benites on 04-22-2022 Basophils/100 WBC (Bld) 0.9 % 0-1 [facility] Bilirubin [Mass/Vol] 0.30 mg/dL 0.20-1.00 [facility] Comment on above: For patients on eltr ombopag therapy, use of Dimension [place] TBIL is not recommended. Chloride [Moles/Vol] 108 mmol/L 98-107 [facility] Eosinophils/100 WBC (Bld) 3.4 % 0-5 [facility] Glucose [Mass/Vol] 90 mg/dL 74-106 [facility] Neutrophils (Bld) [#/Vol] 4.9 10*3/uL 2.0-7.7 [facility] Neutrophils/100 WBC (Bld) 69.8 % 47-70 [facility] Potassium [Moles/Vol] 4.0 mmol/L 3.5-5.1 [facility] Protein [Mass/Vol] 6.7 g/dL 6.4-8.2 [facility] Sodium [Moles/Vol] 143 mmol/L 136-145 [facility] WBC (Bld) [#/Vol] 7.0 10*3/uL 4.4-11.0 [facility] Blood erythrocytes count (nu mber/volume)Ordered By: Dr. Benites on 04-22-2022 RBC (Bld) [#/Vol] 4.43 10*6/uL 4.2-5.4 [facility] Blood hemoglobin measurement (mass/volume)Ordered By: Dr. Benites on 04-22-2022 Hemoglobin (Bld) [Mass/Vol] 13.3 g/dL 12.0-15.0 [facility] Blood lymphocytes/100 leukoc ytesOrdered By: Dr. Beniets on 04-22-2022 Lymphocytes/100 WBC (Bld) 19.5 % 19-41 [facility] Blood monocytes/100 leukocyt esOrdered By: Dr. Benites on 04-22-2022 Monocytes/100 WBC (Bld) 6.1 % 0-10 [facility] Blood platelet mean volumeOr dered By: Dr. Benites on 04-22-2022 Platelet mean volume (Bld) [Entitic vol] 10.6 fL 6.2-12.0 [facility] Determination of erythrocyte mean corpuscular volume (MCV)Ordered By: Dr. Benites on 04-22-2022 MCV (RBC) [Entitic vol] 94.6 fL 81-99 [facility] Hematocrit Auto (Bld) [Volum e fraction]Ordered By: Dr. Benites on 04-22-2022 Hematocrit (Bld) [Volume fraction] 41.9 % 37-47 [facility] Laboratory - Chemistry and C hemistry - challengeOrdered By: Dr. Benites on 04-22-2022 ALP [Catalytic activity/Vol] 76 U/L 45-117 [facility] ALT [Catalytic activity/Vol] 16 U/L 13-56 [facility] CO2 [Moles/Vol] 29.0 mmol/L 21.0-32.0 [facility] Globulin (S) [Mass/Vol] 3.0 g/dL 2.2-4.2 [facility] Urea nitrogen/Creatinine [Mass ratio] 15.1 mg/mg 10-20 [facility] Laboratory - Hematology and Cell countsOrdered By: Dr. Benites on 04-22-2022 Erythrocyte distribution width (RBC) [Entitic vol] 45.1 fL 35.1-43.9 [facility] Erythrocyte distribution width (RBC) [Ratio] 13.1 % 11.6-14.6 [facility] Immature granulocytes/100 WBC (Bld) 0.300 % 0.0-0.9 [facility] Comment on above: IG% - Immature Granu locytes (promyelocytes, myelocytes and metamyelocytes) > 1% indicates that a LEFT SHIFT is Present. MCH (RBC) [Entitic mass] 30.0 pg 27.0-32.0 [facility] Nucleated RBC/100 WBC (Bld) [Ratio] 0 % 0-5 [facility] MCHC Auto (RBC) [Mass/Vol]Or dered By: Dr. Benites on 04-22-2022 MCHC (RBC) [Mass/Vol] 31.7 g/dL 32-36 [facility] No Panel InformationOrdered By: Dr. Benites on 04-22-2022 Estimated GFR (MDRD) Amer 81 mL/min >60 [facility] Comment on above: GFR Calc Estimated GFR (MDRD) Non-Af Amer 67 mL/min >60 [facility] Comment on above: Non- GFR Calc Thyroid Stimulating Hormone (TSH) 2.80 uIU/mL 0.358-3.74 [facility] Vitamin D 25-Hydroxy 45.7 ng/mL [facility] Comment on above: Vitamin D 25(OH) Sta tus Range Deficiency <20 ng/mL (50nmol/L) Insufficiency 20 - 30 ng/mL (50 - 75 nmol/L) Sufficiency 30 - 100 ng/mL (75 - 250 nmol/L) Toxicity >100 ng/mL (>250 nmol/L) Platelets bldOrdered By: Dr. Benites on 04-22-2022 Platelets (Bld) [#/Vol] 173 10*3/uL 150-450 [facility] Serum or plasma albumin ernesto urement (mass/volume)Ordered By: Dr. Benites on 04-22-2022 Albumin [Mass/Vol] 3.7 g/dL 3.2-5.0 [facility] Serum or plasma albumin/glob ulin mass ratioOrdered By: Dr. Benites on 04-22-2022 Albumin/Globulin [Mass ratio] 1.2 {ratio} 0.9-2.4 [facility] Serum or plasma calcium ernesto urement (mass/volume)Ordered By: Dr. Benites on 04-22-2022 Calcium [Mass/Vol] 8.3 mg/dL 8.5-10.1 [facility] Serum or plasma creatinine m easurement (mass/volume)Ordered By: Dr. Benites on 04-22-2022 Creatinine [Mass/Vol] 0.86 mg/dL 0.55-1.02 [facility] Comment on above: The validity of the calculated GFR & GFRAA in patients over 70 years has not been determined. Clinical correlation is essential. Serum or plasma urea nitroge n measurement (mass/volume)Ordered By: Dr. Benites on 04-22-2022 Urea nitrogen [Mass/Vol] 13 mg/dL 7-18 [facility] Thin prep Papanicolaou smear with manual screeningOrdered By: Dr. Benites on 04-22-2022 Thin prep Papanicolaou smear with manual screening 14 U/L 15-37 [facility] Thin prep Papanicolaou smear with manual screening 6 5-15 [facility] Absolute lymphocyte countOrd ered By: Dr. Benites on 01-19-2022 Lymphocytes Auto (Unsp spec) [#/Vol] 1.19 10*3/uL 0.83-4.51 [facility] Basophil percentageOrdered B y: Dr. Benites on 01-19-2022 Basophils/100 WBC (Bld) 0.7 % 0-1 [facility] Bilirubin [Mass/Vol] 0.30 mg/dL 0.20-1.00 [facility] Comment on above: For patients on eltr ombopag therapy, use of Dimension [place] TBIL is not recommended. Chloride [Moles/Vol] 107 mmol/L 98-107 [facility] Eosinophils/100 WBC (Bld) 3.8 % 0-5 [facility] Glucose [Mass/Vol] 83 mg/dL 74-106 [facility] Neutrophils (Bld) [#/Vol] 4.0 10*3/uL 2.0-7.7 [facility] Neutrophils/100 WBC (Bld) 69.9 % 47-70 [facility] Potassium [Moles/Vol] 3.6 mmol/L 3.5-5.1 [facility] Protein [Mass/Vol] 7.0 g/dL 6.4-8.2 [facility] Sodium [Moles/Vol] 142 mmol/L 136-145 [facility] WBC (Bld) [#/Vol] 5.7 10*3/uL 4.4-11.0 [facility] Blood erythrocytes count (nu mber/volume)Ordered By: Dr. Benites on 01-19-2022 RBC (Bld) [#/Vol] 4.34 10*6/uL 4.2-5.4 [facility] Blood hemoglobin measurement (mass/volume)Ordered By: Dr. Benites on 01-19-2022 Hemoglobin (Bld) [Mass/Vol] 13.4 g/dL 12.0-15.0 [facility] Blood lymphocytes/100 leukoc ytesOrdered By: Dr. Benites on 01-19-2022 Lymphocytes/100 WBC (Bld) 20.8 % 19-41 [facility] Blood monocytes/100 leukocyt esOrdered By: Dr. Benites on 01-19-2022 Monocytes/100 WBC (Bld) 4.5 % 0-10 [facility] Blood platelet mean volumeOr dered By: Dr. Benites on 01-19-2022 Platelet mean volume (Bld) [Entitic vol] 11.4 fL 6.2-12.0 [facility] Determination of erythrocyte mean corpuscular volume (MCV)Ordered By: Dr. Benites on 01-19-2022 MCV (RBC) [Entitic vol] 96.1 fL 81-99 [facility] Hematocrit Auto (Bld) [Volum e fraction]Ordered By: Dr. Benites on 01-19-2022 Hematocrit (Bld) [Volume fraction] 41.7 % 37-47 [facility] Laboratory - Chemistry and C hemistry - challengeOrdered By: Dr. Benites on 01-19-2022 ALP [Catalytic activity/Vol] 87 U/L 45-117 [facility] ALT [Catalytic activity/Vol] 16 U/L 13-56 [facility] CO2 [Moles/Vol] 29.0 mmol/L 21.0-32.0 [facility] Globulin (S) [Mass/Vol] 3.1 g/dL 2.2-4.2 [facility] Urea nitrogen/Creatinine [Mass ratio] 20.5 mg/mg 10-20 [facility] Laboratory - Hematology and Cell countsOrdered By: Dr. Benites on 01-19-2022 Erythrocyte distribution width (RBC) [Entitic vol] 48.0 fL 35.1-43.9 [facility] Erythrocyte distribution width (RBC) [Ratio] 13.4 % 11.6-14.6 [facility] Immature granulocytes/100 WBC (Bld) 0.300 % 0.0-0.9 [facility] Comment on above: IG% - Immature Granu locytes (promyelocytes, myelocytes and metamyelocytes) > 1% indicates that a LEFT SHIFT is Present. MCH (RBC) [Entitic mass] 30.9 pg 27.0-32.0 [facility] Nucleated RBC/100 WBC (Bld) [Ratio] 0 % 0-5 [facility] MCHC Auto (RBC) [Mass/Vol]Or dered By: Dr. Benites on 01-19-2022 MCHC (RBC) [Mass/Vol] 32.1 g/dL 32-36 [facility] No Panel InformationOrdered By: Dr. Benites on 01-19-2022 Estimated GFR (MDRD) Amer 80 mL/min >60 [facility] Comment on above: GFR Calc Estimated GFR (MDRD) Non-Af Amer 66 mL/min >60 [facility] Comment on above: Non- GFR Calc Thyroid Stimulating Hormone (TSH) 2.05 uIU/mL 0.358-3.74 [facility] Vitamin D 25-Hydroxy 39.7 ng/mL [facility] Comment on above: Vitamin D 25(OH) Sta tus Range Deficiency <20 ng/mL (50nmol/L) Insufficiency 20 - 30 ng/mL (50 - 75 nmol/L) Sufficiency 30 - 100 ng/mL (75 - 250 nmol/L) Toxicity >100 ng/mL (>250 nmol/L) Platelets bldOrdered By: Dr. Benites on 01-19-2022 Platelets (Bld) [#/Vol] 142 10*3/uL 150-450 [facility] Serum or plasma albumin ernesto urement (mass/volume)Ordered By: Dr. Benites on 01-19-2022 Albumin [Mass/Vol] 3.9 g/dL 3.2-5.0 [facility] Serum or plasma albumin/glob ulin mass ratioOrdered By: Dr. Benites on 01-19-2022 Albumin/Globulin [Mass ratio] 1.3 {ratio} 0.9-2.4 [facility] Serum or plasma calcium ernesto urement (mass/volume)Ordered By: Dr. Benites on 01-19-2022 Calcium [Mass/Vol] 8.8 mg/dL 8.5-10.1 [facility] Serum or plasma creatinine m easurement (mass/volume)Ordered By: Dr. Benites on 01-19-2022 Creatinine [Mass/Vol] 0.88 mg/dL 0.55-1.02 [facility] Comment on above: The validity of the calculated GFR & GFRAA in patients over 70 years has not been determined. Clinical correlation is essential. Serum or plasma urea nitroge n measurement (mass/volume)Ordered By: Dr. Benites on 01-19-2022 Urea nitrogen [Mass/Vol] 18 mg/dL 7-18 [facility] Thin prep Papanicolaou smear with manual screeningOrdered By: Dr. Benites on 01-19-2022 Thin prep Papanicolaou smear with manual screening 15 U/L 15-37 [facility] Thin prep Papanicolaou smear with manual screening 6 5-15 [facility] Absolute lymphocyte counton 10-14-2021 Lymphocytes Auto (Unsp spec) [#/Vol] 1.10 10*3/uL 0.83-4.51 [facility] Work Phone: Basophil percentageon 2021 Basophils/100 WBC (Bld) 0.9 % 0-1 [facility] Work Phone: Bilirubin [Mass/Vol] 0.30 mg/dL 0.20-1.00 [facility] Work Phone: Comment on above: For patients on eltr ombopag therapy, use of Dimension [place] TBIL is not recommended. Chloride [Moles/Vol] 107 mmol/L 98-107 [facility] Work Phone: Eosinophils/100 WBC (Bld) 6.0 % 0-5 [facility] Work Phone: Glucose [Mass/Vol] 86 mg/dL 74-106 [facility] Work Phone: Neutrophils (Bld) [#/Vol] 4.0 10*3/uL 2.0-7.7 [facility] Work Phone: Neutrophils/100 WBC (Bld) 68.8 % 47-70 [facility] Work Phone: Potassium [Moles/Vol] 4.2 mmol/L 3.5-5.1 [facility] Work Phone: Protein [Mass/Vol] 6.5 g/dL 6.4-8.2 [facility] Work Phone: Sodium [Moles/Vol] 141 mmol/L 136-145 [facility] Work Phone: WBC (Bld) [#/Vol] 5.9 10*3/uL 4.4-11.0 [facility] Work Phone: Blood erythrocytes count (nu mber/volume)on 10-14-2021 RBC (Bld) [#/Vol] 4.02 10*6/uL 4.2-5.4 [facility] Work Phone: Blood hemoglobin measurement (mass/volume)on 10-14-2021 Hemoglobin (Bld) [Mass/Vol] 12.1 g/dL 12.0-15.0 [facility] Work Phone: Blood lymphocytes/100 leukoc yteson 10-14-2021 Lymphocytes/100 WBC (Bld) 18.7 % 19-41 [facility] Work Phone: Blood monocytes/100 leukocyt eson 10-14-2021 Monocytes/100 WBC (Bld) 5.3 % 0-10 [facility] Work Phone: [phone] Blood platelet mean volumeon 10-14-2021 Platelet mean volume (Bld) [Entitic vol] 10.9 fL 6.2-12.0 [facility] Work Phone: [phone] Determination of erythrocyte mean corpuscular volume (MCV)on 10-14-2021 MCV (RBC) [Entitic vol] 93.0 fL 81-99 [facility] Work Phone: [phone] Hematocrit Auto (Bld) [Volum e fraction]on 10-14-2021 Hematocrit (Bld) [Volume fraction] 37.4 % 37-47 [facility] Work Phone: [phone] Laboratory - Chemistry and C hemistry - challengeon 10-14-2021 ALP [Catalytic activity/Vol] 77 U/L 45-117 [facility] Work Phone: [phone] ALT [Catalytic activity/Vol] 19 U/L 13-56 [facility] Work Phone: [phone] CO2 [Moles/Vol] 29.0 mmol/L 21.0-32.0 [facility] Work Phone: [phone] Globulin (S) [Mass/Vol] 3.0 g/dL 2.2-4.2 [facility] Work Phone: [phone] Urea nitrogen/Creatinine [Mass ratio] 18.4 mg/mg 10-20 [facility] Work Phone: [phone] Laboratory - Hematology and Cell countson 10-14-2021 Erythrocyte distribution width (RBC) [Entitic vol] 44.4 fL 35.1-43.9 [facility] Work Phone: [phone] Erythrocyte distribution width (RBC) [Ratio] 13.1 % 11.6-14.6 [facility] Work Phone: [phone] Immature granulocytes/100 WBC (Bld) 0.300 % 0.0-0.9 [facility] Work Phone: [phone] Comment on above: IG% - Immature Granu locytes (promyelocytes, myelocytes and metamyelocytes) > 1% indicates that a LEFT SHIFT is Present. MCH (RBC) [Entitic mass] 30.1 pg 27.0-32.0 [facility] Work Phone: [phone] Nucleated RBC/100 WBC (Bld) [Ratio] 0 % 0-5 [facility] Work Phone: [phone] MCHC Auto (RBC) [Mass/Vol]on 10-14-2021 MCHC (RBC) [Mass/Vol] 32.4 g/dL 32-36 [facility] Work Phone: [phone] No Panel Informationon 10-14 Estimated GFR (MDRD) Amer 87 mL/min >60 [facility] Work Phone: [phone] Comment on above: GFR Calc Estimated GFR (MDRD) Non-Af Amer 72 mL/min >60 [facility] Work Phone: [phone] Comment on above: Non- GFR Calc Thyroid Stimulating Hormone (TSH) 2.70 uIU/mL 0.358-3.74 [facility] Work Phone: [phone] Vitamin D 25-Hydroxy 48.3 ng/mL [facility] Work Phone: [phone] Comment on above: Vitamin D 25(OH) Sta tus Range Deficiency <20 ng/mL (50nmol/L) Insufficiency 20 - 30 ng/mL (50 - 75 nmol/L) Sufficiency 30 - 100 ng/mL (75 - 250 nmol/L) Toxicity >100 ng/mL (>250 nmol/L) Platelets bldon 10-14-2021 Platelets (Bld) [#/Vol] 174 10*3/uL 150-450 [facility] Work Phone: [phone] Serum or plasma albumin ernesto urement (mass/volume)on 10-14-2021 Albumin [Mass/Vol] 3.5 g/dL 3.2-5.0 [facility] Work Phone: [phone] Serum or plasma albumin/glob ulin mass ratioon 10-14-2021 Albumin/Globulin [Mass ratio] 1.2 {ratio} 0.9-2.4 [facility] Work Phone: Serum or plasma calcium ernesto urement (mass/volume)on 10-14-2021 Calcium [Mass/Vol] 8.7 mg/dL 8.5-10.1 [facility] Work Phone: Serum or plasma creatinine m easurement (mass/volume)on 10-14-2021 Creatinine [Mass/Vol] 0.82 mg/dL 0.55-1.02 [facility] Work Phone: [phone] Comment on above: The validity of the calculated GFR & GFRAA in patients over 70 years has not been determined. Clinical correlation is essential. Serum or plasma urea nitroge n measurement (mass/volume)on 10-14-2021 Urea nitrogen [Mass/Vol] 15 mg/dL 7-18 [facility] Work Phone: Thin prep Papanicolaou smear with manual screeningon 10-14-2021 Thin prep Papanicolaou smear with manual screening 16 U/L 15-37 [facility] Work Phone: [phone] Thin prep Papanicolaou smear with manual screening 5 5-15 [facility] Work Phone: Absolute lymphocyte counton 07-21-2021 Lymphocytes Auto (Unsp spec) [#/Vol] 0.82 10*3/uL 0.83-4.51 [facility] Work Phone: Basophil percentageon 2021 Basophils/100 WBC (Bld) 0.7 % 0-1 [facility] Work Phone: [phone] Bilirubin [Mass/Vol] 0.30 mg/dL 0.20-1.00 [facility] Work Phone: [phone] Comment on above: For patients on eltr ombopag therapy, use of Dimension [place] TBIL is not recommended. Chloride [Moles/Vol] 105 mmol/L 98-107 [facility] Work Phone: Eosinophils/100 WBC (Bld) 2.8 % 0-5 [facility] Work Phone: [phone] Glucose [Mass/Vol] 90 mg/dL 74-106 [facility] Work Phone: Neutrophils (Bld) [#/Vol] 4.6 10*3/uL 2.0-7.7 [facility] Work Phone: Neutrophils/100 WBC (Bld) 76.1 % 47-70 [facility] Work Phone: Potassium [Moles/Vol] 4.1 mmol/L 3.5-5.1 [facility] Work Phone: Protein [Mass/Vol] 6.7 g/dL 6.4-8.2 [facility] Work Phone: Sodium [Moles/Vol] 141 mmol/L 136-145 [facility] Work Phone: WBC (Bld) [#/Vol] 6.0 10*3/uL 4.4-11.0 [facility] Work Phone: Blood erythrocytes count (nu mber/volume)on 07-21-2021 RBC (Bld) [#/Vol] 3.97 10*6/uL 4.2-5.4 [facility] Work Phone: Blood hemoglobin measurement (mass/volume)on 07-21-2021 Hemoglobin (Bld) [Mass/Vol] 12.3 g/dL 12.0-15.0 [facility] Work Phone: Blood lymphocytes/100 leukoc yteson 07-21-2021 Lymphocytes/100 WBC (Bld) 13.6 % 19-41 [facility] Work Phone: Blood monocytes/100 leukocyt eson 07-21-2021 Monocytes/100 WBC (Bld) 6.3 % 0-10 [facility] Work Phone: Blood platelet mean volumeon 07-21-2021 Platelet mean volume (Bld) [Entitic vol] 10.7 fL 6.2-12.0 [facility] Work Phone: Determination of erythrocyte mean corpuscular volume (MCV)on 07-21-2021 MCV (RBC) [Entitic vol] 95.5 fL 81-99 [facility] Work Phone: [phone] Hematocrit Auto (Bld) [Volum e fraction]on 07-21-2021 Hematocrit (Bld) [Volume fraction] 37.9 % 37-47 [facility] Work Phone: [phone] Laboratory - Chemistry and C hemistry - challengeon 07-21-2021 ALP [Catalytic activity/Vol] 63 U/L 45-117 [facility] Work Phone: [phone] ALT [Catalytic activity/Vol] 19 U/L 13-56 [facility] Work Phone: [phone] CO2 [Moles/Vol] 30.0 mmol/L 21.0-32.0 [facility] Work Phone: [phone] Globulin (S) [Mass/Vol] 3.0 g/dL 2.2-4.2 [facility] Work Phone: [phone] Urea nitrogen/Creatinine [Mass ratio] 21.9 mg/mg 10-20 [facility] Work Phone: [phone] Laboratory - Hematology and Cell countson 07-21-2021 Erythrocyte distribution width (RBC) [Entitic vol] 45.4 fL 35.1-43.9 [facility] Work Phone: [phone] Erythrocyte distribution width (RBC) [Ratio] 12.9 % 11.6-14.6 [facility] Work Phone: [phone] Immature granulocytes/100 WBC (Bld) 0.500 % 0.0-0.9 [facility] Work Phone: [phone] Comment on above: IG% - Immature Granu locytes (promyelocytes, myelocytes and metamyelocytes) > 1% indicates that a LEFT SHIFT is Present. MCH (RBC) [Entitic mass] 31.0 pg 27.0-32.0 [facility] Work Phone: [phone] Nucleated RBC/100 WBC (Bld) [Ratio] 0 % 0-5 [facility] Work Phone: [phone] MCHC Auto (RBC) [Mass/Vol]on 07-21-2021 MCHC (RBC) [Mass/Vol] 32.5 g/dL 32-36 [facility] Work Phone: No Panel Informationon 07-21 Estimated GFR (MDRD) Amer 86 mL/min >60 [facility] Work Phone: [phone] Comment on above: GFR Calc Estimated GFR (MDRD) Non-Af Amer 71 mL/min >60 [facility] Work Phone: Comment on above: Non- GFR Calc Thyroid Stimulating Hormone (TSH) 1.67 uIU/mL 0.358-3.74 [facility] Work Phone: [phone] Vitamin D 25-Hydroxy 48.5 ng/mL [facility] Work Phone: Comment on above: Vitamin D 25(OH) Sta tus Range Deficiency <20 ng/mL (50nmol/L) Insufficiency 20 - 30 ng/mL (50 - 75 nmol/L) Sufficiency 30 - 100 ng/mL (75 - 250 nmol/L) Toxicity >100 ng/mL (>250 nmol/L) Platelets bldon 07-21-2021 Platelets (Bld) [#/Vol] 184 10*3/uL 150-450 [facility] Work Phone: [phone] Serum or plasma albumin ernesto urement (mass/volume)on 07-21-2021 Albumin [Mass/Vol] 3.7 g/dL 3.2-5.0 [facility] Work Phone: [phone] Serum or plasma albumin/glob ulin mass ratioon 07-21-2021 Albumin/Globulin [Mass ratio] 1.2 {ratio} 0.9-2.4 [facility] Work Phone: [phone] Serum or plasma calcium ernesto urement (mass/volume)on 07-21-2021 Calcium [Mass/Vol] 8.5 mg/dL 8.5-10.1 [facility] Work Phone: [phone] Serum or plasma creatinine m easurement (mass/volume)on 07-21-2021 Creatinine [Mass/Vol] 0.82 mg/dL 0.55-1.02 [facility] Work Phone: Comment on above: The validity of the calculated GFR & GFRAA in patients over 70 years has not been determined. Clinical correlation is essential. Serum or plasma urea nitroge n measurement (mass/volume)on 07-21-2021 Urea nitrogen [Mass/Vol] 18 mg/dL 7-18 [facility] Work Phone: Thin prep Papanicolaou smear with manual screeningon 07-21-2021 Thin prep Papanicolaou smear with manual screening 12 U/L 15-37 [facility] Work Phone: [phone] Thin prep Papanicolaou smear with manual screening 6 5-15 [facility] Work Phone: [phone] Absolute lymphocyte counton 04-21-2021 Lymphocytes Auto (Unsp spec) [#/Vol] 1.01 10*3/uL 0.83-4.51 [facility] Work Phone: Basophil percentageon 2021 Basophils/100 WBC (Bld) 0.9 % 0-1 [facility] Work Phone: Bilirubin [Mass/Vol] 0.40 mg/dL 0.20-1.00 [facility] Work Phone: Comment on above: For patients on eltr ombopag therapy, use of Dimension [place] TBIL is not recommended. Chloride [Moles/Vol] 106 mmol/L 98-107 [facility] Work Phone: Eosinophils/100 WBC (Bld) 3.8 % 0-5 [facility] Work Phone: Glucose [Mass/Vol] 89 mg/dL 74-106 [facility] Work Phone: Neutrophils (Bld) [#/Vol] 3.6 10*3/uL 2.0-7.7 [facility] Work Phone: Neutrophils/100 WBC (Bld) 68.8 % 47-70 [facility] Work Phone: Potassium [Moles/Vol] 3.9 mmol/L 3.5-5.1 [facility] Work Phone: Protein [Mass/Vol] 6.6 g/dL 6.4-8.2 [facility] Work Phone: [phone] Sodium [Moles/Vol] 141 mmol/L 136-145 [facility] Work Phone: [phone] WBC (Bld) [#/Vol] 5.3 10*3/uL 4.4-11.0 [facility] Work Phone: [phone] Blood erythrocytes count (nu mber/volume)on 04-21-2021 RBC (Bld) [#/Vol] 4.14 10*6/uL 4.2-5.4 [facility] Work Phone: [phone] Blood hemoglobin measurement (mass/volume)on 04-21-2021 Hemoglobin (Bld) [Mass/Vol] 13.0 g/dL 12.0-15.0 [facility] Work Phone: [phone] Blood lymphocytes/100 leukoc yteson 04-21-2021 Lymphocytes/100 WBC (Bld) 19.1 % 19-41 [facility] Work Phone: [phone] Blood monocytes/100 leukocyt eson 04-21-2021 Monocytes/100 WBC (Bld) 7.2 % 0-10 [facility] Work Phone: [phone] Blood platelet mean volumeon 04-21-2021 Platelet mean volume (Bld) [Entitic vol] 10.4 fL 6.2-12.0 [facility] Work Phone: [phone] Determination of erythrocyte mean corpuscular volume (MCV)on 04-21-2021 MCV (RBC) [Entitic vol] 94.2 fL 81-99 [facility] Work Phone: [phone] Hematocrit Auto (Bld) [Volum e fraction]on 04-21-2021 Hematocrit (Bld) [Volume fraction] 39.0 % 37-47 [facility] Work Phone: [phone] Laboratory - Chemistry and C hemistry - challengeon 04-21-2021 ALP [Catalytic activity/Vol] 60 U/L 45-117 [facility] Work Phone: [phone] ALT [Catalytic activity/Vol] 17 U/L 13-56 [facility] Work Phone: [phone] CO2 [Moles/Vol] 28.0 mmol/L 21.0-32.0 [facility] Work Phone: [phone] Globulin (S) [Mass/Vol] 2.8 g/dL 2.2-4.2 [facility] Work Phone: [phone] Urea nitrogen/Creatinine [Mass ratio] 22.6 mg/mg 10-20 [facility] Work Phone: [phone] Laboratory - Hematology and Cell countson 04-21-2021 Erythrocyte distribution width (RBC) [Entitic vol] 46.6 fL 35.1-43.9 [facility] Work Phone: [phone] Erythrocyte distribution width (RBC) [Ratio] 13.4 % 11.6-14.6 [facility] Work Phone: [phone] Immature granulocytes/100 WBC (Bld) 0.200 % 0.0-0.9 [facility] Work Phone: [phone] Comment on above: IG% - Immature Granu locytes (promyelocytes, myelocytes and metamyelocytes) > 1% indicates that a LEFT SHIFT is Present. MCH (RBC) [Entitic mass] 31.4 pg 27.0-32.0 [facility] Work Phone: [phone] Nucleated RBC/100 WBC (Bld) [Ratio] 0 % 0-5 [facility] Work Phone: [phone] MCHC Auto (RBC) [Mass/Vol]on 04-21-2021 MCHC (RBC) [Mass/Vol] 33.3 g/dL 32-36 [facility] Work Phone: [phone] Panel Informationon 04-21 Estimated GFR (MDRD) Amer 89 mL/min >60 [facility] Work Phone: [phone] Comment on above: GFR Calc Estimated GFR (MDRD) Non-Af Amer 74 mL/min >60 [facility] Work Phone: [phone] Comment on above: Non- GFR Calc Thyroid Stimulating Hormone (TSH) 2.55 uIU/mL 0.358-3.74 [facility] Work Phone: Vitamin D 25-Hydroxy 73.2 ng/mL [facility] Work Phone: Comment on above: Vitamin D 25(OH) Sta tus Range Deficiency <20 ng/mL (50nmol/L) Insufficiency 20 - 30 ng/mL (50 - 75 nmol/L) Sufficiency 30 - 100 ng/mL (75 - 250 nmol/L) Toxicity >100 ng/mL (>250 nmol/L) Platelets bldon 04-21-2021 Platelets (Bld) [#/Vol] 183 10*3/uL 150-450 [facility] Work Phone: Serum or plasma albumin ernesto urement (mass/volume)on 04-21-2021 Albumin [Mass/Vol] 3.8 g/dL 3.2-5.0 [facility] Work Phone: Serum or plasma albumin/glob ulin mass ratioon 04-21-2021 Albumin/Globulin [Mass ratio] 1.4 {ratio} 0.9-2.4 [facility] Work Phone: Serum or plasma calcium ernesto urement (mass/volume)on 04-21-2021 Calcium [Mass/Vol] 8.7 mg/dL 8.5-10.1 [facility] Work Phone: Serum or plasma creatinine m easurement (mass/volume)on 04-21-2021 Creatinine [Mass/Vol] 0.80 mg/dL 0.55-1.02 [facility] Work Phone: Comment on above: The validity of the calculated GFR & GFRAA in patients over 70 years has not been determined. Clinical correlation is essential. Serum or plasma urea nitroge n measurement (mass/volume)on 04-21-2021 Urea nitrogen [Mass/Vol] 18 mg/dL 7-18 [facility] Work Phone: Thin prep Papanicolaou smear with manual screeningon 04-21-2021 Thin prep Papanicolaou smear with manual screening 13 U/L 15-37 [facility] Work Phone: Thin prep Papanicolaou smear with manual screening 7 5-15 [facility] Work Phone: Absolute lymphocyte counton 04-07-2021 Lymphocytes Auto (Unsp spec) [#/Vol] 0.95 10*3/uL 0.83-4.51 [facility] Work Phone: Basophil percentageon 2021 Basophils/100 WBC (Bld) 0.7 % 0-1 [facility] Work Phone: Bilirubin [Mass/Vol] 0.30 mg/dL 0.20-1.00 [facility] Work Phone: Comment on above: For patients on eltr ombopag therapy, use of Dimension [place] TBIL is not recommended. Chloride [Moles/Vol] 112 mmol/L 98-107 [facility] Work Phone: Cholesterol [Mass/Vol] 182 mg/dL <200 [facility] Work Phone: Comment on above: <200 mg/dL Desirable 200-240 mg/dL Borderline >240 mg/dL High Risk Eosinophils/100 WBC (Bld) 3.6 % 0-5 [facility] Work Phone: Glucose [Mass/Vol] 87 mg/dL 74-106 [facility] Work Phone: Comment on above: Please note revised GLUCOSE reference range effective 2017. Neutrophils (Bld) [#/Vol] 3.1 10*3/uL 2.0-7.7 [facility] Work Phone: Neutrophils/100 WBC (Bld) 69.0 % 47-70 [facility] Work Phone: Potassium [Moles/Vol] 3.8 mmol/L 3.5-5.1 [facility] Work Phone: Protein [Mass/Vol] 5.9 g/dL 6.4-8.2 [facility] Work Phone: Sodium [Moles/Vol] 143 mmol/L 136-145 [facility] Work Phone: [phone] Triglyceride [Mass/Vol] 124 mg/dL [facility] Work Phone: [phone] Comment on above: The drugs N-Acetylcy steine and Metamizole may falsely depress this assay.Serum Triglycerides Reference Interval Normal <150 mg/dL Borderline high 150 - 199 mg/dL High 200 - 499 mg/dL Very High > or = 500 mg/dL WBC (Bld) [#/Vol] 4.5 10*3/uL 4.4-11.0 [facility] Work Phone: [phone] Blood erythrocytes count (nu mber/volume)on 04-07-2021 RBC (Bld) [#/Vol] 4.10 10*6/uL 4.2-5.4 [facility] Work Phone: [phone] Blood hemoglobin measurement (mass/volume)on 04-07-2021 Hemoglobin (Bld) [Mass/Vol] 12.5 g/dL 12.0-15.0 [facility] Work Phone: [phone] Blood lymphocytes/100 leukoc yteson 04-07-2021 Lymphocytes/100 WBC (Bld) 21.3 % 19-41 [facility] Work Phone: [phone] Blood monocytes/100 leukocyt eson 04-07-2021 Monocytes/100 WBC (Bld) 5.2 % 0-10 [facility] Work Phone: [phone] Blood platelet mean volumeon 04-07-2021 Platelet mean volume (Bld) [Entitic vol] 10.3 fL 6.2-12.0 [facility] Work Phone: [phone] Determination of erythrocyte mean corpuscular volume (MCV)on 04-07-2021 MCV (RBC) [Entitic vol] 95.9 fL 81-99 [facility] Work Phone: [phone] Glucose Glucometer (BldC) [M ass/Vol]on 04-07-2021 Glucose [Mass/Vol] 80 mg/dL 70-110 [facility] Work Phone: [phone] Comment on above: MANAGEMENT OF PATIEN T CARE PER NURSING PROTOCOL Hematocrit Auto (Bld) [Volum e fraction]on 04-07-2021 Hematocrit (Bld) [Volume fraction] 39.3 % 37-47 [facility] Work Phone: [phone] Laboratory - Chemistry and C hemistry - challengeon 04-07-2021 ALP [Catalytic activity/Vol] 52 U/L 45-117 [facility] Work Phone: [phone] ALT [Catalytic activity/Vol] 13 U/L 13-56 [facility] Work Phone: [phone] CO2 [Moles/Vol] 26.0 mmol/L 21.0-32.0 [facility] Work Phone: [phone] Globulin (S) [Mass/Vol] 2.8 g/dL 2.2-4.2 [facility] Work Phone: [phone] Urea nitrogen/Creatinine [Mass ratio] 18.3 mg/mg 10-20 [facility] Work Phone: [phone] Laboratory - Hematology and Cell countson 04-07-2021 Erythrocyte distribution width (RBC) [Entitic vol] 46.5 fL 35.1-43.9 [facility] Work Phone: [phone] Erythrocyte distribution width (RBC) [Ratio] 13.2 % 11.6-14.6 [facility] Work Phone: [phone] Immature granulocytes/100 WBC (Bld) 0.200 % 0.0-0.9 [facility] Work Phone: [phone] Comment on above: IG% - Immature Granu locytes (promyelocytes, myelocytes and metamyelocytes) > 1% indicates that a LEFT SHIFT is Present. MCH (RBC) [Entitic mass] 30.5 pg 27.0-32.0 [facility] Work Phone: [phone] Nucleated RBC/100 WBC (Bld) [Ratio] 0 % 0-5 [facility] Work Phone: [phone] MCHC Auto (RBC) [Mass/Vol]on 04-07-2021 MCHC (RBC) [Mass/Vol] 31.8 g/dL 32-36 [facility] Work Phone: No Panel Informationon 04-07 Estimated Creatinine Clearance Calc 36.08 ml/min [facility] Work Phone: Estimated GFR (MDRD) Amer 102 mL/min >60 [facility] Work Phone: Comment on above: GFR Calc Estimated GFR (MDRD) Non-Af Amer 84 mL/min >60 [facility] Work Phone: Comment on above: Non- GFR Calc Thyroid Stimulating Hormone (TSH) 1.69 uIU/mL 0.358-3.74 [facility] Work Phone: Platelets bldon 04-07-2021 Platelets (Bld) [#/Vol] 147 10*3/uL 150-450 [facility] Work Phone: [phone] Serum or plasma albumin ernesto urement (mass/volume)on 04-07-2021 Albumin [Mass/Vol] 3.1 g/dL 3.2-5.0 [facility] Work Phone: Serum or plasma albumin/glob ulin mass ratioon 04-07-2021 Albumin/Globulin [Mass ratio] 1.1 {ratio} 0.9-2.4 [facility] Work Phone: [phone] Serum or plasma calcium ernesto urement (mass/volume)on 04-07-2021 Calcium [Mass/Vol] 8.3 mg/dL 8.5-10.1 [facility] Work Phone: [phone] Serum or plasma cholesterol in HDL measurement (mass/volume)on 04-07-2021 Cholesterol in HDL [Mass/Vol] 75 mg/dL [facility] Work Phone: Comment on above: The drugs N-Acetylcy steine and Metamizole may falsely depress this assay. Reference Range HDL <40 mg/dL Low HDL Cholesterol HDL >or= 60 mg/dL High HDL Cholesterol Serum or plasma cholesterol in VLDL measurement (mass/volume)on 04-07-2021 Cholesterol in VLDL [Mass/Vol] 25 mg/dL 5-40 [facility] Work Phone: Serum or plasma creatinine m easurement (mass/volume)on 04-07-2021 Creatinine [Mass/Vol] 0.71 mg/dL 0.55-1.02 [facility] Work Phone: Comment on above: The validity of the calculated GFR & GFRAA in patients over 70 years has not been determined. Clinical correlation is essential. Serum or plasma low density lipoprotein (LDL) cholesterol measurement (mass/volume)on 04-07-2021 Cholesterol in LDL [Mass/Vol] 82 mg/dL 0-130 [facility] Work Phone: Serum or plasma urea nitroge n measurement (mass/volume)on 04-07-2021 Urea nitrogen [Mass/Vol] 13 mg/dL 7-18 [facility] Work Phone: Thin prep Papanicolaou smear with manual screeningon 04-07-2021 Thin prep Papanicolaou smear with manual screening 9 U/L 15-37 [facility] Work Phone: Thin prep Papanicolaou smear with manual screening 5 5-15 [facility] Work Phone: Whole blood hemoglobin A1c/t otal hemoglobin ratio (mass fraction)on 04-07-2021 HbA1c (Bld) [Mass fraction] 5.0 % 3.8-5.6 [facility] Work Phone: Comment on above: Normal < 5.7 % Predi abetic 5.7 - 6.4 % Diabetic >or= 6.5 % Please note range changes. Basophil percentageon 2021 Basophil percentage 0 SEEN /hpf [facility] Work Phone: [phone] Bilirubin Test strip Ql (U)o n 04-06-2021 Bilirubin Ql (U) Negative Negative [facility] Work Phone: [phone] Ketones Test strip Ql (U)on 04-06-2021 Ketones Ql (U) 5 mg/dl Negative [facility] Work Phone: [phone] Laboratory - Chemistry and C hemistry - challengeon 04-06-2021 Magnesium [Mass/Vol] 2.3 mg/dL 1.6-2.6 [facility] Work Phone: Mucus LM Ql (Urine sed)on Mucus Ql (Urine sed) 0 SEEN /hpf [facility] Work Phone: Nitrite Test strip Ql (U)on 04-06-2021 Nitrite Ql (U) Negative Negative [facility] Work Phone: No Panel Informationon 04-06 SARS-CoV-2 Antigen (Rapid) [facility] Work Phone: Troponin I High Sensitivity 7 pg/mL 3.0-54.0 [facility] Work Phone: Comment on above: Please Note: New Luann t Units and Gender Specific Reference Ranges. For more information see Policy Stat Procedure [place] High Sensitivity Troponin (TNIH) and attachments. Protein Test strip Ql (U)on 04-06-2021 Protein Ql (U) Negative Negative [facility] Work Phone: Squamous epithelial cells de tection in urine sediment by light microscopyon 04-06-2021 Epithelial cells.squamous LM Ql (Urine sed) 0 SEEN /hpf [facility] Work Phone: Urine blood detectionon 03-28 RBC Ql (U) Negative Negative [facility] Work Phone: RBC Ql (U) 0 SEEN /hpf [facility] Work Phone: Urine clarityon 04-06-2021 Clarity (U) Clear Clear [facility] Work Phone: Urine color determinationon 04-06-2021 Color (U) Straw Yellow [facility] Work Phone: Urine glucose detectionon Glucose Ql (U) Normal mg/dl Normal [facility] Work Phone: Urine leukocyte esterase det ection by dipstickon 04-06-2021 Leukocyte esterase Test strip Ql (U) Negative Negative [facility] Work Phone: Urine pHon 04-06-2021 pH (U) 7.0 [pH] [facility] Work Phone: Urine sediment bacteria coun t by microscopy (number/high power field)on 04-06-2021 Bacteria LM.HPF (Urine sed) [#/Area] 0 /[HPF] None Seen [facility] Work Phone: Urine specific gravity measu rementon 04-06-2021 Specific gravity (U) [Rel density] 1.005 [facility] Work Phone: Urobilinogen Auto test strip Ql (U)on 04-06-2021 Urobilinogen Ql (U) Normal mg/dl Normal [facility] Work Phone: XR ASP/INJ HIP JT/BURSA LTon 06-24-2017 XR [...] Kerma: 30.8 mGyDose Area Product (DAP): 0.0 mGy*[id number] time: 0:10 min:sec . 5 cc of 1% lidocaine was infiltrated for local anesthesia.COMPARISON : NoneRESULT: 22-gauge spinal needle tip was placed into the synovial space of the left hip under guidance of fluoroscopy. Needle tip position was verified by injection of 2 cc of Omnipaque 240 contrast material, recorded on permanent radiographs. 2 cc of Kenalog and 3 cc infrahepatic and were injected.IMPRESSION: Left hip injection as detailedTranscription ist: PSCB Transcribe Date/Time: Jun 24 2017 4:10PDictated by : BENJI MORIN MDThis examination was interpreted and the report reviewed and electronically signed by: BENJI MORIN MD on Jun 24 2017 4:12PM [id number] [facility] PROGRESSon 06-22-2017 PROGRESS HNO ID: [id number]: Ciera (Ct) ARNOLD Leslieervice: (none)Author Type: Clinical TechnicianType: Progress NotesFiled: 06/22/2017 10:29 AMNote Text:NAME:Eve Krueger PatsolicDATE: June 22, 2017CCF#: [id number] X-Ray and Hip LEFT X-Ray COMPLETEDTECH ID SIGN: MARIANO RIZZO [facility] XR HIP 3V PELV+ AP/LAT LTon 06-22-2017 [...] lower lumbar spine are evident.IMPRESSION: Mild degenerative changesTranscriptioni st: PSCB Transcribe Date/Time: Jun 22 2017 12:47PDictated by : ROSALINA CALLOWAY MDThis examination was interpreted and the report reviewed and electronically signed by: ROSALINA CALLOWAY MD on Jun 22 2017 12:48PM [id number] [facility] Vital Signs Date Time Vital Sign Value Performing Clinician Faci mariel 04-27-2023 08:29-0500 Body height 157.[address] Ross Benites Work Phone: [facility] 04-27-2023 08:29-0500 Body mass index (BMI) [Ratio] 25.9 kg/m2 Dr. Ross Benites Work Phone: [facility] 04-27-2023 08:29-0500 Body weight 64.[address] Ross Benites Work Phone: [facility] 04-07-2021 09:42-0500 Body temperature 98 [degF] Dr. Ross Benites Work Phone: [facility] Work Phone: 04-07-2021 09:42-0500 Diastolic blood pressure 55 mm[Hg] Dr. Ross Benites Work Phone: [facility] Work Phone: 04-07-2021 09:42-0500 Heart rate 60 /min Dr. Ross Benites Work Phone: [facility] Work Phone: 04-07-2021 09:42-0500 Respiratory rate 16 /min Dr. Ross Benites Work Phone: [facility] Work Phone: 04-07-2021 09:42-0500 Systolic blood pressure 113 mm[Hg] Dr. Ross Benites Work Phone: [facility] Work Phone: 04-07-2021 07:49-0500 SaO2% (BldA) [Mass fraction] 98 % Dr. Ross Benites Work Phone: [facility] Work Phone: 04-07-2021 04:02-0500 Body weight 50.[address] Ross Benites Work Phone: [facility] Work Phone: 04-06-2021 15:41-0500 Body height 157.[address] Ross Benites Work Phone: [facility] Work Phone: 04-06-2021 15:41-0500 Body mass index (BMI) [Ratio] 20.2 kg/m2 Dr. Ross Benites Work Phone: [facility] Work Phone: Encounters Encounter Date Encounter Type Care Provider Facility Start: 05-04-2024 End: 05-04-2024 ambulatory Ross Chi Kamari Facility:[facility] Start: 01-20-2024 End: 01-20-2024 ambulatory Ross Chi Kamari Facility:[facility] Start: 12-15-2023 End: 12-15-2023 ambulatory Ross Chi Kamari Facility:[facility] Start: 10-10-2023 End: 10-10-2023 ambulatory Ross Chi Kamari Facility:[facility] Start: 10-10-2023 End: 10-10-2023 ambulatory Ross Chi Kamari Facility:[facility] Start: 07-29-2023 End: 07-29-[address] Ross Benites Work Phone: [facility] Work Phone: Start: 07-29-2023 End: 07-29-[address] Ross Benites Work Phone: [facility] Work Phone: Start: 07-29-2023 End: 07-29-2023 ambulatory Ross Layo Kamari Facility:[facility] Start: 07-25-[address] Ross estevez Work Phone: [facility] Work Phone: Start: 07-25-2023 End: 07-25-2023 ambulatory Ross Layo Kamari Facility:[facility] Start: 04-27-2023 End: 04-27-[address] Ross Benites Work Phone: [facility], Fluent [place] Office 3rd Flr Start: 04-27-2023 End: 04-27-[address] Ross Benites Work Phone: [facility] Work Phone: Start: 10-20-2022 End: 10-20-2022 ambulatory [facility] Work Phone: Start: 10-20-2022 End: 10-20-2022 Patient encounter procedure [facility] Phy Office 3rd Flr Start: 04-22-2022 End: 04-22-[address] Ross Benites Work Phone: [facility] Work Phone: Start: 04-22-2022 End: 04-22-[address] [facility] Start: 04-05-2022 End: 04-05-[address] Ross Benites Work Phone: [facility] Start: 01-19-2022 End: 01-19-2022 ambulatory [facility] Work Phone: Start: 01-19-2022 End: 01-19-2022 [facility] Start: 10-14-2021 End: 10-14-2021 [facility] Start: 07-21-2021 End: 07-21-[address] [facility] Start: 04-21-2021 End: 04-21-[address] [facility]itse [facility] Start: 04-07-2021 Non-patient / Non-visit Dr. Saeid Benites Work Phone: [facility] Start: 04-06-2021 End: 04-07-2021 Evaluation and management of inpatient Dr. Ross [facility]ites [facility] Start: 05-02-2020 End: 05-02-2020 Patient encounter procedure Dona Bermudez Work Phone: COVID Vaccine Start: 06-24-2017 Ambulatory [facility] Start: 06-22-2017 End: 06-22-2017 Ambulatory [facility] Procedures Date Procedure Procedure Detail Performing Clinician Start: 07-25-[address] Ross dean Work Phone: Start: 04-27-2023 Radiologic examinati on of knee Dr. Ross Benites Work Phone: Start: 04-05-2022 X-ray of lumbar spin e, two or three views Dr. Ross Benites Work Phone: Start: 04-05-2022 Radiologic examinati on of knee Dr. Ross Benites Work Phone: Start: 04-07-2021 CT of head without contrast Dr. Ross Benites Work Phone: Start: 04-06-2021 MRI of brain without contrast Dr. Ross Benites Work Phone: Start: 04-06-2021 SARS-CoV-2 Antigen (Rapid) Dr. Ross Benites Work Phone: Start: 04-06-2021 CT angiography of he ad and neck Dr. Ross Benites Work Phone: Start: 11-12-2016 Colonoscopy Dona jenkins Plan of Treatment Date Care Activity Detail Author Start: 06-29-2023 Patient referral [facility] Work Phone: Start: 04-05-2022 Patient referral [facility] Work Phone: Start: 02-01-2022 DIABETES SCREEN DIABETES SCREEN [facility] Start: 01-30-2022 Urine microalbumin profile DTAP,TDAP,TD (2 - Td) [facility] Start: 11-12-2021 Screening for malign ant neoplasm of colon [facility] Start: 11-27-2019 Influenza vaccination INFLUENZA (#1) [facility] Start: 2006 ADVANCE DIRECTIVE DISCUSSION ADVANCE DIRECTIVE DISCUSSION [facility] Start: 07-24-1991 Screening for malign ant neoplasm of colon [facility] Start: 07-24-1991 SHINGRIX VACCINE (1 of 2) SHINGRIX VACCINE (1 of 2) [facility] Start: 07-24-1959 HEPATITIS C SCREENING HEPATITIS C [facility] Patient referral [facility] Work Phone: End: 07-01-2020 SARS-COVID VACCINE 1ST DOSE APPT SARS-COVID VACCINE 1ST DOSE APPT Procedures Routine 1 Occurrences starting 05/02/2020 until 07/01/2020 [facility] Comment on above: 1 Occurrences starti ng 05/02/2020 until 07/01/2020 Immunizations Immunization Date Immunization Notes Care Provider Karin hair 12-26-2020 Covid ([employer]) Dr. Ross Benites Work Phone: [facility] 12-26-[address] Ross Benites Work Phone: [facility] 06-05-2020 Covid ([employer]) Dr. Ross Benites Work Phone: [facility] 01-13-2019 influenza, high dose seasonal, preservative-free [facility] 12-26-[address] Ross Benites Work Phone: [facility] 01-13-2018 influenza, seasonal, injectable [facility] 12-26-[address] Ross Benites Work Phone: [facility] 12-14-2016 influenza, high dose seasonal, preservative-free [facility] 01-15-2014 influenza, seasonal, injectable [facility] 01-15-2014 pneumococcal conjuga te vaccine, 13 valent [facility] 03-23-2013 influenza virus vacc ine, unspecified formulation [facility] 01-31-2012 tetanus toxoid, redu monie diphtheria toxoid, and acellular pertussis vaccine, adsorbed [facility] 01-06-2012 influenza virus vacc ine, unspecified formulation [facility] 10-03-2006 pneumococcal polysaccharide vaccine, 23 valent [facility] 10-03-2006 tetanus and diphther ia toxoids, adsorbed, preservative free, for adult use (2 Lf of tetanus toxoid and 2 Lf of diphtheria toxoid) [facility] Payers Date Payer Category Payer Unknown [id number] 2023 Self-pay [id number] 2023 Unknown [id number] 2018 Private Health Insurance [facility] AARP SUPPLEMENT [id number] 2018-Present Indemnity [id number] 2006 Medicare MEDICARE MEDICAR E A AND B [id number] 2006-Present [place] Medicare [id number] Medicare [id number] Medicare [id number] Medicare MEDICARE PART A B [id number] Unknown [id number] Unknown [id number] Unknown [id number] Unknown [id number] Unknown [id number] Unknown [id number] Unknown [id number] Unknown [id number] Social History Date Type Detail Facility Start: 02-01-2019 Tobacco smoking stat us MNIS Never smoker [facility] Start: 02-01-2019 Tobacco use and exposure Never used [facility] Start: 02-01-2019 Alcohol intake Current drinke r of alcohol (finding) [facility] Start: 10-03-2006 Alcohol Comment Occasional win e with dinner [facility] Start: 1940 Sex Assigned At Not on file [facility] Start: 04-06-2021 End: 04-27-2023 Tobacco smoking status MNIS Unknown if ever smoked [facility] Start: 04-11-2019 Rare [facility] Start: 04-11-2019 None [facility] Start: 04-11-2019 Alone [facility] Start: 04-11-2019 Non-smoker [facility] Start: 1940 Sex Assigned At Female [facility] Medical Equipment Procedure Code Equipment Code Equipment Origin al Text Equipment Identifier Dates Total knee replacement CEMENT,HV SIMPLEX FDA Start: 04-10-2019 Total knee replacement CEMENT,HV SIMPLEX FDA Start: 04-10-2019 Total knee replacement asymmetric patella FDA Start: 04-10-2019 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 Start: 04-10-2019 Total knee replacement primary tibial basbeplate FDA Start: 04-10-2019 Total knee replacement tibial bearing insert FDA Start: 04-10-2019 Total knee replacement CEMENT,HV SIMPLEX FDA Start: 04-10-2019 Total knee replacement CEMENT,HV SIMPLEX FDA Start: 04-10-2019 Total knee replacement asymmetric patella FDA Start: 04-10-2019 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 Start: 04-10-2019 Total knee replacement primary tibial basbeplate FDA Start: 04-10-2019 Total knee replacement tibial bearing insert FDA Start: 04-10-2019 Total knee replacement CEMENT,HV SIMPLEX FDA Start: 04-10-2019 Total knee replacement CEMENT,HV SIMPLEX FDA Start: 04-10-2019 Total knee replacement asymmetric patella FDA Start: 04-10-2019 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 Start: 04-10-2019 Total knee replacement primary tibial basbeplate FDA Start: 04-10-2019 Total knee replacement tibial bearing insert FDA Start: 04-10-2019 Total knee replacement CEMENT,HV SIMPLEX FDA Start: 04-10-2019 Total knee replacement CEMENT,HV SIMPLEX FDA Start: 04-10-2019 Total knee replacement asymmetric patella FDA Start: 04-10-2019 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 Start: 04-10-2019 Total knee replacement primary tibial basbeplate FDA Start: 04-10-2019 Total knee replacement tibial bearing insert FDA Start: 04-10-2019 Total knee replacement CEMENT,HV SIMPLEX FDA Start: 04-10-2019 Total knee replacement CEMENT,HV SIMPLEX FDA Start: 04-10-2019 Total knee replacement asymmetric patella FDA Start: 04-10-2019 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 Start: 04-10-2019 Total knee replacement primary tibial basbeplate FDA Start: 04-10-2019 Total knee replacement tibial bearing insert FDA Start: 04-10-2019 Total knee replacement CEMENT,HV SIMPLEX FDA Start: 04-10-2019 Total knee replacement CEMENT,HV SIMPLEX FDA Start: 04-10-2019 Total knee replacement asymmetric patella FDA Start: 04-10-2019 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 Start: 04-10-2019 Total knee replacement primary tibial basbeplate FDA Start: 04-10-2019 Total knee replacement tibial bearing insert FDA Start: 04-10-2019 3.5 MM CORTEX SCREW FDA Start : 08-29-2018 3.5 MM CORTEX SCREW FDA Start : 08-29-2018 3.5 MM CORTEX SCREW FDA Start : 08-29-2018 3.5 MM LOCKING SCREW FDA Start: 08-29-2018 3.5MM PROXIMAL HUMERUS PLATE FDA Start: 08-29-2018 3.5 MM CORTEX SCREW FDA Start : 08-29-2018 3.5 MM CORTEX SCREW FDA Start : 08-29-2018 3.5 MM CORTEX SCREW FDA Start : 08-29-2018 3.5 MM LOCKING SCREW FDA Start: 08-29-2018 3.5MM PROXIMAL HUMERUS PLATE FDA Start: 08-29-2018 3.5 MM CORTEX SCREW FDA Start : 08-29-2018 3.5 MM CORTEX SCREW FDA Start : 08-29-2018 3.5 MM CORTEX SCREW FDA Start : 08-29-2018 3.5 MM LOCKING SCREW FDA Start: 08-29-2018 3.5MM PROXIMAL HUMERUS PLATE FDA Start: 08-29-2018 3.5 MM CORTEX SCREW FDA Start : 08-29-2018 3.5 MM CORTEX SCREW FDA Start : 08-29-2018 3.5 MM CORTEX SCREW FDA Start : 08-29-2018 3.5 MM LOCKING SCREW FDA Start: 08-29-2018 3.5MM PROXIMAL HUMERUS PLATE FDA Start: 08-29-2018 3.5 MM CORTEX SCREW FDA Start : 08-29-2018 3.5 MM CORTEX SCREW FDA Start : 08-29-2018 3.5 MM CORTEX SCREW FDA Start : 08-29-2018 3.5 MM LOCKING SCREW FDA Start: 08-29-2018 3.5MM PROXIMAL HUMERUS PLATE FDA Start: 08-29-2018 3.5 MM CORTEX SCREW FDA Start : 08-29-2018 3.5 MM CORTEX SCREW FDA Start : 08-29-2018 3.5 MM CORTEX SCREW FDA Start : 08-29-2018 3.5 MM LOCKING SCREW FDA Start: 08-29-2018 3.5MM PROXIMAL HUMERUS PLATE FDA Start: 08-29-2018 Functional Status Date Assessment Result Facility 04-07-2021 Functional status Activity Abili ty With Assist of 1 [facility] Work Phone: 04-06-2021 Functional status Patient Activity Bedres t [facility] Work Phone: Mental Status Date Assessment Result Facility 04-07-2021 Cognitive function Voice/Name [facility] Work Phone: Evaluation note Note Date & Type Note Facility Evaluation note No assessment information availa [facility] Work Phone: Evaluation note Note Date & Type Note Facility Evaluation note Diagnosis Onset Date DDD (degenerative disc disease), lumbar acute Leg muscle spasm acute Osteoarthritis of right knee acute Radicular leg pain [facility] Work Phone: Evaluation note Note Date & Type Note Facility Evaluation note Diagnosis Onset Date DDD (degenerative disc disease), lumbar acute Osteoarthritis of right knee acute Radicular leg pain [facility] Work Phone: Summary Purpose Family History No Family History Records Found Relationship Condition Age at Onset Recorded Date/T nahid mother Alzheimer's disease Unknown father Myocardial infarction Unknown sister Disorder of thyroid Unknown brother Rheumatoid arthritis Unknown Advance Directives No Advanced Directives Records FoundDocuments on File Type Date Recorded Patient Foot Cutter Expl anation Advance Directive(s) Advance Directive(s) 05/22/2018 9:14 AM Advance Directive(s) 03/17/2018 8:20 AM Advance Directive(s) 01/25/2018 11:07 AM Advance Directive(s) 06/22/2017 10:14 AM Advance Directive(s) 05/30/2017 11:38 AM Advance Directive(s) 11/12/2016 8:14 AM Advance Directive Response Recorded Date/ Time Living Will Yes April 06 5:50pm Power of Toll Bridge Attendant Yes April 06, 2021 5:50pm Advance Directive Response Recorded Date/ Time Living Will Yes April 06 4:50pm Power of Toll Bridge Attendant Yes April 06, 2021 4:50pm History of Past Illness Problem Noted Date Resolved Date Tear of medial cartilage or meniscus of knee, cu rrent 02/06/2014 11/13/2014 Lumbar stenosis 11/21/2013 01/15/2014 Lumbar radiculitis 11/21/2013 01/15/2014 Lumbosacral spondylosis without myelopathy 11/2101/15/2014 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) Chief Complaint and Reason for Visit Chief Complaint VERTIGO Vertigo Chief Complaint RIGHT KNEE Room 2 LABWORK Reason for Visit DDD (degenerative di sc disease), lumbar Leg muscle spasm Osteoarthritis of right knee Radicular leg pain Chief Complaint RIGHT KNEE RM 2 LABWORK Reason for Visit DDD (degenerative di sc disease), lumbar Osteoarthritis of right knee Radicular leg pain Additional Source Comments INFORMATION SOURCE (unrecogn ized section and content) DATE CREATED AUTHOR 09/15/2017 [facility] DATE CREATED AUTHOR AUTHOR'S ORGANIZ ATION 05/23/2024 [facility] Source Comments (unrecognize d section and content) In the event this informatio n is protected by the Federal Confidentiality of Alcohol and Drug Abuse Patient Records regulations: The Federal rules restrict any use of the information to criminally investigate or prosecute any alcohol or drug abuse patient.[facility] Goals (unrecognized section and content) Goals may be documented in a n alternate sectionGoals may be documented in an alternate sectionGoals may be documented in an alternate sectionGoals may be documented in an alternate sectionGoals may be documented in an alternate sectionGoals may be documented in an alternate section Care Teams (unrecognized sec tion and content) Team Status: Active Member Role Status Dates Ross Benites MD Family Provider Active Dr. Ross Benites MD Primary Care Provider Active Team Status: Inactive Member Role Status Dates Dr. Ross Benites MD Primary Care Provider, Referring Provider Active Dr. Ryan Vanessa DO Attending Provider Active Team Status: Inactive Member Role Status Dates Dr. Ross Benites MD Primary Care Provider Active Dr. Lane Webb MD Attending Provider Active Team Status: Inactive Member Role Status Dates Dr. Ross Benites MD Primary Care Provider, Attending Provider Active Team Status: Active Member Role Status Dates Ross ENNIS MD Family Provider Active Dr. Ross Benites MD Primary Care Provider Active Team Status: Active Member Role Status Dates Dr. Ross Benites MD Primary Care Provider Active Ross ENNIS MD Attending Provider Active Team Status: Inactive Member Role Status Dates Dr. Ross Benites MD Primary Care Provi arias, Attending Provider, Referring Provider Active FOR RECORDS PERTAINING TO PATIENTS WHO ARE [...] BE BASED ON THE PRIMARY CLINICAL RECORDS. nap- Naturally Attached Parents [facility]. provides no warranty or guarantee of the accuracy or completeness of information in this document.
--- NOTE | 2024-10-08 01:06 | ED.RN ---
Nurse from facility called for update, all questions answered, informed pt would be coming back soon by private car.
--- NOTE | 2024-10-08 01:49 | EX.ED.DYSGE1 ---
HPI History of Present Illness Chief Complaint: Head Injury Informant: family and SNF Narrative Narrative: Patient is an 84-year-old female with past medical history of dementia who stays in the memory care unit of the [facility]. Son states that she has severe agitation secondary to the dementia. This evening she tried to get up and ambulate because of her agitation and reportedly fell striking her head. She sustained a laceration and with concern for underlying head injury and need for closure she was sent in for evaluation. According to the son the patient is acting at her baseline mental status The patient does not offer further history based on her dementia [facility] Medical History Vertigo Dementia GERD (gastroesophageal reflux disease) Osteoarthritis Depression Home Medications ?Medication ?Instructions ?Recorded ?Last Taken ?Type donepezil 10 mg tablet 10 mg PO DINNER MEMORY 04/06/21 04/05/21 History gabapentin 100 mg capsule 100 mg PO DAILY NERVE PAIN 04/06/21 04/06/21 History levocetirizine 5 mg tablet 5 mg PO DAILY ALLERGIES 04/06/21 04/06/21 History memantine 10 mg tablet 10 mg PO BID MEMORY 04/06/21 04/06/21 History mirtazapine 15 mg tablet 15 mg PO QHS SLEEP 04/06/21 04/05/21 History cholecalciferol (vitamin D3) 25 25 mcg PO DAILY 04/05/22 Unknown History mcg (1,000 unit) capsule cyclobenzaprine 10 mg tablet 10 mg PO TID PRN muscle spasm #30 04/05/22 Unknown Rx tabs naproxen sodium 220 mg capsule 220 mg PO BID PRN 04/05/22 Unknown History (Aleve) meclizine 25 mg tablet 25 mg PO DAILY PRN 10/10/23 Unknown History Allergy/AdvReac Type Severity Reaction Status Date / Time acetaminophen (From Tylenol) Allergy Chest Verified 10/07/24 23:09 tightness Family History Mother Alzheimer disease Father Myocardial infarction Sister Thyroid disorder Brother Rheumatoid arthritis Surgical History Hx of hand surgery S/P shoulder surgery S/P appendectomy Total knee replacement status Social History (Reviewed 10/10/23 @ 13:24 by Leonor Trinidad housing: other details: Her son has intermittently been residing with her to assist. Smoking Status: Never smoker alcohol intake: current alcohol intake frequency: holidays/special occasions only substance use type: does not use ROS ROS ED ROS Narrative Unable to obtain review of systems secondary to dementia Review of Systems ROS Unobtainable: due to mental status EXAM Physical Exam Const Vital Signs: 10/07/24 23:04 10/07/24 23:11 Temperature 98 F Temperature Source Oral Pulse Rate 78 Respiratory Rate 18 Respiratory Effort Normal Non-Labored Blood Pressure 145/91 H Blood Pressure Mean 109 Pulse Ox 98 Oxygen Delivery Method Room Air Room Air Positive well nourished and well developed General Appearance ED: well developed HEENT Reports dry mucous membranes HEENT Narrative: Patient has a 2 x 3 hematoma to the occipital portion of the scalp and in the center is a 2.5 cm linear subcutaneous layer deep laceration with minimal ooze of blood and no foreign body No associated depressed or basilar skull fracture findings Mouth ED: Yes dry mucous membranes Mouth: dry mucous membranes Eyes PERRL and EOMs intact bilaterally Neck supple Neck Narrative: No bony deformity or step-off of the cervical spine no midline tenderness to palpation Chest Wall palpation of chest normal Resp normal respiratory effort and clear to auscultation bilaterally Resp Narrative: Breath sounds are diminished throughout but overall clear to auscultation without signs of respiratory distress Cardio regular rate and regular rhythm GI normal to inspection, nondistended, normoactive bowel sounds, non-tender, non-distended and no masses Auscultation: normoactive bowel sounds Palpation: soft Back/Spine Back/Spine Narrative: No bony deformity or step-off of the thoracic or lumbar spine no midline tenderness to palpation Extremity normal to inspection Extremity Narrative: Pelvis is stable there is no shortening or external rotation of either lower extremity No signs of long bone injury such as bony deformity or joint effusion All compartments are soft and compressible going against compartment syndrome Neuro CN's II-XII intact bilaterally Neuro Narrative: Patient is awake and at her baseline mental status She is able to move all extremities at baseline as well No obvious focal neurologic deficit Sensorium / Orientation: alert Psych Psych Narrative: Patient has a flat affect Skin Skin Narrative: Hematoma with scalp laceration over the occipital portion of the skull as documented above MDM MDM MDM Narrative Medical decision making narrative: Patient presented to the ER hypertensive but otherwise with stable vitals. According to son and [facility] she is at her baseline mental status. With physical exam showing trauma to the occipital portion of the skull she does have concern for skull fracture versus traumatic subarachnoid or subdural hemorrhage. There is no midline pain of the cervical spine and she can move her neck in all directions but there is still potential for a cervical compression fracture or spondylolisthesis. Therefore CTs of the head and neck were obtained. Imaging studies were negative for underlying trauma. Therefore the patient had the wound closed with nemo as documented below. As she is awake and at baseline mental status with stable vitals and workup reveals no signs of internal trauma she is otherwise safe for discharge now the wound has been closed Patient had her scalp laceration cleaned with chlorhexidine. It was anesthetized with 5 mL of 2% lidocaine with epinephrine and local fashion. Wound was copiously irrigated with normal saline. Then 6 nemo were placed in the wound to bringing the edges together well with good approximation. Patient tolerated the procedure well without complication History & Record Review Discussion w/independent historian: Family Radiography Diagnostic Testing: Clinical Impression(s) from Imaging Studies Brain CT 10/07/24 23:40 IMPRESSION: No acute intracranial findings. Reading Location: [facility] 10/07/24 23:40 IMPRESSION: No Reading Location: [facility] Discharge Plan Triage Chief Complaint: Head Injury ED Provider: Matias Oneil Dx/Rx/DC Orders Clinical Impression: Laceration of occipital region of scalp, Head injury, Dementia Instructions: ED Head Injury (Adult), ED Laceration Scalp Stitches or [place] Prescriptions: No Action cholecalciferol (vitamin D3) 25 mcg (1,000 unit) capsule 25 mcg PO DAILY naproxen sodium [Aleve] 220 mg capsule 220 mg PO BID PRN cyclobenzaprine 10 mg tablet 10 mg PO TID PRN (Reason: muscle spasm) Qty: 30 0RF meclizine 25 mg tablet 25 mg PO DAILY PRN donepezil 10 mg Tablet 10 mg PO DINNER mirtazapine 15 mg Tablet 15 mg PO QHS memantine 10 mg Tablet 10 mg PO BID levocetirizine 5 mg Tablet 5 mg PO DAILY gabapentin 100 MG capsule 100 mg PO DAILY Primary Care Provider: Bora Dykes Referrals: Bora Dykes MD [Primary Care Provider] - Activity Restrictions/Additional Instructions: Your CT scan showed no sign of skull fracture or brain bleed or cervical spine injury. Return to the ER or see your family doctor in 10 to 14 days for staple removal Print Language: Ukrainian Disposition Disposition: Home, Self Care Discharge Date/Time: 10/08/24 02:17
[2024-10-08] MEDS: Lidocaine 2% /Epi 1:100 (20ml) 20 ML VIAL INFILT (02:12)
[2024-10-08 02:16] VITALS: BP 142/60; PULSE 82; RESP 18; TEMP 36.6; O2SAT 96
--- NOTE | 2024-10-08 02:16 | ED.RN ---
report called to lissa.
== END 2024-10-08 02:17 | disposition skilled nursing facility (03) ==
PROVIDERS: Emergency Provider Emergency Medicine; PCP Family Medicine; Visit Provider Emergency Medicine
DX: S01.01XA Laceration without foreign body of scalp, initial encounter (principal); F03.911 Unspecified dementia, unspecified severity, with agitation; W18.39XA Other fall on same level, initial encounter; Y92.129 Unspecified place in nursing home as the place of occurrence of the external cause; Z79.899 Other long term (current) drug therapy
CPT/HCPCS: 12001; 70450; 72125; 99285